=== PATIENT | male | born 1940 | race Caucasian/White ===

== ENCOUNTER 2020-07-29 14:27 | Emergency (ER) | payer MEDICARE, SELFPAY ==
--- NOTE | ~2020-07-29 | CT_ITS ---
EXAMINATION: CT HIP WITHOUT CONTRAST, LEFT CLINICAL INFORMATION: Fall with left hip pain. X-ray negative. COMPARISON: None TECHNIQUE: 2 mm thin axial and reformatted 1 mm thin sagittal and coronal images of left hip were obtained. This CT examination was performed using dose optimization techniques as appropriate, variously including the following: *Automated exposure control *Adjustment of mA and/or kV according to patient size (this includes techniques or standardized protocols for targeted exams where dose is matched to indication/reason for exam; i.e. extremities or head) *Use of iterative reconstruction technique DLP: 947 mGy-cm FINDINGS: There is anterior fusion of the left SI joint. No fracture seen involving the left sacrum or the left iliac bone. Punctate bone island seen in the left anterior iliac bone. The left hip joint space is normal. There is no visible fracture or dislocation involving the left hip joint. There is periarticular posterior spurring no abnormal joint effusion seen. However there is diffuse osteopenia in the left femoral head and proximal femur. The soft tissues are unremarkable. CT/CT hip LT wo con IMPRESSION: No visible acute fracture or dislocation left hip joint or left pelvis. Diffuse osteopenia.
--- NOTE | ~2020-07-29 | XR_ITS ---
EXAMINATION: XR SHOULDER, RIGHT CLINICAL INFORMATION: Fall COMPARISON: None TECHNIQUE: Two views of the right shoulder. FINDINGS: No fracture or dislocation. The glenohumeral joint is well aligned. Mild narrowing of the joint space with osteophyte formation. Mild hypertrophic degenerative change of the acromioclavicular joint. Minimal soft tissue calcification adjacent to the humeral greater tuberosity. The visualized ribs are intact. The right lung is clear. Status post median sternotomy. XR/XR shoulder RT min 2V IMPRESSION: Mild degenerative changes. There is possibly mild calcific tendinosis of the rotator cuff. No acute abnormality.
--- NOTE | ~2020-07-29 | XR_ITS ---
EXAMINATION: XR CHEST CLINICAL INFORMATION: Fall COMPARISON: None TECHNIQUE: Frontal view of the chest was obtained. FINDINGS: Median sternotomy wires appear intact. Lung volumes are low. Surgical clips overlie the mediastinum. Blunting at the left costophrenic angle noted. No edema. No dense consolidation. No pneumothorax. The cardiomediastinal silhouette is prominent. No acute osseous abnormality. XR/XR chest 1V IMPRESSION: Blunting of the left costophrenic angle could be associated with small pleural effusion or pleural thickening. No displaced fractures are seen.
--- NOTE | ~2020-07-29 | CT_ITS ---
EXAMINATION: HEAD AND CERVICAL SPINE CT WITHOUT CONTRAST CLINICAL INFORMATION: Fall COMPARISON: None TECHNIQUE: Axial images through the head and cervical spine without contrast. Sagittal and coronal reconstructions on the technologist workstation were performed. Patient dose 897+4-6 mg/cm. This CT examination was performed using dose optimization techniques as appropriate, variously including the following: *Automated exposure control *Adjustment of mA and/or kV according to patient size (this includes techniques or standardized protocols for targeted exams where dose is matched to indication/reason for exam; i.e. extremities or head) *Use of iterative reconstruction technique FINDINGS: Head CT: There is no evidence of an extra-axial collection. There is no evidence of intra-axial or extra-axial hemorrhage. The ventricles and extra-axial CSF spaces are prominent suggestive of generalized atrophy. There is nonspecific periventricular white matter disease. No mass, mass effect or infarct is seen. Review of bone windows demonstrates no skull fracture. Visualized paranasal sinuses, mastoid air cells and middle ears are clear. Cervical spine CT: There is slight head tilt to the right. Bone alignment is otherwise normal. No fracture or dislocation is seen. There is evidence of severe multilevel degenerative spondylosis and degenerative disc disease greatest at C4-C5 C5-C6 and C6-C7 where there is significant spinal stenosis. There is bilateral multilevel facet arthritis. There is soft tissue calcification or ossification of the posterior nodule ligament. Prevertebral soft tissues are normal. There is bilateral carotid calcification. Visualized lung apices are clear. CT/CT cervical spine wo con IMPRESSION: Head CT: No acute findings. Generalized atrophy and nonspecific periventricular white matter disease. Cervical spine: No fracture or dislocation. Severe degenerative changes.
--- NOTE | ~2020-07-29 | CT_ITS ---
EXAMINATION: CT LUMBAR SPINE WITHOUT CONTRAST CLINICAL INFORMATION: Pain. Fall. COMPARISON: None TECHNIQUE: Helical non-contrast CT images were obtained through the lumbar spine without contrast. Multiplanar reformats were rendered and reviewed. This CT examination was performed using dose optimization techniques as appropriate, variously including the following: *Automated exposure control *Adjustment of mA and/or kV according to patient size (this includes techniques or standardized protocols for targeted exams where dose is matched to indication/reason for exam; i.e. extremities or head) *Use of iterative reconstruction technique DLP: 947 mGy-cm FINDINGS: The lumbar vertebral bodies maintain normal heights. There is mild grade 1 anterolisthesis of L4 on L5. There is multilevel intervertebral disc height loss most advanced at L4-L5 and L5-S1. No acute fracture is seen. Gallbladder calculi are present. Atheromatous changes are seen throughout the abdominal aorta and branch vessels. The urinary bladder is significantly distended. The sacroiliac joints demonstrate degenerative changes with bridging osteophytes. A focus of sclerosis is seen within the right iliac bone. SPINAL LEVELS: L1-L2: No posterior disc abnormality. No spinal canal or neural foraminal stenosis. L2-L3: Disc bulging. No spinal canal or neural foraminal stenosis. L3-L4: Disc bulging with ligamentum flavum infolding. Mild to moderate bilateral neural foraminal stenosis. No spinal canal stenosis. L4-L5: Grade 1 anterolisthesis. Disc bulging with facet arthropathy resulting in severe bilateral neural foraminal stenosis with bilateral L4 nerve root compression and approximately moderate spinal canal stenosis. L5-S1: Posterior decompression changes. Disc bulging with facet arthropathy resulting in severe bilateral neural foraminal stenosis with bilateral L5 nerve root compression. CT/CT lumbar spine wo con IMPRESSION: No fracture or traumatic listhesis. Grade 1 anterolisthesis of L4 on L5. Advanced spondylotic changes seen in the lower lumbar spine with severe bilateral neural foraminal stenosis seen at the L4-L5 and L5-S1 levels. Spinal canal stenosis appears moderate at L4-L5.
--- NOTE | ~2020-07-29 | XR_ITS ---
EXAMINATION: XR HIP, LEFT CLINICAL INFORMATION: Fall COMPARISON: None TECHNIQUE: Two views of the left hip. Frontal view of the pelvis. FINDINGS: There is no fracture or dislocation. The hips are well aligned. Mild degenerative changes of both hips with narrowing and osteophyte formation. Subchondral sclerosis present. The pelvic rim is intact. The sacroiliac joints and pubic symphysis are intact. Degenerative changes of the lower lumbar spine. Vascular calcifications are noted. XR/XR hip LT min 2V IMPRESSION: No acute fracture or malalignment. Mild degenerative change.
[2020-07-29 14:36] VITALS: BP 180/88; PULSE 71; RESP 18; TEMP 37.1; O2SAT 99; BMI 27.2
--- NOTE | 2020-07-29 14:37 | ED_ITS ---
HPI - Extremity Injury (Lower) General Chief Complaint: Fall Stated Complaint: L HIP PAIN S/P EXERCISING Time Seen by Provider: 07/29/20 14:36 Source: patient and EMS Mode of arrival: EMS Limitations: no limitations History of Present Illness HPI Narrative: 80 yo male no AC therapy was doing home PT and due to parkinson's lost his balance and hit the floor no LOC - c/o pain to head/neck, R shoulder, L hip fall was prior to lunch complaint: hip injury Onset (ago): hour(s) Injury: Left: hip Type of Injury: blunt Place: home Severity: moderate Relieving factors: nothing Exacerbating factors: movement Context: fall Other symptoms: none Related Data Allergies Allergy/AdvReac Type Severity Reaction Status Date / Time No Known Allergies Allergy Unverified 01/10/20 19:02 [No Known Allergies*] Review of Systems Review of Systems: Constitutional : No Fever, No Chills ENT/Mouth : No Ear Pain, No Hoarseness, No sore throat Eyes: No Eye Pain, No Swelling, No Redness, No Foreign Body Cardiovascular : No Chest Pain, No SOB Respiratory : No Cough, No Dyspnea Gastrointestinal : No Nausea, No Vomiting, No Diarrhea, No abdominal Pain Genitourinary : No Dysuria, No Hematuria Musculoskeletal : positive joint pain, No Myalgias, No Joint Swelling Skin : No Skin lacerations, No rash Neuro : No Weakness, No Numbness, No Loss of Consciousness, No Dizziness, No Headache Psych : No Anxiety/Panic, No Depression Heme/Lymph: no easy bruising, no Lymphadenopathy Endocrine : No Polyuria, No Polydipsia All other systems reviewed and are negative [facility] Past Medical History Attestation statement: The following information was validated with the patient. Medical History Basal cell carcinoma Celiac disease CHF (congestive heart failure) Diabetic acetonemia Parkinson disease Spinal stenosis Surgical History S/P triple vessel bypass Social History Social History Alcohol intake: current Alcohol intake frequency: holidays/special occasions only Alcohol type: wine Smoking Status: Former smoker Use of substances other than those prescribed or required for medical reasons: No Advance Directives: No Advance Directives Information Provided: No Physical Exam Vital Signs: Vital Signs: Last Vital Signs Temp 98.2 F 07/29/20 16:28 Pulse 86 07/29/20 16:28 Resp 18 07/29/20 16:28 BP 186/85 H 07/29/20 16:28 Pulse Ox 97 07/29/20 16:28 Body Mass Index 27.2 Appearance: Alert. Oriented X3. No acute distress. Eyes: Pupils equal, round and reactive to light. ENT: Pharynx normal. Atraumatic Neck:mild ttp along midline Neck supple. CVS: Normal heart rate and rhythm. Pulses normal. Respiratory: No respiratory distress. Breath sounds normal. Abdomen: Soft and nontender. Skin: Skin warm and dry. Normal skin color. Normal skin turgor. Extremities: No lower extremity edema. No calf ttp full ROM of L LE distal NV intac,t no obvious deformity, c/o pain to R shoulder can range, no deformity NV intact Neuro: Oriented X 3. No motor deficit. No sensory deficit. Course Course Course Narrative: c/o pain with ambulating will need CT scan to r/o occult fracture, L hip and lumbar spine CT scan ordered signed out to Dr. Waters pending imaging MDM - Extremity Injury (Lower) MDM Narrative Medical decision making narrative: 80 yo male with mechanical fall - here with isolated injuries to head/neck R shoulder and L hip - NV intact, no preceding symptoms at this time will obtain CT head/neck given age as well as shoulder and L hip xrays, defers pain medications Discharge Plan Discharge Clinical Impression: Fall, Acute hip pain
--- NOTE | 2020-07-29 14:40 | PC.NURSE ---
pt to radiology
[2020-07-29 16:28] VITALS: BP 186/85; PULSE 86; RESP 18; TEMP 36.8; O2SAT 97
--- NOTE | 2020-07-29 16:38 | PC.NURSE ---
patient a&ox3, [place] and [place], at bedside, pt oob with assist and walker in attempts to ambulate, patient had 0/10 pain until he was standing and had c/o 10/10 pain to left lower back/buttock area, patient stated it was too painful to walk, provider at bedside, pt aware he will be going for more imaging, will continue to monitor.
[2020-07-29 18:18] VITALS: BP 194/86; PULSE 77; RESP 18; TEMP 36.8; O2SAT 97
[2020-07-29] MEDS: oxyCODONE HCl Immed Release 5 MG TABLET PO (18:19)
--- NOTE | 2020-07-29 18:20 | PC.NURSE ---
patient medicated for pain per order, vss, will continue to monitor
== END 2020-07-29 20:12 | disposition home or self-care (01) ==
PROVIDERS: Emergency Provider Emergency Medicine; PCP Family Medicine
DX: G89.11 Acute pain due to trauma (principal); M25.552 Pain in left hip; M54.5 Low back pain; G20 Parkinson's disease; Z91.81 History of falling
CPT/HCPCS: 70450; 71045; 72125; 72131; 73030; 73502; 73700; 99284

== ENCOUNTER 2021-04-30 21:10 | Inpatient (IN) | payer MEDICARE, SELFPAY ==
--- NOTE | 2021-04-30 | ECG_ITS ---
Test Reason : WEAKNESS Blood Pressure : / mmHG Vent. Rate : 043 BPM Atrial Rate : 000 BPM P-R Int : 000 ms QRS Dur : 102 ms QT Int : 464 ms P-R-T Axes : 000 -12 -28 degrees QTc Int : 392 ms Atrial fibrillation with slow ventricular response Incomplete right bundle branch block Septal infarct (cited on or before 30-SEP-2018) Abnormal ECG When compared with ECG of 30-SEP-2018 08:10, Vent. rate has decreased BY 22 BPM Referred By: Karey Schmidt Electronically Signed By:JIGNA DOCKERY MD
--- NOTE | ~2021-04-30 | XR_ITS ---
EXAMINATION: XR CHEST CLINICAL INFORMATION: Cough. COMPARISON: 07/29/2020 portable chest. TECHNIQUE: Frontal view of the chest was obtained. FINDINGS: Mild blunting of the left costophrenic angle again seen. Pleural thickening laterally in the left lung is also unchanged. The right lung is clear. The heart and mediastinal structures are unremarkable. Multilevel sternotomy wires are intact. XR/XR chest 1V IMPRESSION: Mild left pleural thickening is not significantly changed compared to the previous study suggesting chronic changes. No significant new abnormality.
--- NOTE | ~2021-04-30 | XR_ITS ---
EXAMINATION: XR HIP, RIGHT CLINICAL INFORMATION: Fall with pain and weakness COMPARISON: 07/29/2020 TECHNIQUE: Frontal view the pelvis with coned frontal and frog-leg lateral views of the right hip. FINDINGS: Femoral heads are both well-seated within the respected acetabula. I do not appreciate any cortical disruption or trabecular irregularity to suggest underlying acute fracture or dislocation. There are sclerotic bony densities seen throughout the pelvis. Etiology of these are uncertain. These are more diffuse than I would typically expect just from bone islands although some of these may represent chronic bone islands when compared to the prior studies. Clinical correlation would be helpful XR/XR hip RT w PEL1V IMPRESSION: I do not appreciate any acute fracture or dislocation. Degenerative changes in the hips and lower lumbar spine. Scattered sclerotic densities seen within the bony structures. Some of these may represent bone islands of the underlying sclerotic lesions would be difficult to exclude. Clinical correlation would be recommended
--- NOTE | ~2021-04-30 | CT_ITS ---
EXAMINATION: CT HEAD WITHOUT CONTRAST CLINICAL INFORMATION: Fall. COMPARISON: 07.29.2020 TECHNIQUE: Contiguous axial imaging was performed from the skull base to vertex without intravenous administration of contrast. This CT examination was performed using dose optimization techniques as appropriate, variously including the following: *Automated exposure control *Adjustment of mA and/or kV according to patient size (this includes techniques or standardized protocols for targeted exams where dose is matched to indication/reason for exam; i.e. extremities or head) *Use of iterative reconstruction technique DLP: 1579 mGy-cm FINDINGS: There is no evidence of acute intracranial hemorrhage or territorial infarction. No abnormal mass effect or midline shift is seen. Wen to white matter differentiation is well preserved. No extra-axial fluid collections are identified. Generalized brain parenchymal volume loss. No disproportionate ventriculomegaly. Mild patchy subcortical and periventricular white matter low-attenuation changes redemonstrated, statistically related to chronic small vessel ischemic disease. Stable coarse calcification within the right consuelo, nonspecific. Cavernous carotid calcifications. The osseous structures and soft tissues are normal. The mastoid air cells and visualized portions of the paranasal sinuses are well aerated. CT/CT head/brain wo con IMPRESSION: No acute intracranial pathology.
--- NOTE | ~2021-04-30 | CT_ITS ---
EXAMINATION: CT ABDOMEN AND PELVIS WITHOUT CONTRAST CLINICAL INFORMATION: Fall. Right lower extremity weakness. COMPARISON: 09/30/2018 TECHNIQUE: Multidetector volumetric imaging was performed from the superior aspect of the liver through the pubic symphysis. Sagittal and coronal reformatted images were obtained on the technologist's workstation. This CT examination was performed using dose optimization techniques as appropriate, variously including the following: *Automated exposure control *Adjustment of mA and/or kV according to patient size (this includes techniques or standardized protocols for targeted exams where dose is matched to indication/reason for exam; i.e. extremities or head) *Use of iterative reconstruction technique DLP: 1579 mGy-cm FINDINGS: LUNG BASES: Small chronic left pleural effusion and accompanying smooth pleural thickening. There is also now a small right pleural effusion, also with smooth pleural thickening, both suggesting chronicity. Mild bronchiectatic changes within the lower lungs with accompanying bronchial wall thickening. Triple vessel coronary calcifications. LIVER, GALLBLADDER, AND BILIARY TREE: The liver is normal in size, shape, and attenuation. No focal hepatic lesion or biliary ductal dilatation is present. Cholelithiasis. PANCREAS: Unremarkable. SPLEEN: Unremarkable. ADRENAL GLANDS: Unremarkable. KIDNEYS AND URETERS: The kidneys are normal in size, shape, and attenuation. No hydronephrosis, hydroureter, or calculi seen. No perinephric stranding. BLADDER: Unremarkable. GASTROINTESTINAL TRACT: No bowel related abnormalities. ABDOMINAL WALL: No hernias. Anasarca. LYMPH NODES: Normal. VASCULAR: Aorta is atherosclerotic but normal caliber. PELVIC VISCERA: Unremarkable. OSSEOUS STRUCTURES: No acute or suspicious osseous abnormalities. Severe degenerative changes present throughout the imaged spine. Posterior laminectomy at L5. Moderate bilateral hip arthrosis. CT/CT abdomen pelvis wo con IMPRESSION: * No acute findings within the abdomen or pelvis. * Cholelithiasis. * Mild anasarca. * Small bilateral pleural effusions, likely chronic Fleischner guidelines were followed.
[2021-04-30 21:19] VITALS: BP 139/80; PULSE 52; O2SAT 96
[2021-04-30 21:30] VITALS: BP 178/86; PULSE 50; RESP 18; TEMP 36.4; O2SAT 98; BMI 27.1
[2021-04-30 21:40] VITALS: BP 175/58; PULSE 55; RESP 20; TEMP 37.1; O2SAT 96
--- NOTE | 2021-04-30 21:51 | ED_ITS ---
HPI - Weakness General Chief complaint: Weakness Stated complaint: weakness Time Seen by Provider: 04/30/21 21:51 Source: patient Mode of arrival: EMS History of Present Illness HPI Narrative: 81-year-old male with multiple medical comorbidities presents via EMS after 2 falls earlier in the day without head strike and patient is not on blood thinners and says that he was fine until later on this evening when his helped him change for bed, he stood to use his walker but then states that he was unable to walk over to his recliner due to decreased ability to move the right lower extremity. Patient otherwise has full range of motion in both lower extremities when lying flat in bed. Patient reports that he is receive the COVID-19 vaccine as well as the booster, Moderna. Related Data Home Medications Medication Instructions Recorded Confirmed aspirin 81 mg tablet 81 mg PO DAILY 05/01/21 05/01/21 carbidopa 100 mg PO BID 05/01/21 05/01/21 carbidopa 25 mg-levodopa 100 mg 2 tab PO 5XD 05/01/21 05/01/21 tablet carvedilol 25 mg tablet 1 tab PO BID 05/01/21 05/01/21 digoxin 125 mcg (0.125 mg) tablet 125 mcg PO DAILY 05/01/21 05/01/21 doxazosin 4 mg tablet 1 tab PO DAILY 05/01/21 05/01/21 dulaglutide 1.5 mg/0.5 mL 1.5 mg SUBCUT QWEEK 05/01/21 05/01/21 subcutaneous pen injector (Trulicity) furosemide 80 mg tablet 1 tab PO DAILY 05/01/21 05/01/21 lisinopril 40 mg tablet 1 tab PO DAILY 05/01/21 05/01/21 metformin 1,000 mg tablet 2 tab PO BID 05/01/21 05/01/21 simvastatin 20 mg tablet 1 tab PO BEDTIME 05/01/21 05/01/21 spironolactone 25 mg tablet 1 tab PO DAILY 05/01/21 05/01/21 Allergies Allergy/AdvReac Type Severity Reaction Status Date / Time No Known Allergies Allergy Verified 05/01/21 01:19 [No Known Allergies*] Review of Systems Review of Systems: Pertinent positives and negatives as stated in HPI 10 point review of systems is otherwise negative. PMFSH Past Medical History Source: nursing notes reviewed Medical History Basal cell carcinoma Celiac disease CHF (congestive heart failure) Diabetic acetonemia Parkinson disease Spinal stenosis Surgical History S/P triple vessel bypass Social History Social History Alcohol intake: current Alcohol intake frequency: holidays/special occasions only Alcohol type: wine Advance Directives: No Advance Directives Information Provided: Yes Physical Exam Vital Signs: Vital Signs: Last Vital Signs Temp 97.5 F 05/01/21 01:50 Pulse 81 05/01/21 01:50 Resp 22 H 05/01/21 01:50 BP 197/81 H 05/01/21 01:50 Pulse Ox 97 05/01/21 01:50 BMI result Body Mass Index 27.1 VITAL SIGNS: Reviewed. GENERAL: Well developed, well nourished, in no acute distress. HEAD: Normocephalic/atraumatic EYES: PERRLA, EOMI intact without pain, no nystagmus EARS: Ext canals without abnormality OROPHARYNX: no oral lesions noted, posterior pharynx clear NECK: Supple, no adenopathy LUNGS: Normal breath sounds. No adventitious sounds or accessory muscle use. SpO2<96> CARDIOVASCULAR: Regular rate and rhythm without noted murmurs, no JVD or lower extremity edema. ABDOMEN: Soft, non-tender, non-distended with bowel sounds. BACK: No midline vertebral tenderness, step-offs, ecchymosis noted. PELVIS: Pelvis is stable and nontender MUSCULOSKELETAL: No tenderness, deformities, or effusions noted on gross inspection. EXTREMITIES: No cyanosis, clubbing or edema, palpable DP/PT and sensation is intact SKIN: Inspection of the skin reveals no rashes NEUROLOGIC: Alert and oriented x 4. Strength and sensation to light touch were grossly intact x 4 Course Course Course Narrative: 81-year-old male with history and clinical presentation likely secondary to progressive deconditioning, will attempt to rule out fractures, low clinical suspicion for cauda equina, and will evaluate for evidence of infection or anemia. Review of all investigations without acute findings other than unexplained significant PTT prolongation of 63.8 and taken together with patient's fall history concerning for increase risk of bleed. Review of imaging is otherwise negative for acute findings that may better explain patient's weakness in the right lower extremity. This case was discussed with the inpatient hospitalist who accepts admission. MDM - Weakness Lab Data Result diagrams: 04/30/21 21:58 04/30/21 21:58 Labs: Lab Results 04/30/21 04/30/21 04/30/21 Range/Units 21:58 21:58 21:58 WBC 13.5 H (4.8-10.8) X10*3/uL RBC 3.66 L (4.60-5.80) X10*6/uL Hgb 12.5 L (14.0-18.0) g/dl Hct 37.7 L (42.0-52.0) % MCV 103.0 H (80.0-98.0) fL MCH 34.2 H (27.0-33.0) pg MCHC 33.2 (31.0-36.0) g/dl RDW 13.8 (11.0-16.0) % Plt Count 135 L (160-400) X10*3/uL MPV 12.1 (9.4-12.4) fL Immature Gran % (Auto) 1.1 H (0.0-0.4) % Neut % (Auto) 78.7 H (45-73) % Lymph % (Auto) 9.6 L (20-40) % Garden % (Auto) 7.3 (2-11) % Eos % (Auto) 3.0 (0-4) % Baso % (Auto) 0.3 (0-2) % Lymph # (Auto) 1.3 (1.2-4.9) X10*3/uL Garden # (Auto) 1.0 (0.1-1.2) X10*3/uL Eos # (Auto) 0.4 (0.0-0.4) X10*3/uL Baso # (Auto) 0.0 (0.0-0.2) X10*3/uL Abs Immat Gran (auto) 0.15 H (0.00-0.03) X10*3/uL Absolute Neuts (auto) 10.6 H (2.0-8.3) x10*3/uL Absolute Nucleated RBC 0.000 (0.0-0.012) X10*3/uL Nucleated RBC % (auto) 0.0 (0.0-0.2) /100WBC PT 13.8 H (9.9-13.0) SEC INR 1.2 H (0.9-1.1) APTT 63.8 H* (24.1-38.0) SEC Sodium 142 (135-145) mmol/L Potassium 5.0 (3.3-5.1) mmol/L Chloride 107 (96-108) mmol/L Carbon Dioxide 27 (22-29) mmol/L Anion Gap 13 (12-20) BUN 26 H (9-16) mg/dL Creatinine 1.38 (0.5-1.4) mg/dL Estim Creat Clear Calc 47.6 Estimated GFR 50 Random Glucose 236 H (60-115) mg/dL Calcium 9.4 (8.4-10.2) mg/dL Magnesium 2.2 (1.6-2.6) mg/dL Total Bilirubin 1.0 (0.0-1.0) mg/dL AST 17 (5-37) U/L ALT 7 (0-40) U/L Alkaline Phosphatase 160 H (39-117) U/L Troponin I High Sens (<3.5-35.0) ng/L B-Natriuretic Peptide (<100) pg/mL Total Protein 6.6 (6.5-8.0) g/dL Albumin 3.8 (3.5-5.0) g/dL Urine Color Urine Appearance Urine pH (5.0-8.0) Ur Specific [place] (1.005-1.025) Urine Protein (NEG-TRACE) MG/DL Urine Glucose (UA) (NEG) MG/DL Urine Ketones (NEG) MG/DL Urine Blood (NEG) Urine Nitrite (NEG) Ur Leukocyte Esterase (NEG) Urine RBC (0) /HPF Urine WBC (0-4) /HPF Ur Squamous Epith Cells /LPF Urine Bacteria /LPF Granular Casts /LPF Urine Mucus /LPF COVID-19 (CARMELLA) (Negative) COVID-19 Clin Com 04/30/21 04/30/21 04/30/21 Range/Units 21:58 21:58 21:58 WBC (4.8-10.8) X10*3/uL RBC (4.60-5.80) X10*6/uL Hgb (14.0-18.0) g/dl Hct (42.0-52.0) % MCV (80.0-98.0) fL MCH (27.0-33.0) pg MCHC (31.0-36.0) g/dl RDW (11.0-16.0) % Plt Count (160-400) X10*3/uL MPV (9.4-12.4) fL Immature Gran % (Auto) (0.0-0.4) % Neut % (Auto) (45-73) % Lymph % (Auto) (20-40) % Garden % (Auto) (2-11) % Eos % (Auto) (0-4) % Baso % (Auto) (0-2) % Lymph # (Auto) (1.2-4.9) X10*3/uL Garden # (Auto) (0.1-1.2) X10*3/uL Eos # (Auto) (0.0-0.4) X10*3/uL Baso # (Auto) (0.0-0.2) X10*3/uL Abs Immat Gran (auto) (0.00-0.03) X10*3/uL Absolute Neuts (auto) (2.0-8.3) x10*3/uL Absolute Nucleated RBC (0.0-0.012) X10*3/uL Nucleated RBC % (auto) (0.0-0.2) /100WBC PT (9.9-13.0) SEC INR (0.9-1.1) APTT (24.1-38.0) SEC Sodium (135-145) mmol/L Potassium (3.3-5.1) mmol/L Chloride (96-108) mmol/L Carbon Dioxide (22-29) mmol/L Anion Gap (12-20) BUN (9-16) mg/dL Creatinine (0.5-1.4) mg/dL Estim Creat Clear Calc Estimated GFR Random Glucose (60-115) mg/dL Calcium (8.4-10.2) mg/dL Magnesium (1.6-2.6) mg/dL Total Bilirubin (0.0-1.0) mg/dL AST (5-37) U/L ALT (0-40) U/L Alkaline Phosphatase (39-117) U/L Troponin I High Sens < 3.5 (<3.5-35.0) ng/L B-Natriuretic Peptide 331 H (<100) pg/mL Total Protein (6.5-8.0) g/dL Albumin (3.5-5.0) g/dL Urine Color Urine Appearance Urine pH (5.0-8.0) Ur Specific [place] (1.005-1.025) Urine Protein (NEG-TRACE) MG/DL Urine Glucose (UA) (NEG) MG/DL Urine Ketones (NEG) MG/DL Urine Blood (NEG) Urine Nitrite (NEG) Ur Leukocyte Esterase (NEG) Urine RBC (0) /HPF Urine WBC (0-4) /HPF Ur Squamous Epith Cells /LPF Urine Bacteria /LPF Granular Casts /LPF Urine Mucus /LPF COVID-19 (CARMELLA) Negative (Negative) COVID-19 Clin Com See Note 04/30/21 Range/Units 22:22 WBC (4.8-10.8) X10*3/uL RBC (4.60-5.80) X10*6/uL Hgb (14.0-18.0) g/dl Hct (42.0-52.0) % MCV (80.0-98.0) fL MCH (27.0-33.0) pg MCHC (31.0-36.0) g/dl RDW (11.0-16.0) % Plt Count (160-400) X10*3/uL MPV (9.4-12.4) fL Immature Gran % (Auto) (0.0-0.4) % Neut % (Auto) (45-73) % Lymph % (Auto) (20-40) % Garden % (Auto) (2-11) % Eos % (Auto) (0-4) % Baso % (Auto) (0-2) % Lymph # (Auto) (1.2-4.9) X10*3/uL Garden # (Auto) (0.1-1.2) X10*3/uL Eos # (Auto) (0.0-0.4) X10*3/uL Baso # (Auto) (0.0-0.2) X10*3/uL Abs Immat Gran (auto) (0.00-0.03) X10*3/uL Absolute Neuts (auto) (2.0-8.3) x10*3/uL Absolute Nucleated RBC (0.0-0.012) X10*3/uL Nucleated RBC % (auto) (0.0-0.2) /100WBC PT (9.9-13.0) SEC INR (0.9-1.1) APTT (24.1-38.0) SEC Sodium (135-145) mmol/L Potassium (3.3-5.1) mmol/L Chloride (96-108) mmol/L Carbon Dioxide (22-29) mmol/L Anion Gap (12-20) BUN (9-16) mg/dL Creatinine (0.5-1.4) mg/dL Estim Creat Clear Calc Estimated GFR Random Glucose (60-115) mg/dL Calcium (8.4-10.2) mg/dL Magnesium (1.6-2.6) mg/dL Total Bilirubin (0.0-1.0) mg/dL AST (5-37) U/L ALT (0-40) U/L Alkaline Phosphatase (39-117) U/L Troponin I High Sens (<3.5-35.0) ng/L B-Natriuretic Peptide (<100) pg/mL Total Protein (6.5-8.0) g/dL Albumin (3.5-5.0) g/dL Urine Color YELLOW Urine Appearance CLEAR Urine pH 6.0 (5.0-8.0) Ur Specific [place] 1.025 (1.005-1.025) Urine Protein 2+ H (NEG-TRACE) MG/DL Urine Glucose (UA) NEG (NEG) MG/DL Urine Ketones 5 (NEG) MG/DL Urine Blood NEG (NEG) Urine Nitrite NEG (NEG) Ur Leukocyte Esterase NEG (NEG) Urine RBC 1-4 (0) /HPF Urine WBC 1-4 (0-4) /HPF Ur Squamous Epith Cells 1+ /LPF Urine Bacteria 1+ /LPF Granular Casts 1-4 /LPF Urine Mucus 1+ /LPF COVID-19 (CARMELLA) (Negative) COVID-19 Clin Com ECG Data Attestation: I personally reviewed and interpreted this ECG as follows: Prior ECG tracings: available for review (09/30/2018) Interpretation: Atrial fibrillation, HR -43, no STEMI, QRS/QTC are within normal limits. Critical Care Time Critical Care Time Critical Care Time: Yes Total Critical Care Time: 30 Attestation: I personally attest to this time spent taking care of the patient. Discharge Plan Discharge Clinical Impression: Prolonged PTT, Physical deconditioning, Fall, Elevated brain natriuretic peptide (BNP) level, Chronic bilateral pleural effusions Patient Disposition: Admitted As Inpatient
[2021-04-30 22:05] LABS: MANUAL DIFF FLAG NO
[2021-04-30 22:12] LABS: Basophils Percent Auto 0.3 % (0-2); Eosinophils Absolute Auto 0.4 X10*3/uL (0.0-0.4); Hematocrit 37.7 % (42.0-52.0); Hemoglobin 12.5 g/dl (14.0-18.0); Imm Gran Abs Auto 0.15 X10*3/uL (0.00-0.03); Imm Gran Pct Auto 1.1 % (0.0-0.4); Lymphocytes Absolute Auto 1.3 X10*3/uL (1.2-4.9); Lymphocytes Percent Auto 9.6 % (20-40); Mean Corpuscular HGB Conc 33.2 g/dl (31.0-36.0); Mean Corpuscular Hemoglobin 34.2 pg (27.0-33.0); Mean Platelet Volume 12.1 fL (9.4-12.4); Monocytes Percent Auto 7.3 % (2-11); Neutrophils Absolute Auto 10.6 x10*3/uL (2.0-8.3); Neutrophils Percent Auto 78.7 % (45-73); Platelet Count 135 X10*3/uL (160-400); Red Blood Count 3.66 X10*6/uL (4.60-5.80); Red Cell Distribution Width 13.8 % (11.0-16.0); White Blood Count 13.5 X10*3/uL (4.8-10.8)
[2021-04-30 22:27] LABS: COVID-19 Test Negative (Negative)
[2021-04-30 22:28] LABS: Alanine Aminotransferase 7 U/L (0-40); Albumin Level 3.8 g/dL (3.5-5.0); Alkaline Phosphatase 160 U/L (39-117); Anion Gap 13 (12-20); Aspartate Amino Transferase 17 U/L (5-37); Blood Urea Nitrogen 26 mg/dL (9-16); Calcium 9.4 mg/dL (8.4-10.2); Carbon Dioxide 27 mmol/L (22-29); Chloride 107 mmol/L (96-108); Creatinine Clr Calc Pharmacy 47.6; Estimated Glomerular Filt Rate 50; Glucose Random 236 mg/dL (60-115); Sodium 142 mmol/L (135-145); Total Protein 6.6 g/dL (6.5-8.0)
[2021-04-30 22:29] LABS: Appearance Urine CLEAR; Color Urine YELLOW; Glucose Urine UA NEG (NEG); Leukocyte Esterase Urine NEG (NEG); Nitrite Urine NEG (NEG); Specific Gravity - Urine 1.025 (1.005-1.025); UACC Culture Trigger NO; Urine Blood NEG (NEG); Urine Ketones 5 MG/DL (NEG); Urine Protein 2+ MG/DL (NEG-TRACE)
[2021-04-30 22:35] LABS: B Type Natriuretic Peptide 331 pg/mL (<100)
[2021-04-30 22:40] LABS: INTERNATIONAL NORM RATIO 1.2 (0.9-1.1); Prothrombin Time 13.8 SEC (9.9-13.0)
[2021-04-30 22:48] LABS: Partial Thromboplastin Time 63.8 SEC (24.1-38.0)
[2021-04-30 23:06] LABS: Bacteria Urine 1+ /LPF; Squamous Epithelial Cell Urine 1+ /LPF
[2021-04-30 23:07] LABS: Mucus Urine 1+ /LPF
[2021-05-01] VITALS (9 sets, daily range): BP systolic 137–200; BP diastolic 72–92; PULSE 67–83; RESP 12–24; TEMP 36.3–36.9; O2SAT 94–97
[2021-05-01 00:05] LABS: Troponin-I High Sensitivity < 3.5 ng/L (<3.5-35.0)
[2021-05-01 00:08] LABS: Magnesium 2.2 mg/dL (1.6-2.6)
[2021-05-01] MEDS: carvediloL 25 MG TABLET PO (04:56)
--- NOTE | 2021-05-01 04:56 | PC.NURSE ---
per nino, give coreg early for bp
[2021-05-01] MEDS: oxyCODONE HCl Immed Release 5 MG TABLET PO (05:14)
[2021-05-01] MEDS: Carbidopa/Levodopa 25/100 TABLET 2 TAB PO ×3 (06:11→13:28)
--- NOTE | 2021-05-01 06:34 | PC.NURSE ---
This RN spoke with pt's , provided update. Pt was medicated, as reflected in MAR, for c/o bilateral shoulder pain. Pt BP is trending down s/p coreg, pt still to receive AM doses of other anti-HTN meds as ordered. Pt resting with eyes closed in between care, RR even and unlabored, VSS. Pt's stretcher in lowest locked position, rails raised, call gutierrez within reach. Pt urinal at bedside.
[2021-05-01] MEDS: Doxazosin Mesylate 2 MG TABLET 4 MG PO (09:57)
[2021-05-01] MEDS: lisinopriL 40 MG TABLET PO (09:58)
[2021-05-01] MEDS: Spironolactone 25 MG TABLET PO (09:58)
[2021-05-01] MEDS: metFORMIN HCl 1,000 MG TABLET 1000 MG PO (09:58)
[2021-05-01] MEDS: Furosemide 40 MG TABLET 80 MG PO (09:58)
[2021-05-01] MEDS: Digoxin 0.125 MG TABLET PO (09:59)
[2021-05-01] MEDS: Aspirin 81 MG TAB.CHEW PO (09:59)
--- NOTE | 2021-05-01 11:04 | P.HPHOSP_ITS ---
History of Present Illness Date of Service: 05/01/21 Attending physician on admission: Ryan Miller Chief Complaint: fall This is a 81-year-old male who presents to the emergency department after fall. He was in his usual state of health when he was getting food out of the refrigerator yesterday. He turned to put the food on the counter and lost his balance falling to the floor. He denies any dizziness, chest pain, palpitations prior to his fall. He was able to roll over and crawl on his knees but was unable to stand up. His called 911 and the fire department was able to lif t him up. He did not come to the hospital at that time. Later in the day he was sitting down but was unable to stand up out of his chair. Again he denied any dizziness, chest pain, palpitations. He did not notice any weakness in 1 leg or the other but just overall felt that his legs were not strong enough to push in up. This time he was brought to the hospital for evaluation. Lab work was significant for leukocytosis of 13.5. INR was 1.2, PTT 63.8. Brain CT showed no acute intracranial pathology. CT scan of the abdomen and pelvis showed no acute findings. Hip and pelvis x-ray showed no evidence of fracture. EKG showed slow atrial fibrillation with a heart rate in the 40s. There was some concern that the patient exhibited right lower extremity weakness therefore the decision was made to keep him overnight for observation. COVID vaccination status-patient reports Moderna vaccination x2 +Booster Review of Systems Review of Systems: Yes all other systems are reviewed and are negative Constitutional: Constitutional: Denies chills and Denies fever(s) Cardiovascular: Cardiovascular: Denies chest pain Respiratory: Respiratory: Denies cough Gastrointestinal: Gastrointestinal: Denies abdominal pain [facility] Medical History (Updated 05/01/21 @ 11:19 by OKSANA Palma) Atrial fibrillation Basal cell carcinoma Celiac disease CHF (congestive heart failure) Diabetes Parkinson disease Spinal stenosis Functional capacity: uses cane/walker Family History (Updated 05/01/21 @ 11:20 by OKSANA Palma) Mother Valvular heart disease Surgical History S/P triple vessel bypass Social History (Updated 05/01/21 @ 11:21 by OKSANA Palma) Household Members: Spouse Alcohol intake: never Patient Tobacco Use Status: Never used Tobacco Use of substances other than those prescribed or required for medical reasons: No Advance Directives: No Advance Directives Information Provided: Yes Meds Allergies Allergy/AdvReac Type Severity Reaction Status Date / Time No Known Allergies Allergy Verified 05/01/21 01:19 [No Known Allergies*] Active Medications: Current Medications Acetaminophen (Acetaminophen 325 Mg Tablet) 650 mg PO Q6H PRN PRN Reason: Pain, Mild (Pain Scale 1-3) Aspirin (Aspirin 81 Mg Tab.Chew) 81 mg PO DAILY [facility] Last Admin: 05/01/21 09:59 Dose: 81 mg Documented by: Atorvastatin Calcium (Atorvastatin Calcium 10 Mg Tablet) 10 mg PO BEDTIME [facility] Carbidopa/Levodopa (Carbidopa/Levodopa 25/100 Tablet) 2 tab PO 5XD [facility] Last Admin: 05/01/21 06:11 Dose: 2 tab Documented by: Carvedilol (Carvedilol 25 Mg Tablet) 25 mg PO BID [facility]; Protocol Last Admin: 05/01/21 04:56 Dose: 25 mg Documented by: Digoxin (Digoxin 0.125 Mg Tablet) 0.125 mg PO DAILY [facility] Last Admin: 05/01/21 09:59 Dose: 0.125 mg Documented by: Docusate Sodium (Docusate Sodium 100 Mg Capsule) 100 mg PO DAILY PRN PRN Reason: Constipation Doxazosin Mesylate (Doxazosin Mesylate 2 Mg Tablet) 4 mg PO DAILY [facility]; Protocol Last Admin: 05/01/21 09:57 Dose: 4 mg Documented by: Furosemide (Furosemide 40 Mg Tablet) 80 mg PO DAILY [facility]; Protocol Last Admin: 05/01/21 09:58 Dose: 80 mg Documented by: Lisinopril (Lisinopril 40 Mg Tablet) 40 mg PO DAILY [facility]; Protocol Last Admin: 05/01/21 09:58 Dose: 40 mg Documented by: Metformin HCl (Metformin Hcl 1,000 Mg Tablet) 1,000 mg PO BID [facility] Last Admin: 05/01/21 09:58 Dose: 1,000 mg Documented by: Non-Formulary Medication (Carbidopa) 100 mg PO BID [facility] Ondansetron HCl (Ondansetron Hcl 4 Mg/2 Ml Vial) 4 mg IVPUSH Q8H PRN PRN Reason: Nausea and Vomiting Sodium Chloride (0.9 % Sodium Chloride Flush 3 Ml Syringe) [facility] Spironolactone (Spironolactone 25 Mg Tablet) 25 mg PO DAILY [facility]; Protocol Last Admin: 05/01/21 09:58 Dose: 25 mg Documented by: Home Medications Medication Instructions Recorded Confirmed Last Taken Type aspirin 81 mg tablet 81 mg PO DAILY 05/01/21 05/01/21 Unknown History carbidopa 100 mg PO BID 05/01/21 05/01/21 Unknown History carbidopa 25 mg-levodopa 100 mg 2 tab PO 5XD 05/01/21 05/01/21 Unknown History tablet carvedilol 25 mg tablet 1 tab PO BID 05/01/21 05/01/21 Unknown History digoxin 125 mcg (0.125 mg) tablet 125 mcg PO DAILY 05/01/21 05/01/21 Unknown History doxazosin 4 mg tablet 1 tab PO DAILY 05/01/21 05/01/21 Unknown History dulaglutide 1.5 mg/0.5 mL 1.5 mg SUBCUT QWEEK 05/01/21 05/01/21 Unknown History subcutaneous pen injector (Trulicity) furosemide 80 mg tablet 1 tab PO DAILY 05/01/21 05/01/21 Unknown History lisinopril 40 mg tablet 1 tab PO DAILY 05/01/21 05/01/21 Unknown History metformin 1,000 mg tablet 1 tab PO BID 05/01/21 05/01/21 Unknown History simvastatin 20 mg tablet 1 tab PO BEDTIME 05/01/21 05/01/21 Unknown History spironolactone 25 mg tablet 1 tab PO DAILY 05/01/21 05/01/21 Unknown History Physical Exam Vital Signs and Narrative: Vital Signs: Last Vital Signs Temp 97.3 F 05/01/21 08:53 Pulse 70 05/01/21 08:53 Resp 12 05/01/21 08:53 BP 179/82 H 05/01/21 08:53 Pulse Ox 95 05/01/21 08:53 BMI result Body Mass Index 27.1 Const: General: cooperative, comfortable, no acute distress, alert and awake Nutritional Appearance: well nourished Orientation/consciousness: patient oriented x3 HENMT: Head: Yes normocephalic and Yes atraumatic Eyes: Sclerae: sclerae normal Pupils: Equal, round and reactive pupils present Resp: Effort & Inspection: normal respiratory effort, able to speak in complete sentences and no respiratory distress Cardio: Rate: regular rate Rhythm: abnormal rhythm irregularly irregular GI: Inspection: No distended Palpation (GI): Soft to palpation and nontender Neuro: General: patient oriented x3 Cranial nerves: Yes CN's II-XII intact bilaterally, Yes Equal, round and reactive pupils present and Yes Bilaterally intact EOM present Extrem: Other: trace edema Results Labs CBC and Chem 7: 04/30/21 21:58 04/30/21 21:58 Labs: Laboratory Results - last 24 hr 04/30/21 04/30/21 04/30/21 21:58 21:58 21:58 MCV 103.0 H MCH 34.2 H MCHC 33.2 RDW 13.8 Plt Count 135 L MPV 12.1 Immature Gran % (Auto) 1.1 H Neut % (Auto) 78.7 H Lymph % (Auto) 9.6 L [place] % (Auto) 7.3 Eos % (Auto) 3.0 Baso % (Auto) 0.3 Lymph # (Auto) 1.3 [place] # (Auto) 1.0 Eos # (Auto) 0.4 Baso # (Auto) 0.0 Abs Immat Gran (auto) 0.15 H Absolute Neuts (auto) 10.6 H Absolute Nucleated RBC 0.000 Nucleated RBC % (auto) 0.0 PT 13.8 H INR 1.2 H APTT 63.8 H* Anion Gap 13 Estim Creat Clear Calc 47.6 Estimated GFR 50 Random Glucose 236 H Calcium 9.4 Magnesium 2.2 Total Bilirubin 1.0 AST 17 ALT 7 Alkaline Phosphatase 160 H Troponin I High Sens B-Natriuretic Peptide Total Protein 6.6 Albumin 3.8 Urine Color Urine Appearance Urine pH Ur Specific [place] Urine Protein Urine Glucose (UA) Urine Ketones Urine Blood Urine Nitrite Ur Leukocyte Esterase Urine RBC Urine WBC Ur Squamous Epith Cells Urine Bacteria Granular Casts Urine Mucus COVID-19 (CARMELLA) COVID-19 Clin Com 04/30/21 04/30/21 04/30/21 21:58 21:58 21:58 MCV MCH MCHC RDW Plt Count MPV Immature Gran % (Auto) Neut % (Auto) Lymph % (Auto) [place] % (Auto) Eos % (Auto) Baso % (Auto) Lymph # (Auto) [place] # (Auto) Eos # (Auto) Baso # (Auto) Abs Immat Gran (auto) Absolute Neuts (auto) Absolute Nucleated RBC Nucleated RBC % (auto) PT INR APTT Anion Gap Estim Creat Clear Calc Estimated GFR Random Glucose Calcium Magnesium Total Bilirubin AST ALT Alkaline Phosphatase Troponin I High Sens < 3.5 B-Natriuretic Peptide 331 H Total Protein Albumin Urine Color Urine Appearance Urine pH Ur Specific [place] Urine Protein Urine Glucose (UA) Urine Ketones Urine Blood Urine Nitrite Ur Leukocyte Esterase Urine RBC Urine WBC Ur Squamous Epith Cells Urine Bacteria Granular Casts Urine Mucus COVID-19 (CARMELLA) Negative COVID-19 Clin Com See Note 04/30/21 22:22 MCV MCH MCHC RDW Plt Count MPV Immature Gran % (Auto) Neut % (Auto) Lymph % (Auto) [place] % (Auto) Eos % (Auto) Baso % (Auto) Lymph # (Auto) [place] # (Auto) Eos # (Auto) Baso # (Auto) Abs Immat Gran (auto) Absolute Neuts (auto) Absolute Nucleated RBC Nucleated RBC % (auto) PT INR APTT Anion Gap Estim Creat Clear Calc Estimated GFR Random Glucose Calcium Magnesium Total Bilirubin AST ALT Alkaline Phosphatase Troponin I High Sens B-Natriuretic Peptide Total Protein Albumin Urine Color YELLOW Urine Appearance CLEAR Urine pH 6.0 Ur Specific [place] 1.025 Urine Protein 2+ H Urine Glucose (UA) NEG Urine Ketones 5 Urine Blood NEG Urine Nitrite NEG Ur Leukocyte Esterase NEG Urine RBC 1-4 Urine WBC 1-4 Ur Squamous Epith Cells 1+ Urine Bacteria 1+ Granular Casts 1-4 Urine Mucus 1+ COVID-19 (CARMELLA) COVID-19 Clin Com Imaging Radiologist's Impressions: Impressions Chest X-Ray 04/30/21 22:35 IMPRESSION: Mild left pleural thickening is not significantly changed compared to the previous study suggesting chronic changes. No significant new abnormality. Hip/Pelvis X-Ray 04/30/21 22:35 IMPRESSION: I do not appreciate any acute fracture or dislocation. Degenerative changes in the hips and lower lumbar spine. Scattered sclerotic densities seen within the bony structures. Some of these may represent bone islands of the underlying sclerotic lesions would be difficult to exclude. Clinical correlation would be recommended Abdomen/Pelvis CT 05/01/21 00:45 IMPRESSION: * No acute findings within the abdomen or pelvis. * Cholelithiasis. * Mild anasarca. * Small bilateral pleural effusions, likely chronic Fleischner guidelines were followed. Head CT 05/01/21 00:45 IMPRESSION: No acute intracranial pathology. Assessment and Plan (1) Bradycardia: Status: Acute (2) Fall: Status: Acute this is a 81-year-old male with history of atrial fibrillation on anticoagulation, Parkinson's disease, diabetes, CAD status post CABG who presents to the emergency department after mechanical fall generalized weakness unable to stand after fall, no syncope or near syncope no focal neuro deficits, brain CT negative possible related to bradycardia. HR has since improved will observe overnight on tele. hold coreg for now PT eval for safe dispo leukocytosis no obvious source of infection at this time probably reactive cxr, ua negative chronic atrial fibrillation HR in 40s on initial EKG, HR now improved will hold coreg evening dose, monitor HR continue digoxin not on AC due to h/o GI bleeding thrombocytopenia appears chronic follow CBC CKD3 renal function at baseline HLD continue statin parkinsons disease continue sinemet DM hold metformin SSI, pocs CAD continue asa, statin bb on hold for bradycardia Chronic heart failure no echo in system to determine EF no acute exacerbation continue lasix and aldactone HTN continue lisinopril dvt ppx - mechanical devices code - DNR endorses as HCP attending - Dr. Miller Quality Stroke Does the patient have a stroke diagnosis?: No VTE Prior VTE?: No VTE Risk Level:: Medical - moderate - high VTE Device Contraindication: N/A - Device Ordered VTE Drug Contraindication: Treatment Not Indicated
--- NOTE | 2021-05-01 11:27 | PC.NURSE ---
patient a&ox3, c/o bottocks pain from positioning on bed, pt turn/position to comfort, monitoring tech intact, vitals stable-pt hypertensive, call gutierrez within reach, will continue to monitor.
[2021-05-01 12:31] LABS: Glucose, Whole Blood 158 mg/dL (60-115)
[2021-05-01] MEDS: Insulin Lispro 100 UNIT/ML 3 ML VIAL SUBCUT ×3 (13:21→21:50)
--- NOTE | 2021-05-01 13:29 | PC.NURSE ---
patient a&o, conveyor monitor intact, pt sitting up eating lunch, no c/o pain or discomfort at this time, pt medicated per order, will continue to monitor.
--- NOTE | 2021-05-01 15:57 | PHA.MEDREC ---
Pharmacy Consult ? Medication Reconciliation Pharmacy has completed the medication reconciliation. List in patients chart which matched claim history. RN completed med rec and pharmacy reviewed. Multiple home meds changed and contacted.
--- NOTE | 2021-05-01 16:00 | PC.NURSE ---
patient awake/alert, store stock help intact 60-70, pt [place], no c/o pain or discomfort, call gutierrez within reach, will continue to monitor.
--- NOTE | 2021-05-01 16:10 | PC.NURSE ---
PATIENT WAS INCONTINENT OF URINE ,PATIENT RECEIVED YASSINE . CARE ,BEDDING WAS CHANGE ,RN MARCO A IS AWARE OF OPEN ARE ON PATIENT COCCYX
[2021-05-01 16:19] LABS: Glucose, Whole Blood 192 mg/dL (60-115)
--- NOTE | 2021-05-01 17:48 | PC.NURSE ---
patient awake/alert, traffic monitor specialist intact, no c/o pain or discomfort call gutierrez within reach, will continue to monitor.
[2021-05-01] MEDS: 0.9 % Sodium Chloride Flush 3 ML SYRINGE IVFLUSH (18:36)
--- NOTE | 2021-05-01 20:21 | PC.NURSE ---
patient was noted to ladarius down to the 30s while sleeping, Dr. Whitehead was notified via tiger text. Patient has been maintaining a pulse 60s-70s while awake. will continue to monitor.
--- NOTE | 2021-05-01 20:56 | PC.NURSE ---
PATIENT WAS REPOSITION ON HIS LEFT SIDE .
[2021-05-01 21:10] LABS: Glucose, Whole Blood 212 mg/dL (60-115)
[2021-05-01] MEDS: Carbidopa/Levodopa CR 50/200 TABLET.ER 1 TAB PO (21:50)
[2021-05-01] MEDS: Atorvastatin Calcium 10 MG TABLET PO (21:50)
[2021-05-02] VITALS (14 sets, daily range): BP systolic 114–202; BP diastolic 60–96; PULSE 59–110; RESP 14–24; TEMP 36.2–37.2; O2SAT 95–99
--- NOTE | 2021-05-02 00:21 | PC.NURSE ---
Addendum entered by Orlin Medel 05/02/21 01:07: Hospitalist informed that PT has become hypertensive. Coreg was on hold due to bradycardia earlier in the day and PT did not receive his second dose. Provider to order hydralazine to treat hypertension. Original Note: Hospitalist informed that PT has become hypertensive. Coreg was on hold due to bradycardia earlier in the day and PT did not receive his second dose. Provider to reorder a dose of Coreg.
[2021-05-02] MEDS: 0.9 % Sodium Chloride Flush 3 ML SYRINGE IVFLUSH ×3 (01:11→21:29)
[2021-05-02] MEDS: hydrALAZINE HCl 20 MG/ML VIAL 5 MG IVPUSH (01:11)
[2021-05-02] MEDS: carvediloL 12.5 MG TABLET PO (03:54)
[2021-05-02 07:26] LABS: Glucose, Whole Blood 177 mg/dL (60-115)
[2021-05-02] MEDS: lisinopriL 40 MG TABLET PO (08:08)
[2021-05-02] MEDS: Insulin Lispro 100 UNIT/ML 3 ML VIAL SUBCUT ×3 (08:08→21:29)
[2021-05-02] MEDS: Furosemide 20 MG TABLET PO (08:08)
[2021-05-02] MEDS: Aspirin Enteric Coated 81 MG TABLET.DR PO (08:08)
[2021-05-02] MEDS: Doxazosin Mesylate 2 MG TABLET 4 MG PO (08:08)
[2021-05-02] MEDS: Spironolactone 25 MG TABLET PO (08:08)
[2021-05-02] MEDS: Mirabegron 25 MG TAB.ER.24H PO (08:22)
[2021-05-02 08:33] LABS: Hematocrit 37.8 % (42.0-52.0); Hemoglobin 12.9 g/dl (14.0-18.0); Mean Corpuscular HGB Conc 34.1 g/dl (31.0-36.0); Mean Corpuscular Hemoglobin 34.2 pg (27.0-33.0); Mean Corpuscular Volume 100.3 fL (80.0-98.0); Mean Platelet Volume 11.9 fL (9.4-12.4); Platelet Count 150 X10*3/uL (160-400); Red Blood Count 3.77 X10*6/uL (4.60-5.80); Red Cell Distribution Width 13.6 % (11.0-16.0)
[2021-05-02 08:41] LABS: Anion Gap 11 (12-20); Blood Urea Nitrogen 19 mg/dL (9-16); Calcium 9.3 mg/dL (8.4-10.2); Carbon Dioxide 30 mmol/L (22-29); Chloride 103 mmol/L (96-108); Creatinine Clr Calc Pharmacy 57.6; Estimated Glomerular Filt Rate > 60; Glucose Random 232 mg/dL (60-115); Potassium 4.3 mmol/L (3.3-5.1); Sodium 140 mmol/L (135-145)
[2021-05-02] MEDS: Carbidopa/Levodopa CR 50/200 TABLET.ER 1 TAB PO ×2 (08:55→21:27)
--- NOTE | 2021-05-02 12:19 | P.PNIM_ITS ---
Subjective Subjective Date of Service: 05/02/21 Review of Systems Follow up weakness, bradycardia feeling better but still weak Physical Exam Verdana 4l Vital Signs: Verdana 4d Verdana 4d Vital Signs: Verdana 4d Verdana 4Bd Last Vital Signs Verdana 4d Tom Martinez 4d Tom Martinez 4d Temp 98.9 F 05/02/21 00:32 oTm Martinez 4d Pulse 81 05/02/21 11:28 Tom Thurston 4d Resp 23 H 05/02/21 11:28 BP 114/82 05/02/21 11:28 Pulse Ox 95 05/02/21 11:28 BMI result Body Mass Index 27.1 Appearing in no acute distress lung sounds are clear to auscultation heart regular rate rhythm, clear S1, S2 positive bowel sounds, abdomen is soft, nontender neuro patient is alert x3, no focal deficits Objective Data Active Medications Acetaminophen (Acetaminophen 325 Mg Tablet) 650 mg PO Q6H PRN PRN Reason: Pain, Mild (Pain Scale 1-3) Aspirin (Aspirin Enteric Coated 81 Mg Tablet.) 81 mg PO DAILY [facility] Last Admin: 05/02/21 08:08 Dose: 81 mg Documented by: TAWNY Atorvastatin Calcium (Atorvastatin Calcium 10 Mg Tablet) 10 mg PO BEDTIME [facility] Last Admin: 05/01/21 21:50 Dose: 10 mg Documented by: MIRTA Carbidopa/Levodopa (Carbidopa/Levodopa Cr 50/200 Tablet.Er) 1 tab PO BID [facility] Last Admin: 05/02/21 08:55 Dose: 1 tab Documented by: TAWNY Carvedilol (Carvedilol 25 Mg Tablet) 25 mg PO BID [facility]; Protocol Last Admin: 05/01/21 04:56 Dose: 25 mg Documented by: MIN Dextrose (Dextrose 50 % 25 Gm/50 Ml Vial) 25 gm IVPUSH Q15M PRN; Protocol PRN Reason: per Hypoglycemia Standing Ord. Digoxin (Digoxin 0.125 Mg Tablet) 0.125 mg PO Q2D@0900 [facility] Docusate Sodium (Docusate Sodium 100 Mg Capsule) 100 mg PO DAILY PRN PRN Reason: Constipation Doxazosin Mesylate (Doxazosin Mesylate 2 Mg Tablet) 4 mg PO DAILY [facility]; Protocol Last Admin: 05/02/21 08:08 Dose: 4 mg Documented by: TAWNY Furosemide (Furosemide 20 Mg Tablet) 20 mg PO DAILY [facility]; Protocol Last Admin: 05/02/21 08:08 Dose: 20 mg Documented by: TAWNY Glucose (Glucose Gel 15 Gm Gel..Gram.) 15 gm PO Q15M PRN; Protocol PRN Reason: per Hypoglycemia Standing Ord. Insulin Human Lispro (Insulin Lispro 100 Unit/Ml 3 Ml Vial) 0 unit SUBCUT QIDACHS [facility]; Protocol Last Admin: 05/02/21 08:08 Dose: 2 unit Documented by: TAWNY Lisinopril (Lisinopril 40 Mg Tablet) 40 mg PO DAILY [facility]; Protocol Last Admin: 05/02/21 08:08 Dose: 40 mg Documented by: TAWNY Mirabegron (Mirabegron 25 Mg Tab.Er.24h) 25 mg PO DAILY [facility] Last Admin: 05/02/21 08:22 Dose: 25 mg Documented by: TAWNY Ondansetron HCl (Ondansetron Hcl 4 Mg/2 Ml Vial) 4 mg IVPUSH Q8H PRN PRN Reason: Nausea and Vomiting Sodium Chloride (0.9 % Sodium Chloride Flush 3 Ml Syringe) 3 ml IVFLUSH QSHIFT [facility] Last Admin: 05/02/21 07:04 Dose: Not Given Documented by: TAWNY Non-Admin Reason: Med Not Available Spironolactone (Spironolactone 25 Mg Tablet) 25 mg PO DAILY [facility]; Protocol Last Admin: 05/02/21 08:08 Dose: 25 mg Documented by: TAWNY Labs CBC & Chem 7: 05/02/21 08:12 05/02/21 08:12 Labs: Laboratory Results - last 24 hr 05/01/21 05/01/21 05/01/21 12:08 16:15 20:54 MCV MCH MCHC RDW Plt Count MPV Absolute Nucleated RBC Nucleated RBC % (auto) Anion Gap Estim Creat Clear Calc Estimated GFR POC Glucose 158 H 192 H 212 H Random Glucose Calcium 05/02/21 05/02/21 05/02/21 07:16 08:12 08:12 MCV 100.3 H MCH 34.2 H MCHC 34.1 RDW 13.6 Plt Count 150 L MPV 11.9 Absolute Nucleated RBC 0.000 Nucleated RBC % (auto) 0.0 Anion Gap 11 L Estim Creat Clear Calc 57.6 Estimated GFR > 60 POC Glucose 177 H Random Glucose 232 H Calcium 9.3 Assessment and Plan (1) Physical deconditioning: Status: Acute (2) Bradycardia: Status: Acute Assessment and Plan: this is a 81-year-old male with history of atrial fibrillation on anticoagulation, Parkinson's disease, diabetes, CAD status post CABG who presents to the emergency department after mechanical fall ?Generalized weakness ?unable to stand after fall, no syncope or near syncope ?no focal neuro deficits, brain CT negative ?possible related to bradycardia. HR has since improved ?will observe overnight on tele. hold coreg for now ?PT eval rec STR Leukocytosis no obvious source of infection at this time probably reactive cxr, ua negative chronic atrial fibrillation HR in 40s on initial EKG, HR now improved will hold coreg evening dose, monitor HR continue digoxin not on AC due to h/o GI bleeding thrombocytopenia appears chronic follow CBC CKD3 renal function at baseline HLD continue statin parkinsons disease continue sinemet DM hold metformin SSI, pocs CAD continue asa, statin bb on hold for bradycardia Chronic heart failure no echo in system to determine EF no acute exacerbation continue lasix and aldactone HTN continue lisinopril dvt ppx - mechanical devices code - DNR endorses as HCP attending - Dr. Salcedo Quality Stroke Does the patient have a stroke diagnosis?: No VTE Prior VTE?: No VTE Risk Level:: Medical - moderate - high VTE Device Contraindication: N/A - Device Ordered VTE Drug Contraindication: Treatment Not Indicated
[2021-05-02 13:31] LABS: Glucose, Whole Blood 167 mg/dL (60-115)
--- NOTE | 2021-05-02 14:19 | PC.NURSE ---
report given to [facility] kaylene morrissey
--- NOTE | 2021-05-02 14:54 | MHC.CM.ED ---
Addendum entered by Deedee Benitez RN 05/02/21 14:59: Discussed HCP, Gisele reports patient does has HCP and Advance Directive. She will email both to me to add to his record. Original Note: Plan for admission to [facility]. PT recommending rehab. Call to , Gisele. She reports patient had 2 falls at home, usually able to walk around home independent. She does assist with bathing. Informed her of PT juan miguel, she states she would not be able to assist lifting him and he would need to be able to walk to bathroom in order to safely return home. Patient has been to rehab in the distant past at [facility] in [place]. She prefers a facility close to their home with [facility] choice. Referrals sent. DC plan pending.
--- NOTE | 2021-05-02 15:51 | MHC.CM.PN ---
CM SPOKE WITH PT WHO REPORTS HE LIVES AT HOME WITH HIS AND IS INDEPENDENT WITH CARE PT REPORTS HE USES A WALKER AT [facility] AND HAS A VNA BUT DOES NOT KNOW THE AGENCY PT REPORTS HE HAS A HCP NAMING HIS THE AGENT PT REPORTS PUMA CHAVEZ IS HIS PCP IMM DELIVERED CURRENT DC PLAN IS HOME VS STR TRANSPORT TBD BY DISPO
[2021-05-02 17:06] LABS: Glucose, Whole Blood 216 mg/dL (60-115)
[2021-05-02 21:06] LABS: Glucose, Whole Blood 183 mg/dL (60-115)
[2021-05-02] MEDS: Atorvastatin Calcium 10 MG TABLET PO (21:27)
[2021-05-03 03:24] VITALS: BP 147/74; PULSE 93; RESP 18; TEMP 36.4; O2SAT 96
[2021-05-03 07:42] LABS: Glucose, Whole Blood 165 mg/dL (60-115)
[2021-05-03 07:55] VITALS: BP 158/76; PULSE 64; RESP 20; TEMP 36.6; O2SAT 97
[2021-05-03] MEDS: Insulin Lispro 100 UNIT/ML 3 ML VIAL SUBCUT ×3 (09:07→17:11)
[2021-05-03] MEDS: Mirabegron 25 MG TAB.ER.24H PO (09:08)
[2021-05-03] MEDS: Carbidopa/Levodopa CR 50/200 TABLET.ER 1 TAB PO ×2 (09:08→23:11)
[2021-05-03] MEDS: lisinopriL 40 MG TABLET PO (09:09)
[2021-05-03] MEDS: Aspirin Enteric Coated 81 MG TABLET.DR PO (09:09)
[2021-05-03] MEDS: Doxazosin Mesylate 2 MG TABLET 4 MG PO (09:09)
[2021-05-03] MEDS: Digoxin 0.125 MG TABLET PO (09:09)
[2021-05-03] MEDS: Spironolactone 25 MG TABLET PO (09:11)
[2021-05-03] MEDS: Furosemide 20 MG TABLET PO (09:11)
[2021-05-03] MEDS: 0.9 % Sodium Chloride Flush 3 ML SYRINGE IVFLUSH ×3 (09:16→23:11)
--- NOTE | 2021-05-03 10:20 | P.PNIM_ITS ---
Subjective Subjective Date of Service: 05/03/21 Review of Systems Follow up weakness, bradycardia feeling better but still weak Good appetite OOB to chair All other systems are reviewed and are negative Physical Exam Verdana 4l Vital Signs: Verdana 4d Verdana 4d Vital Signs: Verdana 4d Verdana 4Bd Last Vital Signs Verdana 4d Service Center Supervisor New 4d Service Center Supervisor New 4d Temp 97.9 F 05/03/21 07:55 Service Center Supervisor New 4d Pulse 64 05/03/21 07:55 Service Center Supervisor NewNew 4d Resp 20 05/03/21 07:55 BP 158/76 H 05/03/21 07:55 Pulse Ox 97 05/03/21 07:55 BMI result Body Mass Index 27.1 Appearing in no acute distress lung sounds are clear to auscultation heart regular rate rhythm, clear S1, S2 positive bowel sounds, abdomen is soft, nontender neuro patient is alert x3, no focal deficits Objective Data Active Medications Acetaminophen (Acetaminophen 325 Mg Tablet) 650 mg PO Q6H PRN PRN Reason: Pain, Mild (Pain Scale 1-3) Aspirin (Aspirin Enteric Coated 81 Mg Tablet.Dr) 81 mg PO DAILY [facility] Last Admin: 05/03/21 09:09 Dose: 81 mg Documented by: UGO Atorvastatin Calcium (Atorvastatin Calcium 10 Mg Tablet) 10 mg PO BEDTIME [facility] Last Admin: 05/02/21 21:27 Dose: 10 mg Documented by: UGO Carbidopa/Levodopa (Carbidopa/Levodopa Cr 50/200 Tablet.Er) 1 tab PO BID [facility] Last Admin: 05/03/21 09:08 Dose: 1 tab Documented by: UGO Carvedilol (Carvedilol 25 Mg Tablet) 25 mg PO BID [facility]; Protocol Last Admin: 05/01/21 04:56 Dose: 25 mg Documented by: MIN Dextrose (Dextrose 50 % 25 Gm/50 Ml Vial) 25 gm IVPUSH Q15M PRN; Protocol PRN Reason: per Hypoglycemia Standing Ord. Digoxin (Digoxin 0.125 Mg Tablet) 0.125 mg PO Q2D@0900 [facility] Last Admin: 05/03/21 09:09 Dose: 0.125 mg Documented by: UGO Docusate Sodium (Docusate Sodium 100 Mg Capsule) 100 mg PO DAILY PRN PRN Reason: Constipation Doxazosin Mesylate (Doxazosin Mesylate 2 Mg Tablet) 4 mg PO DAILY [facility]; Protocol Last Admin: 05/03/21 09:09 Dose: 4 mg Documented by: UGO Furosemide (Furosemide 20 Mg Tablet) 20 mg PO DAILY [facility]; Protocol Last Admin: 05/03/21 09:11 Dose: 20 mg Documented by: UGO Glucose (Glucose Gel 15 Gm Gel..Gram.) 15 gm PO Q15M PRN; Protocol PRN Reason: per Hypoglycemia Standing Ord. Insulin Human Lispro (Insulin Lispro 100 Unit/Ml 3 Ml Vial) 0 unit SUBCUT QIDACHS [facility]; Protocol Last Admin: 05/03/21 09:07 Dose: 2 unit Documented by: UGO Lisinopril (Lisinopril 40 Mg Tablet) 40 mg PO DAILY [facility]; Protocol Last Admin: 05/03/21 09:09 Dose: 40 mg Documented by: UGO Mirabegron (Mirabegron 25 Mg Tab.Er.24h) 25 mg PO DAILY [facility] Last Admin: 05/03/21 09:08 Dose: 25 mg Documented by: UGO Ondansetron HCl (Ondansetron Hcl 4 Mg/2 Ml Vial) 4 mg IVPUSH Q8H PRN PRN Reason: Nausea and Vomiting Sodium Chloride (0.9 % Sodium Chloride Flush 3 Ml Syringe) 3 ml IVFLUSH QSHIFT [facility] Last Admin: 05/03/21 09:16 Dose: 3 ml Documented by: UGO Spironolactone (Spironolactone 25 Mg Tablet) 25 mg PO DAILY [facility]; Protocol Last Admin: 05/03/21 09:11 Dose: 25 mg Documented by: UGO Labs CBC & Chem 7: 05/02/21 08:12 05/02/21 08:12 Labs: Laboratory Results - last 24 hr 05/02/21 05/02/21 05/02/21 13:25 16:44 20:56 POC Glucose 167 H 216 H 183 H 05/03/21 07:10 POC Glucose 165 H Assessment and Plan (1) Bradycardia: Status: Acute Assessment and Plan: 81-year-old male with history of atrial fibrillation on anticoagulation, Parkinson's disease, diabetes, CAD status post CABG who presents to the emergency department after mechanical fall ?Generalized weakness. Now OOB to chair ?unable to stand after fall, no syncope or near syncope ?no focal neuro deficits, brain CT negative ?possible related to bradycardia. HR has since improved ?will observe overnight on tele. hold coreg for now ?PT eval rec STR Leukocytosis no obvious source of infection at this time probably reactive cxr, ua negative chronic atrial fibrillation HR in 40s on initial EKG, HR now improved will hold coreg for now continue digoxin not on AC due to h/o GI bleeding thrombocytopenia appears chronic follow CBC CKD3 renal function at baseline HLD continue statin parkinsons disease continue sinemet DM hold metformin SSI, pocs CAD continue asa, statin bb on hold for bradycardia Chronic heart failure no echo in system to determine EF no acute exacerbation continue lasix and aldactone HTN continue lisinopril DIPSO Plan is for STR dvt ppx - mechanical devices code - DNR endorses as HCP attending - Dr. Salcedo Quality Stroke Does the patient have a stroke diagnosis?: No VTE Prior VTE?: No VTE Risk Level:: Medical - moderate - high VTE Device Contraindication: N/A - Device Ordered VTE Drug Contraindication: Treatment Not Indicated
[2021-05-03 11:12] LABS: Glucose, Whole Blood 291 mg/dL (60-115)
[2021-05-03 11:53] VITALS: BP 142/68; PULSE 76; RESP 20; TEMP 36.7; O2SAT 97
[2021-05-03 15:09] VITALS: BP 152/66; PULSE 58; RESP 18; TEMP 36.5; O2SAT 98
[2021-05-03 16:42] LABS: Glucose, Whole Blood 225 mg/dL (60-115)
[2021-05-03 19:37] VITALS: BP 160/54; PULSE 52; RESP 20; TEMP 36.6; O2SAT 94
[2021-05-03 21:14] LABS: Glucose, Whole Blood 203 mg/dL (60-115)
[2021-05-03] MEDS: Atorvastatin Calcium 10 MG TABLET PO (23:11)
[2021-05-04] VITALS: BP 200/90; PULSE 64; RESP 18; TEMP 36.8; O2SAT 92
[2021-05-04] MEDS: amLODIPine Besylate 5 MG TABLET PO (01:09)
[2021-05-04 01:12] VITALS: BP 188/85; PULSE 92
[2021-05-04 03:33] VITALS: BP 164/82; PULSE 75; RESP 20; TEMP 36.4; O2SAT 95
[2021-05-04 07:38] VITALS: BP 184/78; PULSE 84; RESP 18; TEMP 36.6; O2SAT 95
[2021-05-04 07:51] LABS: Glucose, Whole Blood 204 mg/dL (60-115)
[2021-05-04] MEDS: Insulin Lispro 100 UNIT/ML 3 ML VIAL SUBCUT ×2 (08:51→12:26)
[2021-05-04] MEDS: Spironolactone 25 MG TABLET PO (08:52)
[2021-05-04] MEDS: 0.9 % Sodium Chloride Flush 3 ML SYRINGE IVFLUSH (08:52)
[2021-05-04] MEDS: Doxazosin Mesylate 2 MG TABLET 4 MG PO (08:52)
[2021-05-04] MEDS: Furosemide 20 MG TABLET PO (08:53)
[2021-05-04] MEDS: Aspirin Enteric Coated 81 MG TABLET.DR PO (08:53)
[2021-05-04] MEDS: Carbidopa/Levodopa CR 50/200 TABLET.ER 1 TAB PO (08:53)
[2021-05-04] MEDS: lisinopriL 40 MG TABLET PO (08:54)
[2021-05-04] MEDS: Mirabegron 25 MG TAB.ER.24H PO (08:54)
[2021-05-04 09:18] VITALS: BP 184/78; PULSE 84; O2SAT 95
[2021-05-04 11:01] VITALS: BP 170/77; PULSE 63; RESP 18; TEMP 36.4; O2SAT 97
[2021-05-04 11:11] LABS: Glucose, Whole Blood 246 mg/dL (60-115)
--- NOTE | 2021-05-04 11:49 | PM.DS ---
DS: Providers Provider Date of Service: 05/04/21 Date of admission: 05/03/21 16:30 Primary care physician: Unknown Physician Attending physician on discharge: Ryan Mliler Discharging clinician: Kimber Mehta DS: Diagnosis Discharge Diagnosis (1) Bradycardia: Status: Acute (2) Fall: Status: Acute DS: Summary Hospital Course Hospital Course: HP as per admitting provider This is a 81-year-old male who presents to the emergency department after fall.? He was in his usual state of health when he was getting food out of the refrigerator yesterday.? He turned to put the food on the counter and lost his balance falling to the floor.? He denies any dizziness, chest pain, palpitations prior to his fall.? He was able to roll over and crawl on his knees but was unable to stand up.? His called 911 and the fire department was able to lift him up.? He did not come to the hospital at that time.? Later in the day he was sitting down but was unable to stand up out of his chair.? Again he denied any dizziness, chest pain, palpitations.? He did not notice any weakness in 1 leg or the other but just overall felt that his legs were not strong enough to push in up.? This time he was brought to the hospital for evaluation.? Lab work was significant for leukocytosis of 13.5.? INR was 1.2, PTT 63.8.? Brain CT showed no acute intracranial pathology.? CT scan of the abdomen and pelvis showed no acute findings.? Hip and pelvis x-ray showed no evidence of fracture. ? EKG showed slow atrial fibrillation with a heart rate in the 40s.? There was some concern that the patient exhibited right lower extremity weakness therefore the decision was made to keep him overnight for observation. COVID vaccination status-patient reports Moderna vaccination x2 +Booster . Generalized weakness. Now OOB to chair unable to stand after fall, no syncope or near syncope no focal neuro deficits, brain CT negative possible related to bradycardia. HR has since improved Leukocytosis no obvious source of infection at this time probably reactive cxr, ua negative chronic atrial fibrillation HR in 40s on initial EKG, HR now improved will continue to hold coreg for now continue digoxin not on AC due to h/o GI bleeding Time Spent with Patient Time attestation: Total time spent providing and/or coordinating discharge services: Discharge coordination time: Greater than 30 minutes Quality: Stroke Does the patient have a stroke diagnosis?: No Physical Exam Vital Signs: Vital Signs: Last Vital Signs Temp 97.6 F 05/04/21 11:01 Pulse 63 05/04/21 11:01 Resp 18 05/04/21 11:01 BP 170/77 H 05/04/21 11:01 Pulse Ox 97 05/04/21 11:01 BMI result Body Mass Index 27.1 Appearing in no acute distress head is normocephalic atraumatic eyes pupils are PERRLA sclera is anicteric mouth throat mucous membranes are intact and moist neck is supple no lymphadenopathy, no JVD noted lung sounds are clear to auscultation heart regular rate rhythm, clear S1, S2 positive bowel sounds, abdomen is soft, nontender neuro patient is alert x3, no focal deficits DS: Data Data Completed and Pending Labs on day of discharge: Laboratory Results - last 24 hr 05/03/21 05/03/21 05/04/21 16:31 21:08 07:40 POC Glucose 225 H 203 H 204 H 05/04/21 11:02 POC Glucose 246 H Discharge Plan Discharge Anticipated Discharge Date/Time: 05/04/21 11:44 Patient Disposition: Xfer Inpatient Rehab Fac Discharge Diagnosis: Fall Bradycardia Discharge Medications: Continued spironolactone 25 mg tablet 1 tab PO DAILY@1700 RF: 0 simvastatin 20 mg tablet 1 tab PO BEDTIME RF: 0 metformin 1,000 mg tablet 1 tab PO BID RF: 0 doxazosin 4 mg tablet 1 tab PO BEDTIME RF: 0 digoxin 125 mcg (0.125 mg) tablet 125 mcg PO Q2D RF: 0 carbidopa-levodopa 25-100 mg tablet 2 tab PO 5XD RF: 0 lisinopril 40 mg tablet 1 tab PO DAILY RF: 0 Trulicity 1.5 mg/0.5 mL pen injector 1.5 mg subcut YEUNG@0900 RF: 0 aspirin [Aspirin Low Dose] 81 mg Tablet,Delayed Release (Dr/Ec) 81 mg PO DAILY RF: 0 carbidopa-levodopa 50-200 mg tablet extended release 1 tab PO BID RF: 0 furosemide 20 mg tablet 1 tab PO DAILY RF: 0 multivitamin Tablet 1 tab PO DAILY RF: 0 Myrbetriq 25 mg tablet extended release 24 hr 1 tab PO DAILY RF: 0 Discontinued carvedilol 25 mg tablet 1 tab PO BID RF: 0 Discharge Orders: Discharge Order (Routine); Ordered 05/04/21 Ordered By: Kimber Mehta Diet: advance to usual diet Activity on Discharge: As tolerated Stand Alone Forms: Patient Portal Discharge page Care Plan Goals: no further falls or episodes of bradycardia Health Concerns: Fall Bradycardia Plan of Treatment: Follow-up with your primary care provider zigzag machine operator regarding your Coreg which has been stopped due to bradycardia/low heart rate. He will be going to short-term rehab for physical therapy Assessment: See discharge summary
--- NOTE | 2021-05-04 12:20 | MHC.CM.PN ---
pt accepted at [facility] set up for 2
[2021-05-04 12:40] LABS: COVID-19 Test Negative (Negative)
== END 2021-05-04 15:44 | DRG 309 ==
LOC: HO.ED 05-01 00:46 → HO.EDOVER 05-01 11:12 → HO.IMC 05-02 12:17
PROVIDERS: Admitting Provider Physician Assistant Medical; Emergency Provider Student in an Organized Health Care Education/Training Program; Visit Provider Nurse Practitioner Acute Care
DX: R00.1 Bradycardia, unspecified (principal); I13.0 Hypertensive heart and chronic kidney disease with heart failure and stage 1 through stage 4 chronic kidney disease, or unspecified chronic kidney disease; K90.0 Celiac disease; E11.22 Type 2 diabetes mellitus with diabetic chronic kidney disease; R29.6 Repeated falls; Z91.81 History of falling; N18.30 Chronic kidney disease, stage 3 unspecified; I50.9 Heart failure, unspecified; E78.5 Hyperlipidemia, unspecified; I25.10 Atherosclerotic heart disease of native coronary artery without angina pectoris; G20 Parkinson's disease; D72.829 Elevated white blood cell count, unspecified; D69.6 Thrombocytopenia, unspecified; I48.20 Chronic atrial fibrillation, unspecified; Z20.822 Contact with and (suspected) exposure to COVID-19; Z79.82 Long term (current) use of aspirin; Z79.84 Long term (current) use of oral hypoglycemic drugs; Z79.899 Other long term (current) drug therapy; Z66 Do not resuscitate
CPT/HCPCS: 36415; 70450; 71045; 73502; 74176; 80048; 80053; 81001; 82947; 83735; 83880; 84484; 85025; 85027; 85610; 85730; 87635; 93005; 97162; 97530; 99285

== ENCOUNTER 2022-02-14 19:01 | Emergency (ER) | payer MEDICARE, SELFPAY ==
--- NOTE | ~2022-02-14 | XR_ITS ---
EXAMINATION: XR CHEST CLINICAL INFORMATION: Cough. Covid COMPARISON: Prior chest radiographs most recent April 2021 TECHNIQUE: Frontal view of the chest was obtained. FINDINGS: There is persistent blunting of the left costophrenic angle compatible pleural thickening or pleural effusion similar to prior. There is patchy opacity in the left lower lobe similar to prior. Right lung clear. Sternotomy wires present. Cardiac mediastinal silhouette normal. Bone and soft tissues unremarkable XR/XR chest 1V IMPRESSION: 1. Persistent blunting of the left costophrenic angle compatible pleural thickening or pleural effusion unchanged. 2. Patchy opacity in the left lower lobe similar to prior. Question pneumonia versus atelectasis. Question chronic versus recurrent acute
--- NOTE | 2022-02-14 19:10 | ED_ITS ---
HPI - Weakness General Chief complaint: General Medical Stated complaint: DIFFICULTY AMBULATING Time Seen by Provider: 02/14/22 19:06 Source: patient Mode of arrival: EMS Limitations: no limitations History of Present Illness HPI Narrative: - Patient history of Parkinson disease been feeling weak has difficulty in walking for last few days also patient with coughing did home test for COVID which was positive patient feels need some help in getting out of the chair patient usually ambulate with walker at baseline no vomiting no diarrhea no abdominal Related Data Home Medications Medication Instructions Recorded Confirmed carbidopa 25 mg-levodopa 100 mg 2 tab PO 5XD 05/01/21 02/14/22 tablet carbidopa ER 50 mg-levodopa 200 mg 1 tab PO BID 05/01/21 02/14/22 tablet,extended release doxazosin 4 mg tablet 1 tab PO BEDTIME 05/01/21 02/14/22 furosemide 20 mg tablet 1 tab PO DAILY 05/01/21 02/14/22 lisinopril 40 mg tablet 1 tab PO DAILY 05/01/21 02/14/22 metformin 1,000 mg tablet 2 tab PO BID 05/01/21 02/14/22 simvastatin 20 mg tablet 1 tab PO BEDTIME 05/01/21 02/14/22 spironolactone 25 mg tablet 1 tab PO BID 05/01/21 02/14/22 aspirin 81 mg tablet 81 mg PO DAILY 02/14/22 02/14/22 dulaglutide 0.75 mg/0.5 mL See Rx Instructions .Route .COMPLEX 02/14/22 02/14/22 subcutaneous pen injector (Trulicity) multivitamin 1 tab PO DAILY 02/14/22 02/14/22 Allergies Allergy/AdvReac Type Severity Reaction Status Date / Time No Known Allergies Allergy Verified 02/14/22 19:32 [No Known Allergies*] Review of Systems Review of Systems: Yes all other systems are reviewed and are negative [facility] Past Medical History Medical History Atrial fibrillation Basal cell carcinoma Celiac disease CHF (congestive heart failure) Diabetes Parkinson disease Spinal stenosis Surgical History S/P triple vessel bypass Family History Family History Mother Valvular heart disease Social History Social History Household Members: Spouse Housing: Condominium Do you presently have visiting nurse or other home services: No Alcohol intake: current Alcohol intake frequency: holidays/special occasions only Alcohol type: wine Patient Tobacco Use Status: Former Tobacco user Use of substances other than those prescribed or required for medical reasons: No Advance Directives: No Advance Directives Information Provided: No Current occupational status: retired Physical Exam Vital Signs: Vital Signs: Last Vital Signs Temp 98.1 F 02/15/22 00:23 Pulse 67 02/15/22 00:23 Resp 17 02/15/22 00:23 BP 140/62 H 02/15/22 00:23 Pulse Ox 94 02/15/22 00:23 O2 Del Method 02/15/22 00:23 BMI result Body Mass Index 28.5 Appearance: Alert. Oriented X3. No acute distress. Eyes: PERRLA, No Nystagmus ENT: Pharynx normal. Oral Mucosa moist Neck: Normal inspection. Neck supple. CVS: Normal heart rate and rhythm. Pulses normal. Respiratory: No respiratory distress. Equal air entry bilateral, no wheezing/rales/rhonchi Abdomen: Soft and nontender. Bowel sounds are present, no mass palpable, no CVA tenderness Skin: Skin warm and dry. Normal skin color. Normal skin turgor. Extremities: No lower extremity edema. No calf tenderness Neuro: Oriented X 3. No motor deficit. No sensory deficit.No cerebellar signs , cranial nerves II-XII intact increased tone in lower extremities MDM - Weakness MDM Narrative Medical decision making narrative: 10 PM Per patient was doing pretty good walks with walker lives with his per patient has been coughing for last 2 days and feeling very weak unable to get up from the chair patient does not want to go to [place] [facility] does feel weak with decreased appetite no shortness of breath saturating 97% on room air chest x-ray negative Will consult case management for rehab placement Lab Data Result diagrams: 02/14/22 19:46 02/14/22 19:46 Labs: Lab Results 02/14/22 02/14/22 02/14/22 Range/Units 19:46 19:46 19:46 WBC 10.3 (4.8-10.8) X10*3/uL RBC 3.34 L (4.60-5.80) X10*6/uL Hgb 11.5 L (14.0-18.0) g/dl Hct 34.5 L (42.0-52.0) % MCV 103.3 H (80.0-98.0) fL MCH 34.4 H (27.0-33.0) pg MCHC 33.3 (31.0-36.0) g/dl RDW 13.4 (11.0-16.0) % Plt Count 155 L (160-400) X10*3/uL MPV 11.5 (9.4-12.4) fL Immature Gran % (Auto) 0.8 H (0.0-0.4) % Neut % (Auto) 81.6 H (45-73) % Lymph % (Auto) 6.1 L (20-40) % [place] % (Auto) 9.9 (2-11) % Eos % (Auto) 1.3 (0-4) % Baso % (Auto) 0.3 (0-2) % Lymph # (Auto) 0.6 L (1.2-4.9) X10*3/uL [place] # (Auto) 1.0 (0.1-1.2) X10*3/uL Eos # (Auto) 0.1 (0.0-0.4) X10*3/uL Baso # (Auto) 0.0 (0.0-0.2) X10*3/uL Abs Immat Gran (auto) 0.08 H (0.00-0.03) X10*3/uL Absolute Neuts (auto) 8.4 H (2.0-8.3) x10*3/uL Absolute Nucleated RBC 0.000 (0.0-0.012) X10*3/uL Nucleated RBC % (auto) 0.0 (0.0-0.2) /100WBC Sodium 139 (135-145) mmol/L Potassium 5.1 (3.3-5.1) mmol/L Chloride 104 (96-108) mmol/L Carbon Dioxide 21 L (22-29) mmol/L Anion Gap 19 (12-20) BUN 25 H (9-16) mg/dL Creatinine 1.06 (0.5-1.4) mg/dL Estim Creat Clear Calc 61.9 Estimated GFR > 60 Random Glucose 118 H D (60-115) mg/dL Calcium 8.8 (8.4-10.2) mg/dL Magnesium 1.9 (1.6-2.6) mg/dL Total Bilirubin 1.7 H (0.0-1.0) mg/dL AST 24 D (5-37) U/L ALT 6 (0-40) U/L Alkaline Phosphatase 203 H D (39-117) U/L Troponin I High Sens (<3.5-35.0) ng/L B-Natriuretic Peptide (<100) pg/mL Total Protein 6.5 (6.5-8.0) g/dL Albumin 3.8 (3.5-5.0) g/dL Urine Color Urine Appearance Urine pH (5.0-9.0) Ur Specific [place] (1.005-1.025) Urine Protein (Neg-Trace) mg/dL Urine Glucose (UA) (Negative) mg/dL Urine Ketones (Negative) mg/dL Urine Blood (Negative) Urine Nitrite (Negative) Ur Leukocyte Esterase (Negative) Urine RBC (0-2) /HPF Urine WBC (0-5) /HPF Ur Squamous Epith Cells (0-2) /HPF Urine Bacteria (None Seen) Hyaline Casts (0-2) /LPF COVID-19 (CARMELLA) Positive A (Negative) COVID-19 Clin Com See Note 02/14/22 02/14/22 Range/Units 19:46 22:00 WBC (4.8-10.8) X10*3/uL RBC (4.60-5.80) X10*6/uL Hgb (14.0-18.0) g/dl Hct (42.0-52.0) % MCV (80.0-98.0) fL MCH (27.0-33.0) pg MCHC (31.0-36.0) g/dl RDW (11.0-16.0) % Plt Count (160-400) X10*3/uL MPV (9.4-12.4) fL Immature Gran % (Auto) (0.0-0.4) % Neut % (Auto) (45-73) % Lymph % (Auto) (20-40) % [place] % (Auto) (2-11) % Eos % (Auto) (0-4) % Baso % (Auto) (0-2) % Lymph # (Auto) (1.2-4.9) X10*3/uL [place] # (Auto) (0.1-1.2) X10*3/uL Eos # (Auto) (0.0-0.4) X10*3/uL Baso # (Auto) (0.0-0.2) X10*3/uL Abs Immat Gran (auto) (0.00-0.03) X10*3/uL Absolute Neuts (auto) (2.0-8.3) x10*3/uL Absolute Nucleated RBC (0.0-0.012) X10*3/uL Nucleated RBC % (auto) (0.0-0.2) /100WBC Sodium (135-145) mmol/L Potassium (3.3-5.1) mmol/L Chloride (96-108) mmol/L Carbon Dioxide (22-29) mmol/L Anion Gap (12-20) BUN (9-16) mg/dL Creatinine (0.5-1.4) mg/dL Estim Creat Clear Calc Estimated GFR Random Glucose (60-115) mg/dL Calcium (8.4-10.2) mg/dL Magnesium (1.6-2.6) mg/dL Total Bilirubin (0.0-1.0) mg/dL AST (5-37) U/L ALT (0-40) U/L Alkaline Phosphatase (39-117) U/L Troponin I High Sens < 3.5 (<3.5-35.0) ng/L B-Natriuretic Peptide 179 H (<100) pg/mL Total Protein (6.5-8.0) g/dL Albumin (3.5-5.0) g/dL Urine Color Yellow Urine Appearance Cloudy Urine pH 6.0 (5.0-9.0) Ur Specific [place] 1.020 (1.005-1.025) Urine Protein 100 (2+) H (Neg-Trace) mg/dL Urine Glucose (UA) Negative (Negative) mg/dL Urine Ketones Trace (Negative) mg/dL Urine Blood Negative (Negative) Urine Nitrite Negative (Negative) Ur Leukocyte Esterase Negative (Negative) Urine RBC 6-10 H (0-2) /HPF Urine WBC 0-5 (0-5) /HPF Ur Squamous Epith Cells 0-2 (0-2) /HPF Urine Bacteria None Seen (None Seen) Hyaline Casts 0-2 (0-2) /LPF COVID-19 (CARMELLA) (Negative) COVID-19 Clin Com Discharge Plan Discharge Clinical Impression: Physical deconditioning, COVID-19, Parkinson disease Patient Disposition: Still a Patient Prescriptions: No Action spironolactone 25 mg tablet 1 tab PO BID simvastatin 20 mg tablet 1 tab PO BEDTIME metformin 1,000 mg tablet 2 tab PO BID doxazosin 4 mg tablet 1 tab PO BEDTIME carbidopa-levodopa 25-100 mg tablet 2 tab PO 5XD lisinopril 40 mg tablet 1 tab PO DAILY carbidopa-levodopa 50-200 mg tablet extended release 1 tab PO BID furosemide 20 mg tablet 1 tab PO DAILY Rx Instructions: home list has MF under AM dose, unsure what stands for. Trulicity 0.75 mg/0.5 mL pen injector See Rx Instructions .ROUTE .COMPLEX Rx Instructions: weekly on tuesday multivitamin Tablet 1 tab PO DAILY aspirin 81 mg Tablet 81 mg PO DAILY
--- NOTE | 2022-02-14 19:15 | ECG_ITS ---
Test Reason : WEAKNESS Blood Pressure : / mmHG Vent. Rate : 071 BPM Atrial Rate : 000 BPM P-R Int : 000 ms QRS Dur : 094 ms QT Int : 406 ms P-R-T Axes : 000 -05 152 degrees QTc Int : 441 ms Atrial fibrillation Nonspecific T wave abnormality Abnormal ECG When compared with ECG of 30-APR-2021 21:44, Vent. rate has increased BY 28 BPM Referred By: Justice Fink Electronically Signed By:WU ZARAGOZA MD
[2022-02-14 19:32] VITALS: BP 158/61; BP 162/79; PULSE 70; PULSE 76; RESP 18; TEMP 36.6; O2SAT 97; BMI 28.5
[2022-02-14] MEDS: 0.9 % Sodium Chloride 1,000 ML 999 ML IV (19:49)
--- NOTE | 2022-02-14 19:49 | PC.NURSE ---
patient a&o, md physician dermatologist applied-afib on monitor, vss, iv inserted, labs drawn, ivf hung per order, at bedside, call gutierrez within reach, will continue to monitor
[2022-02-14 19:55] LABS: MANUAL DIFF FLAG NO
[2022-02-14 20:00] LABS: Basophils Percent Auto 0.3 % (0-2); Eosinophils Absolute Auto 0.1 X10*3/uL (0.0-0.4); Eosinophils Percent Auto 1.3 % (0-4); Hematocrit 34.5 % (42.0-52.0); Hemoglobin 11.5 g/dl (14.0-18.0); Imm Gran Abs Auto 0.08 X10*3/uL (0.00-0.03); Imm Gran Pct Auto 0.8 % (0.0-0.4); Lymphocytes Absolute Auto 0.6 X10*3/uL (1.2-4.9); Lymphocytes Percent Auto 6.1 % (20-40); Mean Corpuscular HGB Conc 33.3 g/dl (31.0-36.0); Mean Corpuscular Hemoglobin 34.4 pg (27.0-33.0); Mean Corpuscular Volume 103.3 fL (80.0-98.0); Mean Platelet Volume 11.5 fL (9.4-12.4); Monocytes Percent Auto 9.9 % (2-11); Neutrophils Absolute Auto 8.4 x10*3/uL (2.0-8.3); Neutrophils Percent Auto 81.6 % (45-73); Platelet Count 155 X10*3/uL (160-400); Red Blood Count 3.34 X10*6/uL (4.60-5.80); Red Cell Distribution Width 13.4 % (11.0-16.0); White Blood Count 10.3 X10*3/uL (4.8-10.8)
[2022-02-14 20:08] LABS: COVID-19 Test Positive (Negative)
[2022-02-14 20:23] LABS: B Type Natriuretic Peptide 179 pg/mL (<100); Troponin-I High Sensitivity < 3.5 ng/L (<3.5-35.0)
[2022-02-14 20:26] LABS: Alanine Aminotransferase 6 U/L (0-40); Albumin Level 3.8 g/dL (3.5-5.0); Alkaline Phosphatase 203 U/L (39-117); Anion Gap 19 (12-20); Aspartate Amino Transferase 24 U/L (5-37); Bilirubin Total 1.7 mg/dL (0.0-1.0); Blood Urea Nitrogen 25 mg/dL (9-16); Calcium 8.8 mg/dL (8.4-10.2); Carbon Dioxide 21 mmol/L (22-29); Chloride 104 mmol/L (96-108); Creatinine Clr Calc Pharmacy 61.9; Estimated Glomerular Filt Rate > 60; Glucose Random 118 mg/dL (60-115); Magnesium 1.9 mg/dL (1.6-2.6); Potassium 5.1 mmol/L (3.3-5.1); Sodium 139 mmol/L (135-145); Total Protein 6.5 g/dL (6.5-8.0)
[2022-02-14 22:07] LABS: Appearance Urine Cloudy; Color Urine Yellow; Glucose Urine UA Negative (Negative); Leukocyte Esterase Urine Negative (Negative); Nitrite Urine Negative (Negative); UMIC TRIGGER UACC YES; Urine Blood Negative (Negative); Urine Ketones Trace mg/dL (Negative); Urine Protein 100 (2+) mg/dL (Neg-Trace)
[2022-02-14 22:21] LABS: Bacteria Urine None Seen (None Seen); Hyaline Casts Urine 0-2 /LPF (0-2); Squamous Epithelial Cell Urine 0-2 /HPF (0-2); WBC Urine 0-5 /HPF (0-5)
[2022-02-14 22:52] VITALS: BP 180/69; PULSE 69; RESP 22; TEMP 36.4; O2SAT 98
[2022-02-14] MEDS: Carbidopa/Levodopa 25/100 TABLET 2 TAB PO (23:26)
--- NOTE | 2022-02-14 23:27 | PC.NURSE ---
pt medicated per order
--- NOTE | 2022-02-14 23:28 | PC.NURSE ---
pt a&o, personnel monitor nsr, vss, pt medicated per order, call gutierrez within reach, will continue to monitor.
[2022-02-15 00:23] VITALS: BP 140/62; PULSE 67; RESP 17; TEMP 36.7; O2SAT 94
--- NOTE | 2022-02-15 01:12 | PC.NURSE ---
attempted to medicated pt, medications unverified by pharmacy.
--- NOTE | 2022-02-15 01:55 | PC.NURSE ---
nursing warehouse and receiving supervisor contacted for medication not available in pyxis.
[2022-02-15] MEDS: Doxazosin Mesylate 2 MG TABLET 4 MG PO ×2 (03:20→22:36)
[2022-02-15] MEDS: Carbidopa/Levodopa CR 50/200 TABLET.ER 1 TAB PO ×2 (03:20→09:32)
--- NOTE | 2022-02-15 03:38 | PC.NURSE ---
Took over care at 3:30am. pt incontinent of urine.Complete bed change and elizabeth care. No sign of respiratory distress or retractions. Will continue to monitor.
--- NOTE | 2022-02-15 03:38 | PC.NURSE ---
medicated w remainder of PM meds, pt repositioned in bed.
[2022-02-15 06:00] VITALS: BP 150/63; PULSE 64; RESP 18; TEMP 37.2; O2SAT 96
[2022-02-15 07:35] VITALS: BP 152/66; PULSE 57; RESP 22; TEMP 36.8; O2SAT 97
--- NOTE | 2022-02-15 08:41 | PC.NURSE ---
patient wash and linen change
[2022-02-15] MEDS: metFORMIN HCl 1,000 MG TABLET 1000 MG PO ×4 (09:31→22:39)
[2022-02-15] MEDS: Aspirin Enteric Coated 81 MG TABLET.DR PO (09:31)
[2022-02-15] MEDS: Spironolactone 25 MG TABLET PO ×2 (09:31→22:37)
[2022-02-15] MEDS: Multivitamin TABLET 1 TAB PO (09:31)
[2022-02-15] MEDS: lisinopriL 40 MG TABLET PO (09:31)
[2022-02-15] MEDS: Carbidopa/Levodopa 25/100 TABLET 2 TAB PO ×5 (09:32→22:37)
[2022-02-15 13:26] VITALS: BP 152/66; PULSE 57; O2SAT 97
--- NOTE | 2022-02-15 14:26 | MHC.CM.ED ---
Received case management consult overnight. Patient came to the ER due to weakness. Patient is positive for Covid. Physical therapy eval completed. Short term rehab is being recommended. Patient feels he can safely return home. Attempted to meet with patient in regards to discharge planning. Nursing care currently being provided. Attempted to reach patient's , Gisele, via telephone at [phone]. Left message requesting return telephone call. If short term rehab is needed, may be difficult to place due to being positive for Covid. Continue to monitor for d/c needs.
[2022-02-15 15:02] VITALS: BP 133/52; PULSE 66; RESP 20; TEMP 36.8; O2SAT 97
--- NOTE | 2022-02-15 16:19 | ECG_ITS ---
Test Reason : cp Blood Pressure : / mmHG Vent. Rate : 043 BPM Atrial Rate : 000 BPM P-R Int : 000 ms QRS Dur : 094 ms QT Int : 454 ms P-R-T Axes : 000 -09 -34 degrees QTc Int : 383 ms Atrial fibrillation with slow ventricular response Left axis deviation Nonspecific T wave abnormality Abnormal ECG When compared with ECG of 14-FEB-2022 20:13, Vent. rate has decreased BY 28 BPM QT has shortened Referred By: Joanne Diaz Electronically Signed By:WU ZARAGOZA MD
[2022-02-15 18:51] LABS: Anion Gap 16 (12-20); Blood Urea Nitrogen 24 mg/dL (9-16); Calcium 8.6 mg/dL (8.4-10.2); Carbon Dioxide 23 mmol/L (22-29); Chloride 105 mmol/L (96-108); Creatinine Clr Calc Pharmacy 59.6; Estimated Glomerular Filt Rate > 60; Glucose Random 93 mg/dL (60-115); Potassium 4.9 mmol/L (3.3-5.1); Sodium 139 mmol/L (135-145)
[2022-02-15 18:52] LABS: Troponin-I High Sensitivity < 3.5 ng/L (<3.5-35.0)
[2022-02-15 18:53] LABS: Digoxin < 0.3 ng/mL (0.8-2.0)
[2022-02-15 21:51] VITALS: BP 131/46; PULSE 59; TEMP 36.4; O2SAT 95
[2022-02-15] MEDS: Atorvastatin Calcium 10 MG TABLET PO (22:36)
[2022-02-16 05:41] VITALS: BP 177/72; PULSE 63; TEMP 36.9; O2SAT 96
[2022-02-16 07:10] VITALS: BP 172/68; PULSE 62; RESP 14; TEMP 36.8; O2SAT 96
[2022-02-16] MEDS: Carbidopa/Levodopa 25/100 TABLET 2 TAB PO ×3 (08:45→14:32)
[2022-02-16] MEDS: Multivitamin TABLET 1 TAB PO (08:45)
[2022-02-16] MEDS: Spironolactone 25 MG TABLET PO (08:46)
[2022-02-16] MEDS: lisinopriL 40 MG TABLET PO (08:46)
[2022-02-16] MEDS: metFORMIN HCl 1,000 MG TABLET 1000 MG PO (08:46)
[2022-02-16] MEDS: Aspirin Enteric Coated 81 MG TABLET.DR PO (08:46)
--- NOTE | 2022-02-16 10:25 | MHC.CM.ED ---
Patient remains in ER. [facility] able to offer a bed during patient's Covid quarantine. They will then transfer to [facility] or [place]. Patient, Gisele, Kenya SANTORO and Tamela GANDHI aware. Zeanida DAS booked for 1pm. Med nec with chart. Continue to monitor for d/c needs.
[2022-02-16] MEDS: Carbidopa/Levodopa CR 50/200 TABLET.ER 1 TAB PO (10:56)
== END 2022-02-16 16:55 | disposition home or self-care (01) ==
PROVIDERS: Physician Assistant; Physician Assistant Medical; Emergency Provider Internal Medicine; PCP Internal Medicine
DX: U07.1 COVID-19 (principal); R05.9 Cough, unspecified; R07.89 Other chest pain; G20 Parkinson's disease; R06.02 Shortness of breath; R26.81 Unsteadiness on feet; Z87.891 Personal history of nicotine dependence; Z79.899 Other long term (current) drug therapy
CPT/HCPCS: 36415; 71045; 80048; 80053; 80162; 81001; 83735; 83880; 84484; 85025; 87635; 93005; 97162; 99285

== ENCOUNTER 2023-09-15 05:24 | Outpatient (REF) | payer MEDICARE, SELFPAY ==
[2023-09-15 06:07] LABS: MANUAL DIFF FLAG NO
[2023-09-15 06:33] LABS: Basophils Percent Auto 0.5 % (0-2); Eosinophils Absolute Auto 0.2 X10*3/uL (0.0-0.4); Eosinophils Percent Auto 2.5 % (0-4); Hematocrit 33.9 % (42.0-52.0); Hemoglobin 11.5 g/dl (14.0-18.0); Imm Gran Abs Auto 0.03 X10*3/uL (0.00-0.03); Imm Gran Pct Auto 0.5 % (0.0-0.4); Lymphocytes Absolute Auto 0.7 X10*3/uL (1.2-4.9); Lymphocytes Percent Auto 11.8 % (20-40); Mean Corpuscular HGB Conc 33.9 g/dl (31.0-36.0); Mean Corpuscular Hemoglobin 35.2 pg (27.0-33.0); Mean Corpuscular Volume 103.7 fL (80.0-98.0); Mean Platelet Volume 12.1 fL (9.4-12.4); Monocytes Absolute Auto 0.6 X10*3/uL (0.1-1.2); Monocytes Percent Auto 9.9 % (2-11); Neutrophils Absolute Auto 4.7 x10*3/uL (2.0-8.3); Neutrophils Percent Auto 74.8 % (45-73); Platelet Count 138 X10*3/uL (160-400); Red Blood Count 3.27 X10*6/uL (4.60-5.80); Red Cell Distribution Width 13.9 % (11.0-16.0); White Blood Count 6.3 X10*3/uL (4.8-10.8)
[2023-09-15 06:37] LABS: Estimated Average Glucose 126 mg/dL
[2023-09-15 06:42] LABS: Alanine Aminotransferase < 5 U/L (0-40); Albumin Level 3.1 g/dL (3.5-5.0); Alkaline Phosphatase 119 U/L (39-117); Anion Gap 13 (12-20); Aspartate Amino Transferase 12 U/L (5-37); Blood Urea Nitrogen 23 mg/dL (9-16); Calcium 8.9 mg/dL (8.4-10.2); Carbon Dioxide 27 mmol/L (22-29); Chloride 108 mmol/L (96-108); Cholesterol 97 mg/dL (<200); Estimated Glomerular Filt Rate > 60; Glucose Fasting 107 mg/dL (60-99); HDL Cholesterol 33 mg/dL (>40); LDL Cholesterol Calculated 54 mg/dL (<100); Potassium 3.9 mmol/L (3.3-5.1); Sodium 144 mmol/L (135-145); Total Protein 5.7 g/dL (6.5-8.0); Triglycerides 54 mg/dL (<150)
[2023-09-15 06:43] LABS: B Type Natriuretic Peptide 219 pg/mL (<100)
[2023-09-15 07:00] LABS: Creatinine Urine 64.24 mg/dL; Microalbum/Creatinine Ratio Ur 322.2 ug/mg cr (<30)
== END 2023-09-15 05:25 | disposition home or self-care (01) ==
LOC: HO.HSH3W 05:24
PROVIDERS: Visit Provider Internal Medicine Medical Oncology
DX: I10 Essential (primary) hypertension (principal); I25.10 Atherosclerotic heart disease of native coronary artery without angina pectoris; Z12.5 Encounter for screening for malignant neoplasm of prostate
CPT/HCPCS: 36415; 80053; 80061; 82043; 82570; 83036; 83880; 84153; 85025

== ENCOUNTER 2023-10-01 20:02 | Inpatient (IN) | payer MEDICARE, SELFPAY ==
--- NOTE | 2023-10-01 | ECG_ITS ---
Test Reason : SOB Blood Pressure : / mmHG Vent. Rate : 070 BPM Atrial Rate : 000 BPM P-R Int : 000 ms QRS Dur : 098 ms QT Int : 416 ms P-R-T Axes : 000 006 226 degrees QTc Int : 449 ms Atrial fibrillation with a competing junctional pacemaker Low voltage QRS Cannot rule out Anteroseptal infarct (cited on or before 01-OCT-2023) Abnormal ECG When compared with ECG of 15-FEB-2022 16:28, Vent. rate has increased BY 27 BPM QT has lengthened Referred By: Generic ED Physician Electronically Signed By:JIGNA DOCKERY MD
--- NOTE | ~2023-10-01 | XR_ITS ---
EXAMINATION: XR CHEST CLINICAL INFORMATION: Congestive heart failure COMPARISON: 10/06/2023 TECHNIQUE: Frontal view of the chest was obtained. FINDINGS: Current radiographic abnormalities are similar to those seen on 10/06/2023. Cardiac silhouette is in the normal right size range, status post coronary artery bypass graft surgery with intact sternotomy wires in place. Pulmonary vessels have a slightly prominent ,congested appearance. Again noted are bilateral pleural effusions, left slightly larger than right, and some of the haziness of each hemithorax appears to be due to layering of the effusions. There are opacities at the bases from the pleural effusions and suspected atelectatic changes. No pneumothorax or other significant change. XR/XR chest 1V IMPRESSION: Pulmonary vascular congestion and grossly unchanged bilateral pleural effusions compared to 10/06/2023.
--- NOTE | ~2023-10-01 | XR_ITS ---
EXAMINATION: XR CHEST CLINICAL INFORMATION: Continued shortness of breath despite treatment for COPD with steroids, possible pneumonia with antibiotics and 3 days of diuresis with Lasix for possible CHF. COMPARISON: Chest radiograph 10/05/2023, CT chest 10/04/2023 chest radiograph 10/01/2023 and chest radiograph dated 07/29/2020 TECHNIQUE: Frontal view of the chest was obtained. FINDINGS: The heart is enlarged. Patient is status post median sternotomy. Bilateral pleural effusions are present. The effusions appear slightly decreased when compared to the chest radiograph from yesterday. Should be noted that on the 10/01/2023 study a left effusion was present but a significant right effusion was not seen, which subsequently developed on the 10/04/2023 CT scan. The pulmonary arteries are prominent. There is mild upper zone redistribution and increased interstitial prominence, right greater than left. Right basilar atelectasis is seen. A 2 cm left upper lobe lung mass seen on the CT scan is not visualized on the chest radiograph. XR/XR chest 1V IMPRESSION: Cardiomegaly with bilateral pleural effusions and mild interstitial edema. Findings are consistent with CHF. Prominent pulmonary arteries are suggestive of pulmonary hypertension. This result was discussed with Dr. Wheatley at 2:20 PM on the day of the exam and it was ascertained that the content of the report was understood at the time of direct communication.
--- NOTE | ~2023-10-01 | US_ITS ---
PROCEDURE: Ultrasound-guided left thoracentesis History: Left pleural effusion Specimen: A sample of pleural fluid was sent for analysis Access: 5 [place] Yueh catheter Medications: 10 mL 1% lidocaine TECHNIQUE/FINDINGS Appropriate preprocedural clinical history and imaging studies were reviewed. The patient was brought to the department and placed in the seated position. Ultrasound images of the left thorax were obtained to localize a large pleural effusion. Permanent ultrasound images were saved. Risks and benefits and possible complications were discussed with the patient and consent form was signed. An area of the patient's left back was prepped and draped in usual sterile fashion. 10 mL of 1% lidocaine was used to obtain local anesthesia of the skin and deeper tissues. A standard small bore needle was introduced to sample pleural fluid and demonstrate a safe access route. A 5 [place] Yueh catheter was then used to access the pleural cavity. 1400 ml of yellow fluid was removed passively. The catheter was then removed. A dressing was applied. A postprocedure chest x-ray will be performed and will be dictated separately. There were no immediate complications. The procedure was performed by Surinder Haro PA-C and supervised by Dr. Bravo US/US thoracentesis Impression: Ultrasound-guided left thoracentesis
--- NOTE | ~2023-10-01 | XR_ITS ---
EXAMINATION: XR CHEST CLINICAL INFORMATION: Shortness of breath. COMPARISON: Chest radiograph dated 02/14/2022. TECHNIQUE: Frontal view of the chest was obtained. FINDINGS: There are sternotomy sutures. Cardiac size appears mildly enlarged. There is blunting of the left costophrenic angle consistent with a small left pleural effusion. There is a patchy opacity at the left lung base for which infection is not excluded. The right lung remains clear. There is no pneumothorax. No acute osseous abnormality. XR/XR chest 1V IMPRESSION: There is a patchy left lower lobe opacity for which pneumonia is suspected. This should be followed to resolution radiographically after appropriate treatment. There is a small left pleural effusion. Mild cardiomegaly persists.
--- NOTE | ~2023-10-01 | XR_ITS ---
EXAMINATION: XR CHEST CLINICAL INFORMATION: Status post left thoracentesis COMPARISON: Chest CT on 10/04/2023 TECHNIQUE: Frontal view of the chest was obtained. FINDINGS: Extremely diminished lung volumes. The cardiac mediastinal silhouette is enlarged but stable. There are small bilateral pleural effusions with adjacent atelectasis. Mild pulmonary edema. No large pneumothorax. XR/XR chest 1V IMPRESSION: 1. Small bilateral pleural effusions with adjacent atelectasis. 2. Mild pulmonary edema.
--- NOTE | ~2023-10-01 | CT_ITS ---
EXAMINATION: CT CHEST WITHOUT CONTRAST CLINICAL INFORMATION: Hypoxia. COMPARISON: Chest x-ray 10/01/2023. TECHNIQUE: Axial images through the chest without IV contrast. Sagittal and coronal reconstructions on the technologist's workstation. This CT examination was performed using dose optimization techniques as appropriate, variously including the following: *Automated exposure control *Adjustment of mA and/or kV according to patient size (this includes techniques or standardized protocols for targeted exams where dose is matched to indication/reason for exam; i.e. extremities or head) *Use of iterative reconstruction technique DLP: 322 mGy-cm FINDINGS: Enlarged heart. Severe coronary artery calcification and post CABG changes. No pericardial effusion. Shotty mediastinal lymphadenopathy. Large bilateral pleural effusions. There is compressive atelectasis of the bilateral lower lobes. There is subsegmental atelectasis in the lingula and right middle lobe. There is a 1.3 x 2 cm left upper lobe nodule (axial image 130, series 5). There is a small amount of ascites in the upper abdomen. Bilateral gynecomastia. No chest wall mass or enlarged axillary lymph nodes. Degenerative changes of the spine. CT/CT chest wo IV con IMPRESSION: Enlarged heart. Large bilateral pleural effusions and compressive atelectasis of the adjacent bilateral lower lobes. 1.3 x 2 cm left upper lobe nodule. Infectious, inflammatory and neoplastic processes should be considered. Short-term follow up CT, PET/CT or tissue sampling should be considered.
[2023-10-01 20:05] VITALS: BP 145/96; BP 157/66; PULSE 72; PULSE 74; RESP 30; O2SAT 94; O2SAT 96; BMI 30.5
[2023-10-01 21:24] LABS: MANUAL DIFF FLAG NO
[2023-10-01 21:33] LABS: Basophils Percent Auto 0.2 % (0-2); Eosinophils Absolute Auto 0.2 X10*3/uL (0.0-0.4); Eosinophils Percent Auto 1.3 % (0-4); Hematocrit 36.1 % (42.0-52.0); Hemoglobin 11.7 g/dl (14.0-18.0); Imm Gran Abs Auto 0.08 X10*3/uL (0.00-0.03); Imm Gran Pct Auto 0.7 % (0.0-0.4); Lymphocytes Absolute Auto 0.5 X10*3/uL (1.2-4.9); Lymphocytes Percent Auto 4.7 % (20-40); Mean Corpuscular HGB Conc 32.4 g/dl (31.0-36.0); Mean Corpuscular Hemoglobin 34.5 pg (27.0-33.0); Mean Corpuscular Volume 106.5 fL (80.0-98.0); Monocytes Absolute Auto 0.8 X10*3/uL (0.1-1.2); Monocytes Percent Auto 7.4 % (2-11); Neutrophils Absolute Auto 9.8 x10*3/uL (2.0-8.3); Neutrophils Percent Auto 85.7 % (45-73); Platelet Count 141 X10*3/uL (160-400); Red Blood Count 3.39 X10*6/uL (4.60-5.80); Red Cell Distribution Width 14.1 % (11.0-16.0); White Blood Count 11.4 X10*3/uL (4.8-10.8)
[2023-10-01 21:34] LABS: VBG Base Excess 0.6 mmol/L; VBG HCO3 26 mmol/L (22-26); VBG pCO2 47 mmHg; VBG pH 7.35 (7.32-7.43); VBG pO2 55 mmHg
[2023-10-01 21:34] LABS: Venous Blood Gas Refer to POC result
[2023-10-01 21:45] LABS: B Type Natriuretic Peptide 596 pg/mL (<100)
[2023-10-01 21:48] LABS: Alanine Aminotransferase < 5 U/L (0-40); Albumin Level 3.6 g/dL (3.5-5.0); Alkaline Phosphatase 160 U/L (39-117); Anion Gap 16 (12-20); Aspartate Amino Transferase 14 U/L (5-37); Bilirubin Total 0.6 mg/dL (0.0-1.0); Blood Urea Nitrogen 43 mg/dL (9-16); Calcium 8.9 mg/dL (8.4-10.2); Carbon Dioxide 23 mmol/L (22-29); Chloride 109 mmol/L (96-108); Creatinine Clr Calc Pharmacy 45.9; Estimated Glomerular Filt Rate 46; Glucose Random 192 mg/dL (60-115); Potassium 5.1 mmol/L (3.3-5.1); Sodium 143 mmol/L (135-145); Total Protein 6.6 g/dL (6.5-8.0)
--- NOTE | 2023-10-01 21:57 | ED_ITS ---
HPI - SOB/Dyspnea General Chief Complaint: Dyspnea Stated Complaint: sob Time Seen by Provider: 10/01/23 20:32 Source: patient, family and EMS Mode of arrival: EMS History of Present Illness ED Provider: Dr Schmidt HPI Narrative: 83-year-old male who [facility] sudden onset of shortness of breath, noted to be 83% on room air, EMS provided a DuoNeb and albuterol with some improvement, patient is currently on 4 L nasal cannula and he denies any difficulty with chest pain or shortness of breath at this time. The daughter at bedside states that patient was recently treated at [facility] for similar issue. Related Data Home Medications ?Medication ?Instructions ?Recorded ?Confirmed carbidopa 25 mg-levodopa 100 mg 2 tab PO 5XD 05/01/21 02/14/22 tablet carbidopa ER 50 mg-levodopa 200 mg 1 tab PO BID 05/01/21 02/14/22 tablet,extended release doxazosin 4 mg tablet 1 tab PO BEDTIME 05/01/21 02/14/22 lisinopril 40 mg tablet 1 tab PO DAILY 05/01/21 02/14/22 simvastatin 20 mg tablet 1 tab PO BEDTIME 05/01/21 02/14/22 spironolactone 25 mg tablet 1 tab PO BID 05/01/21 02/14/22 aspirin 81 mg tablet 81 mg PO DAILY 02/14/22 02/14/22 dulaglutide 0.75 mg/0.5 mL See Rx Instructions .Route .COMPLEX 02/14/22 02/14/22 subcutaneous pen injector (Trulicity) multivitamin 1 tab PO DAILY 02/14/22 02/14/22 metformin 1,000 mg tablet 1 tab PO BID 02/15/22 02/15/22 Allergies Allergy/AdvReac Type Severity Reaction Status Date / Time No Known Allergies Allergy Verified 10/01/23 20:17 [No Known Allergies*] Review of Systems 2 Review of Systems: Pertinent positives and negatives as stated in HPI PMF Past Medical History Source: nursing notes reviewed Medical History Atrial fibrillation Diabetes CHF (congestive heart failure) Celiac disease Basal cell carcinoma Spinal stenosis Parkinson disease Surgical History S/P triple vessel bypass Family History Family History Mother Valvular heart disease Social History Social History Household Members: Spouse Housing: Condominium Do you presently have visiting nurse or other home services: No Alcohol intake: current Alcohol intake frequency: holidays/special occasions only Alcohol type: wine Patient Tobacco Use Status: Former Tobacco user Advance Directives: Yes Advance Directives on File: Yes Advance Directives Date on File: 05/05/21 Current occupational status: retired Physical Exam 2 Vital Signs: Vital Signs: Last Vital Signs Temp 97.7 F 10/01/23 22:15 Pulse 74 10/01/23 22:15 Resp 24 H 10/01/23 22:15 BP 140/69 H 10/01/23 22:15 Pulse Ox 93 10/01/23 22:15 O2 Del Method Nasal Cannula 10/01/23 22:15 O2 Flow Rate 4 10/01/23 22:15 Oxygen Flow Rate 4 10/01/23 20:05 BMI result Body Mass Index 30.5 VITAL SIGNS: Reviewed. GENERAL: Well developed, well nourished, in no acute distress. HEAD: Normocephalic/atraumatic EYES: PERRLA, EOMI EARS: Ext canals without abnormality NOSE: Nares patent bilateral OROPHARYNX: no oral lesions noted, posterior pharynx clear NECK: Supple, no adenopathy LUNGS: Bibasilar her rales with decreased breath sounds. SpO2<94> on 4 L nasal cannula CARDIOVASCULAR: Regular rate and rhythm without noted murmurs, no JVD significant 3+ lower pitting edema ABDOMEN: Soft, non-tender, non-distended with bowel sounds. MUSCULOSKELETAL: No tenderness, deformities, or effusions noted on gross inspection. EXTREMITIES: No cyanosis, clubbing or edema. SKIN: Inspection of the skin reveals no rashes NEUROLOGIC: Alert and oriented x 4. Strength and sensation to light touch were grossly intact x 4. Medications Administered Discontinued Medications Generic Name Dose Route Start Last Admin Trade Name Freq PRN Reason Stop Dose Admin Furosemide 60 mg 10/01/23 21:57 10/01/23 22:29 Furosemide 100 Mg/10 Ml Vial IVPUSH 10/01/23 21:58 60 mg ONCE ONE Administration Protocol Piperacillin Sod/Tazobactam 50 mls @ 100 mls/hr 10/01/23 22:06 10/01/23 22:29 Sod 3.375 gm/ Sodium Chloride IV 10/01/23 22:35 100 mls/hr ONCE ONE Administration Medical Decision Making Medical Decision Making [facility] Narrative: 83-year-old male with history and clinical presentation, DDX: CHF exacerbation, pneumonia, viral illness I reviewed all investigations and hematologic indices demonstrate a mild leukocytosis with a stable macrocytic anemia and chronically stable thrombocytopenia. VBG negative for respiratory acidosis there is a subtle hypercapnia-47. Chemistry indices significant for KEE/elevated BNP that corresponds with clinical findings bibasilar rales and significant bilateral lower extremity pitting edema, otherwise there are no electrolyte or significant liver enzyme derangements. Viral testing negative for influenza/RSV/COVID-19. Chest x-ray demonstrates patchy left lower lobe opacity with a small pleural effusion. INTERVENTION: LASIX, LACTIC ACID/BLOOD CULTURES/ANTIBIOTICS, supplemental oxygen 2240: I discussed this case with inpatient hospitalist who accepts admission. Differential Diagnosis Differential Diagnoses: The differential diagnosis associated with the presentation includes Please see the discussion above Admission/Observation Consideration of admission/observation: Escalation of care including admission/observation considered Please see the discussion Consult Healthcare Provider Management of the patient was discussed with: Hospitalist Please see the discussion above Lab Data [facility] Lab Attestation statement: I reviewed the patient's lab results. Please see the discussion above 10/01/23 21:19 10/01/23 21:19 Labs: Lab Results 10/01/23 10/01/23 Range/Units 21:19 21:21 WBC 11.4 H (4.8-10.8) X10*3/uL RBC 3.39 L (4.60-5.80) X10*6/uL Hgb 11.7 L (14.0-18.0) g/dl Hct 36.1 L (42.0-52.0) % MCV 106.5 H (80.0-98.0) fL MCH 34.5 H (27.0-33.0) pg MCHC 32.4 (31.0-36.0) g/dl RDW 14.1 (11.0-16.0) % Plt Count 141 L (160-400) X10*3/uL MPV 12.0 (9.4-12.4) fL Immature Gran % (Auto) 0.7 H (0.0-0.4) % Neut % (Auto) 85.7 H (45-73) % Lymph % (Auto) 4.7 L (20-40) % [place] % (Auto) 7.4 (2-11) % Eos % (Auto) 1.3 (0-4) % Baso % (Auto) 0.2 (0-2) % Lymph # (Auto) 0.5 L (1.2-4.9) X10*3/uL [place] # (Auto) 0.8 (0.1-1.2) X10*3/uL Eos # (Auto) 0.2 (0.0-0.4) X10*3/uL Baso # (Auto) 0.0 (0.0-0.2) X10*3/uL Abs Immat Gran (auto) 0.08 H (0.00-0.03) X10*3/uL Absolute Neuts (auto) 9.8 H (2.0-8.3) x10*3/uL Absolute Nucleated RBC 0.000 (0.0-0.012) X10*3/uL Nucleated RBC % (auto) 0.0 (0.0-0.2) /100WBC VBG pH 7.35 (7.32-7.43) VBG pCO2 47 mmHg VBG pO2 55 mmHg VBG HCO3 26 (22-26) mmol/L VBG O2 Saturation 87.0 % VBG Base Excess 0.6 mmol/L Sodium 143 (135-145) mmol/L Potassium 5.1 D (3.3-5.1) mmol/L Chloride 109 H (96-108) mmol/L Carbon Dioxide 23 (22-29) mmol/L Anion Gap 16 (12-20) BUN 43 H (9-16) mg/dL Creatinine 1.47 H (0.5-1.4) mg/dL Estim Creat Clear Calc 45.9 Estimated GFR 46 Random Glucose 192 H (60-115) mg/dL Calcium 8.9 (8.4-10.2) mg/dL Total Bilirubin 0.6 (0.0-1.0) mg/dL AST 14 (5-37) U/L ALT < 5 (0-40) U/L Alkaline Phosphatase 160 H (39-117) U/L B-Natriuretic Peptide 596 H (<100) pg/mL Total Protein 6.6 (6.5-8.0) g/dL Albumin 3.6 (3.5-5.0) g/dL Influenza Type A (PCR) NEGATIVE (Negative) Influenza Type B (PCR) NEGATIVE (Negative) RSV RNA Qual (PCR) NEGATIVE (Negative) SARS-CoV-2 RNA (RT-PCR) NEGATIVE (Negative) Independent Interpretation I performed an independent interpretation of an: EKG Interpretation: Atrial fibrillation without RVR, HR-70, no STEMI, QRS/QTC is within normal limits. Radiology Impression Discussion of test interpretation with radiology: I have reviewed the radiologist's reading. Radiologist Impression: Please see the discussion above External Record Review External record reviewed: Outpatient record, Prior outpatient labs and Prior outpatient radiology Chronic Conditions Parkinson's Critical Care Time Critical Care Time Critical Care Time: Yes Total Critical Care Time: 60 Attestation: I personally attest to this time spent taking care of the patient. Discharge Plan Discharge Clinical Impression: Acute hypoxic respiratory failure, CHF exacerbation, Pneumonia, KEE (acute kidney injury) Patient Disposition: Admitted As Inpatient Print Language: Slovak
[2023-10-01 22:04] LABS: Influenza A PCR NEGATIVE (Negative); Influenza B PCR NEGATIVE (Negative); Resp Syncy Virus RNA Qual PCR NEGATIVE (Negative); SARS COV2 PCR INHOUSE NEGATIVE (Negative)
[2023-10-01 22:15] VITALS: BP 140/69; PULSE 74; RESP 24; TEMP 36.5; O2SAT 93
[2023-10-01] MEDS: Furosemide 100 MG/10 ML VIAL 60 MG IVPUSH (22:29)
[2023-10-01] MEDS: Piperacillin Sodium/Tazobactam 3.375 GM in 0.9 % Sodium Chloride 50 ML IV (22:29)
[2023-10-01 22:42] LABS: Lactic Acid 1.1 mmol/L (0.5-2.0)
--- NOTE | 2023-10-01 23:07 | P.HPHOSP_ITS ---
History of Present Illness Date of Service: 10/02/23 Chief Complaint: Dyspnea This is a 83-year-old male with pertinent history of congestive heart failure, unspecified EF, paroxysmal atrial fibrillation not on anticoagulation, lkx-yqvzcan-djffmviws diabetes mellitus, Parkinson's disease, hypertension who presents to the emergency department for evaluation of dyspnea. Patient states he had sudden onset of dyspnea while he was transferring from wheelchair to recliner. Admits orthopnea. Also has bilateral lower extremity swelling. Also has been having cough. No chest pain. No wheezing. No fever, chills, nausea, vomiting, chest discomfort, palpitations, abdominal pain, changes in urinary or bowel habits. In the emergency department, BNP found to be elevated and patient was initiated on IV diuresis. Patient requiring 4 L supplemental oxygen in the ER. Review of Systems 2 Constitutional: Constitutional: Reports no additional constitutional complaints Cardiovascular: Cardiovascular: Reports dyspnea on exertion and Reports orthopnea Respiratory: Respiratory: Reports cough and Reports dyspnea on exertion Gastrointestinal: Gastrointestinal: Reports no additional gastrointestinal complaints Genitourinary: Genitourinary: Reports no additional male genitourinary complaints [facility] Medical History Atrial fibrillation Diabetes CHF (congestive heart failure) Celiac disease Basal cell carcinoma Spinal stenosis Parkinson disease Family History Mother Valvular heart disease Surgical History S/P triple vessel bypass Social History Household Members: Spouse [facility] Do you presently have visiting nurse or other home services: No Alcohol intake: current Alcohol intake frequency: holidays/special occasions only Alcohol type: wine Patient Tobacco Use Status: Former Tobacco user Advance Directives: Yes Advance Directives on File: Yes Advance Directives Date on File: 05/05/21 Current occupational status: retired Meds Allergies Allergy/AdvReac Type Severity Reaction Status Date / Time No Known Allergies Allergy Verified 10/01/23 20:17 [No Known Allergies*] Home Medications ?Medication ?Instructions ?Recorded ?Confirmed ?Last Taken ?Type carbidopa 25 mg-levodopa 100 mg 2 tab PO 5XD 05/01/21 02/14/22 Unknown History tablet carbidopa ER 50 mg-levodopa 200 mg 1 tab PO BID 05/01/21 02/14/22 Unknown History tablet,extended release doxazosin 4 mg tablet 1 tab PO BEDTIME 05/01/21 02/14/22 Unknown History lisinopril 40 mg tablet 1 tab PO DAILY 05/01/21 02/14/22 Unknown History simvastatin 20 mg tablet 1 tab PO BEDTIME 05/01/21 02/14/22 Unknown History spironolactone 25 mg tablet 1 tab PO BID 05/01/21 02/14/22 Unknown History aspirin 81 mg tablet 81 mg PO DAILY 02/14/22 02/14/22 Unknown History dulaglutide 0.75 mg/0.5 mL See Rx Instructions .Route .COMPLEX 02/14/22 02/14/22 Unknown History subcutaneous pen injector (Trulicity) multivitamin 1 tab PO DAILY 02/14/22 02/14/22 Unknown History metformin 1,000 mg tablet 1 tab PO BID 02/15/22 02/15/22 Unknown History Physical Exam 2 Vital Signs and Narrative: Vital Signs: Last Vital Signs Temp 97.7 F 10/01/23 22:15 Pulse 74 10/01/23 22:15 Resp 24 H 10/01/23 22:15 BP 140/69 H 10/01/23 22:15 Pulse Ox 93 10/01/23 22:15 O2 Del Method Nasal Cannula 10/01/23 22:15 O2 Flow Rate 4 10/01/23 22:15 Oxygen Flow Rate 4 10/01/23 20:05 BMI result Body Mass Index 30.5 Elderly male lying in bed in mild distress on supplemental oxygen Neck supple, no JVD Irregularly irregular, S1-S2 heard Bilateral crackles present Abdomen soft nontender, no guarding, no rigidity Patient is awake, alert and oriented to self, place, time and person ; no focal motor deficit Psych: Normal mood Bilateral pedal edema Results Labs 10/01/23 21:19 10/01/23 21:19 Labs: Laboratory Results - last 24 hr 10/01/23 10/01/23 10/01/23 21:19 21:21 22:26 MCV 106.5 H MCH 34.5 H MCHC 32.4 RDW 14.1 Plt Count 141 L MPV 12.0 Immature Gran % (Auto) 0.7 H Neut % (Auto) 85.7 H Lymph % (Auto) 4.7 L [place] % (Auto) 7.4 Eos % (Auto) 1.3 Baso % (Auto) 0.2 Lymph # (Auto) 0.5 L [place] # (Auto) 0.8 Eos # (Auto) 0.2 Baso # (Auto) 0.0 Abs Immat Gran (auto) 0.08 H Absolute Neuts (auto) 9.8 H Absolute Nucleated RBC 0.000 Nucleated RBC % (auto) 0.0 VBG pH 7.35 VBG pCO2 47 VBG pO2 55 VBG HCO3 26 VBG O2 Saturation 87.0 VBG Base Excess 0.6 Anion Gap 16 Estim Creat Clear Calc 45.9 Estimated GFR 46 Random Glucose 192 H Lactic Acid 1.1 Calcium 8.9 Total Bilirubin 0.6 AST 14 ALT < 5 Alkaline Phosphatase 160 H B-Natriuretic Peptide 596 H Total Protein 6.6 Albumin 3.6 Influenza Type A (PCR) NEGATIVE Influenza Type B (PCR) NEGATIVE RSV RNA Qual (PCR) NEGATIVE SARS-CoV-2 RNA (RT-PCR) NEGATIVE Imaging Radiologist's Impressions: Impressions Chest X-Ray 10/01/23 21:03 IMPRESSION: There is a patchy left lower lobe opacity for which pneumonia is suspected. This should be followed to resolution radiographically after appropriate treatment. There is a small left pleural effusion. Mild cardiomegaly persists. Assessment and Plan (1) Acute hypoxic respiratory failure: Status: Acute (2) CHF exacerbation: Status: Acute Plan This is a 83-year-old male with pertinent history of congestive heart failure, unspecified EF, paroxysmal atrial fibrillation not on anticoagulation, idd-enwfkcf-ebcdvcupy diabetes mellitus, Parkinson's disease, hypertension who presents to the emergency department for evaluation of dyspnea. #. Acute hypoxemic respiratory failure due to acute exacerbation of CHF, unspecified EF: Will admit patient with supplemental oxygen. Initiating IV diuresis. Strict I's and O's. Low-salt diet #. Left lower lobe opacity on imaging: Initiating empiric IV antibiotics. No sepsis #. Acute kidney injury stage I: Likely cardiorenal type 1. Monitor with IV diuresis. Avoid nephrotoxins #. Hypertension: Hold lisinopril in the setting of hypertension #. Parkinson's disease: On Sinemet #. Vhz-pvjgtsn-moozjxqlk diabetes mellitus with hyperglycemia: Initiating Accu-Cheks with sliding scale insulin #. Paroxysmal atrial fibrillation: Rate controlled in the ER. Not on anticoagulation Med rec pending DVT prophylaxis: Lovenox DNR/DNI. Discussed with patient at bedside Admit as inpatient and will require two night minimum hospital stay for supplemental oxygen, IV antibiotics, IV diuresis (as above), which is not possible in a lesser acute setting. Quality Stroke Does the patient have a stroke diagnosis?: No VTE Prior VTE?: No VTE Risk Level:: Medical - moderate - high VTE Device Contraindication: Treatment Not Indicated VTE Drug Contraindication: N/A - Med Ordered
[2023-10-02] VITALS (14 sets, daily range): BP systolic 134–168; BP diastolic 66–116; PULSE 65–89; RESP 16–27; TEMP 36.6; O2SAT 87–99
[2023-10-02] MEDS: 0.9 % Sodium Chloride Flush 3 ML SYRINGE IVFLUSH ×3 (00:24→17:12)
[2023-10-02] MEDS: Enoxaparin Sodium 40 MG/0.4 ML SYRINGE SUBCUT ×2 (00:24→22:15)
[2023-10-02] MEDS: cefTRIAXone sodium 1 GM in 0.9 % Sodium Chloride 50 ML IV (00:45)
[2023-10-02] MEDS: Azithromycin 500 MG in 0.9 % Sodium Chloride 250 ML 125 MG IV (01:15)
--- NOTE | 2023-10-02 04:40 | PC.NURSE ---
pt repositioned onto L side per request
[2023-10-02 05:44] LABS: MANUAL DIFF FLAG NO
[2023-10-02 05:47] LABS: Basophils Percent Auto 0.2 % (0-2); Eosinophils Absolute Auto 0.1 X10*3/uL (0.0-0.4); Eosinophils Percent Auto 1.4 % (0-4); Hemoglobin 11.1 g/dl (14.0-18.0); Imm Gran Abs Auto 0.08 X10*3/uL (0.00-0.03); Imm Gran Pct Auto 0.9 % (0.0-0.4); Lymphocytes Absolute Auto 0.7 X10*3/uL (1.2-4.9); Lymphocytes Percent Auto 8.1 % (20-40); Mean Corpuscular HGB Conc 32.6 g/dl (31.0-36.0); Mean Corpuscular Hemoglobin 34.7 pg (27.0-33.0); Mean Corpuscular Volume 106.3 fL (80.0-98.0); Mean Platelet Volume 11.9 fL (9.4-12.4); Monocytes Absolute Auto 0.7 X10*3/uL (0.1-1.2); Monocytes Percent Auto 7.8 % (2-11); Neutrophils Absolute Auto 7.4 x10*3/uL (2.0-8.3); Neutrophils Percent Auto 81.6 % (45-73); Platelet Count 126 X10*3/uL (160-400); White Blood Count 9.1 X10*3/uL (4.8-10.8)
[2023-10-02 06:03] LABS: Anion Gap 11 (12-20); Blood Urea Nitrogen 42 mg/dL (9-16); Calcium 8.9 mg/dL (8.4-10.2); Carbon Dioxide 28 mmol/L (22-29); Chloride 109 mmol/L (96-108); Creatinine Clr Calc Pharmacy 47.8; Estimated Glomerular Filt Rate 48; Glucose Random 166 mg/dL (60-115); Potassium 4.6 mmol/L (3.3-5.1); Sodium 143 mmol/L (135-145)
--- NOTE | 2023-10-02 07:16 | P.PNIM_ITS ---
Subjective Subjective Date of Service: 10/02/23 Interval History: f/u on heart failure and PNA interval history; presently not sob, has persistent leg edema, fatigue Physical Exam 2 Vital Signs: Vital Signs: Last Vital Signs Temp 97.9 F 10/02/23 06:36 Pulse 71 10/02/23 06:36 Resp 20 10/02/23 06:36 BP 134/77 10/02/23 06:36 Pulse Ox 96 10/02/23 06:36 O2 Del Method Nasal Cannula 10/02/23 06:36 O2 Flow Rate 3 10/02/23 06:36 Oxygen Flow Rate 4 10/01/23 20:05 BMI result Body Mass Index 30.5 General: AO X 3, no acute distress Resp: CTA bilateral CVS: S1,S2,RRR, 2+ bipedal edema GI: +BS, NT, no distention Skin: No rash Neuro: motor grossly intact Psych: appropriate affect Objective Data Active Medications Acetaminophen (Acetaminophen 325 Mg Tablet) 650 mg PO Q6H PRN PRN Reason: Pain, Mild (Pain Scale 1-3) Enoxaparin Sodium (Enoxaparin Sodium 40 Mg/0.4 Ml Syringe) 40 mg SUBCUT Q24H [facility] Last Admin: 10/02/23 00:24 Dose: 40 mg Documented By: CHANDRIKA Furosemide (Furosemide 100 Mg/10 Ml Vial) 60 mg IVPUSH DAILY [facility]; Protocol Glucose (Glucose Gel 15 Gm Gel..Gram.) 15 gm PO Q15M PRN; Protocol PRN Reason: per Hypoglycemia Standing Ord. Ceftriaxone Sodium 1 gm/ (Sodium Chloride) 50 mls @ 100 mls/hr IV Q24H [facility] Last Infusion: 10/02/23 01:15 Dose: Infused Documented By: CHANDRIKA Azithromycin 500 mg/ Sodium (Chloride) 250 mls @ 125 mls/hr IV Q24H [facility] Last Infusion: 10/02/23 03:27 Dose: Infused Documented By: CHANDRIKA Dextrose (D10) 250 mls @ 750 mls/hr IV Q15M PRN; Protocol PRN Reason: per Hypoglycemia Standing Ord. Insulin Human Lispro (Insulin Lispro 100 Unit/Ml 3 Ml Vial) 0 unit SUBCUT QIDACHS [facility]; Protocol Melatonin (Melatonin 3 Mg Tablet) 6 mg PO BEDTIME PRN PRN Reason: Insomnia Ondansetron HCl (Ondansetron Hcl 4 Mg/2 Ml Vial) 4 mg IVPUSH Q8H PRN PRN Reason: Nausea and Vomiting Sodium Chloride (0.9 % Sodium Chloride Flush 3 Ml Syringe) 3 ml IVFLUSH QSHIFT [facility] Last Admin: 10/02/23 00:24 Dose: 3 ml Documented By: CHANDRIKA Labs 10/02/23 05:33 10/02/23 05:33 Labs: Laboratory Results - last 24 hr 10/01/23 10/01/23 10/01/23 21:19 21:21 22:26 MCV 106.5 H MCH 34.5 H MCHC 32.4 RDW 14.1 Plt Count 141 L MPV 12.0 Immature Gran % (Auto) 0.7 H Neut % (Auto) 85.7 H Lymph % (Auto) 4.7 L [place] % (Auto) 7.4 Eos % (Auto) 1.3 Baso % (Auto) 0.2 Lymph # (Auto) 0.5 L [place] # (Auto) 0.8 Eos # (Auto) 0.2 Baso # (Auto) 0.0 Abs Immat Gran (auto) 0.08 H Absolute Neuts (auto) 9.8 H Absolute Nucleated RBC 0.000 Nucleated RBC % (auto) 0.0 VBG pH 7.35 VBG pCO2 47 VBG pO2 55 VBG HCO3 26 VBG O2 Saturation 87.0 VBG Base Excess 0.6 Anion Gap 16 Estim Creat Clear Calc 45.9 Estimated GFR 46 Random Glucose 192 H Lactic Acid 1.1 Calcium 8.9 Total Bilirubin 0.6 AST 14 ALT < 5 Alkaline Phosphatase 160 H B-Natriuretic Peptide 596 H Total Protein 6.6 Albumin 3.6 Influenza Type A (PCR) NEGATIVE Influenza Type B (PCR) NEGATIVE RSV RNA Qual (PCR) NEGATIVE SARS-CoV-2 RNA (RT-PCR) NEGATIVE 10/02/23 05:33 MCV 106.3 H MCH 34.7 H MCHC 32.6 RDW 14.0 Plt Count 126 L MPV 11.9 Immature Gran % (Auto) 0.9 H Neut % (Auto) 81.6 H Lymph % (Auto) 8.1 L [place] % (Auto) 7.8 Eos % (Auto) 1.4 Baso % (Auto) 0.2 Lymph # (Auto) 0.7 L [place] # (Auto) 0.7 Eos # (Auto) 0.1 Baso # (Auto) 0.0 Abs Immat Gran (auto) 0.08 H Absolute Neuts (auto) 7.4 Absolute Nucleated RBC 0.000 Nucleated RBC % (auto) 0.0 VBG pH VBG pCO2 VBG pO2 VBG HCO3 VBG O2 Saturation VBG Base Excess Anion Gap 11 L Estim Creat Clear Calc 47.8 Estimated GFR 48 Random Glucose 166 H Lactic Acid Calcium 8.9 Total Bilirubin AST ALT Alkaline Phosphatase B-Natriuretic Peptide Total Protein Albumin Influenza Type A (PCR) Influenza Type B (PCR) RSV RNA Qual (PCR) SARS-CoV-2 RNA (RT-PCR) Assessment and Plan (1) KEE (acute kidney injury): Status: Acute (2) CHF exacerbation: Status: Acute (3) Pneumonia: Status: Acute Plan 83-year-old male with pertinent history of congestive heart failure, unspecified EF, paroxysmal atrial fibrillation not on anticoagulation, [id number]-jkpcosbhr diabetes mellitus, Parkinson's disease, hypertension who presents to the emergency department for evaluation of dyspnea. Acute hypoxemic respiratory failure due to acute exacerbation of CHF, unspecified EF and PNA, treating as below acute on chronic CHF unspecified.. -continue IV Lasix 60 mg daily, PO 60 at home -get echo tomorrow -monitor i/o, daily weight, low salt diet -cardiology eval tomorrow Left lower lobe PNA, continue Ceftriaxone and Azitho 09/30 Acute kidney injury stage I: likely d/t cardiorenal phenomenon, hold lisinopril, avoid nephrotoxin Hypertension: Hold lisinopril in the setting of hypertension, restart imdur tomorrow Parkinson's disease: On Sinemet Kqe-yrlaovs-uqbcshxbj diabetes mellitus with hyperglycemia: Initiating Accu- Cheks with sliding scale insulin, hold metformin, trulicity not on forumulary Paroxysmal atrial fibrillation: Rate controlled in the ER. Not on anticoagulation DVT prophylaxis: Lovenox DNR/DNI. Discussed with patient at bedside need for inpt: management of chf with iv diuretics, frequent lab check Quality Stroke Does the patient have a stroke diagnosis?: No VTE Prior VTE?: No VTE Risk Level:: Medical - moderate - high VTE Device Contraindication: Treatment Not Indicated VTE Drug Contraindication: N/A - Med Ordered
[2023-10-02 07:24] LABS: Glucose, Whole Blood 131 mg/dL (60-115)
--- NOTE | 2023-10-02 09:38 | PHA.MEDREC ---
Pharmacy Consult ? Medication Reconciliation Pharmacy has completed the medication reconciliation. used list from [facility].
[2023-10-02] MEDS: Furosemide 100 MG/10 ML VIAL 60 MG IVPUSH (10:16)
[2023-10-02] MEDS: Acetaminophen 325 MG TABLET 650 MG PO (11:20)
[2023-10-02] MEDS: Carbidopa/Levodopa 25/100 TABLET 2 TAB PO ×4 (11:20→22:27)
[2023-10-02] MEDS: Docusate Sodium 100 MG CAPSULE PO ×2 (11:21→22:15)
[2023-10-02] MEDS: Aspirin 81 MG TAB.CHEW PO (11:21)
[2023-10-02 13:51] LABS: Glucose, Whole Blood 122 mg/dL (60-115)
[2023-10-02 17:32] LABS: Glucose, Whole Blood 157 mg/dL (60-115)
--- NOTE | 2023-10-02 18:22 | PC.NURSE ---
pt desat to 78%, c/o not being able to breath. changed to an oxymask on 7L at 94%, RR 26 HR 81 MD Salcedo made aware. respiratory at bedside to place pt on CPAP pt c/o not being able to breathe
[2023-10-02 18:44] LABS: ABG Base Excess 4.1 mmol/L; ABG HCO3 29 mmol/L (22-26); ABG pCO2 49 mmHg (32-45); ABG pH 7.38 (7.35-7.45); ABG pO2 94 mmHg (83-108)
--- NOTE | 2023-10-02 18:58 | PC.NURSE ---
during repositioning condom cath came off, d/t respiratory distress at this time will clean and change pt when his respiratory status is more stable.
--- NOTE | 2023-10-02 19:48 | PC.NURSE ---
pt tolerating cpap well, sats 99%, axox3 following commands appropriately. pt speaks clear sentences with mask on. vss. resting comfortably. call gutierrez within reach.
[2023-10-02 20:06] LABS: Glucose, Whole Blood 151 mg/dL (60-115)
--- NOTE | 2023-10-02 20:12 | PM.EVENT ---
Event Note Date of Service: 10/02/23 Event Note: Patient resting comfortably in bed breathing 15 times a minute. No dyspnea tachypnea noted. Currently on CPAP. Denies any new symptoms. No chest pain. Vital signs within normal limits. Time Spent With Patient Time: Total time managing care of this patient today ____ minutes.
--- NOTE | 2023-10-02 22:05 | PC.NURSE ---
pt wanted to remove cpap, okay with this. RT called at bedside now. pt placed on 4L via oxymask. resp even and unlabored. speaking full clear sentences.
[2023-10-02] MEDS: Doxazosin Mesylate 2 MG TABLET 4 MG PO (22:15)
[2023-10-02] MEDS: amLODIPine Besylate 10 MG TABLET PO (22:15)
[2023-10-02] MEDS: Atorvastatin Calcium 10 MG TABLET PO (22:15)
--- NOTE | 2023-10-02 22:22 | PC.NURSE ---
rales bilat lower lobes. sats 97% on 4L NC, switched to NC so pt can eat. pt medicated per mar tolerated meds po. pt tolerated po foods, resp even and unlabored. pt denies feeling sob. call gutierrez within reach.
[2023-10-02 22:57] LABS: ABG Refer to POC result
[2023-10-03] VITALS (19 sets, daily range): BP systolic 138–161; BP diastolic 63–92; PULSE 64–90; RESP 17–95; TEMP 36.2–37.1; O2SAT 40–97; BMI 30.5
[2023-10-03] MEDS: cefTRIAXone sodium 1 GM in 0.9 % Sodium Chloride 50 ML IV (01:21)
[2023-10-03] MEDS: 0.9 % Sodium Chloride Flush 3 ML SYRINGE IVFLUSH ×4 (01:21→22:19)
[2023-10-03] MEDS: Azithromycin 500 MG in 0.9 % Sodium Chloride 250 ML 125 MG IV (02:15)
[2023-10-03] MEDS: Carbidopa/Levodopa 25/100 TABLET 2 TAB PO ×5 (05:48→17:37)
--- NOTE | 2023-10-03 07:00 | CA_ITS ---
Transthoracic Echocardiogram Patient (Last, First, Middle): Mina Huang, Gender: Male Date of : 1940 Age: 83 Procedure Date: 10/03/2023 Procedure Type: Transthoracic Echocardiogram Location: [facility] Height: 203.2 cm Weight: 96.16 kg BSA: 2.36 m2 Heart Rate: 75 bpm BP: 144 / 63 mmHg [employer] Machine: SB Referring MD: Mariela Williamson MD Symptoms: CHF Study Quality: Adequate w Contrast ECG Rhythm: Atrial Fibrillation Conclusions: - The left ventricular systolic function is low normal. The visually estimated ejection fraction is between 50-55%. - No obvious valvular pathology seen on this study. - The right ventricular systolic pressure is 63 mmHg. Moderate to severe pulmonary hypertension is present. - There is mild dilatation of the ascending aorta measuring 4.00 cm. Findings Procedure Information Contrast agent, definity, is being given per protocol without apparent complications. Left Ventricle Normal left ventricular cavity size. The left ventricular systolic function is low normal. The visually estimated ejection fraction is between 50-55%. There is borderline global hypokinesis. Diastolic function is indeterminate on the basis of available data. Right Ventricle The right ventricle was not well visualized. There is normal right ventricular systolic function. Atria Both atria are likely dilated. Aortic Valve There is a normal trileaflet aortic valve. There is mild calcification of the aortic valve. There is no aortic valve stenosis. There is no aortic valve regurgitation. Mitral Valve There is mild mitral annular calcification. There is trace mitral valve regurgitation. There is no mitral valve stenosis. Pulmonic Valve The pulmonic valve is likely normal. Tricuspid Valve There is mild tricuspid valve regurgitation. The right ventricular systolic pressure is 63 mmHg. Moderate to severe pulmonary hypertension is present. Great Vessels There is mild dilatation of the ascending aorta measuring 4.00 cm. Venous The inferior vena cava is dilated and collapses less than 50% with inspiration. (On CPAP). Pericardium/Pleural There is no evidence of pericardial effusion. Prior Study Comparison No prior study available for comparison. Recommendations, Care & Conclusions No obvious valvular pathology seen on this study. Measurements 2D Linear Measurements IVSd: 0.79 0.6-0.9/0.6-1.0 cm LVIDd: 5.33 3.9-5.3/4.2-5.9 cm LVIDd Index: 2.26 2.4-3.2/2.2-3.1 cm/m2 LVIDs: 3.37 2.0-3.6 cm LVPWd: 0.91 0.7-1.1 cm LA Diam: 4.50 2.7-3.8/3.0-4.0 cm LAIDs Index: 1.91 1.5-2.3 cm/m2 LV Mass: 203.39 67-162/88-224 g LV Mass Index: 86.18 43-95/49-115 g/m2 LVOT Diam: 2.40 3.0+(-)1.3 cm 2D Systolic Function EF 4C: 54.20 >55% Mitral Valve MV Pk E: 1.39 E'Lateral: 5.06 E/E' Lat: 27.50 Aortic Valve AoV Pk Jonnathan: 1.16 AoV Pk Grad: 5.00 [place]: 3.62 LVOT LVOT Pk Jonnathan: 0.93 LVOT Mn Jonnathan: 0.62 LVOT VTI: 0.20 LVOT Pk Grad: 3.00 LVOT Mn Grad: 2.00 LVOT Diam: 2.40 LVOT Area: 4.52 Diastolic Function MV Pk E: 1.39 E' Laterial: 5.06 E/E' Lat: 27.50 Right Ventricle TAPSE (mm): 17.00 TVS' Jonnathan: 11.00 Tricuspid Valve TR Pk Jonnathan: 3.46 TR Pk Grad: 48.00 RA Press: 15.00 RVSP: 63.00 Great Vessels Aorta Sinus of Valsalva: 3.50 2.0-3.5 cm Ao Asc: 4.00 2.1-3.4 cm Pulmonary Valve PV Pk Jonnathan: 1.07 Peak PV Grad: 5.00 Updated in Other Vendor System with Status of Final Prasanna Almanzar MD electronically signed on 10/03/2023 11:30:47 AM with status of Final
[2023-10-03 07:34] LABS: Anion Gap 14 (12-20); Blood Urea Nitrogen 38 mg/dL (9-16); Calcium 9.6 mg/dL (8.4-10.2); Carbon Dioxide 31 mmol/L (22-29); Chloride 107 mmol/L (96-108); Creatinine Clr Calc Pharmacy 53.9; Estimated Glomerular Filt Rate 55; Glucose Random 112 mg/dL (60-115); Potassium 4.5 mmol/L (3.3-5.1); Sodium 147 mmol/L (135-145)
[2023-10-03 07:35] LABS: B Type Natriuretic Peptide 710 pg/mL (<100)
[2023-10-03 07:42] LABS: Glucose, Whole Blood 105 mg/dL (60-115)
[2023-10-03] MEDS: Docusate Sodium 100 MG CAPSULE PO ×2 (08:21→22:13)
[2023-10-03] MEDS: Multivitamin TABLET 1 TAB PO (08:21)
[2023-10-03] MEDS: Isosorbide Mononitrate 30 MG TAB.ER.24H PO (08:21)
[2023-10-03] MEDS: Aspirin 81 MG TAB.CHEW PO (08:21)
[2023-10-03] MEDS: Furosemide 100 MG/10 ML VIAL 60 MG IVPUSH (08:22)
--- NOTE | 2023-10-03 08:45 | MHC.CM.PN ---
CM MET WITH PT WHO REPORTS HE WAS LIVING WITH HIS UNTIL A COUPLE WEEKS AGO WHEN HE MOVED [facility] HE REPORTS HE USES A WHEEL CHAIR AND WALKER DUE TO PARKINSONS PT HAS A HCP AND ADVANCED CARE PLAN DOCUMENT ON FILE HE IS UNSURE WHO IS PCP IS NOW THAT HE HAS MOVED CM WILL OBTAIN PCP INFO TODAY IMM DELIVERED DCP: RETURN TO [facility] VIA BLS
--- NOTE | 2023-10-03 08:48 | HO.SKINPHOTO ---
Location: Category: Stage: Length: Width: Depth: cm Admission skin photo. Room 460. Buttocks.
[2023-10-03] MEDS: Morphine Sulfate 2 MG/ML CARTRIDGE 1 MG IVPUSH (09:30)
[2023-10-03] MEDS: methylPREDNISolone Sod Succ 125 MG/2 ML VIAL 60 MG IVPUSH (09:30)
[2023-10-03] MEDS: Albuterol Sulfate 2.5 MG, Albuterol/Iprat 2.5/0.5MG 3 ML 3 ML INHALE (10:14)
--- NOTE | 2023-10-03 11:14 | HO.WOUND ---
Wound Consult: Initial 83yr old?Male admitted to [facility] on 10/01/23- See progress notes and H&P for detailed history.? Wound consult placed for Bilateral Heels, Sacrum and Bridge of nose.? Patient agreeable to assessment and photo documentation.? Patient reports he has had a wound to the sacrum on and off for over a year now he reports his takes care of it at home with creams and the occasional assessment from [facility]. Sacrum - improved erythema Sacrum initial arrival to unit Etiology: Deep Tissue Injury ??Present on Admission Measurements: 1.4cm x 1.4cm x 0.1cm Wound Bed: pink moist tissue with nonblanchable maroon purple pigmentation Drainage / Odor: Small amount of serosang noted on bed linen when assessed Edges: ? irregular [place] wound: scar tissue noted for previous pressure injury, red pink tissue - No Induration, Fluctuance or Warmth noted Pain: tenderness reported Goals of Treatment: ?Off Load Pressure and foam dressing to aid in pressure redistribution and moist wound healing. Bilateral Heels Etiology: stage 1 Pressure Injury Present on Admission Wound Bed: Intact pink tissue slow to jovanni - heel protector boots in place Drainage / Odor: None [place] wound: Intact - No Induration, Fluctuance or Warmth noted Pain: denies Goals of Treatment: Heel Protector boots applied Bridge of Nose Etiology: Redness noted Wound Bed: Intact pink tissue remains blanchable Drainage / Odor: None [place] wound: Intact Pain: tenderness reported Goals of Treatment: Mepilex Lite foam dressing applied under mask to aid in pressure redistribution and protect from friction Low Air Loss Mattress in place, Heel Protector Boots in place, Staff to bring extra pillows for Repositioning, (Patient has baseline Parkinsons and has a significant tremor appears to be frequent position changing on own but given sacral wound will benefit from supported off loading to sacrum wedges will likely not benefit patient given movement). Nutrition following. Recommendations: 1. Turn and Reposition every 2 hours and as needed for patient comfort.? Use pillows or wedges to support off loading positions. 2. Off Load all bony prominences with use of pillows and heel boots if needed.? Apply Preventative foams where needed. ? 3. Monitor for incontinence and moisture control, use barrier creams when needed for prevention and treatment. 4. Provide adequate and supplemental nutrition.? 5. Continue low air loss mattress. 6. When applicable maintain blood glucose levels per Providers order. 7. Sacrum - Cleanse with PH balanced wipes, pat dry. Apply sacral foam dressing, peel back and assess Q shift and change every 3 days and PRN. 8. Bilateral Heels - Heel Protector to be used when in bed. 9. Bridge of nose - Apply Mepilex Lite foam dressing to bridge of nose. Peel back and assess Q shift and Change Q 3 days and PRN. Re-consult wound care Nurse for wound deterioration or wound changes.
[2023-10-03 11:20] LABS: Glucose, Whole Blood 184 mg/dL (60-115)
--- NOTE | 2023-10-03 11:22 | P.CONCA_ITS ---
History of Present Illness History of Present Illness Date of Service: 10/03/23 Chief complaint: Dyspnea Narrative: This is a cardiology consultation regarding shortness of breath. Per H and P, there is mention of congestive heart failure, paroxysmal atrial fibrillation and many comorbidities. He also has Parkinson's disease. Presenting for shortness of breath. Apparently sudden onset of shortness of breath when he was transferring from wheelchair to recliner. Patient himself however, denies that he has got any cardiac issues at all. He also denies any history of COPD or any lung issues. Remote history of smoking many decades ago. He is on CPAP at the time of encounter. Review of Systems 2 Review of Systems: Yes all other systems are reviewed and are negative Constitutional: Constitutional: Reports as per HPI and Reports no additional constitutional complaints Eyes: Eyes: Reports as per HPI and Denies no additional eye complaints ENT: Denies system reviewed and no additional complaints, except as documented and Reports as per HPI Cardiovascular: Cardiovascular: Reports as per HPI, Reports no additional cardiovascular complaints, Denies acrocyanosis, Denies cool extremities, Denies chest pain, Denies leg edema, Denies lightheadedness, Denies palpitations and Reports dyspnea Respiratory: Respiratory: Reports as per HPI, Denies no additional respiratory complaints and Reports dyspnea Gastrointestinal: Gastrointestinal: Reports as per HPI and Denies no additional gastrointestinal complaints Genitourinary: Genitourinary: Reports no additional male genitourinary complaints and Reports as per HPI Musculoskeletal: Musculoskeletal: Reports no additional musculoskeletal complaints and Reports as per HPI Integumentary/Breasts: Skin/Breast: Reports system reviewed and no additional complaints, except as docu Neurologic: Reports system reviewed and no additional complaints, except as documented and Reports as per HPI Psychiatric: Psychiatric: Reports no additional psychiatric complaints and Reports as per HPI Endocrine: Endocrine: Reports no additional endocrine complaints, Reports as per HPI and Denies palpitations Hematologic/Lymphatic: Hematologic/Lymphatic: Reports no additional hematologic/lymphatic complaints and Reports as per HPI Allergic/Immunologic: Allergic/Immunologic: Reports no additional allergic/immunologic complaints and Reports as per HPI [facility] Past Medical History Medical History Atrial fibrillation Diabetes CHF (congestive heart failure) Celiac disease Basal cell carcinoma Spinal stenosis Parkinson disease Family History Family History Mother Valvular heart disease Surgical History Surgical History S/P triple vessel bypass Social History Social History Household Members: Other Housing: Care Home Do you presently have visiting nurse or other home services: No (Resides at [facility]) Alcohol intake: current Alcohol intake frequency: holidays/special occasions only Alcohol type: wine Patient Tobacco Use Status: Former Tobacco user Second Hand Smoke Exposure: No Advance Directives Date on File: 05/05/21 service: Yes Current occupational status: retired Meds Allergies Allergy/AdvReac Type Severity Reaction Status Date / Time No Known Allergies Allergy Verified 10/01/23 20:17 [No Known Allergies*] Active Medications: Current Medications Acetaminophen (Acetaminophen 325 Mg Tablet) 650 mg PO Q6H PRN PRN Reason: Pain, Mild (Pain Scale 1-3) Last Admin: 10/02/23 11:20 Dose: 650 mg Amlodipine Besylate (Amlodipine Besylate 10 Mg Tablet) 10 mg PO BEDTIME MADALYN; Protocol Last Admin: 10/02/23 22:15 Dose: 10 mg Aspirin (Aspirin 81 Mg Tab.Chew) 81 mg PO DAILY MADALYN Last Admin: 10/03/23 08:21 Dose: 81 mg Atorvastatin Calcium (Atorvastatin Calcium 10 Mg Tablet) 10 mg PO BEDTIME MADALYN Last Admin: 10/02/23 22:15 Dose: 10 mg Bisacodyl (Bisacodyl 10 Mg Supp.Rect) 10 mg UT DAILY PRN PRN Reason: Constipation Carbidopa/Levodopa (Carbidopa/Levodopa 25/100 Tablet) 2 tab PO DAILY@0600,0900,1200,1500,1800 MADALYN Last Admin: 10/03/23 08:27 Dose: 2 tab Docusate Sodium (Docusate Sodium 100 Mg Capsule) 100 mg PO BID MADALYN Last Admin: 10/03/23 08:21 Dose: 100 mg Doxazosin Mesylate (Doxazosin Mesylate 2 Mg Tablet) 4 mg PO BEDTIME MADALYN; Protocol Last Admin: 10/02/23 22:15 Dose: 4 mg Enoxaparin Sodium (Enoxaparin Sodium 40 Mg/0.4 Ml Syringe) 40 mg SUBCUT Q24H [facility] Last Admin: 10/02/23 22:15 Dose: 40 mg Famotidine (Famotidine 20 Mg Tablet) 20 mg PO BID PRN PRN Reason: Heartburn Furosemide (Furosemide 100 Mg/10 Ml Vial) 60 mg IVPUSH DAILY [facility]; Protocol Last Admin: 10/03/23 08:22 Dose: 60 mg Glucose (Glucose Gel 15 Gm Gel..Gram.) 15 gm PO Q15M PRN; Protocol PRN Reason: per Hypoglycemia Standing Ord. Ceftriaxone Sodium 1 gm/ (Sodium Chloride) 50 mls @ 100 mls/hr IV Q24H [facility] Last Infusion: 10/03/23 01:45 Dose: Infused Azithromycin 500 mg/ Sodium (Chloride) 250 mls @ 125 mls/hr IV Q24H [facility] Last Infusion: 10/03/23 04:21 Dose: Infused Dextrose (D10) 250 mls @ 750 mls/hr IV Q15M PRN; Protocol PRN Reason: per Hypoglycemia Standing Ord. Insulin Human Lispro (Insulin Lispro 100 Unit/Ml 3 Ml Vial) 0 unit SUBCUT QIDACHS [facility]; Protocol Last Admin: 10/03/23 08:10 Dose: Not Given Isosorbide Mononitrate (Isosorbide Mononitrate 30 Mg Tab.Er.24h) 30 mg PO DAILY [facility]; Protocol Last Admin: 10/03/23 08:21 Dose: 30 mg Magnesium Hydroxide (Milk Of Magnesia 30 Ml Oral.Susp) 30 ml PO DAILY PRN PRN Reason: Constipation Melatonin (Melatonin 3 Mg Tablet) 6 mg PO BEDTIME PRN PRN Reason: Insomnia Multivitamins/Vitamin C (Multivitamin Tablet) 1 tab PO DAILY [facility] Last Admin: 10/03/23 08:21 Dose: 1 tab Ondansetron HCl (Ondansetron Hcl 4 Mg/2 Ml Vial) 4 mg IVPUSH Q8H PRN PRN Reason: Nausea and Vomiting Sodium Biphosphate/Sodium Phosphate (Sodium Phosphate,Lea-Dibasic 133 Ml Enema) 118 ml UT DAILY PRN PRN Reason: Constipation Sodium Chloride (0.9 % Sodium Chloride Flush 3 Ml Syringe) 3 ml IVFLUSH QSHIFT [facility] Last Admin: 10/03/23 08:22 Dose: 3 ml Home Medications ?Medication ?Instructions ?Recorded ?Confirmed ?Last Taken ?Type carbidopa 25 mg-levodopa 100 mg 2 tab PO 5XD 05/01/21 10/02/23 10/01/23 18:00 History tablet doxazosin 4 mg tablet 1 tab PO BEDTIME 05/01/21 10/02/23 10/01/23 17:00 History simvastatin 20 mg tablet 1 tab PO BEDTIME 05/01/21 10/02/23 10/01/23 17:00 History multivitamin 1 tab PO DAILY 02/14/22 10/02/23 10/01/23 09:00 History Prostat 30 ml PO DAILY 10/02/23 10/02/23 10/01/23 09:00 History acetaminophen 325 mg tablet 650 mg PO Q4H PRN pain or fever 10/02/23 10/02/23 10/01/23 History amlodipine 10 mg tablet 10 mg PO DAILY 10/02/23 10/02/23 09/30/23 21:00 History aspirin 81 mg chewable tablet 81 mg PO DAILY 10/02/23 10/02/23 10/01/23 09:00 History bisacodyl 10 mg rectal suppository 10 mg UT DAILY PRN Constipation 10/02/23 10/02/23 Unknown History docusate sodium 100 mg capsule 100 mg PO BID 10/02/23 10/02/23 10/01/23 09:00 History famotidine 20 mg tablet 20 mg PO BID PRN Heartburn 10/02/23 10/02/23 Unknown History furosemide 20 mg tablet 20 mg PO DAILY 10/02/23 10/02/23 10/01/23 09:00 History furosemide 40 mg tablet 40 mg PO DAILY 10/02/23 10/02/23 10/01/23 09:00 History isosorbide mononitrate 30 mg 30 mg PO DAILY 10/02/23 10/02/23 10/01/23 09:00 History tablet,extended release 24 hr magnesium hydroxide 400 mg/5 mL 30 ml PO DAILY PRN Constipation 10/02/23 10/02/23 Unknown History oral suspension (Milk of Magnesia) metformin 500 mg tablet 500 mg PO BID 10/02/23 10/02/23 10/01/23 17:00 History sodium phosphates 19 gram-7 118 ml UT DAILY PRN Constipation 10/02/23 10/02/23 Unknown History gram/118 mL enema (Fleet Enema) Physical Exam 2 Vital Signs: Vital Signs: Last Vital Signs Temp 97.5 F 10/03/23 08:00 Pulse 64 10/03/23 08:00 Resp 28 H 10/03/23 10:29 BP 145/92 H 10/03/23 08:22 Pulse Ox 92 10/03/23 08:00 O2 Del Method Nasal Cannula 10/03/23 08:00 O2 Flow Rate 2 10/03/23 08:00 Oxygen Flow Rate 4 10/01/23 20:05 BMI result Body Mass Index 30.5 Const: General: comfortable and no acute distress O rientation/consciousness: patient oriented x3 HEENT: Other: Unremarkable Head: Yes normal to inspection Neck: Neck: Yes normal visual inspection Chest: Chest palpation & inspection: normal inspection of the chest Resp: Auscultation: wheezes and diminished lung sounds Cardio: Palpation: normal PMI Heart sounds: S1 normal heart sound present, S2 normal heart sound present, no gallops, no murmurs and no rubs GI: Palpation (GI): Soft to palpation Back/Spine/Pelvis: Other: unremarkable Skin: General skin exam: no rashes or lesions noted Neuro: General: patient oriented x3 Extrem: General: Yes normal to inspection Psych: Mental Status: mental status grossly normal Objective Labs and Meds 10/02/23 05:33 10/03/23 06:40 Lab results: Laboratory Results - last 24 hr 10/02/23 10/02/23 10/02/23 13:41 17:06 18:35 O2 Saturation 98.0 ABG pH at Pt Temp 7.38 ABG pCO2 at Pt Temp 49 H ABG pO2 at Pt Temp 94 ABG HCO3 29 H ABG Base Excess (Actual) 4.1 Sodium Potassium Chloride Carbon Dioxide Anion Gap BUN Creatinine Estim Creat Clear Calc Estimated GFR POC Glucose 122 H 157 H Random Glucose Calcium B-Natriuretic Peptide 10/02/23 10/03/23 10/03/23 19:59 06:40 07:33 O2 Saturation ABG pH at Pt Temp ABG pCO2 at Pt Temp ABG pO2 at Pt Temp ABG HCO3 ABG Base Excess (Actual) Sodium 147 H Potassium 4.5 Chloride 107 Carbon Dioxide 31 H Anion Gap 14 BUN 38 H Creatinine 1.25 Estim Creat Clear Calc 53.9 Estimated GFR 55 POC Glucose 151 H 105 Random Glucose 112 Calcium 9.6 D B-Natriuretic Peptide 710 H 10/03/23 11:16 O2 Saturation ABG pH at Pt Temp ABG pCO2 at Pt Temp ABG pO2 at Pt Temp ABG HCO3 ABG Base Excess (Actual) Sodium Potassium Chloride Carbon Dioxide Anion Gap BUN Creatinine Estim Creat Clear Calc Estimated GFR POC Glucose 184 H Random Glucose Calcium B-Natriuretic Peptide ECG Interpretation: EKG with atrial fibrillation at 70/Min and poor R-wave progression across the anterior leads. Can not exclude old anteroseptal infarct. Similar to prior EKG. Assessment and Plan (1) Acute hypoxic respiratory failure: Status: Acute (2) Persistent atrial fibrillation: Status: Acute Plan EKG shows controlled atrial fibrillation but otherwise chronic findings. Chest x-ray shows patchy left lower lobe opacity, possible pneumonia. Small left pleural effusion. Echocardiogram with LVEF of 50-55%. No significant valvular findings. Moderate to severe pulmonary hypertension. In the labs, sodium levels are high. BUN seems chronically high. Creatinine is 1.25, seems better than the last couple of days. Overall, not entirely clear why he has the symptoms. Possible acute diastolic heart failure. However, peripherally not much volume overload. Agree with BiPAP. Cautious diuretics. Also on empiric antibiotics. Will continue to follow. Procedures Date of Service Date of Service: 10/03/23
--- NOTE | 2023-10-03 12:23 | MHC.CLN ---
RE: CONSULT PT WITH INCREASED NUTRITION RISK R/T PRESSURE INJURY PO INTAKE 100% X 1 MEAL DIET RX: CARDIAC-RECOMMEND 2000DM CARDIAC DIET R/T HX DM IN ADDITION, RECOMMEND ADDING ENSURE MAX BID TO PROMOTE WOUND HEALING SUPPLEMENT TO PROVIDE 300KCALS, 60G PROTEIN WITH 100% ACCEPTANCE MONITOR PO INTAKE AND ENCOURAGE SUPPLEMENTS SEE ALSO FULL CLINICAL NUTRITION ASSESSMENT
[2023-10-03] MEDS: Insulin Lispro 100 UNIT/ML 3 ML VIAL SUBCUT ×3 (12:24→22:09)
--- NOTE | 2023-10-03 12:40 | HO.PM.IMPN ---
Subjective Subjective Date of Service: 10/03/23 Interval History: f/u on heart failure and PNA interval history: The patient experienced difficulty breathing overnight and was put on the CPAP which seemed to help, ABG was reassuring. This morning he had another episode with anxiety difficulty breathing and wheezing and was given IV morphine, IV steroid and bronchodilators and seemed to improve with that, he declined CPAP this time around. Physical Exam Vital Signs: Vital Signs: Last Vital Signs Temp 97.4 F 10/03/23 11:47 Pulse 81 10/03/23 11:47 Resp 20 10/03/23 11:47 BP 142/65 H 10/03/23 11:47 Pulse Ox 97 10/03/23 11:47 O2 Del Method Oxymask 10/03/23 11:47 O2 Flow Rate 7 10/03/23 11:47 Oxygen Flow Rate 4 10/01/23 20:05 BMI result Body Mass Index 30.5 Const: Other: General: AO X 3, no acute distress Resp: increased wob, diffuse wheezing, and tachypnea CVS: S1,S2,RRR GI: +BS, NT, no distention Skin: No rash Neuro: motor grossly intact Psych: appropriate affect Objective Data Active Medications Acetaminophen (Acetaminophen 325 Mg Tablet) 650 mg PO Q6H PRN PRN Reason: Pain, Mild (Pain Scale 1-3) Last Admin: 10/02/23 11:20 Dose: 650 mg Documented By: NAGI Amlodipine Besylate (Amlodipine Besylate 10 Mg Tablet) 10 mg PO BEDTIME [facility]; Protocol Last Admin: 10/02/23 22:15 Dose: 10 mg Documented By: TERESA Aspirin (Aspirin 81 Mg Tab.Chew) 81 mg PO DAILY [facility] Last Admin: 10/03/23 08:21 Dose: 81 mg Documented By: JENNIFER Atorvastatin Calcium (Atorvastatin Calcium 10 Mg Tablet) 10 mg PO BEDTIME [facility] Last Admin: 10/02/23 22:15 Dose: 10 mg Documented By: TERESA Bisacodyl (Bisacodyl 10 Mg Supp.Rect) 10 mg [place] DAILY PRN PRN Reason: Constipation Carbidopa/Levodopa (Carbidopa/Levodopa 25/100 Tablet) 2 tab PO DAILY@0600,0900,1200,1500,1800 [facility] Last Admin: 10/03/23 12:24 Dose: 2 tab Documented By: JENNIFER Docusate Sodium (Docusate Sodium 100 Mg Capsule) 100 mg PO BID [facility] Last Admin: 10/03/23 08:21 Dose: 100 mg Documented By: JENNIFER Doxazosin Mesylate (Doxazosin Mesylate 2 Mg Tablet) 4 mg PO BEDTIME [facility]; Protocol Last Admin: 10/02/23 22:15 Dose: 4 mg Documented By: TERESA Enoxaparin Sodium (Enoxaparin Sodium 40 Mg/0.4 Ml Syringe) 40 mg SUBCUT Q24H [facility] Last Admin: 10/02/23 22:15 Dose: 40 mg Documented By: TERESA Famotidine (Famotidine 20 Mg Tablet) 20 mg PO BID PRN PRN Reason: Heartburn Furosemide (Furosemide 100 Mg/10 Ml Vial) 60 mg IVPUSH DAILY [facility]; Protocol Last Admin: 10/03/23 08:22 Dose: 60 mg Documented By: JENNIFER Glucose (Glucose Gel 15 Gm Gel..Gram.) 15 gm PO Q15M PRN; Protocol PRN Reason: per Hypoglycemia Standing Ord. Ceftriaxone Sodium 1 gm/ (Sodium Chloride) 50 mls @ 100 mls/hr IV Q24H [facility] Last Infusion: 10/03/23 01:45 Dose: Infused Documented By: TERESA Azithromycin 500 mg/ Sodium (Chloride) 250 mls @ 125 mls/hr IV Q24H [facility] Last Infusion: 10/03/23 04:21 Dose: Infused Documented By: COLEMAN Dextrose (D10) 250 mls @ 750 mls/hr IV Q15M PRN; Protocol PRN Reason: per Hypoglycemia Standing Ord. Insulin Human Lispro (Insulin Lispro 100 Unit/Ml 3 Ml Vial) 0 unit SUBCUT QIDACHS [facility]; Protocol Last Admin: 10/03/23 12:24 Dose: 2 unit Documented By: JENNIFER Isosorbide Mononitrate (Isosorbide Mononitrate 30 Mg Tab.Er.24h) 30 mg PO DAILY [facility]; Protocol Last Admin: 10/03/23 08:21 Dose: 30 mg Documented By: JENNIFER Magnesium Hydroxide (Milk Of Magnesia 30 Ml Oral.Susp) 30 ml PO DAILY PRN PRN Reason: Constipation Melatonin (Melatonin 3 Mg Tablet) 6 mg PO BEDTIME PRN PRN Reason: Insomnia Multivitamins/Vitamin C (Multivitamin Tablet) 1 tab PO DAILY [facility] Last Admin: 10/03/23 08:21 Dose: 1 tab Documented By: JENNIFER Ondansetron HCl (Ondansetron Hcl 4 Mg/2 Ml Vial) 4 mg IVPUSH Q8H PRN PRN Reason: Nausea and Vomiting Sodium Biphosphate/Sodium Phosphate (Sodium Phosphate,[place]-Dibasic 133 Ml Enema) 118 ml [place] DAILY PRN PRN Reason: Constipation Sodium Chloride (0.9 % Sodium Chloride Flush 3 Ml Syringe) 3 ml IVFLUSH QSHIFT [facility] Last Admin: 10/03/23 08:22 Dose: 3 ml Documented By: JENNIFER Labs 10/02/23 05:33 10/03/23 06:40 Labs: Laboratory Results - last 24 hr 10/02/23 10/02/23 10/02/23 13:41 17:06 18:35 O2 Saturation 98.0 ABG pH at Pt Temp 7.38 ABG pCO2 at Pt Temp 49 H ABG pO2 at Pt Temp 94 ABG HCO3 29 H ABG Base Excess (Actual) 4.1 Anion Gap Estim Creat Clear Calc Estimated GFR POC Glucose 122 H 157 H Random Glucose Calcium B-Natriuretic Peptide 10/02/23 10/03/23 10/03/23 19:59 06:40 07:33 O2 Saturation ABG pH at Pt Temp ABG pCO2 at Pt Temp ABG pO2 at Pt Temp ABG HCO3 ABG Base Excess (Actual) Anion Gap 14 Estim Creat Clear Calc 53.9 Estimated GFR 55 POC Glucose 151 H 105 Random Glucose 112 Calcium 9.6 D B-Natriuretic Peptide 710 H 10/03/23 11:16 O2 Saturation ABG pH at Pt Temp ABG pCO2 at Pt Temp ABG pO2 at Pt Temp ABG HCO3 ABG Base Excess (Actual) Anion Gap Estim Creat Clear Calc Estimated GFR POC Glucose 184 H Random Glucose Calcium B-Natriuretic Peptide Microbiology Microbiology Results: Microbiology 10/01/23 22:26 Blood Culture - Preliminary Blood - Venous No growth after 24 hours. 10/01/23 22:26 Blood Culture - Preliminary Blood - Venous No growth after 24 hours. Assessment and Plan (1) KEE (acute kidney injury): Status: Acute (2) CHF exacerbation: Status: Acute (3) Pneumonia: Status: Acute Plan 83-year-old male with pertinent history of congestive heart failure, unspecified EF, paroxysmal atrial fibrillation not on anticoagulation, [id number] diabetes mellitus, Parkinson's disease, hypertension who presents to the emergency department for evaluation of dyspnea. Acute hypoxemic respiratory failure due to acute exacerbation of CHF, unspecified EF and PNA, and probable copd exacerbation acute on chronic CHF unspecified.. -change IV Lasix to home dose PO lasix 60 daily -get echo today -monitor i/o, daily weight, low salt diet -cardiology input noed Mild Hypernatremia--d/t diuretics, monitor, relax water restriction and recheck tomorrow Left lower lobe PNA, continue Ceftriaxone and Azitho / COPD exacerbation--add bronchodilators, and IV solumedrol. Acute kidney injury stage I: likely d/t cardiorenal phenomenon, creatinine is better, continue hold lisinopril and possibly restart tomorrow Hypertension: Hold lisinopril in the setting of renal failure, restart imdur tomorrow Parkinson's disease: continue On Sinemet [id number] diabetes mellitus with hyperglycemia: -hold metformin d/t heart failure and renal failure -SSI, trulicity not on forumulay -FBS 105 Paroxysmal atrial fibrillation: Rate controlled , Not permanenetly anticoagulated DVT prophylaxis: Lovenox DNR/DNI. need for inpt: management of chf with iv diuretics, frequent lab check Quality Stroke Does the patient have a stroke diagnosis?: No VTE Prior VTE?: No VTE Risk Level:: Medical - moderate - high VTE Device Contraindication: Treatment Not Indicated VTE Drug Contraindication: N/A - Med Ordered
[2023-10-03] MEDS: Albuterol/Iprat 2.5/0.5MG 3 ML AMPUL.NEB INHALE ×2 (15:07→20:06)
[2023-10-03 16:16] LABS: Glucose, Whole Blood 232 mg/dL (60-115)
[2023-10-03 22:09] LABS: Glucose, Whole Blood 234 mg/dL (60-115)
[2023-10-03] MEDS: Doxazosin Mesylate 2 MG TABLET 4 MG PO (22:10)
[2023-10-03] MEDS: Atorvastatin Calcium 10 MG TABLET PO (22:13)
[2023-10-03] MEDS: amLODIPine Besylate 10 MG TABLET PO (22:13)
[2023-10-03] MEDS: methylPREDNISolone Sod Succ 40 MG/ML VIAL IVPUSH (22:14)
[2023-10-03] MEDS: Acetaminophen 325 MG TABLET 650 MG PO (22:16)
[2023-10-04] VITALS (16 sets, daily range): BP systolic 130–143; BP diastolic 61–86; PULSE 70–96; RESP 16–24; TEMP 36.2–36.8; O2SAT 89–96
[2023-10-04] MEDS: Enoxaparin Sodium 40 MG/0.4 ML SYRINGE SUBCUT (01:11)
[2023-10-04] MEDS: cefTRIAXone sodium 1 GM in 0.9 % Sodium Chloride 50 ML IV (01:13)
[2023-10-04] MEDS: Azithromycin 500 MG in 0.9 % Sodium Chloride 250 ML 125 MG IV (02:00)
[2023-10-04] MEDS: Carbidopa/Levodopa 25/100 TABLET 2 TAB PO ×5 (06:06→17:01)
[2023-10-04 06:55] LABS: Anion Gap 13 (12-20); Blood Urea Nitrogen 44 mg/dL (9-16); Calcium 9.1 mg/dL (8.4-10.2); Carbon Dioxide 27 mmol/L (22-29); Chloride 108 mmol/L (96-108); Creatinine Clr Calc Pharmacy 49.9; Estimated Glomerular Filt Rate 51; Glucose Random 183 mg/dL (60-115); Potassium 4.9 mmol/L (3.3-5.1); Sodium 143 mmol/L (135-145)
[2023-10-04 07:23] LABS: Glucose, Whole Blood 169 mg/dL (60-115)
[2023-10-04] MEDS: Albuterol/Iprat 2.5/0.5MG 3 ML AMPUL.NEB INHALE ×4 (08:10→19:39)
[2023-10-04 08:59] LABS: ABG Base Excess 3.3 mmol/L; ABG HCO3 29 mmol/L (22-26); ABG pCO2 49 mmHg (32-45); ABG pH 7.37 (7.35-7.45); ABG pO2 52 mmHg (83-108)
[2023-10-04] MEDS: methylPREDNISolone Sod Succ 40 MG/ML VIAL IVPUSH ×2 (09:22→21:06)
[2023-10-04] MEDS: 0.9 % Sodium Chloride Flush 3 ML SYRINGE IVFLUSH ×3 (09:22→21:06)
[2023-10-04] MEDS: Insulin Lispro 100 UNIT/ML 3 ML VIAL SUBCUT ×3 (09:22→17:01)
[2023-10-04] MEDS: Isosorbide Mononitrate 30 MG TAB.ER.24H PO (09:23)
[2023-10-04] MEDS: Aspirin 81 MG TAB.CHEW PO (09:23)
[2023-10-04] MEDS: Furosemide 100 MG/10 ML VIAL 60 MG IVPUSH (09:23)
[2023-10-04] MEDS: Docusate Sodium 100 MG CAPSULE PO ×2 (09:23→20:58)
[2023-10-04] MEDS: Multivitamin TABLET 1 TAB PO (09:23)
[2023-10-04 09:36] LABS: B Type Natriuretic Peptide 801 pg/mL (<100)
[2023-10-04 11:28] LABS: Glucose, Whole Blood 176 mg/dL (60-115)
[2023-10-04 12:14] LABS: ABG Refer to POC result
--- NOTE | 2023-10-04 13:32 | PM.CNPUL ---
History of Present Illness History of Present Illness Consult date: 10/04/23 Requesting physician: Vivien Wheatley Chief complaint: Dyspnea Narrative: 83-year-old gentleman with underlying cardiomyopathy and known left upper lobe Nodule being worked up by his plastic finisher at [facility] admitted on 10/01/2023 with dyspnea secondary to acute on chronic congestive heart failure and treated with diuresis With significant improvement. His CT chest is pending. Review of Systems Constitutional: Constitutional: Denies daytime sleepiness, Denies excessive sweating, Denies fatigue, Denies fever(s), Denies lethargy, Denies malaise, Denies night sweats, Denies snoring and Denies weight loss Eyes: Eyes: Denies blurry vision and Denies itchy eyes ENT: Denies nasal congestion, Denies post nasal drip, Denies sinus pain, Denies sinus pressure and Denies other ( Thrush) Cardiovascular: Cardiovascular: Denies chest pain, Reports pedal edema, Reports dyspnea, Reports orthopnea and Denies paroxysmal nocturnal dyspnea Respiratory: Respiratory: Denies cough, Denies hemoptysis, Denies excessive phlegm production, Reports dyspnea, Denies snoring and Denies wheezing Gastrointestinal: Gastrointestinal: Denies abdominal pain and Denies heartburn Musculoskeletal: Musculoskeletal: Denies myalgias, Denies arthralgias and Denies joint swelling Integumentary/Breasts: Skin/Breast: Denies rash Neurologic: Denies memory loss and Denies seizure-like activity Psychiatric: Psychiatric: Denies abnormal sleep pattern, Denies anxiety and Denies memory loss Endocrine: Endocrine: Denies excessive sweating, Denies fatigue and Denies heat intolerance Hematologic/Lymphatic: Hematologic/Lymphatic: Denies easy bruising Allergic/Immunologic: Allergic/Immunologic: Denies itchy eyes, Denies seasonal rhinorrhea and Denies wheezing PMFSH Past Medical History Medical History Atrial fibrillation Diabetes CHF (congestive heart failure) Celiac disease Basal cell carcinoma Spinal stenosis Parkinson disease Family History Family History Mother Valvular heart disease Surgical History Surgical History S/P triple vessel bypass Social History Social History Household Members: Other Housing: Long Term Do you presently have visiting nurse or other home services: No (Resides at [facility]) Alcohol intake: current Alcohol intake frequency: holidays/special occasions only Alcohol type: wine Patient Tobacco Use Status: Former Tobacco user Second Hand Smoke Exposure: No Advance Directives Date on File: 05/05/21 service: Yes Current occupational status: retired Meds Allergies Allergy/AdvReac Type Severity Reaction Status Date / Time No Known Allergies Allergy Verified 10/01/23 20:17 [No Known Allergies*] Active Medications: Current Medications Acetaminophen (Acetaminophen 325 Mg Tablet) 650 mg PO Q6H PRN PRN Reason: Pain, Mild (Pain Scale 1-3) Last Admin: 10/03/23 22:16 Dose: 650 mg Albuterol Sulfate (Albuterol Sulfate (0.083%) 2.5 Mg/3 Ml Vial.Neb) 2.5 mg INHALE Q2H PRN PRN Reason: Shortness of Breath/Wheezing Albuterol/Ipratropium (Albuterol/Iprat 2.5/0.5mg 3 Ml Ampul.Neb) 3 ml INHALE RQ4H WHILE AWAKE [facility] Last Admin: 10/04/23 11:42 Dose: 3 ml Amlodipine Besylate (Amlodipine Besylate 10 Mg Tablet) 10 mg PO BEDTIME [facility]; Protocol Last Admin: 10/03/23 22:13 Dose: 10 mg Aspirin (Aspirin 81 Mg Tab.Chew) 81 mg PO DAILY [facility] Last Admin: 10/04/23 09:23 Dose: 81 mg Atorvastatin Calcium (Atorvastatin Calcium 10 Mg Tablet) 10 mg PO BEDTIME [facility] Last Admin: 10/03/23 22:13 Dose: 10 mg Bisacodyl (Bisacodyl 10 Mg Supp.Rect) 10 mg [place] DAILY PRN PRN Reason: Constipation Carbidopa/Levodopa (Carbidopa/Levodopa 25/100 Tablet) 2 tab PO DAILY@0600,0900,1200,1500,1800 [facility] Last Admin: 10/04/23 12:18 Dose: 2 tab Docusate Sodium (Docusate Sodium 100 Mg Capsule) 100 mg PO BID [facility] Last Admin: 10/04/23 09:23 Dose: 100 mg Doxazosin Mesylate (Doxazosin Mesylate 2 Mg Tablet) 4 mg PO BEDTIME [facility]; Protocol Last Admin: 10/03/23 22:10 Dose: 4 mg Enoxaparin Sodium (Enoxaparin Sodium 40 Mg/0.4 Ml Syringe) 40 mg SUBCUT Q24H [facility] Last Admin: 10/04/23 01:11 Dose: 40 mg Famotidine (Famotidine 20 Mg Tablet) 20 mg PO BID PRN PRN Reason: Heartburn Furosemide (Furosemide 100 Mg/10 Ml Vial) 60 mg IVPUSH DAILY [facility]; Protocol Last Admin: 10/04/23 09:23 Dose: 60 mg Glucose (Glucose Gel 15 Gm Gel..Gram.) 15 gm PO Q15M PRN; Protocol PRN Reason: per Hypoglycemia Standing Ord. Ceftriaxone Sodium 1 gm/ (Sodium Chloride) 50 mls @ 100 mls/hr IV Q24H [facility] Last Infusion: 10/04/23 02:12 Dose: Infused Azithromycin 500 mg/ Sodium (Chloride) 250 mls @ 125 mls/hr IV Q24H [facility] Last Infusion: 10/04/23 06:45 Dose: Infused Dextrose (D10) 250 mls @ 750 mls/hr IV Q15M PRN; Protocol PRN Reason: per Hypoglycemia Standing Ord. Insulin Human Lispro (Insulin Lispro 100 Unit/Ml 3 Ml Vial) 0 unit SUBCUT QIDACHS [facility]; Protocol Last Admin: 10/04/23 12:18 Dose: 2 unit Isosorbide Mononitrate (Isosorbide Mononitrate 30 Mg Tab.Er.24h) 30 mg PO DAILY [facility]; Protocol Last Admin: 10/04/23 09:23 Dose: 30 mg Magnesium Hydroxide (Milk Of Magnesia 30 Ml Oral.Susp) 30 ml PO DAILY PRN PRN Reason: Constipation Melatonin (Melatonin 3 Mg Tablet) 6 mg PO BEDTIME PRN PRN Reason: Insomnia Methylprednisolone Sodium Succinate (Methylprednisolone Sod Succ 40 Mg/Ml Vial) 40 mg IVPUSH BID [facility] Last Admin: 10/04/23 09:22 Dose: 40 mg Multivitamins/Vitamin C (Multivitamin Tablet) 1 tab PO DAILY [facility] Last Admin: 10/04/23 09:23 Dose: 1 tab Ondansetron HCl (Ondansetron Hcl 4 Mg/2 Ml Vial) 4 mg IVPUSH Q8H PRN PRN Reason: Nausea and Vomiting Sodium Biphosphate/Sodium Phosphate (Sodium Phosphate,[place]-Dibasic 133 Ml Enema) 118 ml [place] DAILY PRN PRN Reason: Constipation Sodium Chloride (0.9 % Sodium Chloride Flush 3 Ml Syringe) 3 ml IVFLUSH [facility] Last Admin: 10/04/23 09:22 Dose: 3 ml Home Medications ?Medication ?Instructions ?Recorded ?Confirmed ?Last Taken ?Type carbidopa 25 mg-levodopa 100 mg 2 tab PO 5XD 05/01/21 10/02/23 10/01/23 18:00 History tablet doxazosin 4 mg tablet 1 tab PO BEDTIME 05/01/21 10/02/23 10/01/23 17:00 History simvastatin 20 mg tablet 1 tab PO BEDTIME 05/01/21 10/02/23 10/01/23 17:00 History multivitamin 1 tab PO DAILY 02/14/22 10/02/23 10/01/23 09:00 History Prostat 30 ml PO DAILY 10/02/23 10/02/23 10/01/23 09:00 History acetaminophen 325 mg tablet 650 mg PO Q4H PRN pain or fever 10/02/23 10/02/23 10/01/23 History amlodipine 10 mg tablet 10 mg PO DAILY 10/02/23 10/02/23 09/30/23 21:00 History aspirin 81 mg chewable tablet 81 mg PO DAILY 10/02/23 10/02/23 10/01/23 09:00 History bisacodyl 10 mg rectal suppository 10 mg [place] DAILY PRN Constipation 10/02/23 10/02/23 Unknown History docusate sodium 100 mg capsule 100 mg PO BID 10/02/23 10/02/23 10/01/23 09:00 History famotidine 20 mg tablet 20 mg PO BID PRN Heartburn 10/02/23 10/02/23 Unknown History furosemide 20 mg tablet 20 mg PO DAILY 10/02/23 10/02/23 10/01/23 09:00 History furosemide 40 mg tablet 40 mg PO DAILY 10/02/23 10/02/23 10/01/23 09:00 History isosorbide mononitrate 30 mg 30 mg PO DAILY 10/02/23 10/02/23 10/01/23 09:00 History tablet,extended release 24 hr magnesium hydroxide 400 mg/5 mL 30 ml PO DAILY PRN Constipation 10/02/23 10/02/23 Unknown History oral suspension (Milk of Magnesia) metformin 500 mg tablet 500 mg PO BID 10/02/23 10/02/23 10/01/23 17:00 History sodium phosphates 19 gram-7 118 ml [place] DAILY PRN Constipation 10/02/23 10/02/23 Unknown History gram/118 mL enema (Fleet Enema) Physical Exam Vital Signs: Vital Signs: Last Vital Signs Temp 98.2 F 10/04/23 11:23 Pulse 84 10/04/23 11:42 Resp 20 10/04/23 11:42 BP 143/62 H 10/04/23 11:23 Pulse Ox 90 L 10/04/23 11:23 O2 Del Method High Flow Nasal C annula 10/04/23 11:23 O2 Flow Rate 38 10/04/23 11:23 FiO2 38 10/04/23 11:23 Oxygen Flow Rate 4 10/01/23 20:05 BMI result Body Mass Index 30.5 Const: General: no acute distress and alert Nutritional Appearance: not obese Orientation/consciousness: Other orientation findings ( oriented) HEENT: Head: Yes atraumatic Eyes: General: appearance normal, both eyes and all related structures Sclerae: sclerae normal EOM: EOMs intact bilaterally Neck: Neck: Yes supple Lymphatic: no lymphadenopathy noted Resp: Effort & Inspection: normal respiratory effort and no use of accessory muscles Auscultation: clear to auscultation bilaterally Cardio: Rate: regular rate Rhythm: regular rhythm Heart sounds: no gallops, no murmurs and no rubs Skin: General skin exam: other ( warm) Extrem: General: No clubbing, No cyanosis and No edema Results Laboratory Findings 10/02/23 05:33 10/04/23 06:15 Abnormal lab findings: Abnormal Labs 10/01/23 10/02/23 10/02/23 21:19 05:33 07:14 WBC 11.4 H RBC 3.39 L 3.20 L Hgb 11.7 L 11.1 L Hct 36.1 L 34.0 L MCV 106.5 H 106.3 H MCH 34.5 H 34.7 H Plt Count 141 L 126 L Immature Gran % (Auto) 0.7 H 0.9 H Neut % (Auto) 85.7 H 81.6 H Lymph % (Auto) 4.7 L 8.1 L Lymph # (Auto) 0.5 L 0.7 L Abs Immat Gran (auto) 0.08 H 0.08 H Absolute Neuts (auto) 9.8 H ABG pCO2 at Pt Temp ABG pO2 at Pt Temp ABG HCO3 Sodium Chloride 109 H 109 H Carbon Dioxide Anion Gap 11 L BUN 43 H 42 H Creatinine 1.47 H 1.41 H POC Glucose 131 H Random Glucose 192 H 166 H Alkaline Phosphatase 160 H B-Natriuretic Peptide 596 H 10/02/23 10/02/23 10/02/23 13:41 17:06 18:35 WBC RBC Hgb Hct MCV MCH Plt Count Immature Gran % (Auto) Neut % (Auto) Lymph % (Auto) Lymph # (Auto) Abs Immat Gran (auto) Absolute Neuts (auto) ABG pCO2 at Pt Temp 49 H ABG pO2 at Pt Temp ABG HCO3 29 H Sodium Chloride Carbon Dioxide Anion Gap BUN Creatinine POC Glucose 122 H 157 H Random Glucose Alkaline Phosphatase B-Natriuretic Peptide 10/02/23 10/03/23 10/03/23 19:59 06:40 11:16 WBC RBC Hgb Hct MCV MCH Plt Count Immature Gran % (Auto) Neut % (Auto) Lymph % (Auto) Lymph # (Auto) Abs Immat Gran (auto) Absolute Neuts (auto) ABG pCO2 at Pt Temp ABG pO2 at Pt Temp ABG HCO3 Sodium 147 H Chloride Carbon Dioxide 31 H Anion Gap BUN 38 H Creatinine POC Glucose 151 H 184 H Random Glucose Alkaline Phosphatase B-Natriuretic Peptide 710 H 10/03/23 10/03/23 10/04/23 16:13 21:58 06:15 WBC RBC Hgb Hct MCV MCH Plt Count Immature Gran % (Auto) Neut % (Auto) Lymph % (Auto) Lymph # (Auto) Abs Immat Gran (auto) Absolute Neuts (auto) ABG pCO2 at Pt Temp ABG pO2 at Pt Temp ABG HCO3 Sodium Chloride Carbon Dioxide Anion Gap BUN 44 H Creatinine POC Glucose 232 H 234 H Random Glucose 183 H Alkaline Phosphatase B-Natriuretic Peptide 10/04/23 10/04/23 10/04/23 07:20 08:51 08:58 WBC RBC Hgb Hct MCV MCH Plt Count Immature Gran % (Auto) Neut % (Auto) Lymph % (Auto) Lymph # (Auto) Abs Immat Gran (auto) Absolute Neuts (auto) ABG pCO2 at Pt Temp 49 H ABG pO2 at Pt Temp 52 L ABG HCO3 29 H Sodium Chloride Carbon Dioxide Anion Gap BUN Creatinine POC Glucose 169 H Random Glucose Alkaline Phosphatase B-Natriuretic Peptide 801 H 10/04/23 11:17 WBC RBC Hgb Hct MCV MCH Plt Count Immature Gran % (Auto) Neut % (Auto) Lymph % (Auto) Lymph # (Auto) Abs Immat Gran (auto) Absolute Neuts (auto) ABG pCO2 at Pt Temp ABG pO2 at Pt Temp ABG HCO3 Sodium Chloride Carbon Dioxide Anion Gap BUN Creatinine POC Glucose 176 H Random Glucose Alkaline Phosphatase B-Natriuretic Peptide Microbiology: Microbiology 10/01/23 22:26 Blood - Venous Blood Culture - Preliminary No growth after 48 hours. 10/01/23 22:26 Blood - Venous Blood Culture - Preliminary No growth after 48 hours. Assessment and Plan (1) Acute hypoxic respiratory failure: Status: Acute (2) CHF exacerbation: Status: Acute (3) Pulmonary nodule 1 cm or greater in diameter: Status: Acute Plan Impression: 83-year-old gentleman with underlying cardiomyopathy admitted with dyspnea and hypoxia secondary acute on chronic congestive heart failure that is improving with diuresis. Patient also his Anoro pulmonary nodule that is being worked up by his plastic finisher at [facility] with PET scan planned. No evidence of COPD exacerbation or pneumonia. Recommendations: Agree with judicious diuresis. Consider discontinuation of antibiotics and systemic glucocorticoids. Patient does have an outpatient plastic finisher that is working him up for known pulmonary nodule, if patient wants to transfer his care to [facility], then will schedule for an outpatient pulmonary follow-up. Procedures Date of Service Date of Service: 10/04/23
[2023-10-04 16:59] LABS: Glucose, Whole Blood 177 mg/dL (60-115)
--- NOTE | 2023-10-04 18:38 | HO.PM.IMPN ---
Subjective Subjective Date of Service: 10/04/23 Interval History: Multiple issues: COPD, CHF Review of Systems His shortness of breath somewhat improving than yesterday Has cough but could not able to tell what kind of sputum coming out. No fever or chest pain Physical Exam Vital Signs: Vital Signs: Last Vital Signs Temp 97.1 F 10/04/23 15:27 Pulse 93 10/04/23 15:27 Resp 20 10/04/23 15:27 BP 130/86 10/04/23 15:27 Pulse Ox 90 L 10/04/23 15:27 O2 Del Method High Flow Nasal C annula 10/04/23 15:27 O2 Flow Rate 40 10/04/23 15:27 FiO2 30 10/04/23 15:27 Oxygen Flow Rate 4 10/01/23 20:05 BMI result Body Mass Index 30.5 General: AO X 3, no acute distress Resp:air entry improving ,minimal wheezing few scattered rales at bases. CVS: S1,S2,RRR GI: +BS, NT, no distention Skin: No rash Neuro: motor grossly intact Psych: appropriate affect Objective Data Active Medications Acetaminophen (Acetaminophen 325 Mg Tablet) 650 mg PO Q6H PRN PRN Reason: Pain, Mild (Pain Scale 1-3) Last Admin: 10/03/23 22:16 Dose: 650 mg Documented By: KAREN Albuterol Sulfate (Albuterol Sulfate (0.083%) 2.5 Mg/3 Ml Vial.Neb) 2.5 mg INHALE Q2H PRN PRN Reason: Shortness of Breath/Wheezing Albuterol/Ipratropium (Albuterol/Iprat 2.5/0.5mg 3 Ml Ampul.Neb) 3 ml INHALE RQ4H WHILE AWAKE [facility] Last Admin: 10/04/23 15:22 Dose: 3 ml Documented By: MOUNA Amlodipine Besylate (Amlodipine Besylate 10 Mg Tablet) 10 mg PO BEDTIME [facility]; Protocol Last Admin: 10/03/23 22:13 Dose: 10 mg Documented By: KAREN Aspirin (Aspirin 81 Mg Tab.Chew) 81 mg PO DAILY [facility] Last Admin: 10/04/23 09:23 Dose: 81 mg Documented By: DAVONTE Atorvastatin Calcium (Atorvastatin Calcium 10 Mg Tablet) 10 mg PO BEDTIME [facility] Last Admin: 10/03/23 22:13 Dose: 10 mg Documented By: KAREN Bisacodyl (Bisacodyl 10 Mg Supp.Rect) 10 mg OH DAILY PRN PRN Reason: Constipation Carbidopa/Levodopa (Carbidopa/Levodopa 25/100 Tablet) 2 tab PO DAILY@0600,0900,1200,1500,1800 [facility] Last Admin: 10/04/23 17:01 Dose: 2 tab Documented By: DAVONTE Docusate Sodium (Docusate Sodium 100 Mg Capsule) 100 mg PO BID [facility] Last Admin: 10/04/23 09:23 Dose: 100 mg Documented By: DAVONTE Doxazosin Mesylate (Doxazosin Mesylate 2 Mg Tablet) 4 mg PO BEDTIME [facility]; Protocol Last Admin: 10/03/23 22:10 Dose: 4 mg Documented By: KAREN Enoxaparin Sodium (Enoxaparin Sodium 40 Mg/0.4 Ml Syringe) 40 mg SUBCUT Q24H [facility] Last Admin: 10/04/23 01:11 Dose: 40 mg Documented By: KIMBERLYN Famotidine (Famotidine 20 Mg Tablet) 20 mg PO BID PRN PRN Reason: Heartburn Furosemide (Furosemide 100 Mg/10 Ml Vial) 60 mg IVPUSH DAILY [facility]; Protocol Last Admin: 10/04/23 09:23 Dose: 60 mg Documented By: DAVONTE Glucose (Glucose Gel 15 Gm Gel..Gram.) 15 gm PO Q15M PRN; Protocol PRN Reason: per Hypoglycemia Standing Ord. Ceftriaxone Sodium 1 gm/ (Sodium Chloride) 50 mls @ 100 mls/hr IV Q24H [facility] Last Infusion: 10/04/23 02:12 Dose: Infused Documented By: KIMBERLYN Azithromycin 500 mg/ Sodium (Chloride) 250 mls @ 125 mls/hr IV Q24H [facility] Last Infusion: 10/04/23 06:45 Dose: Infused Documented By: DAVONTE Dextrose (D10) 250 mls @ 750 mls/hr IV Q15M PRN; Protocol PRN Reason: per Hypoglycemia Standing Ord. Insulin Human Lispro (Insulin Lispro 100 Unit/Ml 3 Ml Vial) 0 unit SUBCUT QIDACHS [facility]; Protocol Last Admin: 10/04/23 17:01 Dose: 2 unit Documented By: DAVONTE Isosorbide Mononitrate (Isosorbide Mononitrate 30 Mg Tab.Er.24h) 30 mg PO DAILY [facility]; Protocol Last Admin: 10/04/23 09:23 Dose: 30 mg Documented By: DAVONTE Magnesium Hydroxide (Milk Of Magnesia 30 Ml Oral.Susp) 30 ml PO DAILY PRN PRN Reason: Constipation Melatonin (Melatonin 3 Mg Tablet) 6 mg PO BEDTIME PRN PRN Reason: Insomnia Methylprednisolone Sodium Succinate (Methylprednisolone Sod Succ 40 Mg/Ml Vial) 40 mg IVPUSH BID [facility] Last Admin: 10/04/23 09:22 Dose: 40 mg Documented By: DAVONTE Multivitamins/Vitamin C (Multivitamin Tablet) 1 tab PO DAILY [facility] Last Admin: 10/04/23 09:23 Dose: 1 tab Documented By: DAVONTE Ondansetron HCl (Ondansetron Hcl 4 Mg/2 Ml Vial) 4 mg IVPUSH Q8H PRN PRN Reason: Nausea and Vomiting Sodium Biphosphate/Sodium Phosphate (Sodium Phosphate,[place]-Dibasic 133 Ml Enema) 118 ml [place] DAILY PRN PRN Reason: Constipation Sodium Chloride (0.9 % Sodium Chloride Flush 3 Ml Syringe) 3 ml IVFLUSH QSHIFT [facility] Last Admin: 10/04/23 15:17 Dose: 3 ml Documented By: DAVONTE Labs 10/02/23 05:33 10/04/23 06:15 Labs: Laboratory Results - last 24 hr 10/03/23 10/04/23 10/04/23 21:58 06:15 07:20 O2 Saturation ABG pH at Pt Temp ABG pCO2 at Pt Temp ABG pO2 at Pt Temp ABG HCO3 ABG Base Excess (Actual) Anion Gap 13 Estim Creat Clear Calc 49.9 Estimated GFR 51 POC Glucose 234 H 169 H Random Glucose 183 H Calcium 9.1 B-Natriuretic Peptide 10/04/23 10/04/23 10/04/23 08:51 08:58 11:17 O2 Saturation 73.0 ABG pH at Pt Temp 7.37 ABG pCO2 at Pt Temp 49 H ABG pO2 at Pt Temp 52 L ABG HCO3 29 H ABG Base Excess (Actual) 3.3 Anion Gap Estim Creat Clear Calc Estimated GFR POC Glucose 176 H Random Glucose Calcium B-Natriuretic Peptide 801 H 06/11/24 16:56 O2 Saturation ABG pH at Pt Temp ABG pCO2 at Pt Temp ABG pO2 at Pt Temp ABG HCO3 ABG Base Excess (Actual) Anion Gap Estim Creat Clear Calc Estimated GFR POC Glucose 177 H Random Glucose Calcium B-Natriuretic Peptide Microbiology Microbiology Results: Microbiology 10/01/23 22:26 Blood Culture - Preliminary Blood - Venous No growth after 48 hours. 10/01/23 22:26 Blood Culture - Preliminary Blood - Venous No growth after 48 hours. Assessment and Plan (1) CHF exacerbation: Status: Acute (2) Acute hypoxic respiratory failure: Status: Acute Plan 83-year-old male with pertinent history of congestive heart failure, unspecified EF, paroxysmal atrial fibrillation not on anticoagulation, [id number] diabetes mellitus, Parkinson's disease, hypertension who presents to the emergency department for evaluation of dyspnea. Acute hypoxemic respiratory failure due to acute exacerbation of CHF, unspecified EF and PNA, and probable copd exacerbation acute on chronic CHF unspecified.. ct chest shows -cardiomegaly, bilateral pleural effusion. echo : ef 55-60% monitor i/o sofar 3liter neg, daily weight, low salt diet cardiology input noted,-on IV Lasix , taper high-flow Pulmonary evaluation noted-continue nebs, steroids, diuresis, CT chest as above. Mild acute Hypernatremia--d/t diuretics, monitor, relax water restriction , improved. Left lower lobe PNA, continue Ceftriaxone and Azitho / COPD exacerbation--add bronchodilators, and IV solumedrol. Acute kidney injury stage I: likely d/t cardiorenal phenomenon, creatinine is better, continue hold lisinopril and possibly restart tomorrow Hypertension: Hold lisinopril in the setting of renal failure, restart imdur tomorrow Parkinson's disease: continue On Sinemet [id number] diabetes mellitus with hyperglycemia: -hold metformin d/t heart failure and renal failure -SSI, trulicity not on forumulay -FBS 105 Paroxysmal atrial fibrillation: Rate controlled , Not permanenetly anticoagulated DVT prophylaxis: Lovenox DNR/DNI. need for inpt: COPD/CHF exacerbation: Patient is on high-flow oxygen, management of chf with iv diuretics, nebs, steroids frequent lab check Quality Stroke Does the patient have a stroke diagnosis?: No VTE Prior VTE?: No VTE Risk Level:: Medical - moderate - high VTE Device Contraindication: Treatment Not Indicated VTE Drug Contraindication: N/A - Med Ordered
[2023-10-04 19:01] LABS: B Type Natriuretic Peptide 710 pg/mL (<100)
[2023-10-04 20:19] LABS: Glucose, Whole Blood 129 mg/dL (60-115)
[2023-10-04] MEDS: Atorvastatin Calcium 10 MG TABLET PO (20:58)
[2023-10-04] MEDS: Doxazosin Mesylate 2 MG TABLET 4 MG PO (20:59)
[2023-10-04] MEDS: amLODIPine Besylate 10 MG TABLET PO (20:59)
[2023-10-05] VITALS (25 sets, daily range): BP systolic 97–130; BP diastolic 54–76; PULSE 89–136; RESP 16–26; TEMP 36.1–37.1; O2SAT 88–98
[2023-10-05] MEDS: Enoxaparin Sodium 40 MG/0.4 ML SYRINGE SUBCUT (01:26)
[2023-10-05] MEDS: Azithromycin 500 MG in 0.9 % Sodium Chloride 250 ML 125 MG IV (01:31)
[2023-10-05] MEDS: cefTRIAXone sodium 1 GM in 0.9 % Sodium Chloride 50 ML IV (01:31)
[2023-10-05] MEDS: Carbidopa/Levodopa 25/100 TABLET 2 TAB PO ×5 (06:24→17:07)
[2023-10-05] MEDS: Albuterol/Iprat 2.5/0.5MG 3 ML AMPUL.NEB INHALE ×4 (07:39→20:10)
[2023-10-05 07:47] LABS: Glucose, Whole Blood 157 mg/dL (60-115)
[2023-10-05] MEDS: methylPREDNISolone Sod Succ 40 MG/ML VIAL IVPUSH ×2 (08:00→21:30)
[2023-10-05] MEDS: Furosemide 100 MG/10 ML VIAL 60 MG IVPUSH (08:00)
[2023-10-05] MEDS: 0.9 % Sodium Chloride Flush 3 ML SYRINGE IVFLUSH ×3 (08:01→21:39)
[2023-10-05] MEDS: Isosorbide Mononitrate 30 MG TAB.ER.24H PO (08:01)
[2023-10-05] MEDS: Insulin Lispro 100 UNIT/ML 3 ML VIAL SUBCUT ×3 (08:01→17:07)
[2023-10-05] MEDS: Aspirin 81 MG TAB.CHEW PO (08:01)
[2023-10-05] MEDS: Multivitamin TABLET 1 TAB PO (08:02)
[2023-10-05] MEDS: Docusate Sodium 100 MG CAPSULE PO ×2 (08:02→21:30)
[2023-10-05 08:46] LABS: Anion Gap 15 (12-20); Blood Urea Nitrogen 63 mg/dL (9-16); Calcium 9.1 mg/dL (8.4-10.2); Carbon Dioxide 27 mmol/L (22-29); Chloride 105 mmol/L (96-108); Creatinine Clr Calc Pharmacy 34.4; Estimated Glomerular Filt Rate 33; Glucose Random 186 mg/dL (60-115); Potassium 5.2 mmol/L (3.3-5.1); Sodium 142 mmol/L (135-145)
[2023-10-05] MEDS: guaiFENesin 200 MG/10 ML 10 ML LIQUID PO ×2 (10:20→21:44)
[2023-10-05] MEDS: Loratadine 10 MG TABLET PO (10:20)
--- NOTE | 2023-10-05 10:51 | MHC.CM.PN ---
Per ROUNDS discussion, Patient is not yet medically cleared for dc (Paracentesis today); returning to LTC @ [facility] is the goal and CM will continue to follow.
--- NOTE | 2023-10-05 11:15 | P.CDIM_ITS ---
PROVIDER RESPONSE TEXT: To clarify, the appropriate diagnosis supported by the clinical indicators: Pressure (decubitus) ulcer sacrum, deep tissue injury QUERY TEXT: PHYSICIAN'S DOCUMENTATION REQUEST Date of Query: 10/05/2023 09:26 AM EDT Patient Name: Mina Huang Admit Date: 10/02/2023 Dear Vivien Wheatley, A review of the medical record indicates additional documentation may be needed. Please review below and update the documentation accordingly. Clinical Indicators: Per Wound Note 10/03/23: Deep tissue injury sacrum present on admission Off Load Pressure and foam dressing to aid in pressure redistribution and moist wound healing. Based on the above, could you please provide further information regarding the ulcer/wound: Diabetic ulcer Please specify the location and laterality of the ulcer/wound Venous stasis ulcer Please specify the location and laterality of the ulcer/wound Arterial (ischemic) ulcer Please specify the location and laterality of the ulcer/wound Pressure (decubitus) ulcer sacrum, deep tissue injury Traumatic wound Please specify the location and laterality of the ulcer/wound Non-healing surgical wound Please specify the location and laterality of the ulcer/wound Other (explain) Clinically unable to determine (explain) Thank you, Anyi Ferraro RN Use of terms such as suspected, likely, concern for, or probable (associated with a specific diagnosi s that is being evaluated, monitored, or treated as if it exists) are acceptable and can be coded in the inpatient se tting, when documented at the time of discharge. Please use your independent medical judgment in providing your response. THIS QUERY IS PART OF THE PERMANENT MEDICAL RECORD
[2023-10-05 11:18] LABS: ABG Base Excess 0.3 mmol/L; ABG HCO3 25 mmol/L (22-26); ABG pCO2 43 mmHg (32-45); ABG pH 7.37 (7.35-7.45); ABG pO2 77 mmHg (83-108)
[2023-10-05 12:13] LABS: Glucose, Whole Blood 204 mg/dL (60-115)
--- NOTE | 2023-10-05 13:23 | MHC.CLN ---
F/U PT WITH INCREASED NUTRITION RISK R/T PRESSURE INJURY PO INTAKE 100% DIET RX: 2000DM CARDIAC -APPROPRIATE PT RECEIVING ENSURE MAX BID TO PROMOTE WOUND HEALING SUPPLEMENT PROVIDES 300KCALS, 60G PROTEIN WITH 100% ACCEPTANCE MONITOR PO INTAKE AND ENCOURAGE SUPPLEMENTS
--- NOTE | 2023-10-05 14:27 | P.PNPL_ITS ---
Subjective Subjective Date of Service: 10/05/23 Interval history: FiO2 requirements significantly improved. Some over-diuresis. Objective Data Labs 10/02/23 05:33 10/05/23 08:17 Labs: Laboratory Results - last 24 hr 10/04/23 10/04/23 10/04/23 16:56 18:12 20:16 Hold Purple Top O2 Saturation ABG pH at Pt Temp ABG pCO2 at Pt Temp ABG pO2 at Pt Temp ABG HCO3 ABG Base Excess (Actual) Sodium Potassium Chloride Carbon Dioxide Anion Gap BUN Creatinine Estim Creat Clear Calc Estimated GFR POC Glucose 177 H 129 H Random Glucose Calcium B-Natriuretic Peptide 710 H 10/05/23 10/05/23 10/05/23 07:37 08:17 11:10 Hold Purple Top SEE NOTE O2 Saturation 96.0 ABG pH at Pt Temp 7.37 ABG pCO2 at Pt Temp 43 ABG pO2 at Pt Temp 77 L ABG HCO3 25 ABG Base Excess (Actual) 0.3 Sodium 142 Potassium 5.2 H Chloride 105 Carbon Dioxide 27 Anion Gap 15 BUN 63 H Creatinine 1.96 H Estim Creat Clear Calc 34.4 Estimated GFR 33 POC Glucose 157 H Random Glucose 186 H Calcium 9.1 B-Natriuretic Peptide 10/05/23 12:07 Hold Purple Top O2 Saturation ABG pH at Pt Temp ABG pCO2 at Pt Temp ABG pO2 at Pt Temp ABG HCO3 ABG Base Excess (Actual) Sodium Potassium Chloride Carbon Dioxide Anion Gap BUN Creatinine Estim Creat Clear Calc Estimated GFR POC Glucose 204 H Random Glucose Calcium B-Natriuretic Peptide Microbiology Microbiology Results: Microbiology 10/01/23 22:26 Blood - Venous Blood Culture - Preliminary No growth after 48 hours. 10/01/23 22:26 Blood - Venous Blood Culture - Preliminary No growth after 48 hours. Physical Exam 2 Vital Signs: Vital Signs: Last Vital Signs Temp 97.2 F 10/05/23 12:00 Pulse 120 H 10/05/23 12:00 Resp 22 H 10/05/23 12:00 BP 119/69 10/05/23 12:00 Pulse Ox 96 10/05/23 12:00 O2 Del Method High Flow Nasal C annula 10/05/23 12:00 O2 Flow Rate 40 10/05/23 12:00 FiO2 30 10/05/23 12:00 Oxygen Flow Rate 4 10/01/23 20:05 BMI result Body Mass Index 30.5 Const: General: no acute distress, alert and awake Eyes: Sclerae: sclerae normal EOM: EOMs intact bilaterally Neck: Neck: Yes no lymphadenopathy, Yes trachea midline and Yes supple Resp: Effort & Inspection: normal respiratory effort and no respiratory distress Auscultation: clear to auscultation bilaterally Cardio: Rate: regular rate Rhythm: regular rhythm Heart sounds: no gallops, no murmurs and no rubs GI: Palpation (GI): Soft to palpation and Other GI palpation findings present ( Nontender) Auscultation: normal bowel sounds Extrem: General: Yes no pedal edema, No clubbing, No cyanosis and Yes edema ( Trace) Procedures Date of Service Date of Service: 10/05/23 Assessment and Plan Assessment and plan (1) Persistent atrial fibrillation: Status: Acute (2) Pulmonary nodule 1 cm or greater in diameter: Status: Acute (3) CHF exacerbation: Status: Acute (4) Pleural effusion, bilateral: Status: Acute Plan Impression: 83-year-old gentleman with underlying cardiomyopathy admitted with dyspnea and hypoxia secondary acute on chronic congestive heart failure that is improving with diuresis. 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 No evidence of COPD exacerbation or pneumonia. now with significant improvement in his FiO2 requirements. CT chest demonstrated bilateral pleural effusions, likely congestive heart failure related. Also underlying hypoalbuminemia. Recommendations: Consider titrating down from high-flow nasal cannula to regular nasal cannula. Agree with diagnostic/therapeutic thoracentesis of pleural effusion. Would consider albumin supplementation. Time Spent With Patient Time: Total time managing care of this patient today ____ minutes. Progress Note: Quality Stroke Does the patient have a stroke diagnosis?: No
--- NOTE | 2023-10-05 14:58 | PM.PROC ---
Brief Operative Note Date of procedure: 10/05/23 Pre-op diagnosis: Pleural effusions L>R Post-op diagnosis: same Procedure: US left thoracentesis 1.3 L yellow fluid removed. Fluid sent for analysis. Post CXR shows no pneumothorax. Surinder Le Anesthesia: local
[2023-10-05] MEDS: Lidocaine HCl 1 % MPF 5 ML VIAL SUBCUT (15:01)
[2023-10-05] MEDS: Albumin Human 25 % 100 ML IV ×2 (15:29→21:12)
[2023-10-05 15:39] LABS: MN% 93.3 %; PMN% 6.7 %; RBC Pleural Fluid 0.003 X10*6/uL; WBC Pleural Fluid 0.298 X10*3/uL
[2023-10-05 16:14] LABS: BF Shift QC OK YES; Lymphocytes Pleural Fluid 78 %; Man Diluent Bkgrd OK YES; Monocytes Pleural Fluid 18 %; Neutrophils Pleural Fluid 4 %; Other Cells Plerual Fl 15 %
[2023-10-05 16:45] LABS: Glucose, Whole Blood 271 mg/dL (60-115)
--- NOTE | 2023-10-05 16:51 | P.CDIM_ITS ---
PROVIDER RESPONSE TEXT: To clarify, the appropriate diagnosis supported by the clinical indicators: Pressure (decubitus) ulcer, stage 1 bilateral heels: stage ulcer 1 bilateral QUERY TEXT: PHYSICIAN'S DOCUMENTATION REQUEST Date of Query: 10/05/2023 09:29 AM EDT Patient Name: Mina Huang Admit Date: 10/02/2023 Dear Vivien Wheatley, A review of the medical record indicates additional documentation may be needed. Please review below and update the documentation accordingly. Clinical Indicators: Per Wound Note 10/03/23: bilateral heels stage 1 pressure injury, present on admission heel protector boots applied Based on the above, could you please provide further information regarding the ulcer/wound: Diabetic ulcer Please specify the location and laterality of the ulcer/wound Venous stasis ulcer Please specify the location and laterality of the ulcer/wound Arterial (ischemic) ulcer Please specify the location and laterality of the ulcer/wound Pressure (decubitus) ulcer, stage 1 bilateral heels Please include the stage of the ulcer and specify the location and laterality of the ulcer/wound Traumatic wound Please specify the location and laterality of the ulcer/wound Non-healing surgical wound Please specify the location and laterality of the ulcer/wound Other (explain) Clinically unable to determine (explain) Thank you, Anyi Ferraro RN Use of terms such as suspected, likely, concern for, or probable (associated with a specific diagnosi s that is being evaluated, monitored, or treated as if it exists) are acceptable and can be coded in the inpatient se tting, when documented at the time of discharge. Please use your independent medical judgment in providing your response. THIS QUERY IS PART OF THE PERMANENT MEDICAL RECORD
--- NOTE | 2023-10-05 17:59 | PM.EVENT ---
Event Note Date of Service: 10/05/23 Event Note: called by RN to assess pt for AF/RVR pt has been in persistent AF and is not on rate control agents he just had a thoracentesis with removal of 1.4L of fluid. I do not appreciate any PTX on post-thora CXR rate has been climbing all day, now in the 120s-130s. BP 108/60 pt in NAD on HFNC 40Lpm 60%FiO2 with SaO2 94%, lungs diminished on L at base, thora site with dry/clean dressing, heart irreg irreg will hold amlodipine, doxazosin, and Imdur. will give 2.5 mg IV metoprolol and assess response Time Spent With Patient Time: Total time managing care of this patient today ____ minutes.
[2023-10-05] MEDS: LORazepam 0.5 MG TABLET PO (18:14)
[2023-10-05] MEDS: Metoprolol Tartrate 5 MG/5 ML VIAL 2.5 MG IVPUSH ×3 (18:14→21:37)
[2023-10-05 18:37] LABS: ABG Refer to POC result
[2023-10-05 18:55] LABS: Magnesium 2.4 mg/dL (1.6-2.6)
[2023-10-05 20:29] LABS: Glucose, Whole Blood 76 mg/dL (60-115)
[2023-10-05] MEDS: Atorvastatin Calcium 10 MG TABLET PO (21:23)
[2023-10-06] VITALS (17 sets, daily range): BP systolic 112–151; BP diastolic 60–87; PULSE 74–118; RESP 20–22; TEMP 36.3–37.2; O2SAT 89–96
[2023-10-06] MEDS: cefTRIAXone sodium 1 GM in 0.9 % Sodium Chloride 50 ML IV (00:52)
[2023-10-06] MEDS: Azithromycin 500 MG in 0.9 % Sodium Chloride 250 ML 125 MG IV (00:52)
[2023-10-06 01:15] LABS: Glucose, Whole Blood 130 mg/dL (60-115)
[2023-10-06] MEDS: Albumin Human 25 % 100 ML IV ×2 (03:51→09:21)
[2023-10-06] MEDS: Carbidopa/Levodopa 25/100 TABLET 2 TAB PO ×5 (06:00→18:23)
[2023-10-06] MEDS: Acetaminophen 325 MG TABLET 650 MG PO ×2 (06:00→17:18)
[2023-10-06] MEDS: Albuterol/Iprat 2.5/0.5MG 3 ML AMPUL.NEB INHALE ×4 (07:40→18:55)
[2023-10-06 07:55] LABS: Glucose, Whole Blood 174 mg/dL (60-115)
[2023-10-06] MEDS: Aspirin 81 MG TAB.CHEW PO (09:19)
[2023-10-06] MEDS: Multivitamin TABLET 1 TAB PO (09:19)
[2023-10-06] MEDS: Loratadine 10 MG TABLET PO (09:19)
[2023-10-06] MEDS: dilTIAZem HCL 30 MG TABLET 15 MG PO (09:19)
[2023-10-06] MEDS: Insulin Lispro 100 UNIT/ML 3 ML VIAL SUBCUT ×4 (09:20→20:50)
[2023-10-06] MEDS: predniSONE 20 MG TABLET 40 MG PO (09:20)
[2023-10-06] MEDS: 0.9 % Sodium Chloride Flush 3 ML SYRINGE IVFLUSH ×2 (09:21→17:19)
[2023-10-06] MEDS: Docusate Sodium 100 MG CAPSULE PO ×2 (09:30→20:50)
--- NOTE | 2023-10-06 10:16 | P.PNCA_ITS ---
Subjective Subjective Date of Service: 10/06/23 Interval history: Clinically, he denies any symptoms but seems to be on high-flow oxygen. Yesterday, he underwent thoracentesis. Discussed with at the bedside. She states that patient has very limited activity at baseline. He does have hospitalizations at [facility]. Apparently, he did have some thoracentesis done there few months back. Review of Systems Review of Systems Yes all other systems are reviewed and are negative Constitutional: Reports as per HPI and Reports no additional constitutional complaints Eyes: Reports as per HPI and Denies no additional eye complaints Denies system reviewed and no additional complaints, except as documented and Reports as per HPI Cardiovascular: Reports as per HPI, Reports no additional cardiovascular complaints, Denies acrocyanosis, Denies cool extremities, Denies chest pain, Denies leg edema, Denies lightheadedness, Denies palpitations and Reports dyspnea Respiratory: Reports as per HPI, Denies no additional respiratory complaints and Reports dyspnea Gastrointestinal: Reports as per HPI and Denies no additional gastrointestinal complaints Genitourinary: Reports no additional male genitourinary complaints and Reports as per HPI Musculoskeletal: Reports no additional musculoskeletal complaints and Reports as per HPI Skin/Breast: Reports system reviewed and no additional complaints, except as docu Reports system reviewed and no additional complaints, except as documented and Reports as per HPI Psychiatric: Reports no additional psychiatric complaints and Reports as per HPI Endocrine: Reports no additional endocrine complaints, Reports as per HPI and Denies palpitations Hematologic/Lymphatic: Reports no additional hematologic/lymphatic complaints and Reports as per HPI Allergic/Immunologic: Reports no additional allergic/immunologic complaints and Reports as per HPI Physical Exam Vital Signs: Last Vital Signs Temp 98.2 F 10/06/23 08:00 Pulse 108 H 10/06/23 08:00 Resp 20 10/06/23 08:00 BP 112/60 10/06/23 08:00 Pulse Ox 92 10/06/23 08:00 O2 Del Method Room Air 10/06/23 08:00 O2 Flow Rate 40 10/06/23 04:00 FiO2 30 10/06/23 04:00 Oxygen Flow Rate 4 10/01/23 20:05 BMI result Body Mass Index 30.5 Const General: comfortable and no acute distress Orientation/consciousness: patient oriented x3 HEENT Other: Unremarkable Head: Yes normal to inspection Neck Neck: Yes normal visual inspection Chest Chest palpation & inspection: normal inspection of the chest Resp Auscultation: crackles Cardio Palpation: normal PMI Heart sounds: S1 normal heart sound present, S2 normal heart sound present, no gallops, no murmurs and no rubs GI Palpation (GI): Soft to palpation Back/Spine/Pelvis Other: unremarkable Skin General skin exam: no rashes or lesions noted Neuro General: patient oriented x3 Extrem General: Yes normal to inspection Psych Mental Status: mental status grossly normal Objective Labs and Meds 10/02/23 05:33 10/05/23 08:17 Lab results: Laboratory Results - last 24 hr 10/04/23 10/05/23 10/05/23 06:15 11:10 12:07 Hold Purple Top O2 Saturation 96.0 ABG pH at Pt Temp 7.37 ABG pCO2 at Pt Temp 43 ABG pO2 at Pt Temp 77 L ABG HCO3 25 ABG Base Excess (Actual) 0.3 POC Glucose 204 H Magnesium 2.4 Pleural WBC Pleural RBC Pleural Neutrophils Pleural Lymphocytes Pleural Monocytes Pleural Other Cells 10/05/23 10/05/23 10/05/23 14:40 16:37 20:21 Hold Purple Top O2 Saturation ABG pH at Pt Temp ABG pCO2 at Pt Temp ABG pO2 at Pt Temp ABG HCO3 ABG Base Excess (Actual) POC Glucose 271 H 76 Magnesium Pleural WBC 0.298 Pleural RBC 0.003 Pleural Neutrophils 4 Pleural Lymphocytes 78 Pleural Monocytes 18 Pleural Other Cells 15 10/06/23 10/06/23 10/06/23 01:06 07:35 09:17 Hold Purple Top SEE NOTE O2 Saturation ABG pH at Pt Temp ABG pCO2 at Pt Temp ABG pO2 at Pt Temp ABG HCO3 ABG Base Excess (Actual) POC Glucose 130 H 174 H Magnesium Pleural WBC Pleural RBC Pleural Neutrophils Pleural Lymphocytes Pleural Monocytes Pleural Other Cells Imaging Radiologist's impression: Impressions Thoracentesis Ultrasound 10/05/23 15:01 Impression: Ultrasound-guided left thoracentesis Progress Note: A&P Assessment and plan (1) Acute hypoxic respiratory failure: Status: Acute (2) Persistent atrial fibrillation: Status: Acute Plan Initially, EKG showed controlled atrial fibrillation but currently slightly rapid rate. CT chest shows large bilateral pleural effusions. Left upper lobe nodule. Status post left thoracentesis. Echocardiogram with LVEF of 50-55%. No significant valvular findings. Moderate to severe pulmonary hypertension. Overall, not entirely clear if it is all heart failure as it really does not have any peripheral edema. However, certainly possible. We tried diuretics and rather the BUN creatinine/started going up. Now he is on high-flow oxygen. Hence, overall difficult decide if it is heart failure requiring diuretics or something else. His states that he does have kidney issues and goes to Dr. Moody. We can re-attempt diuretics as he is on high-flow oxygen. Other possibilities will also need to be considered like aspiration extra. He also seems to have had low albumin issues. Overall, difficult case. Discussed with . Also on empiric antibiotics. Supplemental oxygen. Guarded prognosis. Discussed with Dr. Wheatley. He will discuss with the radiologist regarding CT findings if they could give us bit more differential. Time Spent With Patient Time: Total time managing care of this patient today ____ minutes. Progress Note: Quality Stroke Does the patient have a stroke diagnosis?: No Procedures Date of Service Date of Service: 10/06/23
[2023-10-06 10:21] LABS: Anion Gap 15 (12-20); Blood Urea Nitrogen 77 mg/dL (9-16); Calcium 8.9 mg/dL (8.4-10.2); Carbon Dioxide 26 mmol/L (22-29); Chloride 104 mmol/L (96-108); Creatinine Clr Calc Pharmacy 34.7; Estimated Glomerular Filt Rate 33; Glucose Random 200 mg/dL (60-115); Potassium 4.7 mmol/L (3.3-5.1); Sodium 140 mmol/L (135-145)
[2023-10-06 11:14] LABS: Glucose, Whole Blood 186 mg/dL (60-115)
[2023-10-06] MEDS: Bumetanide 25 MG in Container,Empty 0 ML IVCONT (11:33)
--- NOTE | 2023-10-06 12:18 | MHC.SL.SWA ---
Speech Pathologist Impression: Risk of Aspiration Due to: Neurological Condition History of Pneumonia Dysphasia Diet Status: Liquid Consistency and Strategies for Safe Swallow: Liquid Intake Recommendation: Thin Liquid Intake Strategies: Small Sips Solid Food Consistency: Dietary Recommendations: Regular Additional Modifications to Solid Foods: Patient is encouraged to pick softer, easy to manage foods from the regular menu. If is not present, patient will need supervision and cuing to take smaller bites and sips, and may need food cut up, depending on the meal selected. Provide pills one by one (patient reportedly has habit of taking handful of pills at a time, per ). No straw with liquids to discourage chain sipping/gulping. Oral Medication Intake: Whole with Liquid Please contact the pharmacy regarding appropriate crushable or liquid drug formulations that are available whenever modified delivery is recommended. Compensatory Strategies and Precautions to be Taken for Safe Swallow: Sitting Upright (90 deg) No Straw Liquids from Cup Small Bites and Sips Alternate Liquids/Solids Rate of Ingestion Change Supervision While Eating and Drinking for Safe Swallow: Total Supervision (1:1) Foods to Avoid: Hard, difficult to chew solids or too large pieces of food. Swallowing Recommended Treatments: Compens. Strategy Educat. Recommendation for Speech: Inpatient Speech Therapy Comment: Patient presented with swallow mostly WFL, however has some habits that may put him at risk for aspiration, particularly while on HFNC. Patient reportedly habitually downs food, liquid and pills quickly and too much at one time, and needs cuing to slow down and eat small amounts at a time. has habitually provided this type of cuing, and also has previously cut food small to encourage taking small bites at a time. Recommend patient continue of current diet of REGULAR with THIN LIQUIDS (by cup sip, no straws) Pills whole with liquid (one by one). If is not present, patient would benefit from direct supervision during meals with cuing to eat slowly and in small bites and sips, with monitoring for any aspiration signs. Particular caution around this behavior is needed secondary to HFNC. RESEARCH ADVISOR to f'/u X1 to assess toleration of meal @ current least restrictive level. Frequency/Duration: 1 f/u Date Range for Service Req: Timeline to reassess: District Home Economics Agent Clinican/Clinical Fellow: No Supervisory Statement: I have reviewed and agree with the student/clinical fellow's documentation: N/A Speech Language Pathologist: Kenya Padgett M.A., [facility]-RESEARCH ADVISOR
--- NOTE | 2023-10-06 13:33 | HO.PM.IMPN ---
Subjective Subjective Date of Service: 10/07/23 Interval History: sob Review of Systems sob somewhat improving but simialr tot yesterday. Physical Exam Vital Signs: Vital Signs: Last Vital Signs Temp 98.3 F 10/06/23 12:00 Pulse 104 H 10/06/23 12:00 Resp 20 10/06/23 12:00 BP 148/69 H 10/06/23 12:00 Pulse Ox 92 10/06/23 12:00 O2 Del Method High Flow Nasal C annula 10/06/23 12:00 O2 Flow Rate 35 10/06/23 12:00 FiO2 40 10/06/23 12:00 Oxygen Flow Rate 4 10/01/23 20:05 BMI result Body Mass Index 30.5 General: AO X 3, no acute distress Resp:air entry similar ,diminshed at bases , has mild wheezing need to discuss about the patient, kindly call me at [phone]. Thanks yet you can I think few scattered rales at bases. CVS: S1,S2,RRR GI: +BS, NT, no distention Skin: No rash Neuro: motor grossly intact Psych: appropriate affect Objective Data Active Medications Acetaminophen (Acetaminophen 325 Mg Tablet) 650 mg PO Q6H PRN PRN Reason: Pain, Mild (Pain Scale 1-3) Last Admin: 10/06/23 06:00 Dose: 650 mg Documented By: LIBAN Albuterol Sulfate (Albuterol Sulfate (0.083%) 2.5 Mg/3 Ml Vial.Neb) 2.5 mg INHALE Q2H PRN PRN Reason: Shortness of Breath/Wheezing Albuterol/Ipratropium (Albuterol/Iprat 2.5/0.5mg 3 Ml Ampul.Neb) 3 ml INHALE RQ4H WHILE AWAKE [facility] Last Admin: 10/06/23 11:16 Dose: 3 ml Documented By: JADA Amlodipine Besylate (Amlodipine Besylate 10 Mg Tablet) 10 mg PO BEDTIME [facility]; Protocol Last Admin: 10/04/23 20:59 Dose: 10 mg Documented By: KIMBERLYN Aspirin (Aspirin 81 Mg Tab.Chew) 81 mg PO DAILY [facility] Last Admin: 10/06/23 09:19 Dose: 81 mg Documented By: THADDEUS Atorvastatin Calcium (Atorvastatin Calcium 10 Mg Tablet) 10 mg PO BEDTIME [facility] Last Admin: 10/05/23 21:23 Dose: 10 mg Documented By: LIBAN Bisacodyl (Bisacodyl 10 Mg Supp.Rect) 10 mg [place] DAILY PRN PRN Reason: Constipation Carbidopa/Levodopa (Carbidopa/Levodopa 25/100 Tablet) 2 tab PO DAILY@0600,0900,1200,1500,1800 [facility] Last Admin: 10/06/23 11:32 Dose: 2 tab Documented By: THADDEUS Docusate Sodium (Docusate Sodium 100 Mg Capsule) 100 mg PO BID [facility] Last Admin: 10/06/23 09:30 Dose: 100 mg Documented By: THADDEUS Doxazosin Mesylate (Doxazosin Mesylate 2 Mg Tablet) 4 mg PO BEDTIME [facility]; Protocol Last Admin: 10/04/23 20:59 Dose: 4 mg Documented By: KIMBERLYN Famotidine (Famotidine 20 Mg Tablet) 20 mg PO BID PRN PRN Reason: Heartburn Glucose (Glucose Gel 15 Gm Gel..Gram.) 15 gm PO Q15M PRN; Protocol PRN Reason: per Hypoglycemia Standing Ord. Guaifenesin (Guaifenesin 200 Mg/10 Ml 10 Ml Liquid) 10 ml PO Q4H PRN PRN Reason: Cough Last Admin: 10/05/23 21:44 Dose: 10 ml Documented By: LIBAN Ceftriaxone Sodium 1 gm/ (Sodium Chloride) 50 mls @ 100 mls/hr IV Q24H [facility] Last Infusion: 10/06/23 01:28 Dose: Infused Documented By: LIBAN Azithromycin 500 mg/ Sodium (Chloride) 250 mls @ 125 mls/hr IV Q24H [facility] Last Infusion: 10/06/23 02:54 Dose: Infused Documented By: LIBAN Dextrose (D10) 250 mls @ 750 mls/hr IV Q15M PRN; Protocol PRN Reason: per Hypoglycemia Standing Ord. Bumetanide 25 mg/ IV (Miscellaneous Supplies) 100 mls @ 2 mls/hr IVCONT .Q24H [facility] Last Admin: 10/06/23 11:33 Dose: 0.5 mg/hr, 2 mls/hr Documented By: THADDEUS Insulin Human Lispro (Insulin Lispro 100 Unit/Ml 3 Ml Vial) 0 unit SUBCUT QIDACHS [facility]; Protocol Last Admin: 10/06/23 11:33 Dose: 2 unit Documented By: THADDEUS Isosorbide Mononitrate (Isosorbide Mononitrate 30 Mg Tab.Er.24h) 30 mg PO DAILY [facility]; Protocol Last Admin: 10/05/23 08:01 Dose: 30 mg Documented By: DAVONTE Loratadine (Loratadine 10 Mg Tablet) 10 mg PO DAILY [facility] Last Admin: 10/06/23 09:19 Dose: 10 mg Documented By: THADDEUS Magnesium Hydroxide (Milk Of Magnesia 30 Ml Oral.Susp) 30 ml PO DAILY PRN PRN Reason: Constipation Melatonin (Melatonin 3 Mg Tablet) 6 mg PO BEDTIME PRN PRN Reason: Insomnia Metoprolol Tartrate (Metoprolol Tartrate 5 Mg/5 Ml Vial) 2.5 mg IVPUSH Q6H PRN; Protocol PRN Reason: HR>120 Last Admin: 10/05/23 21:37 Dose: 2.5 mg Documented By: LIBAN Multivitamins/Vitamin C (Multivitamin Tablet) 1 tab PO DAILY [facility] Last Admin: 10/06/23 09:19 Dose: 1 tab Documented By: THADDEUS Ondansetron HCl (Ondansetron Hcl 4 Mg/2 Ml Vial) 4 mg IVPUSH Q8H PRN PRN Reason: Nausea and Vomiting Prednisone (Prednisone 20 Mg Tablet) 40 mg PO DAILY [facility] Last Admin: 10/06/23 09:20 Dose: 40 mg Documented By: THADDEUS Sodium Biphosphate/Sodium Phosphate (Sodium Phosphate,[place]-Dibasic 133 Ml Enema) 118 ml [place] DAILY PRN PRN Reason: Constipation Sodium Chloride (0.9 % Sodium Chloride Flush 3 Ml Syringe) 3 ml IVFLUSH QSHIFT [facility] Last Admin: 10/06/23 09:21 Dose: 3 ml Documented By: THADDEUS Labs 10/02/23 05:33 10/07/23 07:44 Labs: Laboratory Results - last 24 hr 10/04/23 10/05/23 10/05/23 06:15 14:40 16:37 Hold Purple Top Anion Gap Estim Creat Clear Calc Estimated GFR POC Glucose 271 H Random Glucose Calcium Magnesium 2.4 Pleural WBC 0.298 Pleural RBC 0.003 Pleural Neutrophils 4 Pleural Lymphocytes 78 Pleural Monocytes 18 Pleural Other Cells 15 10/05/23 10/06/23 10/06/23 20:21 01:06 07:35 Hold Purple Top Anion Gap Estim Creat Clear Calc Estimated GFR POC Glucose 76 130 H 174 H Random Glucose Calcium Magnesium Pleural WBC Pleural RBC Pleural Neutrophils Pleural Lymphocytes Pleural Monocytes Pleural Other Cells 10/06/23 10/06/23 09:17 11:06 Hold Purple Top SEE NOTE Anion Gap 15 Estim Creat Clear Calc 34.7 Estimated GFR 33 POC Glucose 186 H Random Glucose 200 H Calcium 8.9 Magnesium Pleural WBC Pleural RBC Pleural Neutrophils Pleural Lymphocytes Pleural Monocytes Pleural Other Cells Assessment and Plan (1) CHF exacerbation: Status: Acute (2) Acute hypoxic respiratory failure: Status: Acute Plan 83-year-old male with pertinent history of congestive heart failure, unspecified EF, paroxysmal atrial fibrillation not on anticoagulation, [id number] diabetes mellitus, Parkinson's disease, hypertension who presents to the emergency department for evaluation of dyspnea. Acute hypoxemic respiratory failure due to acute exacerbation of CHF, unspecified EF and PNA, and probable copd exacerbation acute on chronic CHF unspecified.. ct chest shows -cardiomegaly, bilateral pleural effusion. echo : ef 55-60% repeat cxr- mild congetsion monitor i/o ,place davila, daily weight, low salt diet, taper high-flow Pulmonary evaluation noted-continue nebs, steroids, diuresis Mild acute Hypernatremia--d/t diuretics, monitor, relax water restriction , improved. Left lower lobe PNA, continue Ceftriaxone and Azitho / COPD exacerbation--add bronchodilators, and IV solumedrol. Acute kidney injury stage I: likely d/t cardiorenal phenomenon, creatinine is better, continue hold lisinopril and possibly restart tomorrow Hypertension: Hold lisinopril in the setting of renal failure, restart imdur tomorrow Parkinson's disease: continue On Sinemet [id number] diabetes mellitus with hyperglycemia: -hold metformin d/t heart failure and renal failure -SSI, trulicity not on forumulay -FBS 105 Paroxysmal atrial fibrillation: hr flactuates ( copd ,on high flow)-d/w cardiology -moniter closely , no need for rate control med currently , Not permanenetly anticoagulated DVT prophylaxis: Lovenox DNR/DNI. need for inpt: COPD/CHF exacerbation: Patient is on high-flow oxygen, management of chf with iv diuretics, nebs, steroids frequent lab check Quality Stroke Does the patient have a stroke diagnosis?: No VTE Prior VTE?: No VTE Risk Level:: Medical - moderate - high VTE Device Contraindication: Treatment Not Indicated VTE Drug Contraindication: N/A - Med Ordered
--- NOTE | 2023-10-06 13:51 | PM.PNPUL ---
Subjective Subjective Date of Service: 10/06/23 Interval history: Status post left-sided thoracentesis with drainage of 1.3 L of pleural fluid, studies are pending, but appears to have lymphocytic predominant pleural effusion. Dyspnea, respiratory status, and FiO2 requirements continue to improve. Objective Data Labs 10/02/23 05:33 10/06/23 09:17 Labs: Laboratory Results - last 24 hr 10/04/23 10/05/23 10/05/23 06:15 14:40 16:37 Hold Purple Top Sodium Potassium Chloride Carbon Dioxide Anion Gap BUN Creatinine Estim Creat Clear Calc Estimated GFR POC Glucose 271 H Random Glucose Calcium Magnesium 2.4 Pleural WBC 0.298 Pleural RBC 0.003 Pleural Neutrophils 4 Pleural Lymphocytes 78 Pleural Monocytes 18 Pleural Other Cells 15 10/05/23 10/06/23 10/06/23 20:21 01:06 07:35 Hold Purple Top Sodium Potassium Chloride Carbon Dioxide Anion Gap BUN Creatinine Estim Creat Clear Calc Estimated GFR POC Glucose 76 130 H 174 H Random Glucose Calcium Magnesium Pleural WBC Pleural RBC Pleural Neutrophils Pleural Lymphocytes Pleural Monocytes Pleural Other Cells 10/06/23 10/06/23 09:17 11:06 Hold Purple Top SEE NOTE Sodium 140 Potassium 4.7 Chloride 104 Carbon Dioxide 26 Anion Gap 15 BUN 77 H Creatinine 1.94 H Estim Creat Clear Calc 34.7 Estimated GFR 33 POC Glucose 186 H Random Glucose 200 H Calcium 8.9 Magnesium Pleural WBC Pleural RBC Pleural Neutrophils Pleural Lymphocytes Pleural Monocytes Pleural Other Cells Microbiology Microbiology Results: Microbiology 10/01/23 22:26 Blood - Venous Blood Culture - Preliminary No growth after 48 hours. 10/01/23 22:26 Blood - Venous Blood Culture - Preliminary No growth after 48 hours. Physical Exam Vital Signs: Vital Signs: Last Vital Signs Temp 98.3 F 10/06/23 12:00 Pulse 104 H 10/06/23 12:00 Resp 20 10/06/23 12:00 BP 148/69 H 10/06/23 12:00 Pulse Ox 92 10/06/23 12:00 O2 Del Method High Flow Nasal C annula 10/06/23 12:00 O2 Flow Rate 35 10/06/23 12:00 FiO2 40 10/06/23 12:00 Oxygen Flow Rate 4 10/01/23 20:05 BMI result Body Mass Index 30.5 Const: General: no acute distress, alert and awake Eyes: Sclerae: sclerae normal EOM: EOMs intact bilaterally Neck: Neck: Yes no lymphadenopathy, Yes trachea midline and Yes supple Resp: Effort & Inspection: normal respiratory effort and no respiratory distress Auscultation: other ( Right basilar dullness) Cardio: Rate: tachycardic Rhythm: regular rhythm Heart sounds: no gallops, no murmurs and no rubs GI: Palpation (GI): Soft to palpation and Other GI palpation findings present ( Nontender) Auscultation: normal bowel sounds Extrem: General: Yes no pedal edema, No clubbing and No cyanosis Procedures Date of Service Date of Service: 10/06/23 Assessment and Plan Assessment and plan (1) Pleural effusion, bilateral: Status: Acute (2) Pulmonary nodule 1 cm or greater in diameter: Status: Acute (3) Acute hypoxic respiratory failure: Status: Acute Plan Impression: 83-year-old gentleman with underlying cardiomyopathy admitted with dyspnea and hypoxia secondary acute on chronic congestive heart failure that is improving with diuresis. Patient also his Anoro pulmonary nodule that is being worked up by his marketing content coordinator at [facility] with PET scan planned. No evidence of COPD exacerbation or pneumonia. now with significant improvement in his FiO2 requirements. CT chest demonstrated bilateral pleural effusions, likely congestive heart failure related. now status post left-sided thoracentesis with drainage of 1.3 L of lymphocyte predominant fluid. Recommendations: Consider titrating down from high-flow nasal cannula to regular nasal cannula. Agree with diagnostic/therapeutic thoracentesis of pleural effusion , now on the right-sided. Time Spent With Patient Time: Total time managing care of this patient today ____ minutes. Progress Note: Quality Stroke Does the patient have a stroke diagnosis?: No
[2023-10-06 15:15] LABS: B Type Natriuretic Peptide 860 pg/mL (<100)
[2023-10-06 16:51] LABS: Glucose, Whole Blood 275 mg/dL (60-115)
--- NOTE | 2023-10-06 17:33 | P.CONNP_ITS ---
History of Present Illness Reason for Consult Consult date: 10/07/23 Chief Complaint Chief complaint: Dyspnea History of Present Illness Narrative: 83/m with pmh of CAD s/p CABG x3V in 2008, chf - 45%, chronic lower extremity edema, paroxysmal atrial fibrillation not on anticoagulation, jeo-[id number]-pxsyoyrwa diabetes mellitus, Parkinson's disease, hypertension who presented to the emergency department for evaluation of dyspnea. h/o orthopnea, bilateral lower extremity swelling. Also has been having cough. No chest pain. h/o bradycardia with carvedilol discontinued, Review of Systems Review of Systems Yes all other systems are reviewed and are negative [facility] Past Medical History Medical History Atrial fibrillation Diabetes CHF (congestive heart failure) Celiac disease Basal cell carcinoma Spinal stenosis Parkinson disease Family History Family History Mother Valvular heart disease Surgical History Surgical History S/P triple vessel bypass Social History Social History Household Members: Other Housing: Shelter Do you presently have visiting nurse or other home services: No (Resides at [place]) Alcohol intake: current Alcohol intake frequency: holidays/special occasions only Alcohol type: wine Patient Tobacco Use Status: Former Tobacco user Second Hand Smoke Exposure: No Advance Directives Date on File: 05/05/21 service: Yes Current occupational status: retired [employer] Allergies Allergy/AdvReac Type Severity Reaction Status Date / Time No Known Allergies Allergy Verified 10/01/23 20:17 [No Known Allergies*] Active Medications: Current Medications Acetaminophen (Acetaminophen 325 Mg Tablet) 650 mg PO Q6H PRN PRN Reason: Pain, Mild (Pain Scale 1-3) Last Admin: 10/06/23 17:18 Dose: 650 mg Albuterol Sulfate (Albuterol Sulfate (0.083%) 2.5 Mg/3 Ml Vial.Neb) 2.5 mg INHALE Q2H PRN PRN Reason: Shortness of Breath/Wheezing Albuterol/Ipratropium (Albuterol/Iprat 2.5/0.5mg 3 Ml Ampul.Neb) 3 ml INHALE RQ4H WHILE AWAKE [facility] Last Admin: 10/06/23 14:50 Dose: 3 ml Amlodipine Besylate (Amlodipine Besylate 10 Mg Tablet) 10 mg PO BEDTIME [facility]; Protocol Last Admin: 10/04/23 20:59 Dose: 10 mg Aspirin (Aspirin 81 Mg Tab.Chew) 81 mg PO DAILY [facility] Last Admin: 10/06/23 09:19 Dose: 81 mg Atorvastatin Calcium (Atorvastatin Calcium 10 Mg Tablet) 10 mg PO BEDTIME [facility] Last Admin: 10/05/23 21:23 Dose: 10 mg Bisacodyl (Bisacodyl 10 Mg Supp.Rect) 10 mg [place] DAILY PRN PRN Reason: Constipation Carbidopa/Levodopa (Carbidopa/Levodopa 25/100 Tablet) 2 tab PO DAILY@0600,0900,1200,1500,1800 [facility] Last Admin: 10/06/23 17:19 Dose: 2 tab Docusate Sodium (Docusate Sodium 100 Mg Capsule) 100 mg PO BID [facility] Last Admin: 10/06/23 09:30 Dose: 100 mg Doxazosin Mesylate (Doxazosin Mesylate 2 Mg Tablet) 4 mg PO BEDTIME [facility]; Protocol Last Admin: 10/04/23 20:59 Dose: 4 mg Famotidine (Famotidine 20 Mg Tablet) 20 mg PO BID PRN PRN Reason: Heartburn Glucose (Glucose Gel 15 Gm Gel..Gram.) 15 gm PO Q15M PRN; Protocol PRN Reason: per Hypoglycemia Standing Ord. Guaifenesin (Guaifenesin 200 Mg/10 Ml 10 Ml Liquid) 10 ml PO Q4H PRN PRN Reason: Cough Last Admin: 10/05/23 21:44 Dose: 10 ml Ceftriaxone Sodium 1 gm/ (Sodium Chloride) 50 mls @ 100 mls/hr IV Q24H [facility] Last Infusion: 10/06/23 01:28 Dose: Infused Azithromycin 500 mg/ Sodium (Chloride) 250 mls @ 125 mls/hr IV Q24H [facility] Last Infusion: 10/06/23 02:54 Dose: Infused Dextrose (D10) 250 mls @ 750 mls/hr IV Q15M PRN; Protocol PRN Reason: per Hypoglycemia Standing Ord. Bumetanide 25 mg/ IV (Miscellaneous Supplies) 100 mls @ 2 mls/hr IVCONT .Q24H [facility] Last Admin: 10/06/23 11:33 Dose: 0.5 mg/hr, 2 mls/hr Insulin Human Lispro (Insulin Lispro 100 Unit/Ml 3 Ml Vial) 0 unit SUBCUT QIDACHS [facility]; Protocol Last Admin: 10/06/23 17:18 Dose: 6 unit Isosorbide Mononitrate (Isosorbide Mononitrate 30 Mg Tab.Er.24h) 30 mg PO DAILY [facility]; Protocol Last Admin: 10/05/23 08:01 Dose: 30 mg Loratadine (Loratadine 10 Mg Tablet) 10 mg PO DAILY [facility] Last Admin: 10/06/23 09:19 Dose: 10 mg Magnesium Hydroxide (Milk Of Magnesia 30 Ml Oral.Susp) 30 ml PO DAILY PRN PRN Reason: Constipation Melatonin (Melatonin 3 Mg Tablet) 6 mg PO BEDTIME PRN PRN Reason: Insomnia Metoprolol Tartrate (Metoprolol Tartrate 5 Mg/5 Ml Vial) 2.5 mg IVPUSH Q6H PRN; Protocol PRN Reason: HR>120 Last Admin: 10/05/23 21:37 Dose: 2.5 mg Multivitamins/Vitamin C (Multivitamin Tablet) 1 tab PO DAILY [facility] Last Admin: 10/06/23 09:19 Dose: 1 tab Ondansetron HCl (Ondansetron Hcl 4 Mg/2 Ml Vial) 4 mg IVPUSH Q8H PRN PRN Reason: Nausea and Vomiting Prednisone (Prednisone 20 Mg Tablet) 40 mg PO DAILY [facility] Last Admin: 10/06/23 09:20 Dose: 40 mg Sodium Biphosphate/Sodium Phosphate (Sodium Phosphate,[place]-Dibasic 133 Ml Enema) 118 ml [place] DAILY PRN PRN Reason: Constipation Sodium Chloride (0.9 % Sodium Chloride Flush 3 Ml Syringe) 3 ml IVFLUSH QSHIFT [facility] Last Admin: 10/06/23 17:19 Dose: 3 ml Home Medications ?Medication ?Instructions ?Recorded ?Confirmed ?Last Taken ?Type carbidopa 25 mg-levodopa 100 mg 2 tab PO 5XD 05/01/21 10/02/23 10/01/23 18:00 History tablet doxazosin 4 mg tablet 1 tab PO BEDTIME 05/01/21 10/02/23 10/01/23 17:00 History simvastatin 20 mg tablet 1 tab PO BEDTIME 05/01/21 10/02/23 10/01/23 17:00 History multivitamin 1 tab PO DAILY 02/14/22 10/02/23 10/01/23 09:00 History Prostat 30 ml PO DAILY 10/02/23 10/02/23 10/01/23 09:00 History acetaminophen 325 mg tablet 650 mg PO Q4H PRN pain or fever 10/02/23 10/02/23 10/01/23 History amlodipine 10 mg tablet 10 mg PO DAILY 10/02/23 10/02/23 09/30/23 21:00 History aspirin 81 mg chewable tablet 81 mg PO DAILY 10/02/23 10/02/23 10/01/23 09:00 History bisacodyl 10 mg rectal suppository 10 mg MT DAILY PRN Constipation 10/02/23 10/02/23 Unknown History docusate sodium 100 mg capsule 100 mg PO BID 10/02/23 10/02/23 10/01/23 09:00 History famotidine 20 mg tablet 20 mg PO BID PRN Heartburn 10/02/23 10/02/23 Unknown History furosemide 20 mg tablet 20 mg PO DAILY 10/02/23 10/02/23 10/01/23 09:00 History furosemide 40 mg tablet 40 mg PO DAILY 10/02/23 10/02/23 10/01/23 09:00 History isosorbide mononitrate 30 mg 30 mg PO DAILY 10/02/23 10/02/23 10/01/23 09:00 History tablet,extended release 24 hr magnesium hydroxide 400 mg/5 mL 30 ml PO DAILY PRN Constipation 10/02/23 10/02/23 Unknown History oral suspension (Milk of Magnesia) metformin 500 mg tablet 500 mg PO BID 10/02/23 10/02/23 10/01/23 17:00 History sodium phosphates 19 gram-7 118 ml MT DAILY PRN Constipation 10/02/23 10/02/23 Unknown History gram/118 mL enema (Fleet Enema) Physical Exam Vital Signs: Last Vital Signs Temp 97.7 F 10/06/23 16:00 Pulse 112 H 10/06/23 16:00 Resp 22 H 10/06/23 16:00 BP 130/76 10/06/23 16:00 Pulse Ox 92 10/06/23 16:00 O2 Del Method High Flow Nasal Cannula 10/06/23 16:00 O2 Flow Rate 35 10/06/23 16:00 FiO2 50 10/06/23 16:00 Oxygen Flow Rate 4 10/01/23 20:05 BMI result Body Mass Index 30.5 alert, awake cvs; S1S2 , JVP + RS; B/L Basal crepts abd; soft ext : b/l le edema Results Lab Results 10/02/23 05:33 10/06/23 09:17 Lab results: Chemistry 10/04/23 10/05/23 10/06/23 06:15 08:17 09:17 Sodium 143 142 140 Potassium 4.9 5.2 H 4.7 Carbon Dioxide 27 27 26 BUN 44 H 63 H 77 H Creatinine 1.35 1.96 H 1.94 H Calcium 9.1 9.1 8.9 Assessment and Plan (1) CHF exacerbation: Status: Acute (2) Acute hypoxic respiratory failure: Status: Acute (3) KEE (acute kidney injury): Status: Acute Plan 83 year old male with CAD s/p CABG x3V in 2008, chf - 45%, chronic lower extremity edema, HTN, DLP, and DM Hypertensive disorder CHF KEE/ Likely due to cardiorenal syndrome b/l pleural effusion- s/p left thora- 1.3 L drained agree with hold of home meds spironolactone to 25 mg twice daily and lisinopril 40 mg daily continue bumex gtt Keep a strict low-sodium diet strict I/O, daily wt continue on his other antihypertensive doxazosin 4 mg daily at bedtime if continues to be hypoxic, will need R thora as well avoid nephrotoxins, including fleet enema due to kee Proteinuria work-up unrevealing in the past including negative KYUNG 2R antibody likely negativity for membranous nephropathy, NEG SPEP. 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 cont to treat proteinuria with ALEJANDRO inhibitor and aldosterone lee Procedures Date of Service Date of Service: 10/07/23
[2023-10-06 20:50] LABS: Glucose, Whole Blood 266 mg/dL (60-115)
[2023-10-06] MEDS: Atorvastatin Calcium 10 MG TABLET PO (20:50)
[2023-10-06] MEDS: Acetaminophen 325 MG TABLET 975 MG PO (21:01)
--- NOTE | 2023-10-06 22:01 | P.CONNP_ITS ---
History of Present Illness Reason for Consult Consult date: 12/21/23 Chief Complaint Chief complaint: Dyspnea PMFSH Past Medical History Medical History Pulmonary nodule 1 cm or greater in diameter Persistent atrial fibrillation Physical deconditioning Atrial fibrillation Diabetes CHF (congestive heart failure) Celiac disease Basal cell carcinoma Spinal stenosis Parkinson disease Family History Family History Mother Valvular heart disease Surgical History Surgical History S/P triple vessel bypass Social History Social History Household Members: Other Housing: Retirement Do you presently have visiting nurse or other home services: No Alcohol intake: current Alcohol intake frequency: holidays/special occasions only Alcohol type: wine 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 Tobacco Use Status: Former Tobacco user Second Hand Smoke Exposure: No Advance Directives Date on File: 05/05/21 service: Yes Current occupational status: retired [employer] Allergies Allergy/AdvReac Type Severity Reaction Status Date / Time No Known Allergies Allergy Verified 10/29/23 06:22 [No Known Allergies*] Active Medications: Current Medications Acetaminophen (Acetaminophen 325 Mg Tablet) 975 mg PO Q8H PRN PRN Reason: mild pain, headache or fever Albuterol Sulfate (Albuterol Sulfate (0.083%) 2.5 Mg/3 Ml Vial.Neb) 2.5 mg INHALE Q2H PRN PRN Reason: Shortness of Breath/Wheezing Albuterol/Ipratropium (Albuterol/Iprat 2.5/0.5mg 3 Ml Ampul.Neb) 3 ml INHALE RQ4H WHILE AWAKE MADALYN Last Admin: 10/06/23 18:55 Dose: 3 ml Amlodipine Besylate (Amlodipine Besylate 10 Mg Tablet) 10 mg PO BEDTIME MADALYN; Protocol Last Admin: 10/04/23 20:59 Dose: 10 mg Aspirin (Aspirin 81 Mg Tab.Chew) 81 mg PO DAILY MADAL[facility] Last Admin: 10/06/23 09:19 Dose: 81 mg Atorvastatin Calcium (Atorvastatin Calcium 10 Mg Tablet) 10 mg PO BEDTIME MADALYN Last Admin: 10/06/23 20:50 Dose: 10 mg Bisacodyl (Bisacodyl 10 Mg Supp.Rect) 10 mg ID DAILY PRN PRN Reason: Constipation Carbidopa/Levodopa (Carbidopa/Levodopa 25/100 Tablet) 2 tab PO DAILY@0600,0900,1200,1500,1800 [facility] Last Admin: 10/06/23 18:23 Dose: 2 tab Docusate Sodium (Docusate Sodium 100 Mg Capsule) 100 mg PO BID [facility] Last Admin: 10/06/23 20:50 Dose: 100 mg Doxazosin Mesylate (Doxazosin Mesylate 2 Mg Tablet) 4 mg PO BEDTIME [facility]; Protocol Last Admin: 10/04/23 20:59 Dose: 4 mg Famotidine (Famotidine 20 Mg Tablet) 20 mg PO BID PRN PRN Reason: Heartburn Glucose (Glucose Gel 15 Gm Gel..Gram.) 15 gm PO Q15M PRN; Protocol PRN Reason: per Hypoglycemia Standing Ord. Guaifenesin (Guaifenesin 200 Mg/10 Ml 10 Ml Liquid) 10 ml PO Q4H PRN PRN Reason: Cough Last Admin: 10/05/23 21:44 Dose: 10 ml Ceftriaxone Sodium 1 gm/ (Sodium Chloride) 50 mls @ 100 mls/hr IV Q24H [facility] Last Infusion: 10/06/23 01:28 Dose: Infused Azithromycin 500 mg/ Sodium (Chloride) 250 mls @ 125 mls/hr IV Q24H [facility] Last Infusion: 10/06/23 02:54 Dose: Infused Dextrose (D10) 250 mls @ 750 mls/hr IV Q15M PRN; Protocol PRN Reason: per Hypoglycemia Standing Ord. Bumetanide 25 mg/ IV (Miscellaneous Supplies) 100 mls @ 2 mls/hr IVCONT .Q24H [facility] Last Admin: 10/06/23 11:33 Dose: 0.5 mg/hr, 2 mls/hr Insulin Human Lispro (Insulin Lispro 100 Unit/Ml 3 Ml Vial) 0 unit SUBCUT QIDACHS [facility]; Protocol Last Admin: 10/06/23 20:50 Dose: 6 unit Isosorbide Mononitrate (Isosorbide Mononitrate 30 Mg Tab.Er.24h) 30 mg PO DAILY [facility]; Protocol Last Admin: 10/05/23 08:01 Dose: 30 mg Loratadine (Loratadine 10 Mg Tablet) 10 mg PO DAILY [facility] Last Admin: 10/06/23 09:19 Dose: 10 mg Magnesium Hydroxide (Milk Of Magnesia 30 Ml Oral.Susp) 30 ml PO DAILY PRN PRN Reason: Constipation Melatonin (Melatonin 3 Mg Tablet) 6 mg PO BEDTIME PRN PRN Reason: Insomnia Metoprolol Tartrate (Metoprolol Tartrate 5 Mg/5 Ml Vial) 2.5 mg IVPUSH Q6H PRN; Protocol PRN Reason: HR>120 Last Admin: 10/05/23 21:37 Dose: 2.5 mg Multivitamins/Vitamin C (Multivitamin Tablet) 1 tab PO DAILY [facility] Last Admin: 10/06/23 09:19 Dose: 1 tab Ondansetron HCl (Ondansetron Hcl 4 Mg/2 Ml Vial) 4 mg IVPUSH Q8H PRN PRN Reason: Nausea and Vomiting Prednisone (Prednisone 20 Mg Tablet) 40 mg PO DAILY [facility] Last Admin: 10/06/23 09:20 Dose: 40 mg Sodium Biphosphate/Sodium Phosphate (Sodium Phosphate,[place]-Dibasic 133 Ml Enema) 118 ml ID DAILY PRN PRN Reason: Constipation Sodium Chloride (0.9 % Sodium Chloride Flush 3 Ml Syringe) 3 ml IVFLUSH QSHIFT [facility] Last Admin: 10/06/23 21:00 Dose: Not Given Physical Exam Vital Signs: Last Vital Signs Temp 97.9 F 10/06/23 19:29 Pulse 98 10/06/23 19:29 Resp 20 10/06/23 19:29 BP 151/75 H 10/06/23 19:29 Pulse Ox 95 10/06/23 19:29 O2 Del Method High Flow Nasal Cannula 10/06/23 19:29 O2 Flow Rate 35 10/06/23 19:29 FiO2 50 10/06/23 19:29 Oxygen Flow Rate 4 10/01/23 20:05 BMI result Body Mass Index 30.5 Results Lab Results 10/10/23 05:52 10/12/23 06:40 Lab results: Chemistry 10/04/23 10/05/23 10/06/23 06:15 08:17 09:17 Sodium 143 142 140 Potassium 4.9 5.2 H 4.7 Carbon Dioxide 27 27 26 BUN 44 H 63 H 77 H Creatinine 1.35 1.96 H 1.94 H Calcium 9.1 9.1 8.9 Assessment and Plan (1) KEE (acute kidney injury): Status: Resolved Plan Call disease patient but he was not seen because he is follows with Dr. Zia Moody and no was already seen by other water meter installer Hospitalist accidentally consulted [facility]. Therefore,I will not actively follwo ths patient Procedures Date of Service Date of Service: 12/21/23
[2023-10-07] VITALS (10 sets, daily range): BP systolic 110–160; BP diastolic 68–76; PULSE 78–114; RESP 18–24; TEMP 36.2–36.7; O2SAT 90–98
[2023-10-07] MEDS: cefTRIAXone sodium 1 GM in 0.9 % Sodium Chloride 50 ML IV (01:52)
[2023-10-07] MEDS: Azithromycin 500 MG in 0.9 % Sodium Chloride 250 ML 125 MG IV (01:54)
[2023-10-07] MEDS: guaiFENesin 200 MG/10 ML 10 ML LIQUID PO (04:57)
[2023-10-07] MEDS: Carbidopa/Levodopa 25/100 TABLET 2 TAB PO ×5 (05:03→17:32)
[2023-10-07] MEDS: Albuterol/Iprat 2.5/0.5MG 3 ML AMPUL.NEB INHALE ×3 (08:09→15:09)
[2023-10-07 08:32] LABS: B Type Natriuretic Peptide 1134 pg/mL (<100)
[2023-10-07] MEDS: Multivitamin TABLET 1 TAB PO (08:32)
[2023-10-07] MEDS: Aspirin 81 MG TAB.CHEW PO (08:32)
[2023-10-07] MEDS: Docusate Sodium 100 MG CAPSULE PO ×2 (08:32→21:10)
[2023-10-07] MEDS: predniSONE 20 MG TABLET 40 MG PO (08:32)
[2023-10-07] MEDS: Loratadine 10 MG TABLET PO (08:32)
[2023-10-07 08:40] LABS: Anion Gap 15 (12-20); Blood Urea Nitrogen 83 mg/dL (9-16); Calcium 9.3 mg/dL (8.4-10.2); Carbon Dioxide 28 mmol/L (22-29); Chloride 104 mmol/L (96-108); Creatinine Clr Calc Pharmacy 37.4; Estimated Glomerular Filt Rate 36; Glucose Random 168 mg/dL (60-115); Potassium 4.1 mmol/L (3.3-5.1); Sodium 143 mmol/L (135-145)
[2023-10-07] MEDS: Bumetanide 25 MG in Container,Empty 0 ML IVCONT (11:21)
[2023-10-07 11:31] LABS: Glucose, Whole Blood 291 mg/dL (60-115)
--- NOTE | 2023-10-07 11:37 | PM.PNCARD ---
Subjective Subjective Date of Service: 10/07/23 Interval history: Feels more or less the same as before. Review of Systems Review of Systems Yes all other systems are reviewed and are negative Constitutional: Reports as per HPI and Reports no additional constitutional complaints Eyes: Reports as per HPI and Denies no additional eye complaints Denies system reviewed and no additional complaints, except as documented and Reports as per HPI Cardiovascular: Reports as per HPI, Reports no additional cardiovascular complaints, Denies acrocyanosis, Denies cool extremities, Denies chest pain, Denies leg edema, Denies lightheadedness, Denies palpitations and Reports dyspnea Respiratory: Reports as per HPI, Denies no additional respiratory complaints and Reports dyspnea Gastrointestinal: Reports as per HPI and Denies no additional gastrointestinal complaints Genitourinary: Reports no additional male genitourinary complaints and Reports as per HPI Musculoskeletal: Reports no additional musculoskeletal complaints and Reports as per HPI Skin/Breast: Reports system reviewed and no additional complaints, except as docu Reports system reviewed and no additional complaints, except as documented and Reports as per HPI Psychiatric: Reports no additional psychiatric complaints and Reports as per HPI Endocrine: Reports no additional endocrine complaints, Reports as per HPI and Denies palpitations Hematologic/Lymphatic: Reports no additional hematologic/lymphatic complaints and Reports as per HPI Allergic/Immunologic: Reports no additional allergic/immunologic complaints and Reports as per HPI Physical Exam Vital Signs: Last Vital Signs Temp 97.4 F 10/07/23 08:00 Pulse 108 H 10/07/23 08:11 Resp 20 10/07/23 08:11 BP 160/74 H 10/07/23 08:00 Pulse Ox 97 10/07/23 08:00 O2 Del Method High Flow Nasal Cannula 10/07/23 08:00 O2 Flow Rate 40 10/07/23 08:00 FiO2 50 10/07/23 08:00 Oxygen Flow Rate 4 10/01/23 20:05 BMI result Body Mass Index 30.5 Const General: comfortable and no acute distress Orientation/consciousness: patient oriented x3 HEENT Other: Unremarkable Head: Yes normal to inspection Neck Neck: Yes normal visual inspection Chest Chest palpation & inspection: normal inspection of the chest Resp Other: Bronchial breathing at right base. Auscultation: crackles, wheezes and diminished lung sounds Cardio Palpation: normal PMI Heart sounds: S1 normal heart sound present, S2 normal heart sound present, no gallops, no murmurs and no rubs GI Palpation (GI): Soft to palpation Back/Spine/Pelvis Other: unremarkable Skin General skin exam: no rashes or lesions noted Neuro General: patient oriented x3 Extrem General: Yes normal to inspection Psych Mental Status: mental status grossly normal Objective Labs and Meds 10/02/23 05:33 10/07/23 07:44 Lab results: Laboratory Results - last 24 hr 10/06/23 10/06/23 10/06/23 14:34 16:48 20:35 Sodium Potassium Chloride Carbon Dioxide Anion Gap BUN Creatinine Estim Creat Clear Calc Estimated GFR POC Glucose 275 H 266 H Random Glucose Calcium B-Natriuretic Peptide 860 H 10/07/23 10/07/23 07:44 11:20 Sodium 143 Potassium 4.1 Chloride 104 Carbon Dioxide 28 Anion Gap 15 BUN 83 H Creatinine 1.80 H Estim Creat Clear Calc 37.4 Estimated GFR 36 POC Glucose 291 H Random Glucose 168 H Calcium 9.3 B-Natriuretic Peptide 1134 H Imaging Radiologist's impression: Impressions Chest X-Ray 10/06/23 10:07 IMPRESSION: Cardiomegaly with bilateral pleural effusions and mild interstitial edema. Findings are consistent with CHF. Prominent pulmonary arteries are suggestive of pulmonary hypertension. This result was discussed with Dr. Wheatley at 2:20 PM on the day of the exam and it was ascertained that the content of the report was understood at the time of direct communication. Progress Note: A&P Assessment and plan (1) Acute hypoxic respiratory failure: Status: Acute (2) Persistent atrial fibrillation: Status: Acute Plan Initially, EKG showed controlled atrial fibrillation but currently slightly rapid rate. CT chest shows large bilateral pleural effusions. Left upper lobe nodule. Status post left thoracentesis. Echocardiogram with LVEF of 50-55%. No significant valvular findings. Moderate to severe pulmonary hypertension. Discussed with Dr. Wheatley as well as Dr. Mehta. Overall, I highly doubt if congestive heart failure is only reason for all these findings. More than likely, he does have some intrinsic pulmonary disease, possibly some microaspiration, infection extra. His kidney numbers are certainly going up. He is already tried diuretics and overall, not much of a change. If creatinine continues to go up, then probably will have to stop the diuretics. Also on concurrent antibiotics. Thoracentesis. Discussed with at bedside. Time Spent With Patient Time: Total time managing care of this patient today ____ minutes. Progress Note: Quality Stroke Does the patient have a stroke diagnosis?: No Procedures Date of Service Date of Service: 10/07/23
--- NOTE | 2023-10-07 11:43 | MHC.CLN ---
F/U PT WITH INCREASED NUTRITION RISK R/T PRESSURE INJURY PO INTAKE 100% X4 MEALS DIET RX: 2000DM CARDIAC -APPROPRIATE PT RECEIVING ENSURE MAX BID TO PROMOTE WOUND HEALING SUPPLEMENT PROVIDES 300KCALS, 60G PROTEIN WITH 100% ACCEPTANCE CONTINUE TO MONITOR PO INTAKE AND ENCOURAGE SUPPLEMENTS
--- NOTE | 2023-10-07 11:55 | MHC.CM.PN ---
Pt is not yet ready for DC, DCP will be to return to [facility] via BLS, CM to follow and assist with DC plan.
[2023-10-07] MEDS: Insulin Lispro 100 UNIT/ML 3 ML VIAL SUBCUT ×3 (12:01→21:10)
--- NOTE | 2023-10-07 13:29 | P.PNPL_ITS ---
Subjective Subjective Date of Service: 10/07/23 Interval history: The patient was seen on exam. He is feeling better after the thoracentesis. During that 1.4 L from the left pleural space. The fluid was described yellow. We do not have the laboratories available to distinguish between exudative or transudative process. We did also review the CT scan demonstrating nodular density just adjacent to the moderate size left pleural effusion. Therefore would consider keeping malignant pleural effusions in differential. Cytology still pending. On the right side the patient also has a pleural effusion. Does have bronchial breath sounds suggesting the possibility of consolidation. He is currently on antibiotics. He has been aggressively diuresed currently on Bumex. BUN and creatinine is increasing. He was able to be weaned from high-flow to nasal cannula 4 L which is reassuring. He should have a chest x-ray tomorrow. If he continues to have persistent effusions consider draining the right side. The question came up regarding pigtail catheter would not recommended at this time. Objective Data Labs 10/02/23 05:33 10/07/23 07:44 Labs: Laboratory Results - last 24 hr 10/06/23 10/06/23 10/06/23 14:34 16:48 20:35 Sodium Potassium Chloride Carbon Dioxide Anion Gap BUN Creatinine Estim Creat Clear Calc Estimated GFR POC Glucose 275 H 266 H Random Glucose Calcium B-Natriuretic Peptide 860 H 10/07/23 10/07/23 07:44 11:20 Sodium 143 Potassium 4.1 Chloride 104 Carbon Dioxide 28 Anion Gap 15 BUN 83 H Creatinine 1.80 H Estim Creat Clear Calc 37.4 Estimated GFR 36 POC Glucose 291 H Random Glucose 168 H Calcium 9.3 B-Natriuretic Peptide 1134 H Microbiology Microbiology Results: Microbiology 10/01/23 22:26 Blood - Venous Blood Culture - Final No growth after 5 days. 10/01/23 22:26 Blood - Venous Blood Culture - Final No growth after 5 days. Review of Systems Review of Systems Yes all other systems are reviewed and are negative Constitutional: Reports as per HPI and Reports no additional constitutional complaints Eyes: Reports as per HPI and Denies no additional eye complaints Denies system reviewed and no additional complaints, except as documented and Reports as per HPI Cardiovascular: Reports as per HPI, Reports no additional cardiovascular complaints, Denies acrocyanosis, Denies cool extremities, Denies chest pain, Denies leg edema, Denies lightheadedness, Denies palpitations and Reports dyspnea Respiratory: Reports as per HPI, Denies no additional respiratory complaints and Reports dyspnea Gastrointestinal: Reports as per HPI and Denies no additional gastrointestinal complaints Genitourinary: Reports no additional male genitourinary complaints and Reports as per HPI Musculoskeletal: Reports no additional musculoskeletal complaints and Reports as per HPI Skin/Breast: Reports system reviewed and no additional complaints, except as docu Reports system reviewed and no additional complaints, except as documented and Reports as per HPI Psychiatric: Reports no additional psychiatric complaints and Reports as per HPI Endocrine: Reports no additional endocrine complaints, Reports as per HPI and Denies palpitations Hematologic/Lymphatic: Reports no additional hematologic/lymphatic complaints and Reports as per HPI Allergic/Immunologic: Reports no additional allergic/immunologic complaints and Reports as per HPI Physical Exam 2 Vital Signs: Vital Signs: Last Vital Signs Temp 97.2 F 10/07/23 12:00 Pulse 114 H 10/07/23 12:00 Resp 22 H 10/07/23 12:00 BP 140/72 H 10/07/23 12:00 Pulse Ox 94 10/07/23 12:00 O2 Del Method Nasal Cannula 10/07/23 12:00 O2 Flow Rate 4 10/07/23 12:00 FiO2 50 10/07/23 08:00 Oxygen Flow Rate 4 10/01/23 20:05 BMI result Body Mass Index 30.5 Const: General: comfortable and no acute distress O rientation/consciousness: patient oriented x3 HEENT: Other: Unremarkable Head: Yes normal to inspection Neck: Neck: Yes normal visual inspection Chest: Chest palpation & inspection: normal inspection of the chest Resp: Effort & Inspection: normal respiratory effort Auscultation: d iminished lung sounds and bronchial breath sounds on the right Cardio: Heart sounds: S1 normal heart sound present and S2 normal heart sound present GI: Palpation (GI): Soft to palpation Back/Spine/Pelvis: Other: unremarkable Skin: General skin exam: no rashes or lesions noted Neuro: General: patient oriented x3 Extrem: General: Yes normal to inspection Psych: Mental Status: mental status grossly normal Procedures Date of Service Date of Service: 10/07/23 Assessment and Plan Assessment and plan (1) Pleural effusion, bilateral: Status: Acute (2) Pulmonary nodule 1 cm or greater in diameter: Status: Acute (3) Pneumonia: Status: Acute (4) Physical deconditioning: Status: Acute (5) CHF exacerbation: Status: Acute Plan Awaiting pleural fluid results and cytology Continue diuresis as tolerated Continue titrating oxygen to keep pulse ox above 90% Switch antibiotics to Augmentin and doxycycline specially to treat for the possibility of anaerobic organisms with his high risk of microaspiration Deep breathing exercises with incentive spirometer Out of bed as tolerated Repeat chest x-ray over the weekend if persistent consider thoracentesis on the right side Time Spent With Patient Time: Total time managing care of this patient today ____ minutes. Progress Note: Quality Stroke Does the patient have a stroke diagnosis?: No
--- NOTE | 2023-10-07 13:39 | MHC.SL.SWA ---
Speech Pathologist Impression: Risk of aspiration Risk of Aspiration Due to: Neurological Condition History of Pneumonia Dysphasia Diet Status: Further ST intervention no longer warranted at this level of care. Please re-refer with any changes or further concern. Liquid Consistency and Strategies for Safe Swallow: Liquid Intake Recommendation: Thin Liquid Intake Strategies: Small Sips Solid Food Consistency: Dietary Recommendations: Regular Additional Modifications to Solid Foods: Patient is encouraged to pick softer, easy to manage foods from the regular menu. If is not present, patient will need supervision and cuing to take smaller bites and sips, and may need food cut up, depending on the meal selected. Provide pills one by one (patient reportedly has habit of taking handful of pills at a time, per ). No straw with liquids to discourage chain sipping/gulping. Oral Medication Intake: Whole with Liquid Please contact the pharmacy regarding appropriate crushable or liquid drug formulations that are available whenever modified delivery is recommended. Compensatory Strategies and Precautions to be Taken for Safe Swallow: Sitting Upright (90 deg) No Straw Small Bites and Sips Alternate Liquids/Solids Rate of Ingestion Change Avoid Specific Foods Supervision While Eating and Drinking for Safe Swallow: Total Supervision (1:1) Foods to Avoid: Hard, difficult to chew solids or too large pieces of food. Swallowing Recommended Treatments: Compens. Strategy Educat. Recommendation for Speech: D/C Exercise Equipment Specialist Clinican/Clinical Fellow: No Supervisory Statement: I have reviewed and agree with the student/clinical fellow's documentation: N/A Speech Language Pathologist: Lluvia Alves M.A., CCC-ASSISTANT PRODUCTION EDITOR
[2023-10-07 14:07] LABS: Albumin Pleural Fluid 1.3
[2023-10-07 14:08] LABS: Total Protein Pleural Fluid 2.1
[2023-10-07 14:10] LABS: LDH Pleural Fluid 65
[2023-10-07 14:11] LABS: Glucose Pleural Fluid 215
[2023-10-07] MEDS: Amoxicillin/Potassium Clav 875 MG TABLET PO (14:39)
[2023-10-07] MEDS: Doxycycline Monohydrate 100 MG CAPSULE PO (14:39)
--- NOTE | 2023-10-07 15:36 | P.PNIM_ITS ---
Subjective Subjective Date of Service: 10/07/23 Interval History: chf , pneumonia Review of Systems sob seems somewhat improving no fevers has dry cough off high flow Physical Exam 2 Vital Signs: Vital Signs: Last Vital Signs Temp 97.2 F 10/07/23 12:00 Pulse 78 10/07/23 15:09 Resp 20 10/07/23 15:09 BP 140/72 H 10/07/23 12:00 Pulse Ox 94 10/07/23 12:00 O2 Del Method Nasal Cannula 10/07/23 12:00 O2 Flow Rate 4 10/07/23 12:00 FiO2 50 10/07/23 08:00 Oxygen Flow Rate 4 10/01/23 20:05 BMI result Body Mass Index 30.5 General: AO X 3, no acute distress Resp:air entry improving left side , right side still dimished . has few scattered rhonchii CVS: S1,S2,RRR GI: +BS, NT, no distention Skin: No rash Neuro: motor grossly intact Psych: appropriate affect Objective Data Active Medications Acetaminophen (Acetaminophen 325 Mg Tablet) 975 mg PO Q8H PRN PRN Reason: mild pain, headache or fever Albuterol Sulfate (Albuterol Sulfate (0.083%) 2.5 Mg/3 Ml Vial.Neb) 2.5 mg INHALE Q2H PRN PRN Reason: Shortness of Breath/Wheezing Albuterol/Ipratropium (Albuterol/Iprat 2.5/0.5mg 3 Ml Ampul.Neb) 3 ml INHALE RQ4H WHILE AWAKE [facility] Last Admin: 10/07/23 15:09 Dose: 3 ml Documented By: JAE Amlodipine Besylate (Amlodipine Besylate 10 Mg Tablet) 10 mg PO BEDTIME [facility]; Protocol Last Admin: 10/04/23 20:59 Dose: 10 mg Documented By: KIMBERLYN Amoxicillin/Clavulanate Potassium (Amoxicillin/Potassium Clav 875 Mg Tablet) 875 mg PO Q12H [facility] Last Admin: 10/07/23 14:39 Dose: 875 mg Documented By: RICHARD Aspirin (Aspirin 81 Mg Tab.Chew) 81 mg PO DAILY [facility] Last Admin: 10/07/23 08:32 Dose: 81 mg Documented By: RICHARD Atorvastatin Calcium (Atorvastatin Calcium 10 Mg Tablet) 10 mg PO BEDTIME [facility] Last Admin: 10/06/23 20:50 Dose: 10 mg Documented By: KIMBERLYN Bisacodyl (Bisacodyl 10 Mg Supp.Rect) 10 mg [place] DAILY PRN PRN Reason: Constipation Carbidopa/Levodopa (Carbidopa/Levodopa 25/100 Tablet) 2 tab PO DAILY@0600,0900,1200,1500,1800 [facility] Last Admin: 10/07/23 14:39 Dose: 2 tab Documented By: RICHARD Docusate Sodium (Docusate Sodium 100 Mg Capsule) 100 mg PO BID [facility] Last Admin: 10/07/23 08:32 Dose: 100 mg Documented By: RICHARD Doxazosin Mesylate (Doxazosin Mesylate 2 Mg Tablet) 4 mg PO BEDTIME [facility]; Protocol Last Admin: 10/04/23 20:59 Dose: 4 mg Documented By: KIMBERLYN Doxycycline Monohydrate (Doxycycline Monohydrate 100 Mg Capsule) 100 mg PO Q12H [facility] Last Admin: 10/07/23 14:39 Dose: 100 mg Documented By: RICHARD Famotidine (Famotidine 20 Mg Tablet) 20 mg PO BID PRN PRN Reason: Heartburn Glucose (Glucose Gel 15 Gm Gel..Gram.) 15 gm PO Q15M PRN; Protocol PRN Reason: per Hypoglycemia Standing Ord. Guaifenesin (Guaifenesin 200 Mg/10 Ml 10 Ml Liquid) 10 ml PO Q4H PRN PRN Reason: Cough Last Admin: 10/07/23 04:57 Dose: 10 ml Documented By: KIMBERLYN Dextrose (D10) 250 mls @ 750 mls/hr IV Q15M PRN; Protocol PRN Reason: per Hypoglycemia Standing Ord. Bumetanide 25 mg/ IV (Miscellaneous Supplies) 100 mls @ 2 mls/hr IVCONT .Q24H [facility] Last Admin: 10/07/23 11:21 Dose: 0.5 mg/hr, 2 mls/hr Documented By: RICHARD Insulin Human Lispro (Insulin Lispro 100 Unit/Ml 3 Ml Vial) 0 unit SUBCUT QIDACHS [facility]; Protocol Last Admin: 10/07/23 12:01 Dose: 6 unit Documented By: RICHARD Isosorbide Mononitrate (Isosorbide Mononitrate 30 Mg Tab.Er.24h) 30 mg PO DAILY [facility]; Protocol Last Admin: 10/05/23 08:01 Dose: 30 mg Documented By: DAVONTE Lactulose (Lactulose 20 Gm/30 Ml Solution) 10 gm PO DAILY PRN PRN Reason: Constipation Loratadine (Loratadine 10 Mg Tablet) 10 mg PO DAILY [facility] Last Admin: 10/07/23 08:32 Dose: 10 mg Documented By: RICHARD Melatonin (Melatonin 3 Mg Tablet) 6 mg PO BEDTIME PRN PRN Reason: Insomnia Metoprolol Tartrate (Metoprolol Tartrate 5 Mg/5 Ml Vial) 2.5 mg IVPUSH Q6H PRN; Protocol PRN Reason: HR>120 Last Admin: 10/05/23 21:37 Dose: 2.5 mg Documented By: LIBAN Multivitamins/Vitamin C (Multivitamin Tablet) 1 tab PO DAILY [facility] Last Admin: 10/07/23 08:32 Dose: 1 tab Documented By: RICHARD Ondansetron HCl (Ondansetron Hcl 4 Mg/2 Ml Vial) 4 mg IVPUSH Q8H PRN PRN Reason: Nausea and Vomiting Prednisone (Prednisone 20 Mg Tablet) 40 mg PO DAILY [facility] Last Admin: 10/07/23 08:32 Dose: 40 mg Documented By: RICHARD Sodium Chloride (0.9 % Sodium Chloride Flush 3 Ml Syringe) 3 ml IVFLUSH QSHIFT [facility] Last Admin: 10/07/23 08:35 Dose: Not Given Documented By: RICHARD Non-Admin Reason: IV Running Labs 10/02/23 05:33 10/07/23 07:44 Labs: Laboratory Results - last 24 hr 10/05/23 10/06/23 10/06/23 14:40 16:48 20:35 Anion Gap Estim Creat Clear Calc Estimated GFR POC Glucose 275 H 266 H Random Glucose Calcium B-Natriuretic Peptide Pleural Total Protein 2.1 Pleural Albumin 1.3 Pleural LDH 65 Pleural Glucose 215 10/07/23 10/07/23 07:44 11:20 Anion Gap 15 Estim Creat Clear Calc 37.4 Estimated GFR 36 POC Glucose 291 H Random Glucose 168 H Calcium 9.3 B-Natriuretic Peptide 1134 H Pleural Total Protein Pleural Albumin Pleural LDH Pleural Glucose Microbiology Microbiology Results: Microbiology 10/01/23 22:26 Blood Culture - Final Blood - Venous No growth after 5 days. 10/01/23 22:26 Blood Culture - Final Blood - Venous No growth after 5 days. Assessment and Plan (1) CHF exacerbation: Status: Acute (2) Acute hypoxic respiratory failure: Status: Acute Plan 83-year-old male with pertinent history of congestive heart failure, unspecified EF, paroxysmal atrial fibrillation not on anticoagulation, [id number] diabetes mellitus, Parkinson's disease, hypertension who presents to the emergency department for evaluation of dyspnea. Acute hypoxemic respiratory failure due to acute exacerbation of CHF, unspecified EF and PNA, and probable copd exacerbation acute on chronic CHF unspecified.. ct chest shows -cardiomegaly, bilateral pleural effusion. echo : ef 55-60% bnp trending up [phone] repeat cxr- mild congetsion monitor i/o ,place davila, daily weight, low salt diet, off high-flow Pulmonary evaluation noted-continue nebs, steroids,on bumex drip d/w cardio and pulm-continue bumex drip for now -if cr continue to trend up ,will stop bumex and consider throacentesis Mild acute Hypernatremia--d/t diuretics, monitor, relax water restriction , improved. Left lower lobe PNA- pulm added augmentin/doxy COPD exacerbation-bronchodilators, and po steriods. Daria: likely d/t cardiorenal phenomenon, creatinine similar, continue hold lisinopril moniter renal function closely Hypertension: Hold lisinopril in the setting of renal failure, restart imdur tomorrow Parkinson's disease: continue On Sinemet [id number] diabetes mellitus with hyperglycemia: -hold metformin d/t heart failure and renal failure Paroxysmal atrial fibrillation: hr flactuates ( copd ,on high flow)-d/w cardiology -moniter closely , no need for rate control med currently , Not permanenetly anticoagulated DVT prophylaxis: Lovenox DNR/DNI. need for inpt: COPD/CHF exacerbation: Patient is on high-flow oxygen, management of chf with iv diuretics, nebs, steroids frequent lab check Quality Stroke Does the patient have a stroke diagnosis?: No VTE Prior VTE?: No VTE Risk Level:: Medical - moderate - high VTE Device Contraindication: Treatment Not Indicated VTE Drug Contraindication: N/A - Med Ordered
[2023-10-07 17:05] LABS: Glucose, Whole Blood 190 mg/dL (60-115)
[2023-10-07] MEDS: Lidocaine 4 % Patch ADH..PATCH 1 PATCH TRANSDERMA (17:32)
[2023-10-07 20:14] LABS: Glucose, Whole Blood 283 mg/dL (60-115)
[2023-10-07] MEDS: Atorvastatin Calcium 10 MG TABLET PO (21:10)
[2023-10-07] MEDS: 0.9 % Sodium Chloride Flush 3 ML SYRINGE IVFLUSH (21:14)
[2023-10-08] VITALS (11 sets, daily range): BP systolic 121–160; BP diastolic 69–87; PULSE 86–118; RESP 18–20; TEMP 36.1–36.8; O2SAT 93–98
[2023-10-08] MEDS: Acetaminophen 325 MG TABLET 975 MG PO ×2 (00:07→19:26)
[2023-10-08] MEDS: Amoxicillin/Potassium Clav 875 MG TABLET PO ×2 (01:15→14:19)
[2023-10-08] MEDS: Doxycycline Monohydrate 100 MG CAPSULE PO (01:15)
[2023-10-08] MEDS: Carbidopa/Levodopa 25/100 TABLET 2 TAB PO ×5 (05:49→17:54)
[2023-10-08 06:49] LABS: Anion Gap 16 (12-20); Blood Urea Nitrogen 76 mg/dL (9-16); Calcium 9.3 mg/dL (8.4-10.2); Carbon Dioxide 33 mmol/L (22-29); Chloride 101 mmol/L (96-108); Creatinine Clr Calc Pharmacy 45.2; Estimated Glomerular Filt Rate 45; Glucose Random 159 mg/dL (60-115); Potassium 3.8 mmol/L (3.3-5.1); Sodium 146 mmol/L (135-145)
[2023-10-08 06:51] LABS: Estimated Average Glucose 134 mg/dL; Hemoglobin A1c % 6.3 % (<6.0)
[2023-10-08] MEDS: Albuterol/Iprat 2.5/0.5MG 3 ML AMPUL.NEB INHALE ×4 (07:24→20:16)
[2023-10-08 07:31] LABS: Glucose, Whole Blood 143 mg/dL (60-115)
[2023-10-08 07:40] LABS: B Type Natriuretic Peptide 1165 pg/mL (<100)
[2023-10-08] MEDS: Aspirin 81 MG TAB.CHEW PO (07:56)
[2023-10-08] MEDS: Multivitamin TABLET 1 TAB PO (07:56)
[2023-10-08] MEDS: predniSONE 20 MG TABLET PO (07:57)
[2023-10-08] MEDS: 0.9 % Sodium Chloride Flush 3 ML SYRINGE IVFLUSH ×3 (07:57→21:46)
[2023-10-08] MEDS: Docusate Sodium 100 MG CAPSULE PO ×2 (07:57→19:53)
[2023-10-08] MEDS: Loratadine 10 MG TABLET PO (07:57)
[2023-10-08] MEDS: Lidocaine 4 % Patch ADH..PATCH 1 PATCH TRANSDERMA (08:03)
--- NOTE | 2023-10-08 09:27 | P.PNPL_ITS ---
Subjective Subjective Date of Service: 10/08/23 Interval history: Respiratory status and FiO2 requirements continue to improve. Objective Data Labs 10/02/23 05:33 10/08/23 06:17 Labs: Laboratory Results - last 24 hr 10/05/23 10/07/23 10/07/23 14:40 11:20 17:02 Sodium Potassium Chloride Carbon Dioxide Anion Gap BUN Creatinine Estim Creat Clear Calc Estimated GFR POC Glucose 291 H 190 H Random Glucose Estimat Average Glucose Hemoglobin A1c % Calcium B-Natriuretic Peptide Pleural Total Protein 2.1 Pleural Albumin 1.3 Pleural LDH 65 Pleural Glucose 215 10/07/23 10/08/23 10/08/23 20:10 06:17 07:26 Sodium 146 H Potassium 3.8 Chloride 101 Carbon Dioxide 33 H Anion Gap 16 BUN 76 H Creatinine 1.49 H Estim Creat Clear Calc 45.2 Estimated GFR 45 POC Glucose 283 H 143 H Random Glucose 159 H Estimat Average Glucose 134 Hemoglobin A1c % 6.3 H Calcium 9.3 B-Natriuretic Peptide 1165 H Pleural Total Protein Pleural Albumin Pleural LDH Pleural Glucose Microbiology Microbiology Results: Microbiology 10/01/23 22:26 Blood - Venous Blood Culture - Final No growth after 5 days. 10/01/23 22:26 Blood - Venous Blood Culture - Final No growth after 5 days. Physical Exam 2 Vital Signs: Vital Signs: Last Vital Signs Temp 97.2 F 10/08/23 08:00 Pulse 94 10/08/23 08:00 Resp 20 10/08/23 08:00 BP 133/87 10/08/23 08:00 Pulse Ox 93 10/08/23 08:00 O2 Del Method Nasal Cannula 10/08/23 08:00 O2 Flow Rate 4 10/08/23 08:00 FiO2 50 10/07/23 08:00 Oxygen Flow Rate 4 10/01/23 20:05 BMI result Body Mass Index 30.5 Const: General: no acute distress, alert and awake Eyes: Sclerae: sclerae normal EOM: EOMs intact bilaterally Neck: Neck: Yes no lymphadenopathy, Yes trachea midline and Yes supple Resp: Effort & Inspection: normal respiratory effort and no respiratory distress Auscultation: clear to auscultation bilaterally Cardio: Rate: regular rate Rhythm: regular rhythm Heart sounds: no gallops, no murmurs and no rubs GI: Palpation (GI): Soft to palpation and Other GI palpation findings present ( Nontender) Auscultation: normal bowel sounds Extrem: General: Yes no pedal edema, No clubbing and No cyanosis Procedures Date of Service Date of Service: 10/08/23 Assessment and Plan Assessment and plan (1) Pleural effusion, bilateral: Status: Acute (2) Acute hypoxic respiratory failure: Status: Acute (3) CHF exacerbation: Status: Acute Plan Impression: 83-year-old gentleman with underlying cardiomyopathy admitted with dyspnea and hypoxia secondary acute on chronic congestive heart failure that is improving with diuresis. Patient also his Anoro pulmonary nodule that is being worked up by his medical services coordinator at [facility] with PET scan planned. No evidence of COPD exacerbation or pneumonia. now with significant improvement in his FiO2 requirements. CT chest demonstrated bilateral pleural effusions, likely congestive heart failure related. Now status post left-sided thoracentesis with drainage of 1.3 L of lymphocyte predominant fluid. respiratory status continues to improve. Recommendations: Would choose either doxycycline or Augmentin as a single agent, if infectious etiologies are considered, though unlikely. Will continue judicious diuresis. Time Spent With Patient Time: Total time managing care of this patient today ____ minutes. Progress Note: Quality Stroke Does the patient have a stroke diagnosis?: No
[2023-10-08 11:30] LABS: Glucose, Whole Blood 266 mg/dL (60-115)
[2023-10-08] MEDS: guaiFENesin 200 MG/10 ML 10 ML LIQUID PO (11:30)
[2023-10-08] MEDS: Insulin Lispro 100 UNIT/ML 3 ML VIAL SUBCUT ×3 (11:31→21:46)
--- NOTE | 2023-10-08 12:37 | HO.PM.IMPN ---
Subjective Subjective Date of Service: 10/08/23 Interval History: chf ,?pneumonia Review of Systems sob seems improving denies any chest pain or abd pain has cough Physical Exam Vital Signs: Vital Signs: Last Vital Signs Temp 97.0 F 10/08/23 11:51 Pulse 86 10/08/23 11:51 Resp 20 10/08/23 11:51 BP 121/69 10/08/23 11:51 Pulse Ox 94 10/08/23 11:51 O2 Del Method Nasal Cannula 10/08/23 11:51 O2 Flow Rate 2 10/08/23 11:51 FiO2 50 10/07/23 08:00 Oxygen Flow Rate 4 10/01/23 20:05 BMI result Body Mass Index 30.5 General: AO X 3, no acute distress,oxygen demand slowly improving Resp:air entry improving somewhat. CVS: S1,S2,RRR GI: +BS, NT, no distention Skin: No rash Neuro: motor grossly intact Psych: appropriate affect Objective Data Active Medications Acetaminophen (Acetaminophen 325 Mg Tablet) 975 mg PO Q8H PRN PRN Reason: mild pain, headache or fever Last Admin: 10/08/23 00:07 Dose: 975 mg Documented By: KATHLEEN Comments: pt requested tylenol Albuterol Sulfate (Albuterol Sulfate (0.083%) 2.5 Mg/3 Ml Vial.Neb) 2.5 mg INHALE Q2H PRN PRN Reason: Shortness of Breath/Wheezing Albuterol/Ipratropium (Albuterol/Iprat 2.5/0.5mg 3 Ml Ampul.Neb) 3 ml INHALE RQ4H WHILE AWAKE [facility] Last Admin: 10/08/23 10:51 Dose: 3 ml Documented By: CARY Amlodipine Besylate (Amlodipine Besylate 10 Mg Tablet) 10 mg PO BEDTIME [facility]; Protocol Last Admin: 10/04/23 20:59 Dose: 10 mg Documented By: KIMBERLYN Amoxicillin/Clavulanate Potassium (Amoxicillin/Potassium Clav 875 Mg Tablet) 875 mg PO Q12H [facility] Last Admin: 10/08/23 01:15 Dose: 875 mg Documented By: KATHLEEN Aspirin (Aspirin 81 Mg Tab.Chew) 81 mg PO DAILY [facility] Last Admin: 10/08/23 07:56 Dose: 81 mg Documented By: CANDACE Atorvastatin Calcium (Atorvastatin Calcium 10 Mg Tablet) 10 mg PO BEDTIME [facility] Last Admin: 10/07/23 21:10 Dose: 10 mg Documented By: KATHLEEN Bisacodyl (Bisacodyl 10 Mg Supp.Rect) 10 mg [place] DAILY PRN PRN Reason: Constipation Carbidopa/Levodopa (Carbidopa/Levodopa 25/100 Tablet) 2 tab PO DAILY@0600,0900,1200,1500,1800 [facility] Last Admin: 10/08/23 11:30 Dose: 2 tab Documented By: CANDACE Docusate Sodium (Docusate Sodium 100 Mg Capsule) 100 mg PO BID [facility] Last Admin: 10/08/23 07:57 Dose: 100 mg Documented By: CANDACE Doxazosin Mesylate (Doxazosin Mesylate 2 Mg Tablet) 4 mg PO BEDTIME [facility]; Protocol Last Admin: 10/04/23 20:59 Dose: 4 mg Documented By: KIMBERLYN Doxycycline Monohydrate (Doxycycline Monohydrate 100 Mg Capsule) 100 mg PO Q12H [facility] Last Admin: 10/08/23 01:15 Dose: 100 mg Documented By: KATHLEEN Famotidine (Famotidine 20 Mg Tablet) 20 mg PO BID PRN PRN Reason: Heartburn Glucose (Glucose Gel 15 Gm Gel..Gram.) 15 gm PO Q15M PRN; Protocol PRN Reason: per Hypoglycemia Standing Ord. Guaifenesin (Guaifenesin 200 Mg/10 Ml 10 Ml Liquid) 10 ml PO Q4H PRN PRN Reason: Cough Last Admin: 10/08/23 11:30 Dose: 10 ml Documented By: CANDACE Guaifenesin (Guaifenesin 200 Mg/10 Ml 10 Ml Liquid) 10 ml PO Q4H PRN PRN Reason: Cough Dextrose (D10) 250 mls @ 750 mls/hr IV Q15M PRN; Protocol PRN Reason: per Hypoglycemia Standing Ord. Insulin Human Lispro (Insulin Lispro 100 Unit/Ml 3 Ml Vial) 0 unit SUBCUT QIDACHS [facility]; Protocol Last Admin: 10/08/23 11:31 Dose: 6 unit Documented By: CANDACE Isosorbide Mononitrate (Isosorbide Mononitrate 30 Mg Tab.Er.24h) 30 mg PO DAILY [facility]; Protocol Last Admin: 10/05/23 08:01 Dose: 30 mg Documented By: DAVONTE Lactulose (Lactulose 20 Gm/30 Ml Solution) 10 gm PO DAILY PRN PRN Reason: Constipation Lidocaine (Lidocaine 4 % Patch Adh..Patch) 1 patch TRANSDERMA DAILY [facility]; Protocol Last Admin: 10/08/23 08:03 Dose: 1 patch Documented By: CANDACE Loratadine (Loratadine 10 Mg Tablet) 10 mg PO DAILY [facility] Last Admin: 10/08/23 07:57 Dose: 10 mg Documented By: CANDACE Melatonin (Melatonin 3 Mg Tablet) 6 mg PO BEDTIME PRN PRN Reason: Insomnia Metoprolol Tartrate (Metoprolol Tartrate 5 Mg/5 Ml Vial) 2.5 mg IVPUSH Q6H PRN; Protocol PRN Reason: HR>120 Last Admin: 10/05/23 21:37 Dose: 2.5 mg Documented By: LIBAN Multivitamins/Vitamin C (Multivitamin Tablet) 1 tab PO DAILY [facility] Last Admin: 10/08/23 07:56 Dose: 1 tab Documented By: CANDACE Ondansetron HCl (Ondansetron Hcl 4 Mg/2 Ml Vial) 4 mg IVPUSH Q8H PRN PRN Reason: Nausea and Vomiting Prednisone (Prednisone 20 Mg Tablet) 20 mg PO DAILY [facility] Last Admin: 10/08/23 07:57 Dose: 20 mg Documented By: CANDACE Sodium Chloride (0.9 % Sodium Chloride Flush 3 Ml Syringe) 3 ml IVFLUSH QSHIFT [facility] Last Admin: 10/08/23 07:57 Dose: 3 ml Documented By: CANDACE Labs 10/02/23 05:33 10/08/23 06:17 Labs: Laboratory Results - last 24 hr 10/05/23 10/07/23 10/07/23 14:40 17:02 20:10 Anion Gap Estim Creat Clear Calc Estimated GFR POC Glucose 190 H 283 H Random Glucose Estimat Average Glucose Hemoglobin A1c % Calcium B-Natriuretic Peptide Pleural Total Protein 2.1 Pleural Albumin 1.3 Pleural LDH 65 Pleural Glucose 215 10/08/23 10/08/23 10/08/23 06:17 07:26 11:13 Anion Gap 16 Estim Creat Clear Calc 45.2 Estimated GFR 45 POC Glucose 143 H 266 H Random Glucose 159 H Estimat Average Glucose 134 Hemoglobin A1c % 6.3 H Calcium 9.3 B-Natriuretic Peptide 1165 H Pleural Total Protein Pleural Albumin Pleural LDH Pleural Glucose Assessment and Plan (1) Pleural effusion, bilateral: Status: Acute (2) KEE (acute kidney injury): Status: Acute Assessment and Plan: 83-year-old male with pertinent history of congestive heart failure, unspecified EF, paroxysmal atrial fibrillation not on anticoagulation, kjp-qgygtcw-[id number] diabetes mellitus, Parkinson's disease, hypertension who presents to the emergency department for evaluation of dyspnea. Acute hypoxemic respiratory failure multifactorial- acute exacerbation of CHF, unspecified EF and PNA, and probable copd exacerbation acute on chronic CHF unspecified.. ct chest shows -cardiomegaly, bilateral pleural effusion. echo : ef 55-60% bnp trending up [phone] repeat cxr- mild congetsion monitor i/o-8 liter neg (last 2 days) ,place davila, daily weight, low salt diet, off high-flow Pulmonary evaluation noted-continue nebs, steroids,continue augmentin (started 10/06) ,dc doxycycline s/p throacentesis . d/w cardio and pulm-cr improvin, hold bumex since near 8 liter neg Mild acute Hypernatremia--d/t diuretics, monitor, relax water restriction-moniter bmp. Left lower lobe PNA- pulm added augmentin. COPD exacerbation-bronchodilators, and po steriods. Kee: likely d/t cardiorenal phenomenon, creatinine similar, continue hold lisinopril moniter renal function closely Hypertension: Hold lisinopril in the setting of renal failure, restart imdur tomorrow Parkinson's disease: continue On Sinemet Now-hqngrbu-edqkyekcy diabetes mellitus with hyperglycemia: -hold metformin d/t heart failure and renal failure Paroxysmal atrial fibrillation: hr flactuates ( copd ,on high flow)-d/w cardiology -moniter closely , no need for rate control med currently , Not permanenetly anticoagulated DVT prophylaxis: Lovenox DNR/DNI. need for inpt: COPD/CHF exacerbation,cardiorenal : on oxygen, management of chf with iv diuretics, nebs, steroids frequent monitering renal function and electrolytes as well as close monitering respiratory status. Quality Stroke Does the patient have a stroke diagnosis?: No VTE Prior VTE?: No VTE Risk Level:: Medical - moderate - high VTE Device Contraindication: Treatment Not Indicated VTE Drug Contraindication: N/A - Med Ordered
[2023-10-08 15:50] LABS: Glucose, Whole Blood 245 mg/dL (60-115)
[2023-10-08] MEDS: Atorvastatin Calcium 10 MG TABLET PO (19:52)
[2023-10-08] MEDS: Doxazosin Mesylate 2 MG TABLET 4 MG PO (20:02)
[2023-10-08 20:39] LABS: Glucose, Whole Blood 256 mg/dL (60-115)
[2023-10-09] VITALS (10 sets, daily range): BP systolic 108–144; BP diastolic 63–91; PULSE 68–107; RESP 16–20; TEMP 36.1–36.8; O2SAT 90–98
[2023-10-09] MEDS: Acetaminophen 325 MG TABLET 975 MG PO ×3 (03:06→20:54)
[2023-10-09] MEDS: Amoxicillin/Potassium Clav 875 MG TABLET PO ×2 (05:46→17:00)
[2023-10-09] MEDS: Carbidopa/Levodopa 25/100 TABLET 2 TAB PO ×5 (05:46→17:00)
[2023-10-09] MEDS: Albuterol/Iprat 2.5/0.5MG 3 ML AMPUL.NEB INHALE ×4 (07:33→18:58)
[2023-10-09 07:47] LABS: Glucose, Whole Blood 178 mg/dL (60-115)
[2023-10-09] MEDS: Lidocaine 4 % Patch ADH..PATCH 1 PATCH TRANSDERMA (07:57)
[2023-10-09] MEDS: 0.9 % Sodium Chloride Flush 3 ML SYRINGE IVFLUSH ×3 (07:58→20:55)
[2023-10-09] MEDS: Multivitamin TABLET 1 TAB PO (07:58)
[2023-10-09] MEDS: Docusate Sodium 100 MG CAPSULE PO ×2 (07:58→20:55)
[2023-10-09] MEDS: Loratadine 10 MG TABLET PO (07:58)
[2023-10-09] MEDS: predniSONE 20 MG TABLET PO (07:58)
[2023-10-09] MEDS: Aspirin 81 MG TAB.CHEW PO (07:58)
[2023-10-09] MEDS: Insulin Lispro 100 UNIT/ML 3 ML VIAL SUBCUT ×4 (08:09→20:55)
[2023-10-09 08:30] LABS: Anion Gap 16 (12-20); Blood Urea Nitrogen 72 mg/dL (9-16); Calcium 8.9 mg/dL (8.4-10.2); Carbon Dioxide 33 mmol/L (22-29); Chloride 102 mmol/L (96-108); Creatinine Clr Calc Pharmacy 51.5; Estimated Glomerular Filt Rate 53; Glucose Random 182 mg/dL (60-115); Sodium 147 mmol/L (135-145)
[2023-10-09 08:38] LABS: B Type Natriuretic Peptide 959 pg/mL (<100)
[2023-10-09 11:02] LABS: Glucose, Whole Blood 213 mg/dL (60-115)
--- NOTE | 2023-10-09 11:13 | PM.PNCARD ---
Subjective Subjective Date of Service: 10/09/23 Interval history: Complaining of back pain but otherwise feels fine. Review of Systems Review of Systems Yes all other systems are reviewed and are negative Constitutional: Reports as per HPI and Reports no additional constitutional complaints Eyes: Reports as per HPI and Denies no additional eye complaints Denies system reviewed and no additional complaints, except as documented and Reports as per HPI Cardiovascular: Reports as per HPI, Reports no additional cardiovascular complaints, Denies acrocyanosis, Denies cool extremities, Denies chest pain, Denies leg edema, Denies lightheadedness, Denies palpitations and Denies dyspnea Respiratory: Reports as per HPI, Denies no additional respiratory complaints and Denies dyspnea Gastrointestinal: Reports as per HPI and Denies no additional gastrointestinal complaints Genitourinary: Reports no additional male genitourinary complaints and Reports as per HPI Musculoskeletal: Reports no additional musculoskeletal complaints and Reports as per HPI Skin/Breast: Reports system reviewed and no additional complaints, except as docu Reports system reviewed and no additional complaints, except as documented and Reports as per HPI Psychiatric: Reports no additional psychiatric complaints and Reports as per HPI Endocrine: Reports no additional endocrine complaints, Reports as per HPI and Denies palpitations Hematologic/Lymphatic: Reports no additional hematologic/lymphatic complaints and Reports as per HPI Allergic/Immunologic: Reports no additional allergic/immunologic complaints and Reports as per HPI Physical Exam Vital Signs: Last Vital Signs Temp 97.0 F 10/09/23 08:00 Pulse 98 10/09/23 08:00 Resp 20 10/09/23 08:00 BP 123/91 H 10/09/23 08:00 Pulse Ox 98 10/09/23 04:00 O2 Del Method Room Air 10/09/23 04:00 O2 Flow Rate 2 10/08/23 16:00 FiO2 50 10/07/23 08:00 Oxygen Flow Rate 4 10/01/23 20:05 BMI result Body Mass Index 30.5 Const General: comfortable and no acute distress Orientation/consciousness: patient oriented x3 HEENT Other: Unremarkable Head: Yes normal to inspection Neck Neck: Yes normal visual inspection Chest Chest palpation & inspection: normal inspection of the chest Resp Other: Bronchial breathing at right base. Auscultation: crackles, wheezes and diminished lung sounds Cardio Palpation: normal PMI Heart sounds: S1 normal heart sound present, S2 normal heart sound present, no gallops, no murmurs and no rubs GI Palpation (GI): Soft to palpation Back/Spine/Pelvis Other: unremarkable Skin General skin exam: no rashes or lesions noted Neuro General: patient oriented x3 Extrem General: Yes normal to inspection Psych Mental Status: mental status grossly normal Objective Labs and Meds 10/02/23 05:33 10/09/23 08:02 Lab results: Laboratory Results - last 24 hr 10/08/23 10/08/23 10/08/23 11:13 15:43 20:28 Hold Purple Top Sodium Potassium Chloride Carbon Dioxide Anion Gap BUN Creatinine Estim Creat Clear Calc Estimated GFR POC Glucose 266 H 245 H 256 H Random Glucose Calcium B-Natriuretic Peptide 10/09/23 10/09/23 10/09/23 07:43 08:02 10:58 Hold Purple Top SEE NOTE Sodium 147 H Potassium 4.0 Chloride 102 Carbon Dioxide 33 H Anion Gap 16 BUN 72 H Creatinine 1.31 Estim Creat Clear Calc 51.5 Estimated GFR 53 POC Glucose 178 H 213 H Random Glucose 182 H Calcium 8.9 B-Natriuretic Peptide 959 H Progress Note: A&P Assessment and plan (1) Acute hypoxic respiratory failure: Status: Acute (2) Persistent atrial fibrillation: Status: Acute Plan Suspected multifactorial etiology for recurrent pleural effusions including some combination of congestive heart failure, intrinsic pulmonary disease, microaspiration, infection extra. It seems that he did get better with diuretics. Hence there is probably a significant component of congestive heart failure. Otherwise, he also underwent thoracentesis. Currently, only complaint is back pain and nothing else. Also on concurrent antibiotics. With regard to atrial fibrillation, it seems that was history of GI bleed in the past and hence he has not on any anticoagulation. 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 Discussed with Dr. Wheatley. Discussed with Dr. Mehta on Tuesday. Time Spent With Patient Time: Total time managing care of this patient today ____ minutes. Progress Note: Quality Stroke Does the patient have a stroke diagnosis?: No Procedures Date of Service Date of Service: 10/09/23
--- NOTE | 2023-10-09 13:47 | P.PNIM_ITS ---
Subjective Subjective Date of Service: 10/09/23 Interval History: chf ,?pneumonia Review of Systems sob seems improving denies any chest pain or abd pain has cough Physical Exam 2 Vital Signs: Vital Signs: Last Vital Signs Temp 97.3 F 10/09/23 11:45 Pulse 96 10/09/23 11:45 Resp 20 10/09/23 11:45 BP 144/71 H 10/09/23 11:45 Pulse Ox 95 10/09/23 11:45 O2 Del Method Nasal Cannula 10/09/23 11:45 O2 Flow Rate 2 10/09/23 11:45 FiO2 50 10/07/23 08:00 Oxygen Flow Rate 4 10/01/23 20:05 BMI result Body Mass Index 30.5 General: AO X 3, no acute distress,oxygen demand slowly improving Resp:air entry improving somewhat. CVS: S1,S2,RRR GI: +BS, NT, no distention Skin: No rash Neuro: motor grossly intact Psych: appropriate affect Objective Data Active Medications Acetaminophen (Acetaminophen 325 Mg Tablet) 975 mg PO Q8H PRN PRN Reason: mild pain, headache or fever Last Admin: 10/09/23 11:25 Dose: 975 mg Documented By: CANDACE Albuterol Sulfate (Albuterol Sulfate (0.083%) 2.5 Mg/3 Ml Vial.Neb) 2.5 mg INHALE Q2H PRN PRN Reason: Shortness of Breath/Wheezing Albuterol/Ipratropium (Albuterol/Iprat 2.5/0.5mg 3 Ml Ampul.Neb) 3 ml INHALE RQ4H WHILE AWAKE [facility] Last Admin: 10/09/23 11:11 Dose: 3 ml Documented By: MOUNA Amlodipine Besylate (Amlodipine Besylate 10 Mg Tablet) 10 mg PO BEDTIME [facility]; Protocol Last Admin: 10/04/23 20:59 Dose: 10 mg Documented By: KIMBERLYN Amoxicillin/Clavulanate Potassium (Amoxicillin/Potassium Clav 875 Mg Tablet) 875 mg PO Q12H [facility] Last Admin: 10/09/23 05:46 Dose: 875 mg Documented By: KATHLEEN Aspirin (Aspirin 81 Mg Tab.Chew) 81 mg PO DAILY [facility] Last Admin: 10/09/23 07:58 Dose: 81 mg Documented By: CANDACE Atorvastatin Calcium (Atorvastatin Calcium 10 Mg Tablet) 10 mg PO BEDTIME [facility] Last Admin: 10/08/23 19:52 Dose: 10 mg Documented By: MASHA Bisacodyl (Bisacodyl 10 Mg Supp.Rect) 10 mg [place] DAILY PRN PRN Reason: Constipation Bumetanide (Bumetanide 1 Mg Tablet) 1 mg PO DAILY [facility]; Protocol Carbidopa/Levodopa (Carbidopa/Levodopa 25/100 Tablet) 2 tab PO DAILY@0600,0900,1200,1500,1800 [facility] Last Admin: 10/09/23 11:22 Dose: 2 tab Documented By: CANDACE Docusate Sodium (Docusate Sodium 100 Mg Capsule) 100 mg PO BID [facility] Last Admin: 10/09/23 07:58 Dose: 100 mg Documented By: CANDACE Doxazosin Mesylate (Doxazosin Mesylate 2 Mg Tablet) 4 mg PO BEDTIME [facility]; Protocol Last Admin: 10/08/23 20:02 Dose: 4 mg Documented By: MASHA Famotidine (Famotidine 20 Mg Tablet) 20 mg PO BID PRN PRN Reason: Heartburn Glucose (Glucose Gel 15 Gm Gel..Gram.) 15 gm PO Q15M PRN; Protocol PRN Reason: per Hypoglycemia Standing Ord. Guaifenesin (Guaifenesin 200 Mg/10 Ml 10 Ml Liquid) 10 ml PO Q4H PRN PRN Reason: Cough Last Admin: 10/08/23 11:30 Dose: 10 ml Documented By: CANDACE Dextrose (D10) 250 mls @ 750 mls/hr IV Q15M PRN; Protocol PRN Reason: per Hypoglycemia Standing Ord. Insulin Human Lispro (Insulin Lispro 100 Unit/Ml 3 Ml Vial) 0 unit SUBCUT QIDACHS [facility]; Protocol Last Admin: 10/09/23 11:22 Dose: 4 unit Documented By: CANDACE Isosorbide Mononitrate (Isosorbide Mononitrate 30 Mg Tab.Er.24h) 30 mg PO DAILY [facility]; Protocol Last Admin: 10/05/23 08:01 Dose: 30 mg Documented By: DAVONTE Lactulose (Lactulose 20 Gm/30 Ml Solution) 10 gm PO DAILY PRN PRN Reason: Constipation Lidocaine (Lidocaine 4 % Patch Adh..Patch) 1 patch TRANSDERMA DAILY [facility]; Protocol Last Admin: 10/09/23 07:57 Dose: 1 patch Documented By: CANDACE Loratadine (Loratadine 10 Mg Tablet) 10 mg PO DAILY [facility] Last Admin: 10/09/23 07:58 Dose: 10 mg Documented By: CANDACE Melatonin (Melatonin 3 Mg Tablet) 6 mg PO BEDTIME PRN PRN Reason: Insomnia Metoprolol Tartrate (Metoprolol Tartrate 5 Mg/5 Ml Vial) 2.5 mg IVPUSH Q6H PRN; Protocol PRN Reason: HR>120 Last Admin: 10/05/23 21:37 Dose: 2.5 mg Documented By: REX-NILDA Multivitamins/Vitamin C (Multivitamin Tablet) 1 tab PO DAILY [facility] Last Admin: 10/09/23 07:58 Dose: 1 tab Documented By: CANDACE Omeprazole (Omeprazole 20 Mg Capsule.Dr) 20 mg PO DAILY@0630 [facility] Ondansetron HCl (Ondansetron Hcl 4 Mg/2 Ml Vial) 4 mg IVPUSH Q8H PRN PRN Reason: Nausea and Vomiting Prednisone (Prednisone 20 Mg Tablet) 20 mg PO DAILY [facility] Last Admin: 10/09/23 07:58 Dose: 20 mg Documented By: CANDACE Sodium Chloride (0.9 % Sodium Chloride Flush 3 Ml Syringe) 3 ml IVFLUSH QSHIFT [facility] Last Admin: 10/09/23 07:58 Dose: 3 ml Documented By: CANDACE Labs 10/02/23 05:33 10/09/23 08:02 Labs: Laboratory Results - last 24 hr 10/08/23 10/08/23 10/09/23 15:43 20:28 07:43 Hold Purple Top Anion Gap Estim Creat Clear Calc Estimated GFR POC Glucose 245 H 256 H 178 H Random Glucose Calcium B-Natriuretic Peptide 10/09/23 10/09/23 08:02 10:58 Hold Purple Top SEE NOTE Anion Gap 16 Estim Creat Clear Calc 51.5 Estimated GFR 53 POC Glucose 213 H Random Glucose 182 H Calcium 8.9 B-Natriuretic Peptide 959 H Assessment and Plan (1) Pleural effusion, bilateral: Status: Acute (2) KEE (acute kidney injury): Status: Acute Assessment and Plan: 83-year-old male with pertinent history of congestive heart failure, unspecified EF, paroxysmal atrial fibrillation not on anticoagulation, [id number]-[id number] diabetes mellitus, Parkinson's disease, hypertension who presents to the emergency department for evaluation of dyspnea. Acute hypoxemic respiratory failure multifactorial- acute exacerbation of CHF, unspecified EF and PNA, and probable copd exacerbation acute on chronic CHF unspecified.. ct chest shows -cardiomegaly, bilateral pleural effusion. echo : ef 55-60% bnp trending up [phone] repeat cxr- mild congetsion monitor i/o-10 liter neg (last 2 days) ,place davila, daily weight, low salt diet, off high-flow Pulmonary evaluation noted-continue nebs, steroids,continue augmentin (started 10/06) ,dc doxycycline ,s/p throacentesis(10/04) . d/w cardio and pulm-cr improvin, hold bumex since near 10 liter neg . if cr stays stable will switch to po bumex Mild acute Hypernatremia--similar,d/t diuretics, monitor, relax water restriction,added free waer 300 mlq6hr po moniter bmp. Left lower lobe PNA- continue augmentin(10/06) COPD exacerbation-bronchodilators, and po steriods. Kee: likely d/t cardiorenal phenomenon, creatinine improving continue hold lisinopril ,moniter renal function closely nephrology following Hypertension: Hold lisinopril in the setting of renal failure, restart imdur tomorrow Parkinson's disease: continue On Sinemet Oti-effjtvm-hjsfykopx diabetes mellitus with hyperglycemia: -hold metformin d/t heart failure and renal failure Paroxysmal atrial fibrillation: hr flactuates ( copd ,on high flow)-d/w cardiology -moniter closely , no need for rate control med currently , Not anticoagulated( as per records review hx of gi bleed inpast) DVT prophylaxis: Lovenox DNR/DNI. need for inpt: COPD/CHF exacerbation,cardiorenal : on oxygen, management of chf with iv diuretics, nebs, steroids frequent monitering renal function and electrolytes as well as close monitering respiratory status. Quality Stroke Does the patient have a stroke diagnosis?: No VTE Prior VTE?: No VTE Risk Level:: Medical - moderate - high VTE Device Contraindication: Treatment Not Indicated VTE Drug Contraindication: N/A - Med Ordered
[2023-10-09] MEDS: Enoxaparin Sodium 40 MG/0.4 ML SYRINGE SUBCUT (15:15)
[2023-10-09 16:27] LABS: Glucose, Whole Blood 319 mg/dL (60-115)
[2023-10-09 20:27] LABS: Glucose, Whole Blood 225 mg/dL (60-115)
[2023-10-09] MEDS: Atorvastatin Calcium 10 MG TABLET PO (20:55)
[2023-10-09] MEDS: Melatonin 3 MG TABLET 6 MG PO (20:55)
[2023-10-09] MEDS: Doxazosin Mesylate 2 MG TABLET 4 MG PO (20:55)
[2023-10-10] VITALS (13 sets, daily range): BP systolic 128–163; BP diastolic 61–96; PULSE 75–97; RESP 16–18; TEMP 36–37; O2SAT 90–98
[2023-10-10] MEDS: Carbidopa/Levodopa 25/100 TABLET 2 TAB PO ×5 (05:53→17:45)
[2023-10-10] MEDS: Amoxicillin/Potassium Clav 875 MG TABLET PO ×2 (05:53→17:02)
[2023-10-10] MEDS: Omeprazole 20 MG CAPSULE.DR PO (05:53)
[2023-10-10 06:28] LABS: Hematocrit 39.3 % (42.0-52.0); Hemoglobin 13.2 g/dl (14.0-18.0)
[2023-10-10 06:46] LABS: Anion Gap 13 (12-20); Blood Urea Nitrogen 68 mg/dL (9-16); Carbon Dioxide 33 mmol/L (22-29); Chloride 103 mmol/L (96-108); Creatinine Clr Calc Pharmacy 58.6; Estimated Glomerular Filt Rate > 60; Glucose Random 179 mg/dL (60-115); Potassium 3.5 mmol/L (3.3-5.1); Sodium 145 mmol/L (135-145)
[2023-10-10 07:33] LABS: Glucose, Whole Blood 167 mg/dL (60-115)
[2023-10-10] MEDS: Albuterol/Iprat 2.5/0.5MG 3 ML AMPUL.NEB INHALE ×4 (07:35→19:26)
[2023-10-10] MEDS: Insulin Lispro 100 UNIT/ML 3 ML VIAL SUBCUT ×5 (08:03→20:26)
[2023-10-10] MEDS: 0.9 % Sodium Chloride Flush 3 ML SYRINGE IVFLUSH ×3 (08:04→20:29)
[2023-10-10] MEDS: Docusate Sodium 100 MG CAPSULE PO ×2 (08:04→20:25)
[2023-10-10] MEDS: Aspirin 81 MG TAB.CHEW PO (08:04)
[2023-10-10] MEDS: Isosorbide Mononitrate 30 MG TAB.ER.24H PO (08:04)
[2023-10-10] MEDS: Multivitamin TABLET 1 TAB PO (08:05)
[2023-10-10] MEDS: predniSONE 20 MG TABLET PO (08:05)
[2023-10-10] MEDS: Lidocaine 4 % Patch ADH..PATCH 1 PATCH TRANSDERMA (08:05)
[2023-10-10] MEDS: Loratadine 10 MG TABLET PO (08:05)
[2023-10-10] MEDS: Bumetanide 1 MG TABLET PO (08:05)
--- NOTE | 2023-10-10 10:36 | MHC.CM.PN ---
Per ROUNDS discussion, Patient is not yet medically cleared for dc (MD to discuss with Pulmonary and Chest Xray is pending); Returning to LTC @ [facility] is the goal and CM will continue to follow.
[2023-10-10 11:28] LABS: Glucose, Whole Blood 317 mg/dL (60-115)
--- NOTE | 2023-10-10 11:31 | P.PNPL_ITS ---
Subjective Subjective Date of Service: 10/10/23 Interval history: Respiratory status continues to improve. Objective Data Labs 10/10/23 05:52 10/10/23 05:52 Labs: Laboratory Results - last 24 hr 10/09/23 10/09/23 10/10/23 16:23 20:19 05:52 Hgb 13.2 L Hct 39.3 L Sodium 145 Potassium 3.5 Chloride 103 Carbon Dioxide 33 H Anion Gap 13 BUN 68 H Creatinine 1.15 Estim Creat Clear Calc 58.6 Estimated GFR > 60 POC Glucose 319 H 225 H Random Glucose 179 H Calcium 9.0 10/10/23 10/10/23 07:25 11:24 Hgb Hct Sodium Potassium Chloride Carbon Dioxide Anion Gap BUN Creatinine Estim Creat Clear Calc Estimated GFR POC Glucose 167 H 317 H Random Glucose Calcium Microbiology Microbiology Results: Microbiology 10/01/23 22:26 Blood - Venous Blood Culture - Final No growth after 5 days. 10/01/23 22:26 Blood - Venous Blood Culture - Final No growth after 5 days. Physical Exam 2 Vital Signs: Vital Signs: Last Vital Signs Temp 97.5 F 10/10/23 07:42 Pulse 92 10/10/23 11:11 Resp 18 10/10/23 11:11 BP 139/72 10/10/23 08:05 Pulse Ox 94 10/10/23 07:42 O2 Del Method Nasal Cannula 10/10/23 07:42 O2 Flow Rate 1.5 10/10/23 07:42 FiO2 50 10/07/23 08:00 Oxygen Flow Rate 4 10/01/23 20:05 BMI result Body Mass Index 30.5 Const: General: no acute distress, alert and awake Eyes: Sclerae: sclerae normal EOM: EOMs intact bilaterally Neck: Neck: Yes no lymphadenopathy, Yes trachea midline and Yes supple Resp: Effort & Inspection: normal respiratory effort and no respiratory distress Auscultation: clear to auscultation bilaterally Cardio: Rate: regular rate Rhythm: regular rhythm Heart sounds: no gallops, no murmurs and no rubs GI: Palpation (GI): Soft to palpation and Other GI palpation findings present ( Nontender) Auscultation: normal bowel sounds Extrem: General: Yes no pedal edema, No clubbing and No cyanosis Procedures Date of Service Date of Service: 10/10/23 Assessment and Plan Assessment and plan (1) Pleural effusion, bilateral: Status: Acute (2) Pulmonary nodule 1 cm or greater in diameter: Status: Acute (3) CHF exacerbation: Status: Acute (4) Acute hypoxic respiratory failure: Status: Acute Plan Impression: 83-year-old gentleman with underlying cardiomyopathy admitted with dyspnea and hypoxia secondary acute on chronic congestive heart failure that is improving with diuresis. 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 No evidence of COPD exacerbation or pneumonia. now with significant improvement in his FiO2 requirements. CT chest demonstrated bilateral pleural effusions, likely congestive heart failure related. Now status post left-sided thoracentesis with drainage of 1.3 L of lymphocyte predominant fluid. Respiratory status continues to improve with diuresis. Recommendations: Continue judicious diuresis. Time Spent With Patient Time: Total time managing care of this patient today ____ minutes. Progress Note: Quality Stroke Does the patient have a stroke diagnosis?: No
--- NOTE | 2023-10-10 13:36 | MHC.CLN ---
F/U PT WITH INCREASED NUTRITION RISK R/T PRESSURE INJURY PO INTAKE 75-100% X4 MEALS DIET RX: 2000DM CARDIAC -APPROPRIATE PT RECEIVING ENSURE MAX BID TO PROMOTE WOUND HEALING SUPPLEMENT PROVIDES 300KCALS, 60G PROTEIN WITH 100% ACCEPTANCE CONTINUE TO MONITOR PO INTAKE AND ENCOURAGE SUPPLEMENTS
[2023-10-10] MEDS: Enoxaparin Sodium 40 MG/0.4 ML SYRINGE SUBCUT (15:02)
--- NOTE | 2023-10-10 15:32 | P.PNIM_ITS ---
Subjective Subjective Date of Service: 10/10/23 Interval History: chf ,?pneumonia Review of Systems sob seems improving,but has sob with excersion has cough Physical Exam 2 Vital Signs: Vital Signs: Last Vital Signs Temp 97.9 F 10/10/23 11:40 Pulse 75 10/10/23 15:27 Resp 16 10/10/23 15:27 BP 128/61 10/10/23 11:40 Pulse Ox 95 10/10/23 11:40 O2 Del Method Nasal Cannula 10/10/23 11:40 O2 Flow Rate 1.5 10/10/23 11:40 FiO2 50 10/07/23 08:00 Oxygen Flow Rate 4 10/01/23 20:05 BMI result Body Mass Index 30.5 General: AO X 3, no acute distress,oxygen demand slowly improving Resp:air entry improving somewhat. CVS: S1,S2,RRR GI: +BS, NT, no distention Skin: No rash Neuro: motor grossly intact Psych: appropriate affect Objective Data Active Medications Acetaminophen (Acetaminophen 325 Mg Tablet) 975 mg PO Q8H PRN PRN Reason: mild pain, headache or fever Last Admin: 10/09/23 20:54 Dose: 975 mg Documented By: KATHLEEN Albuterol Sulfate (Albuterol Sulfate (0.083%) 2.5 Mg/3 Ml Vial.Neb) 2.5 mg INHALE Q2H PRN PRN Reason: Shortness of Breath/Wheezing Albuterol/Ipratropium (Albuterol/Iprat 2.5/0.5mg 3 Ml Ampul.Neb) 3 ml INHALE RQ4H WHILE AWAKE [facility] Last Admin: 10/10/23 15:27 Dose: 3 ml Documented By: RAMSEY Amlodipine Besylate (Amlodipine Besylate 10 Mg Tablet) 10 mg PO BEDTIME [facility]; Protocol Last Admin: 10/04/23 20:59 Dose: 10 mg Documented By: KIMBERLYN Amoxicillin/Clavulanate Potassium (Amoxicillin/Potassium Clav 875 Mg Tablet) 875 mg PO Q12H [facility] Last Admin: 10/10/23 05:53 Dose: 875 mg Documented By: KATHLEEN Aspirin (Aspirin 81 Mg Tab.Chew) 81 mg PO DAILY [facility] Last Admin: 10/10/23 08:04 Dose: 81 mg Documented By: HEATH Atorvastatin Calcium (Atorvastatin Calcium 10 Mg Tablet) 10 mg PO BEDTIME [facility] Last Admin: 10/09/23 20:55 Dose: 10 mg Documented By: KATHLEEN Bisacodyl (Bisacodyl 10 Mg Supp.Rect) 10 mg [place] DAILY PRN PRN Reason: Constipation Bumetanide (Bumetanide 1 Mg Tablet) 1 mg PO DAILY [facility]; Protocol Last Admin: 10/10/23 08:05 Dose: 1 mg Documented By: HEATH Carbidopa/Levodopa (Carbidopa/Levodopa 25/100 Tablet) 2 tab PO DAILY@0600,0900,1200,1500,1800 [facility] Last Admin: 10/10/23 15:02 Dose: 2 tab Documented By: HEATH Docusate Sodium (Docusate Sodium 100 Mg Capsule) 100 mg PO BID [facility] Last Admin: 10/10/23 08:04 Dose: 100 mg Documented By: HEATH Doxazosin Mesylate (Doxazosin Mesylate 2 Mg Tablet) 4 mg PO BEDTIME [facility]; Protocol Last Admin: 10/09/23 20:55 Dose: 4 mg Documented By: KATHLEEN Enoxaparin Sodium (Enoxaparin Sodium 40 Mg/0.4 Ml Syringe) 40 mg SUBCUT Q24H [facility] Last Admin: 10/10/23 15:02 Dose: 40 mg Documented By: HEATH Famotidine (Famotidine 20 Mg Tablet) 20 mg PO BID PRN PRN Reason: Heartburn Glucose (Glucose Gel 15 Gm Gel..Gram.) 15 gm PO Q15M PRN; Protocol PRN Reason: per Hypoglycemia Standing Ord. Guaifenesin (Guaifenesin 200 Mg/10 Ml 10 Ml Liquid) 10 ml PO Q4H PRN PRN Reason: Cough Last Admin: 10/08/23 11:30 Dose: 10 ml Documented By: CANDACE Dextrose (D10) 250 mls @ 750 mls/hr IV Q15M PRN; Protocol PRN Reason: per Hypoglycemia Standing Ord. Insulin Human Lispro (Insulin Lispro 100 Unit/Ml 3 Ml Vial) 0 unit SUBCUT QIDACHS [facility]; Protocol Last Admin: 10/10/23 11:48 Dose: 8 unit Documented By: HEATH Isosorbide Mononitrate (Isosorbide Mononitrate 30 Mg Tab.Er.24h) 30 mg PO DAILY [facility]; Protocol Last Admin: 10/10/23 08:04 Dose: 30 mg Documented By: HEATH Lactulose (Lactulose 20 Gm/30 Ml Solution) 10 gm PO DAILY PRN PRN Reason: Constipation Lidocaine (Lidocaine 4 % Patch Adh..Patch) 1 patch TRANSDERMA DAILY [facility]; Protocol Last Admin: 10/10/23 08:05 Dose: 1 patch Documented By: HEATH Loratadine (Loratadine 10 Mg Tablet) 10 mg PO DAILY [facility] Last Admin: 10/10/23 08:05 Dose: 10 mg Documented By: HEATH Melatonin (Melatonin 3 Mg Tablet) 6 mg PO BEDTIME PRN PRN Reason: Insomnia Last Admin: 10/09/23 20:55 Dose: 6 mg Documented By: KATHLEEN Metoprolol Tartrate (Metoprolol Tartrate 5 Mg/5 Ml Vial) 2.5 mg IVPUSH Q6H PRN; Protocol PRN Reason: HR>120 Last Admin: 10/05/23 21:37 Dose: 2.5 mg Documented By: LIBAN Multivitamins/Vitamin C (Multivitamin Tablet) 1 tab PO DAILY [facility] Last Admin: 10/10/23 08:05 Dose: 1 tab Documented By: HEATH Omeprazole (Omeprazole 20 Mg Capsule.Dr) 20 mg PO DAILY@0630 [facility] Last Admin: 10/10/23 05:53 Dose: 20 mg Documented By: KATHLEEN Ondansetron HCl (Ondansetron Hcl 4 Mg/2 Ml Vial) 4 mg IVPUSH Q8H PRN PRN Reason: Nausea and Vomiting Prednisone (Prednisone 20 Mg Tablet) 20 mg PO DAILY [facility] Last Admin: 10/10/23 08:05 Dose: 20 mg Documented By: HEATH Sodium Chloride (0.9 % Sodium Chloride Flush 3 Ml Syringe) 3 ml IVFLUSH QSHIFT [facility] Last Admin: 10/10/23 15:03 Dose: 3 ml Documented By: HEATH Labs 10/10/23 05:52 10/10/23 05:52 Labs: Laboratory Results - last 24 hr 10/09/23 10/09/23 10/10/23 16:23 20:19 05:52 Anion Gap 13 Estim Creat Clear Calc 58.6 Estimated GFR > 60 POC Glucose 319 H 225 H Random Glucose 179 H Calcium 9.0 10/10/23 10/10/23 07:25 11:24 Anion Gap Estim Creat Clear Calc Estimated GFR POC Glucose 167 H 317 H Random Glucose Calcium Assessment and Plan (1) Pleural effusion, bilateral: Status: Acute (2) KEE (acute kidney injury): Status: Acute Assessment and Plan: 83-year-old male with pertinent history of congestive heart failure, unspecified EF, paroxysmal atrial fibrillation not on anticoagulation, [id number] diabetes mellitus, Parkinson's disease, hypertension who presents to the emergency department for evaluation of dyspnea. Acute hypoxemic respiratory failure multifactorial- acute exacerbation of CHF, unspecified EF and PNA, and probable copd exacerbation acute on chronic CHF unspecified.. ct chest shows -cardiomegaly, bilateral pleural effusion. echo : ef 55-60% bnp trending up [phone] repeat cxr- mild congetsion monitor i/o-11 liter neg ,has davila, daily weight. Pulmonary evaluation noted-continue nebs, steroids,continue augmentin (started 10/06) ,dc doxycycline ,s/p throacentesis(10/04) ,off high flow ,taper oxygen nasal canula will repeat cxr switched to po bumex ,adjust as per volume status pulm followup if need right sided thoracentesis -cxr pending Mild acute Hypernatremia--similar. d/t diuretics, monitor, relax water restriction,added free waer 300 mlq6hr po improved with holding diurtics and moniter renal function/electrolytes. Left lower lobe PNA- continue augmentin(10/06) COPD exacerbation-bronchodilators, and po steriods. Kee: likely d/t cardiorenal phenomenon, creatinine improving continue hold lisinopril( considering adding back if renal function allows) nephrology following Hypertension: Hold lisinopril in the setting of renal failure, restart imdur tomorrow Parkinson's disease: continue On Sinemet Syk-wvfmmba-nbsqanean diabetes mellitus with hyperglycemia: -hold metformin d/t heart failure and renal failure Paroxysmal atrial fibrillation: hr flactuates ( copd ,on high flow)-d/w cardiology -moniter closely , no need for rate control med currently , Not anticoagulated( as per records review hx of gi bleed inpast) Pt eval DVT prophylaxis: Lovenox DNR/DNI. need for inpt: COPD/CHF exacerbation,cardiorenal : on oxygen, management of chf with iv diuretics, nebs, steroids frequent monitering renal function and electrolytes as well as close monitering respiratory status. Quality Stroke Does the patient have a stroke diagnosis?: No VTE Prior VTE?: No VTE Risk Level:: Medical - moderate - high VTE Device Contraindication: Treatment Not Indicated VTE Drug Contraindication: N/A - Med Ordered
[2023-10-10 16:39] LABS: Glucose, Whole Blood 401 mg/dL (60-115)
[2023-10-10 20:03] LABS: Glucose, Whole Blood 371 mg/dL (60-115)
[2023-10-10] MEDS: Acetaminophen 325 MG TABLET 975 MG PO (20:24)
[2023-10-10] MEDS: Doxazosin Mesylate 2 MG TABLET 4 MG PO (20:25)
[2023-10-10] MEDS: Melatonin 3 MG TABLET 6 MG PO (20:25)
[2023-10-10] MEDS: Atorvastatin Calcium 10 MG TABLET PO (20:25)
[2023-10-11] VITALS (12 sets, daily range): BP systolic 127–160; BP diastolic 73–86; PULSE 82–103; RESP 16–20; TEMP 36.1–37; O2SAT 91–100
[2023-10-11] MEDS: Amoxicillin/Potassium Clav 875 MG TABLET PO ×2 (05:01→17:14)
[2023-10-11] MEDS: Omeprazole 20 MG CAPSULE.DR PO (05:01)
[2023-10-11] MEDS: Carbidopa/Levodopa 25/100 TABLET 2 TAB PO ×5 (05:28→17:14)
[2023-10-11] MEDS: Acetaminophen 325 MG TABLET 975 MG PO ×3 (05:28→20:36)
[2023-10-11] MEDS: Albuterol/Iprat 2.5/0.5MG 3 ML AMPUL.NEB INHALE ×4 (07:44→21:15)
[2023-10-11 07:50] LABS: Glucose, Whole Blood 185 mg/dL (60-115)
[2023-10-11] MEDS: Isosorbide Mononitrate 30 MG TAB.ER.24H PO (08:05)
[2023-10-11] MEDS: Multivitamin TABLET 1 TAB PO (08:05)
[2023-10-11] MEDS: Aspirin 81 MG TAB.CHEW PO (08:05)
[2023-10-11] MEDS: Bumetanide 1 MG TABLET PO (08:06)
[2023-10-11] MEDS: Docusate Sodium 100 MG CAPSULE PO ×2 (08:06→20:33)
[2023-10-11] MEDS: Loratadine 10 MG TABLET PO (08:06)
[2023-10-11] MEDS: predniSONE 20 MG TABLET PO (08:06)
[2023-10-11] MEDS: Insulin Lispro 100 UNIT/ML 3 ML VIAL SUBCUT ×4 (08:06→21:07)
[2023-10-11] MEDS: 0.9 % Sodium Chloride Flush 3 ML SYRINGE IVFLUSH ×3 (08:07→20:41)
[2023-10-11] MEDS: Lidocaine 4 % Patch ADH..PATCH 1 PATCH TRANSDERMA (08:11)
[2023-10-11 11:32] LABS: Glucose, Whole Blood 219 mg/dL (60-115)
[2023-10-11] MEDS: Enoxaparin Sodium 40 MG/0.4 ML SYRINGE SUBCUT (15:18)
--- NOTE | 2023-10-11 15:35 | HO.PM.IMPN ---
Subjective Subjective Date of Service: 10/11/23 Interval History: Being followed for shortness of breath, feeling better this morning denies shortness of breath, no chest pain, no headache, no dizziness tolerating diet with no nausea, no vomiting or abdominal pain currently on oral diuretics, no fevers. Review of Systems All other system reviewed and negative Physical Exam Vital Signs: Vital Signs: Last Vital Signs Temp 97 F 10/11/23 11:39 Pulse 96 10/11/23 15:24 Resp 20 10/11/23 15:24 BP 136/73 10/11/23 11:39 Pulse Ox 92 10/11/23 11:39 O2 Del Method Room Air 10/11/23 11:39 O2 Flow Rate 1.5 10/10/23 11:40 FiO2 50 10/07/23 08:00 Oxygen Flow Rate 4 10/01/23 20:05 BMI result Body Mass Index 30.5 Const: Other: General awake alert x3, resting comfortably in no acute distress. Neck supple ,no JVD. CVS regular rate rhythm, Respiratory lungs clear to auscultation, no respiratory distress, no wheeze, no rales, diminished at bases. Gastrointestinal abdomen soft, non tender, bowel sounds audible. Extremities no edema. Neuro non focal ,speech clear. Skin no rash Psych appropriate affect Objective Data Active Medications Acetaminophen (Acetaminophen 325 Mg Tablet) 975 mg PO Q8H PRN PRN Reason: mild pain, headache or fever Last Admin: 10/11/23 15:18 Dose: 975 mg Documented By: HEATH Albuterol Sulfate (Albuterol Sulfate (0.083%) 2.5 Mg/3 Ml Vial.Neb) 2.5 mg INHALE Q2H PRN PRN Reason: Shortness of Breath/Wheezing Albuterol/Ipratropium (Albuterol/Iprat 2.5/0.5mg 3 Ml Ampul.Neb) 3 ml INHALE RQ6H WHILE AWAKE [facility] Last Admin: 10/11/23 15:22 Dose: 3 ml Documented By: JADA Amlodipine Besylate (Amlodipine Besylate 10 Mg Tablet) 10 mg PO BEDTIME MADALYN; Protocol Last Admin: 10/04/23 20:59 Dose: 10 mg Documented By: KIMBERLYN Amoxicillin/Clavulanate Potassium (Amoxicillin/Potassium Clav 875 Mg Tablet) 875 mg PO Q12H [facility] Last Admin: 10/11/23 05:01 Dose: 875 mg Documented By: BRANNON Aspirin (Aspirin 81 Mg Tab.Chew) 81 mg PO DAILY [facility] Last Admin: 10/11/23 08:05 Dose: 81 mg Documented By: HEATH Atorvastatin Calcium (Atorvastatin Calcium 10 Mg Tablet) 10 mg PO BEDTIME [facility] Last Admin: 10/10/23 20:25 Dose: 10 mg Documented By: KATHLEEN Bisacodyl (Bisacodyl 10 Mg Supp.Rect) 10 mg WI DAILY PRN PRN Reason: Constipation Bumetanide (Bumetanide 1 Mg Tablet) 1 mg PO DAILY [facility]; Protocol Last Admin: 10/11/23 08:06 Dose: 1 mg Documented By: HEATH Carbidopa/Levodopa (Carbidopa/Levodopa 25/100 Tablet) 2 tab PO DAILY@0600,0900,1200,1500,1800 [facility] Last Admin: 10/11/23 15:18 Dose: 2 tab Documented By: HEATH Docusate Sodium (Docusate Sodium 100 Mg Capsule) 100 mg PO BID [facility] Last Admin: 10/11/23 08:06 Dose: 100 mg Documented By: HEATH Doxazosin Mesylate (Doxazosin Mesylate 2 Mg Tablet) 4 mg PO BEDTIME [facility]; Protocol Last Admin: 10/10/23 20:25 Dose: 4 mg Documented By: KATHLEEN Enoxaparin Sodium (Enoxaparin Sodium 40 Mg/0.4 Ml Syringe) 40 mg SUBCUT Q24H [facility] Last Admin: 10/11/23 15:18 Dose: 40 mg Documented By: HEATH Famotidine (Famotidine 20 Mg Tablet) 20 mg PO BID PRN PRN Reason: Heartburn Glucose (Glucose Gel 15 Gm Gel..Gram.) 15 gm PO Q15M PRN; Protocol PRN Reason: per Hypoglycemia Standing Ord. Guaifenesin (Guaifenesin 200 Mg/10 Ml 10 Ml Liquid) 10 ml PO Q4H PRN PRN Reason: Cough Last Admin: 10/08/23 11:30 Dose: 10 ml Documented By: CANDACE Dextrose (D10) 250 mls @ 750 mls/hr IV Q15M PRN; Protocol PRN Reason: per Hypoglycemia Standing Ord. Insulin Human Lispro (Insulin Lispro 100 Unit/Ml 3 Ml Vial) 0 unit SUBCUT QIDACHS [facility]; Protocol Last Admin: 10/11/23 12:01 Dose: 4 unit Documented By: HEATH Isosorbide Mononitrate (Isosorbide Mononitrate 30 Mg Tab.Er.24h) 30 mg PO DAILY [facility]; Protocol Last Admin: 10/11/23 08:05 Dose: 30 mg Documented By: HEATH Lactulose (Lactulose 20 Gm/30 Ml Solution) 10 gm PO DAILY PRN PRN Reason: Constipation Lidocaine (Lidocaine 4 % Patch Adh..Patch) 1 patch TRANSDERMA DAILY [facility]; Protocol Last Admin: 10/11/23 08:11 Dose: 1 patch Documented By: HEATH Loratadine (Loratadine 10 Mg Tablet) 10 mg PO DAILY [facility] Last Admin: 10/11/23 08:06 Dose: 10 mg Documented By: HEATH Melatonin (Melatonin 3 Mg Tablet) 6 mg PO BEDTIME PRN PRN Reason: Insomnia Last Admin: 10/10/23 20:25 Dose: 6 mg Documented By: KATHLEEN Metoprolol Tartrate (Metoprolol Tartrate 5 Mg/5 Ml Vial) 2.5 mg IVPUSH Q6H PRN; Protocol PRN Reason: HR>120 Last Admin: 10/05/23 21:37 Dose: 2.5 mg Documented By: LIBAN Multivitamins/Vitamin C (Multivitamin Tablet) 1 tab PO DAILY [facility] Last Admin: 10/11/23 08:05 Dose: 1 tab Documented By: HEATH Omeprazole (Omeprazole 20 Mg Capsule.Dr) 20 mg PO DAILY@0630 [facility] Last Admin: 10/11/23 05:01 Dose: 20 mg Documented By: BRANNON Ondansetron HCl (Ondansetron Hcl 4 Mg/2 Ml Vial) 4 mg IVPUSH Q8H PRN PRN Reason: Nausea and Vomiting Sodium Chloride (0.9 % Sodium Chloride Flush 3 Ml Syringe) 3 ml IVFLUSH QSHIFT [facility] Last Admin: 10/11/23 15:20 Dose: 3 ml Documented By: HEATH Labs 10/10/23 05:52 10/10/23 05:52 Labs: Laboratory Results - last 24 hr 10/10/23 10/10/23 10/11/23 16:22 19:59 07:09 POC Glucose 401 H* 371 H* 185 H 10/11/23 11:04 POC Glucose 219 H Assessment and Plan (1) Pleural effusion, bilateral: Status: Acute (2) KEE (acute kidney injury): Status: Acute Assessment and Plan: 83-year-old male with pertinent history of congestive heart failure, unspecified EF, paroxysmal atrial fibrillation not on anticoagulation, bde-ixuebgd-pcwfrkhfq diabetes mellitus, Parkinson's disease, hypertension who presents to the emergency department for evaluation of dyspnea. Acute hypoxemic respiratory failure multifactorial- acute exacerbation of CHF, unspecified EF and PNA, and probable copd exacerbation Hypoxia resolved, stable oxygenation on room air. Exacerbation resolved, Will DC steroids , change nebs to q.i.d., history of pulmonary nodule being worked up by his ekg technician at [facility]. acute on chronic diastolic CHF ct chest shows -cardiomegaly, bilateral pleural effusion. Status post left-sided thoracocentesis 1.3 L of fluid removed, fluid with predominant lymphocytes, cytology negative for malignant cells Echo showed EF 55-60%, chronically elevated BNP Greater than 9 L negative on po bumex 1 mg daily, appears euvolemic will transition back to oral Lasix upon discharge Recommend outpatient follow-up with ekg technician at [facility]. Mild acute Hypernatremia--resolved Left lower lobe PNA- on augmentin(10/06), status post ceftriaxone and azithromycin. COPD exacerbation-resolved will DC steroids, minimize bronchodilators. Kee: likely d/t cardiorenal phenomenon, creatinine returned to baseline Hypertension: Continue amlodipine, doxazosin and Imdur follow BP Parkinson's disease: continue Sinemet home dose. Siy-uvjqadg-drgyzdwod diabetes mellitus with hyperglycemia: Elevated blood sugars likely due to steroids, metformin on hold due to renal failure, will resume upon discharge since renal failure resolved Paroxysmal atrial fibrillation: Not anticoagulated( as per records review hx of gi bleed in past) seen by Cardiology no rate control medications recommended. Disposition seen by Physical therapy patient noted to have severe retropulsion with transfers they [facility]. DVT prophylaxis: Lovenox DNR/DNI. need for inpt: For close monitoring of renal function while being diuresed, safe disposition back to rehab facility. Quality Stroke Does the patient have a stroke diagnosis?: No VTE Prior VTE?: No VTE Risk Level:: Medical - moderate - high VTE Device Contraindication: Treatment Not Indicated VTE Drug Contraindication: N/A - Med Ordered
[2023-10-11 16:56] LABS: Glucose, Whole Blood 314 mg/dL (60-115)
[2023-10-11] MEDS: Potassium Chloride ER 20 MEQ TAB.ER.PRT PO (18:10)
[2023-10-11] MEDS: Doxazosin Mesylate 2 MG TABLET 4 MG PO (20:33)
[2023-10-11] MEDS: Atorvastatin Calcium 10 MG TABLET PO (20:33)
[2023-10-11 21:05] LABS: Glucose, Whole Blood 283 mg/dL (60-115)
[2023-10-12 03:39] VITALS: BP 155/74; PULSE 95; RESP 20; TEMP 36.1; O2SAT 96
[2023-10-12] MEDS: Carbidopa/Levodopa 25/100 TABLET 2 TAB PO ×4 (06:43→14:22)
[2023-10-12] MEDS: Omeprazole 20 MG CAPSULE.DR PO (06:43)
[2023-10-12] MEDS: Amoxicillin/Potassium Clav 875 MG TABLET PO (06:43)
[2023-10-12 07:10] LABS: Anion Gap 10 (12-20); Blood Urea Nitrogen 58 mg/dL (9-16); Calcium 8.9 mg/dL (8.4-10.2); Carbon Dioxide 34 mmol/L (22-29); Chloride 104 mmol/L (96-108); Creatinine Clr Calc Pharmacy 57.6; Estimated Glomerular Filt Rate 60; Glucose Random 188 mg/dL (60-115); Potassium 3.6 mmol/L (3.3-5.1); Sodium 144 mmol/L (135-145)
[2023-10-12 07:17] LABS: B Type Natriuretic Peptide 621 pg/mL (<100)
[2023-10-12] MEDS: Albuterol/Iprat 2.5/0.5MG 3 ML AMPUL.NEB INHALE ×2 (07:49→15:28)
[2023-10-12 07:51] VITALS: PULSE 89; RESP 18; O2SAT 92
[2023-10-12 08:00] VITALS: BP 165/83; PULSE 98; RESP 20; TEMP 36.2; O2SAT 96
[2023-10-12 08:04] LABS: Glucose, Whole Blood 166 mg/dL (60-115)
[2023-10-12] MEDS: Docusate Sodium 100 MG CAPSULE PO (08:53)
[2023-10-12] MEDS: Aspirin 81 MG TAB.CHEW PO (08:53)
[2023-10-12] MEDS: Loratadine 10 MG TABLET PO (08:53)
[2023-10-12] MEDS: Insulin Lispro 100 UNIT/ML 3 ML VIAL SUBCUT ×3 (08:53→16:27)
[2023-10-12] MEDS: Isosorbide Mononitrate 30 MG TAB.ER.24H PO (08:53)
[2023-10-12] MEDS: Lidocaine 4 % Patch ADH..PATCH 1 PATCH TRANSDERMA (08:53)
[2023-10-12] MEDS: Multivitamin TABLET 1 TAB PO (08:53)
--- NOTE | 2023-10-12 10:49 | MHC.CLN ---
F/U PO INTAKE 75% X4 MEALS DIET RX: 2000DM CARDIAC -APPROPRIATE PT RECEIVING ENSURE MAX BID TO PROMOTE WOUND HEALING SUPPLEMENT PROVIDES 300KCALS, 60G PROTEIN WITH 100% ACCEPTANCE CONTINUE TO MONITOR PO INTAKE AND ENCOURAGE SUPPLEMENTS
--- NOTE | 2023-10-12 11:05 | MHC.CM.PN ---
Second IMM 10/12/23, Pt has been medically [facility], he will go today via BLS.
--- NOTE | 2023-10-12 11:08 | P.DS_ITS ---
DS: Providers Provider Date of Service: 10/12/23 Date of admission: 10/01/23 23:06 Primary care physician: EASTON Woodard Consults: 10/03/23 08:22 Consult to Wound Care Routine Reason for consultation: Buttocks and Heels Has provider been notified: Yes 10/03/23 09:13 Consult to Cardiology Routine Consulting Provider: [facility] Reason for consultation: Heart failure 10/04/23 08:35 Consult to Pulmonology Routine Consulting Provider: [facility] Reason for consultation: acute respiratory failure multifactorial on high f low Has provider been notified: No 10/06/23 09:29 Consult to Nephrology Routine Consulting Provider: Zia Moody Reason for consultation: kee on ckd DS: Diagnosis Discharge Diagnosis (1) Pleural effusion, bilateral: Status: Acute (2) KEE (acute kidney injury): Status: Acute DS: Summary Hospital Course Hospital Course: Date of Service: 10/02/23 Chief Complaint: Dyspnea This is a 83-year-old male with pertinent history of congestive heart failure, unspecified EF, paroxysmal atrial fibrillation not on anticoagulation, zbi-dulmxch-uidiuudjc diabetes mellitus, Parkinson's disease, hypertension who presents to the emergency department for evaluation of dyspnea. Patient states he had sudden onset of dyspnea while he was transferring from wheelchair to recliner. Admits orthopnea. Also has bilateral lower extremity swelling. Also has been having cough. No chest pain. No wheezing. No fever, chills, nausea, vomiting, chest discomfort, palpitations, abdominal pain, changes in urinary or bowel habits. In the emergency department, BNP found to be elevated and patient was initiated on IV diuresis. Patient requiring 4 L supplemental oxygen in the ER. Hospital course: 83-year-old male with pertinent history of congestive heart failure, unspecified EF, paroxysmal atrial fibrillation not on anticoagulation, ewz-qfhyfxr-pazqxodsu diabetes mellitus, Parkinson's disease, hypertension presented to the emergency department for evaluation of dyspnea and diagnosed to have Acute hypoxemic respiratory failure due to acute congestive heart failure, initially felt to have mild COPD exacerbation and also pneumonia , initially treated with IV diuretics, IV steroids , antibiotics and updraft treatment, patient responded well to above treatment is greater than 11 L negative, echocardiogram showed an EF 55-60%, was followed closely by flour inspector and underwent left thoracocentesis 1.4 L of fluid was removed, fluid studies noted to have predominant lymphocytes, cytology negative for malignant cells, repeat chest x- ray showed persistent bilateral effusions recommend outpatient follow-up with pulmonology at [facility] for follow-up on pulmonary nodule, at present patient appears euvolemic, hypoxia resolved currently 94% on room air, recommend to resume home diuretics, patient finished course of antibiotics, and steroids. Mild acute Hypernatremia--resolved Kee: likely d/t cardiorenal phenomenon, creatinine returned to baseline with diuresis. Hypertension: Continue amlodipine, doxazosin and Imdur. Parkinson's disease: continue Sinemet home dose. Spk-gjxthgs-bvbldnaog diabetes mellitus with hyperglycemia: Noted to have elevated blood sugars will likely due to steroids, recommend to continue metformin and diabetic diet . Paroxysmal atrial fibrillation: Not anticoagulated( as per records review hx of gi bleed in past) seen by Cardiology no rate control medications recommended. Time Attestation Discharge Coordination Time (in mins): 40 Quality: Safe Use of Opioids Does Pt have an Active Cancer Diagnosis on the Problem List?: No Quality: Stroke Does the patient have a stroke diagnosis?: No Physical Exam Vital Signs: Vital Signs: Last Vital Signs Temp 97.2 F 10/12/23 08:00 Pulse 98 10/12/23 08:00 Resp 20 10/12/23 08:00 BP 165/83 H 10/12/23 08:00 Pulse Ox 96 10/12/23 08:00 O2 Del Method Room Air 10/12/23 08:00 O2 Flow Rate 2 10/11/23 16:00 FiO2 50 10/07/23 08:00 Oxygen Flow Rate 4 10/01/23 20:05 BMI result Body Mass Index 30.5 Const: Other: General awake alert x3, resting comfortably in no acute distress. Neck supple ,no JVD. CVS regular rate rhythm, Respiratory lungs clear to auscultation, no respiratory distress, no wheeze, no rales, diminished at bases. Gastrointestinal abdomen soft, non tender, bowel sounds audible. Extremities no edema. Neuro non focal ,speech clear. Skin no rash Psych appropriate affect DS: Data Data Completed and Pending Completed studies during hospitalization [Text1]: Pending at discharge 10/05/23 09:53 Cytology [PTH] Urgent Labs on day of discharge: Laboratory Results - last 24 hr 10/11/23 10/11/23 10/11/23 11:04 16:45 20:52 Sodium Potassium Chloride Carbon Dioxide Anion Gap BUN Creatinine Estim Creat Clear Calc Estimated GFR POC Glucose 219 H 314 H 283 H Random Glucose Calcium B-Natriuretic Peptide 10/12/23 10/12/23 06:40 07:55 Sodium 144 Potassium 3.6 Chloride 104 Carbon Dioxide 34 H Anion Gap 10 L BUN 58 H Creatinine 1.17 Estim Creat Clear Calc 57.6 Estimated GFR 60 POC Glucose 166 H Random Glucose 188 H Calcium 8.9 B-Natriuretic Peptide 621 H Discharge Plan Discharge Anticipated Discharge Date/Time: 10/12/23 11:02 Patient Disposition: Xfer SNF Discharge Diagnosis: Acute hypoxic respiratory failure due to acute diastolic heart failure Referrals: [facility] [Outside] - 1 Week Guadalupe Rene ANP [Primary Care Provider] - 1 Week Discharge Medications: Continued simvastatin 20 mg tablet 1 tab PO BEDTIME doxazosin 4 mg tablet 1 tab PO BEDTIME carbidopa-levodopa 25-100 mg tablet 2 tab PO 5XD Rx Instructions: @0600, 0900, 1200, 1500, 1800 multivitamin Tablet 1 tab PO DAILY furosemide 40 mg tablet 40 mg PO DAILY Rx Instructions: TDD: 60 mg metformin 500 mg tablet 500 mg PO BID acetaminophen 325 mg Tablet 650 mg PO Q4H PRN (Reason: pain or fever) isosorbide mononitrate 30 mg tablet extended release 24 hr 30 mg PO DAILY famotidine 20 mg Tablet 20 mg PO BID PRN (Reason: Heartburn) magnesium hydroxide [Milk of Magnesia] 400 mg/5 mL Suspension 30 ml PO DAILY PRN (Reason: Constipation) Rx Instructions: for no bowel movement in 3 days and no stool in rectum amlodipine 10 mg tablet 10 mg PO DAILY bisacodyl 10 mg Suppository 10 mg MS DAILY PRN (Reason: Constipation) Rx Instructions: for no bowel movement in 3 days and soft stool in rectum Fleet Enema 19-7 gram/118 mL Enema 118 ml MS DAILY PRN (Reason: Constipation) Rx Instructions: for no bowel movement in 3 days and hard stool in rectum docusate sodium 100 mg Capsule 100 mg PO BID aspirin 81 mg Tablet,Chewable 81 mg PO DAILY furosemide 20 mg Tablet 20 mg PO DAILY Patient Comments: TDD: 60 mg Prostat 30 ml PO DAILY Discharge Orders: Discharge Order (Routine); Ordered 10/12/23 Ordered By: Martell Butler Diet: Diabetic diet Activity on Discharge: As tolerated Stand Alone Forms: Patient Portal Discharge page Print Language: Ethiopian Care Plan Goals: Acute CHF resolved follow-up with pulmonology at [facility] for further workup for pulmonary nodule Hypoxia resolved Health Concerns: Continue all home medications Plan of Treatment: Outpatient follow-up with PCP in 7-10 days Assessment: as above
[2023-10-12 11:55] LABS: Glucose, Whole Blood 162 mg/dL (60-115)
[2023-10-12 12:00] VITALS: BP 137/66; PULSE 90; RESP 22; TEMP 36.4; O2SAT 92
[2023-10-12] MEDS: Enoxaparin Sodium 40 MG/0.4 ML SYRINGE SUBCUT (14:22)
--- NOTE | 2023-10-12 14:27 | PC.NURSE ---
report given to facility. giovanni howell/prabhued.
[2023-10-12 15:42] VITALS: PULSE 89; RESP 20; O2SAT 93
[2023-10-12 16:00] VITALS: BP 140/78; PULSE 88; RESP 18; TEMP 36.3; O2SAT 96
[2023-10-12 16:08] LABS: Glucose, Whole Blood 207 mg/dL (60-115)
== END 2023-10-12 17:25 | disposition skilled nursing facility (03) | DRG 193 ==
LOC: HO.ED 22:06 → HO.EDOVER 23:09 → HO.S3 10-02 18:03 → HO.EDOVER 10-02 20:18 → HO.IMC 10-03 00:49
PROVIDERS: Family Medicine; Internal Medicine; Admitting Provider Student in an Organized Health Care Education/Training Program; Emergency Provider Student in an Organized Health Care Education/Training Program; PCP Nurse Practitioner; Visit Provider Hospitalist
DX: J18.9 Pneumonia, unspecified organism (principal); I50.33 Acute on chronic diastolic (congestive) heart failure; J96.01 Acute respiratory failure with hypoxia; J44.0 Chronic obstructive pulmonary disease with (acute) lower respiratory infection; J44.1 Chronic obstructive pulmonary disease with (acute) exacerbation; J91.8 Pleural effusion in other conditions classified elsewhere; N17.9 Acute kidney failure, unspecified; I48.19 Other persistent atrial fibrillation; E87.0 Hyperosmolality and hypernatremia; I42.9 Cardiomyopathy, unspecified; I13.0 Hypertensive heart and chronic kidney disease with heart failure and stage 1 through stage 4 chronic kidney disease, or unspecified chronic kidney disease; Z66 Do not resuscitate; L89.156 Pressure-induced deep tissue damage of sacral region; L89.621 Pressure ulcer of left heel, stage 1; E11.22 Type 2 diabetes mellitus with diabetic chronic kidney disease; L89.611 Pressure ulcer of right heel, stage 1; N18.9 Chronic kidney disease, unspecified; I25.10 Atherosclerotic heart disease of native coronary artery without angina pectoris; Z95.1 Presence of aortocoronary bypass graft; E11.65 Type 2 diabetes mellitus with hyperglycemia; G20.A1 Parkinson's disease without dyskinesia, without mention of fluctuations; I27.20 Pulmonary hypertension, unspecified; R91.1 Solitary pulmonary nodule; D53.9 Nutritional anemia, unspecified; K90.0 Celiac disease; Z20.822 Contact with and (suspected) exposure to COVID-19; Z87.891 Personal history of nicotine dependence; Z79.82 Long term (current) use of aspirin; Z79.84 Long term (current) use of oral hypoglycemic drugs; Z79.899 Other long term (current) drug therapy
CPT/HCPCS: 0241U; 32555; 36415; 36600; 71045; 71250; 80048; 80053; 82042; 82803; 82945; 82947; 83036; 83605; 83615; 83735; 83880; 83986; 84157; 85014; 85018; 85025; 87040; 88112; 88305; 89051; 92526; 92610; 92950; 93005; 93306; 94660; 97162; 97530; 99285; C1758; J0456; J0696; J1650; J1939; J1940; J2270; J2543; J2919; P9047; Q9957

== ENCOUNTER → 2023-10-01 20:11 | Outpatient (BNV) | payer MEDICARE, SELFPAY | PROVIDERS: Admitting Provider Student in an Organized Health Care Education/Training Program; Emergency Provider Student in an Organized Health Care Education/Training Program; Visit Provider Internal Medicine Cardiovascular Disease | DX: R94.31 Abnormal electrocardiogram [ECG] [EKG] (principal) | CPT/HCPCS: 93010 ==

== ENCOUNTER 2023-10-01 23:06 | Outpatient (BNV) | payer MEDICARE, SELFPAY | END 2023-10-03 07:00 | PROVIDERS: Admitting Provider Student in an Organized Health Care Education/Training Program; Emergency Provider Student in an Organized Health Care Education/Training Program; Visit Provider Internal Medicine | DX: I27.20 Pulmonary hypertension, unspecified (principal); I50.9 Heart failure, unspecified; I36.1 Nonrheumatic tricuspid (valve) insufficiency | CPT/HCPCS: 93306 ==

== ENCOUNTER 2023-10-01 23:06 | Outpatient (BNV) | payer MEDICARE, SELFPAY | END 2023-10-05 14:06 | PROVIDERS: Admitting Provider Student in an Organized Health Care Education/Training Program; Emergency Provider Student in an Organized Health Care Education/Training Program; PCP Nurse Practitioner; Visit Provider Physician Assistant Surgical | DX: J90 Pleural effusion, not elsewhere classified (principal) | CPT/HCPCS: 32555 ==

== ENCOUNTER → 2023-10-01 23:06 | Outpatient (BNV) | payer MEDICARE, SELFPAY | PROVIDERS: Admitting Provider Student in an Organized Health Care Education/Training Program; Emergency Provider Student in an Organized Health Care Education/Training Program; Visit Provider Internal Medicine | DX: J96.01 Acute respiratory failure with hypoxia (principal); I48.19 Other persistent atrial fibrillation | CPT/HCPCS: 99223; 99233 ==

== ENCOUNTER → 2023-10-01 23:06 | Outpatient (BNV) | payer MEDICARE, SELFPAY | PROVIDERS: Admitting Provider Student in an Organized Health Care Education/Training Program; Emergency Provider Student in an Organized Health Care Education/Training Program; Visit Provider Student in an Organized Health Care Education/Training Program | DX: I50.9 Heart failure, unspecified (principal); J96.01 Acute respiratory failure with hypoxia | CPT/HCPCS: 99223; 99231; 99232; 99233; 99239; 99499 ==

== ENCOUNTER → 2023-10-01 23:06 | Outpatient (BNV) | payer MEDICARE, SELFPAY | PROVIDERS: Admitting Provider Student in an Organized Health Care Education/Training Program; Emergency Provider Student in an Organized Health Care Education/Training Program; PCP Nurse Practitioner; Visit Provider Internal Medicine Pulmonary Disease | DX: J90 Pleural effusion, not elsewhere classified (principal); R91.1 Solitary pulmonary nodule; I50.9 Heart failure, unspecified; J96.01 Acute respiratory failure with hypoxia | CPT/HCPCS: 99222; 99232; 99233 ==

== ENCOUNTER 2023-10-14 06:53 | Outpatient (REF) | payer MEDICARE, SELFPAY ==
[2023-10-14 06:57] LABS: MANUAL DIFF FLAG NO
[2023-10-14 07:24] LABS: Basophils Percent Auto 0.1 % (0-2); Eosinophils Absolute Auto 0.3 X10*3/uL (0.0-0.4); Eosinophils Percent Auto 2.6 % (0-4); Hematocrit 37.2 % (42.0-52.0); Hemoglobin 12.1 g/dl (14.0-18.0); Imm Gran Abs Auto 0.08 X10*3/uL (0.00-0.03); Imm Gran Pct Auto 0.8 % (0.0-0.4); Lymphocytes Absolute Auto 0.6 X10*3/uL (1.2-4.9); Lymphocytes Percent Auto 6.4 % (20-40); Mean Corpuscular HGB Conc 32.5 g/dl (31.0-36.0); Mean Corpuscular Hemoglobin 33.9 pg (27.0-33.0); Mean Corpuscular Volume 104.2 fL (80.0-98.0); Mean Platelet Volume 12.8 fL (9.4-12.4); Monocytes Absolute Auto 0.8 X10*3/uL (0.1-1.2); Monocytes Percent Auto 8.3 % (2-11); Neutrophils Absolute Auto 8.1 x10*3/uL (2.0-8.3); Neutrophils Percent Auto 81.8 % (45-73); Platelet Count 104 X10*3/uL (160-400); Red Blood Count 3.57 X10*6/uL (4.60-5.80); Red Cell Distribution Width 13.2 % (11.0-16.0)
[2023-10-14 07:41] LABS: Alanine Aminotransferase 5 U/L (0-40); Albumin Level 3.2 g/dL (3.5-5.0); Alkaline Phosphatase 97 U/L (39-117); Anion Gap 13 (12-20); Aspartate Amino Transferase 17 U/L (5-37); Bilirubin Total 1.1 mg/dL (0.0-1.0); Blood Urea Nitrogen 35 mg/dL (9-16); Calcium 8.8 mg/dL (8.4-10.2); Carbon Dioxide 29 mmol/L (22-29); Chloride 108 mmol/L (96-108); Estimated Glomerular Filt Rate > 60; Glucose Random 216 mg/dL (60-115); Potassium 4.2 mmol/L (3.3-5.1); Sodium 146 mmol/L (135-145); Total Protein 5.8 g/dL (6.5-8.0)
== END 2023-10-14 06:54 | disposition home or self-care (01) ==
LOC: HO.HSH3W 06:53
PROVIDERS: Visit Provider Nurse Practitioner
DX: N18.9 Chronic kidney disease, unspecified (principal); J18.9 Pneumonia, unspecified organism
CPT/HCPCS: 36415; 80053; 85025

== ENCOUNTER 2023-10-18 05:30 | Outpatient (REF) | payer MEDICARE, SELFPAY ==
[2023-10-18 06:57] LABS: Anion Gap 11 (12-20); Blood Urea Nitrogen 34 mg/dL (9-16); Carbon Dioxide 29 mmol/L (22-29); Chloride 108 mmol/L (96-108); Estimated Glomerular Filt Rate > 60; Glucose Random 156 mg/dL (60-115); Iron 27 mcg/dL (45-160); Percent Iron Saturation 14 % (15-50); Sodium 144 mmol/L (135-145); Total Iron Binding Capacity 191 mcg/dL (228-428); Unsaturated Iron Binding 164 ug/dL
[2023-10-18 07:14] LABS: Ferritin 130 ng/mL (20-250)
[2023-10-18 07:29] LABS: Vitamin B12 465 pg/mL (200-900)
== END 2023-10-18 05:31 | disposition home or self-care (01) ==
LOC: HO.HSH3W 05:30
PROVIDERS: Visit Provider Nurse Practitioner
DX: D64.9 Anemia, unspecified (principal)
CPT/HCPCS: 36415; 80048; 82607; 82728; 82746; 83540

== ENCOUNTER 2023-10-29 06:07 | Inpatient (IN) | payer MEDICARE, SELFPAY ==
[2023-10-29] VITALS (12 sets, daily range): BP systolic 81–153; BP diastolic 54–80; PULSE 85–94; RESP 14–24; TEMP 36.2–37.4; O2SAT 89–98; BMI 29.5; BMI 29.2
--- NOTE | ~2023-10-29 | XR_ITS ---
EXAMINATION: XR CHEST CLINICAL INFORMATION: Shortness of breath. COMPARISON: 10/10/2023 TECHNIQUE: Frontal view of the chest was obtained. FINDINGS: Sternal wires and EKG leads overlie the chest. Moderate-sized left and small right pleural effusions appear more pronounced as compared to prior. Cardiac silhouette is unchanged, partially obscured by the effusions. There is thickening of the peribronchial vascular interstitium which appears more pronounced as compared to prior and is most consistent with pulmonary venous congestion and interstitial edema. No pneumothorax. Bibasilar opacities likely correspond to atelectasis, the left lower lobe consolidation cannot be excluded. No acute osseous findings. Degenerative disc disease is present in the thoracic spine. Osteoarthritis is present in the acromioclavicular and glenohumeral joints. XR/XR chest 1V IMPRESSION: 1. Pulmonary venous congestion and interstitial edema with moderate-sized left and small right pleural effusions, increased as compared to prior. 2. Bibasilar atelectasis. Left lower lobe consolidation cannot be excluded.
--- NOTE | 2023-10-29 06:24 | ECG_ITS ---
Test Reason : SOB Blood Pressure : / mmHG Vent. Rate : 082 BPM Atrial Rate : 000 BPM P-R Int : 000 ms QRS Dur : 090 ms QT Int : 380 ms P-R-T Axes : 000 -04 238 degrees QTc Int : 443 ms Atrial fibrillation Low voltage QRS Cannot rule out Anteroseptal infarct (cited on or before 01-OCT-2023) Abnormal ECG When compared with ECG of 01-OCT-2023 20:11, No significant change was found Referred By: Justice Fink Electronically Signed By:MARYLU DIALLO
[2023-10-29 06:35] LABS: MANUAL DIFF FLAG NO
[2023-10-29 06:37] LABS: Venous Blood Gas Refer to POC result
[2023-10-29 06:41] LABS: Basophils Percent Auto 0.4 % (0-2); Eosinophils Absolute Auto 0.1 X10*3/uL (0.0-0.4); Eosinophils Percent Auto 1.2 % (0-4); Hematocrit 34.4 % (42.0-52.0); Hemoglobin 11.1 g/dl (14.0-18.0); Imm Gran Abs Auto 0.03 X10*3/uL (0.00-0.03); Imm Gran Pct Auto 0.4 % (0.0-0.4); Lymphocytes Absolute Auto 0.5 X10*3/uL (1.2-4.9); Lymphocytes Percent Auto 6.3 % (20-40); Mean Corpuscular HGB Conc 32.3 g/dl (31.0-36.0); Mean Corpuscular Hemoglobin 34.4 pg (27.0-33.0); Mean Corpuscular Volume 106.5 fL (80.0-98.0); Mean Platelet Volume 12.1 fL (9.4-12.4); Monocytes Absolute Auto 0.6 X10*3/uL (0.1-1.2); Monocytes Percent Auto 7.6 % (2-11); Neutrophils Absolute Auto 6.8 x10*3/uL (2.0-8.3); Neutrophils Percent Auto 84.1 % (45-73); Platelet Count 132 X10*3/uL (160-400); Red Blood Count 3.23 X10*6/uL (4.60-5.80); Red Cell Distribution Width 14.5 % (11.0-16.0); VBG Base Excess 1.4 mmol/L; VBG HCO3 26 mmol/L (22-26); VBG pCO2 43 mmHg; VBG pH 7.38 (7.32-7.43); VBG pO2 58 mmHg; White Blood Count 8.1 X10*3/uL (4.8-10.8)
[2023-10-29] MEDS: cefTRIAXone sodium 1 GM in 0.9 % Sodium Chloride 50 ML IV (06:42)
[2023-10-29] MEDS: 0.9 % Sodium Chloride 1,000 ML 125 ML IVCONT (06:42)
--- NOTE | 2023-10-29 06:42 | PC.NURSE ---
[facility], a&ox4 at baseline. staff found pt early this morning sating 72% on room air, placed pt on 6L nasal cannula and called ems. on ems arrival, pt 90%, ems placed pt 15L non rebreather. on arrival to the ed pt had labored breathing, respiratory at bedside placing pt on 2L oxy max. pt meeting sepsis criteria with hypotension and febrile; pt given tylenol prior to arrival. sepsis alert called. bilateral 18G placed in forearms, labs obtained and sent to lab. pt reporting back pain at this time. Iv fluids administered per jun, antibiotics hung.
[2023-10-29 06:43] LABS: Appearance Urine Clear; Color Urine Yellow; Glucose Urine UA Negative (Negative); Leukocyte Esterase Urine Small (1+) (Negative); Nitrite Urine Negative (Negative); Specific Gravity - Urine 1.015 (1.005-1.025); UMIC TRIGGER UACC YES; Urine Blood Negative (Negative); Urine Ketones Negative (Negative); Urine Protein Negative (Neg-Trace)
[2023-10-29 06:48] LABS: Lactic Acid 1.1 mmol/L (0.5-2.0)
[2023-10-29 06:48] LABS: INTERNATIONAL NORM RATIO 1.4 (0.9-1.1); Prothrombin Time 16.5 SEC (11.1-13.3)
[2023-10-29 06:50] LABS: Partial Thromboplastin Time 55.9 SEC (26.0-36.8)
[2023-10-29 06:54] LABS: Bacteria Urine None Seen (None Seen); Hyaline Casts Urine >20 /LPF (0-2); RBC Urine 0-2 /HPF (0-2); Squamous Epithelial Cell Urine 0-2 /HPF (0-2); UACC Culture Trigger YES
[2023-10-29 06:56] LABS: Troponin-I High Sensitivity 3.2 ng/L (<3.5-35.0)
[2023-10-29 06:58] LABS: Alanine Aminotransferase < 5 U/L (0-40); Albumin Level 3.5 g/dL (3.5-5.0); Alkaline Phosphatase 136 U/L (39-117); Anion Gap 14 (12-20); Aspartate Amino Transferase 20 U/L (5-37); Bilirubin Total 0.5 mg/dL (0.0-1.0); Blood Urea Nitrogen 53 mg/dL (9-16); Calcium 8.4 mg/dL (8.4-10.2); Carbon Dioxide 25 mmol/L (22-29); Chloride 107 mmol/L (96-108); Creatinine Clr Calc Pharmacy 44.6; Estimated Glomerular Filt Rate 42; Glucose Random 132 mg/dL (60-115); Magnesium 2.2 mg/dL (1.6-2.6); Sodium 141 mmol/L (135-145); Total Protein 6.1 g/dL (6.5-8.0)
[2023-10-29 07:01] LABS: B Type Natriuretic Peptide 760 pg/mL (<100)
--- NOTE | 2023-10-29 07:16 | ED_ITS ---
HPI - SOB/Dyspnea General Chief Complaint: Dyspnea Stated Complaint: SOB Time Seen by Provider: 10/29/23 07:10 Source: patient, family () and EMS Mode of arrival: EMS Limitations: no limitations History of Present Illness ED Provider: DR. Peralta HPI Narrative: 83-year-old male with pertinent history of CHF unspecified EF, paroxysmal AFib no AC, non insulin-dependent DM, Parkinson's disease, HTN for evaluation of shortness of breath. Patient woke up from sleep with difficulty breathing found to be hypoxic at 72% at custodial. On arrival to the ED patient is still in apparent mild respiratory distress, O2 sat is 90% with face mask. Bilateral extremity swelling, PND. No fever, no chills, no nausea, no vomiting, no CP, no abdominal pain, no change in urinary or bowel habits. Related Data Home Medications ?Medication ?Instructions ?Recorded ?Confirmed carbidopa 25 mg-levodopa 100 mg 2 tab PO 5XD 05/01/21 10/02/23 tablet doxazosin 4 mg tablet 1 tab PO BEDTIME 05/01/21 10/02/23 simvastatin 20 mg tablet 1 tab PO BEDTIME 05/01/21 10/02/23 multivitamin 1 tab PO DAILY 02/14/22 10/02/23 Prostat 30 ml PO DAILY 10/02/23 10/02/23 acetaminophen 325 mg tablet 650 mg PO Q4H PRN pain or fever 10/02/23 10/02/23 amlodipine 10 mg tablet 10 mg PO DAILY 10/02/23 10/02/23 aspirin 81 mg chewable tablet 81 mg PO DAILY 10/02/23 10/02/23 bisacodyl 10 mg rectal suppository 10 mg SC DAILY PRN Constipation 10/02/23 10/02/23 docusate sodium 100 mg capsule 100 mg PO BID 10/02/23 10/02/23 famotidine 20 mg tablet 20 mg PO BID PRN Heartburn 10/02/23 10/02/23 furosemide 20 mg tablet 20 mg PO DAILY 10/02/23 10/02/23 furosemide 40 mg tablet 40 mg PO DAILY 10/02/23 10/02/23 isosorbide mononitrate 30 mg 30 mg PO DAILY 10/02/23 10/02/23 tablet,extended release 24 hr magnesium hydroxide 400 mg/5 mL 30 ml PO DAILY PRN Constipation 10/02/23 10/02/23 oral suspension (Milk of Magnesia) metformin 500 mg tablet 500 mg PO BID 10/02/23 10/02/23 sodium phosphates 19 gram-7 118 ml SC DAILY PRN Constipation 10/02/23 10/02/23 gram/118 mL enema (Fleet Enema) Allergies Allergy/AdvReac Type Severity Reaction Status Date / Time No Known Allergies Allergy Verified 10/29/23 06:22 [No Known Allergies*] Review of Systems 2 Review of Systems: All other systems are reviewed and are negative Constitutional: Reports as per HPI and Reports no additional constitutional complaints Eyes: Reports as per HPI and Reports no additional eye complaints Reports system reviewed and no additional complaints, except as documented Cardiovascular: Reports as per HPI and Reports no additional cardiovascular complaints Respiratory: Reports as per HPI and Reports no additional respiratory complaints Gastrointestinal: Reports as per HPI and Reports no additional gastrointestinal complaints Genitourinary: Reports no additional female genitourinary complaints Musculoskeletal: Reports no additional musculoskeletal complaints Skin/Breast: Reports system reviewed and no additional complaints, except as docu Psychiatric: Reports no additional psychiatric complaints Endocrine: Reports no additional endocrine complaints Hematologic/Lymphatic: Reports no additional hematologic/lymphatic complaints Allergic/Immunologic: Reports no additional allergic/immunologic complaints Reports system reviewed and no additional complaints, except as documented and Reports Abnormal speech present [facility] Past Medical History Medical History Persistent atrial fibrillation Physical deconditioning Atrial fibrillation Diabetes CHF (congestive heart failure) Celiac disease Basal cell carcinoma Spinal stenosis Parkinson disease Surgical History S/P triple vessel bypass Family History Family History Mother Valvular heart disease Social History Social History Household Members: Other Housing: [facility] Do you presently have visiting nurse or other home services: No (Resides at [place]) Alcohol intake: current Alcohol intake frequency: holidays/special occasions only Alcohol type: wine Patient Tobacco Use Status: Former Tobacco user Smoked in Last 30 Days: No Second Hand Smoke Exposure: No Use of substances other than those prescribed or required for medical reasons: No Advance Directives: Yes Advance Directives Information Provided: No Advance Directives on File: Yes Advance Directives Date on File: 05/05/21 Do you have a plan to hurt others: No Plan service: Yes Current occupational status: retired Physical Exam 2 Vital Signs: Vital Signs: Last Vital Signs Temp 99.3 F 10/29/23 06:11 Pulse 85 10/29/23 07:42 Resp 21 H 10/29/23 07:42 BP 119/65 10/29/23 07:42 Pulse Ox 95 10/29/23 07:42 O2 Del Method Oxymask 10/29/23 07:42 O2 Flow Rate 2 10/29/23 07:42 BMI result Body Mass Index 29.5 Vital signs have been reviewed and appear to be correct. Blood pressure elevated. Heart rate normal. Respiratory rate normal. Temperature normal. Oxygen saturation low. Appearance: Alert. Oriented X3. Mild acute respiratory distress. Head: Normal external exam. Normocephalic. Atraumatic. No Khoury signs noted. No raccoon eyes noted Eyes: PERRLA. EOMI. Conjunctiva and sclera normal. Eyelids normal. ENT: TM's Normal. Pharynx normal. Uvula midline. Moist mucous membranes. No trismus noted. No drooling noted. No muffled voice noted. Neck: Normal inspection. Neck supple. FROM. No adenopathy. Thyroid Normal. No meningeal signs. No neck mass noted. CVS: Normal heart rate and rhythm. Heart sound normal. No murmurs noted. Pulses normal throughout. Respiratory: Mild respiratory distress. Painless inspiration. Breath sounds normal. No wheezes/rales/rhonchi noted. Chest nontender. No accessory muscle usage noted or decreased air movement noted. Abdomen: Soft and nontender. Bowel sounds normal in all 4 quadrants. No distention noted. No organomegaly noted. No visible injury noted. Back: No CVA tenderness. Full range of motion noted. Skin: Skin warm and dry. Normal skin color. Normal skin turgor. No rashes/lesions/lacerations noted. Extremities: +2 lower extremity edema bilaterally. Extremities exhibit normal range of motion. Extremities nontender. Neuro: Oriented X 3. Cranial nerve exam: II-XII are grossly intact No motor deficit. No sensory deficit. Reflexes normal. Course Reevaluation(s) Reevaluation #1: Breathing and O2 sat has improved with Lasix. Patient was seen by previous ED provider and was given fluids and ceftriaxone which I would discontinue. Continue with diuresis and OxyMask for oxygenation. Time: 08:03 Medications Administered Generic Name Dose Route Start Last Admin Trade Name Freq PRN Reason Stop Dose Admin Sodium Chloride 1,000 mls @ 125 mls/hr 10/29/23 06:30 10/29/23 06:42 Ns IVCONT 125 mls/hr .Q8H MADALYN Administration Discontinued Medications Generic Name Dose Route Start Last Admin Trade Name Freq PRN Reason Stop Dose Admin Furosemide 40 mg 10/29/23 07:19 10/29/23 07:36 Furosemide 40 Mg/4 Ml Vial IVPUSH 10/29/23 07:20 40 mg ONCE ONE Administration Protocol Ceftriaxone Sodium 1 gm/ 50 mls @ 100 mls/hr 10/29/23 06:30 10/29/23 07:17 Sodium Chloride IV 10/29/23 06:59 Infused ONCE ONE Infusion Medical Decision Making Differential Diagnosis Differential Diagnoses: The differential diagnosis associated with the presentation includes (Pneumonia, pneumothorax, pleural effusion, CHF, ACS, electrolyte derangement, severe anemia.) Admission/Observation Consideration of admission/observation: Escalation of care including admission/observation considered Consult Healthcare Provider Management of the patient was discussed with: Hospitalist (Dr. Lanza) Lab Data MDM Lab Attestation statement: I reviewed the patient's lab results. 10/29/23 06:33 10/29/23 06:29 Labs: Lab Results 10/29/23 10/29/23 10/29/23 Range/Units 06:29 06:33 06:34 WBC 8.1 (4.8-10.8) X10*3/uL RBC 3.23 L (4.60-5.80) X10*6/uL Hgb 11.1 L (14.0-18.0) g/dl Hct 34.4 L (42.0-52.0) % MCV 106.5 H (80.0-98.0) fL MCH 34.4 H (27.0-33.0) pg MCHC 32.3 (31.0-36.0) g/dl RDW 14.5 (11.0-16.0) % Plt Count 132 L D (160-400) X10*3/uL MPV 12.1 (9.4-12.4) fL Immature Gran % (Auto) 0.4 (0.0-0.4) % Neut % (Auto) 84.1 H (45-73) % Lymph % (Auto) 6.3 L (20-40) % [place] % (Auto) 7.6 (2-11) % Eos % (Auto) 1.2 (0-4) % Baso % (Auto) 0.4 (0-2) % Lymph # (Auto) 0.5 L (1.2-4.9) X10*3/uL [place] # (Auto) 0.6 (0.1-1.2) X10*3/uL Eos # (Auto) 0.1 (0.0-0.4) X10*3/uL Baso # (Auto) 0.0 (0.0-0.2) X10*3/uL Abs Immat Gran (auto) 0.03 (0.00-0.03) X10*3/uL Absolute Neuts (auto) 6.8 (2.0-8.3) x10*3/uL Absolute Nucleated RBC 0.000 (0.0-0.012) X10*3/uL Nucleated RBC % (auto) 0.0 (0.0-0.2) /100WBC PT 16.5 H (11.1-13.3) SEC INR 1.4 H (0.9-1.1) APTT 55.9 H (26.0-36.8) SEC VBG pH 7.38 (7.32-7.43) VBG pCO2 43 mmHg VBG pO2 58 mmHg VBG HCO3 26 (22-26) mmol/L VBG O2 Saturation 90.0 % VBG Base Excess 1.4 mmol/L Sodium 141 (135-145) mmol/L Potassium 5.0 D (3.3-5.1) mmol/L Chloride 107 (96-108) mmol/L Carbon Dioxide 25 (22-29) mmol/L Anion Gap 14 (12-20) BUN 53 H (9-16) mg/dL Creatinine 1.58 H (0.5-1.4) mg/dL Estim Creat Clear Calc 44.6 Estimated GFR 42 Random Glucose 132 H (60-115) mg/dL Lactic Acid 1.1 (0.5-2.0) mmol/L Calcium 8.4 (8.4-10.2) mg/dL Magnesium 2.2 (1.6-2.6) mg/dL Total Bilirubin 0.5 (0.0-1.0) mg/dL AST 20 (5-37) U/L ALT < 5 (0-40) U/L Alkaline Phosphatase 136 H (39-117) U/L Troponin I High Sens 3.2 (<3.5-35.0) ng/L B-Natriuretic Peptide 760 H (<100) pg/mL Total Protein 6.1 L (6.5-8.0) g/dL Albumin 3.5 (3.5-5.0) g/dL Urine Color Yellow Urine Appearance Clear Urine pH 5.0 (5.0-9.0) Ur Specific [place] 1.015 (1.005-1.025) Urine Protein Negative (Neg-Trace) mg/dL Urine Glucose (UA) Negative (Negative) mg/dL Urine Ketones Negative (Negative) mg/dL Urine Blood Negative (Negative) Urine Nitrite Negative (Negative) Ur Leukocyte Esterase Small (1+) H (Negative) Urine RBC 0-2 (0-2) /HPF Urine WBC 6-10 H (0-5) /HPF Ur Squamous Epith Cells 0-2 (0-2) /HPF Urine Bacteria None Seen (None Seen) Hyaline Casts >20 (0-2) /LPF Urine Yeast Present Influenza Type A (PCR) NEGATIVE (Negative) Influenza Type B (PCR) NEGATIVE (Negative) RSV RNA Qual (PCR) NEGATIVE (Negative) SARS-CoV-2 RNA (RT-PCR) NEGATIVE (Negative) Independent Interpretation I performed an independent interpretation of an: EKG (AFib at 82 beats per minutes, otherwise normal intervals, no change from previous EKG.) and Plain X- Ray (Chest:1. Pulmonary venous congestion and interstitial edema with moderate- sized left and small right pleural effusions, increased as compared to prior. 2. Bibasilar atelectasis. Left lower lobe consolidation cannot be excluded. ) Radiology Impression Discussion of test interpretation with radiology: I have reviewed the radiologist's reading. Chronic Conditions Patient?s care impacted by: Other (Congestive heart failure) Discharge Plan Discharge Clinical Impression: Congestive heart failure Patient Disposition: Admitted As Inpatient Print Language: Portuguese
[2023-10-29 07:17] LABS: Influenza A PCR NEGATIVE (Negative); Influenza B PCR NEGATIVE (Negative); Resp Syncy Virus RNA Qual PCR NEGATIVE (Negative); SARS COV2 PCR INHOUSE NEGATIVE (Negative)
[2023-10-29] MEDS: Furosemide 40 MG/4 ML VIAL IVPUSH ×2 (07:36→16:14)
--- NOTE | 2023-10-29 08:10 | PC.NURSE ---
Pt repositioned frequently for comfort, pt moves frequently at baseline due to Parkinsons per family. SPO2 maintaining 90-95% on 2L Oxymask
--- NOTE | 2023-10-29 08:51 | PC.NURSE ---
Fluids DC per admitting MD.
--- NOTE | 2023-10-29 08:57 | P.HPHOSP_ITS ---
History of Present Illness Date of Service: 10/29/23 Chief Complaint: Hypoxia, SOB An 83-year-old male with a history of congestive heart failure with preserved ejection fraction (HFpEF), recent echocardiogram (10/03/23) showing an EF of 50- 55%, permanent atrial fibrillation not on anticoagulation, agm-yqkttbu-sbnjusrdu diabetes mellitus, Parkinson's disease, and hypertension presented from the [facility] facility for evaluation of acute hypoxic respiratory failure. Recent hospitalization from 09/30 to 10/03/23 for cardiorenal syndrome, dehydration. He was found to be severely hypoxic with an oxygen saturation [id number] 72% on room air, which increased to 90% after administration of 6 L/min by nasal cannula and further to 96% after 15 L/min by non-rebreather mask (NRB). The patient reported experiencing some back pain but did not have shortness of breath. He exhibited significant leg edema. Laboratory and imaging results showed an elevated creatinine, chest X-ray (CXR) indicating pulmonary vascular congestion and bilateral effusions, a BNP level of 760, and a normal arterial blood gas (ABG). In the Emergency Department (ED), he was initially given intravenous fluids (IVF), which were then stopped, and subsequently received intravenous Lasix (Furosemide). The patient appeared more comfortable following this treatment. Review of Systems 2 Review of Systems: Gen: no fever Resp: + sob, no cough CV: no chest, not able to assess R[place]HAWA, + leg edema GI: No n/v, no abd pain Neuro: some confusion (baseline) Yes all other systems are reviewed and are negative [facility] Medical History Pulmonary nodule 1 cm or greater in diameter Persistent atrial fibrillation Physical deconditioning Atrial fibrillation Diabetes CHF (congestive heart failure) Celiac disease Basal cell carcinoma Spinal stenosis Parkinson disease Family History Mother Valvular heart disease Surgical History S/P triple vessel bypass Social History Household Members: Other Housing: Alf Do you presently have visiting nurse or other home services: No (Resides at [facility]) Alcohol intake: current Alcohol intake frequency: holidays/special occasions only Alcohol type: wine Patient Tobacco Use Status: Former Tobacco user Smoked in Last 30 Days: No Second Hand Smoke Exposure: No Use of substances other than those prescribed or required for medical reasons: No Advance Directives: Yes Advance Directives Information Provided: No Advance Directives on File: Yes Advance Directives Date on File: 05/05/21 Do you have a plan to hurt others: No Plan service: Yes Current occupational status: retired [employer] Allergies Allergy/AdvReac Type Severity Reaction Status Date / Time No Known Allergies Allergy Verified 10/29/23 06:22 [No Known Allergies*] Home Medications ?Medication ?Instructions ?Recorded ?Confirmed ?Last Taken ?Type carbidopa 25 mg-levodopa 100 mg 2 tab PO 5XD 05/01/21 10/02/23 10/01/23 18:00 History tablet doxazosin 4 mg tablet 1 tab PO BEDTIME 05/01/21 10/02/23 10/01/23 17:00 History simvastatin 20 mg tablet 1 tab PO BEDTIME 05/01/21 10/02/23 10/01/23 17:00 History multivitamin 1 tab PO DAILY 02/14/22 10/02/23 10/01/23 09:00 History Prostat 30 ml PO DAILY 10/02/23 10/02/23 10/01/23 09:00 History acetaminophen 325 mg tablet 650 mg PO Q4H PRN pain or fever 10/02/23 10/02/23 10/01/23 History amlodipine 10 mg tablet 10 mg PO DAILY 10/02/23 10/02/23 09/30/23 21:00 History aspirin 81 mg chewable tablet 81 mg PO DAILY 10/02/23 10/02/23 10/01/23 09:00 History bisacodyl 10 mg rectal suppository 10 mg ID DAILY PRN Constipation 10/02/23 10/02/23 Unknown History docusate sodium 100 mg capsule 100 mg PO BID 10/02/23 10/02/23 10/01/23 09:00 History famotidine 20 mg tablet 20 mg PO BID PRN Heartburn 10/02/23 10/02/23 Unknown History furosemide 20 mg tablet 20 mg PO DAILY 10/02/23 10/02/23 10/01/23 09:00 History furosemide 40 mg tablet 40 mg PO DAILY 10/02/23 10/02/23 10/01/23 09:00 History isosorbide mononitrate 30 mg 30 mg PO DAILY 10/02/23 10/02/23 10/01/23 09:00 History tablet,extended release 24 hr magnesium hydroxide 400 mg/5 mL 30 ml PO DAILY PRN Constipation 10/02/23 10/02/23 Unknown History oral suspension (Milk of Magnesia) metformin 500 mg tablet 500 mg PO BID 10/02/23 10/02/23 10/01/23 17:00 History sodium phosphates 19 gram-7 118 ml ID DAILY PRN Constipation 10/02/23 10/02/23 Unknown History gram/118 mL enema (Fleet Enema) Physical Exam 2 Vital Signs and Narrative: Vital Signs: Last Vital Signs Temp 98.9 F 10/29/23 08:20 Pulse 86 10/29/23 08:20 Resp 14 10/29/23 08:20 BP 120/75 10/29/23 08:20 Pulse Ox 93 10/29/23 08:20 O2 Del Method Oxymask 10/29/23 08:20 O2 Flow Rate 3 10/29/23 08:20 BMI result Body Mass Index 29.5 Const: Other: Constitutional: Alert, in no distress, constantly moving ( says that is part of parkinson) Mental Status: Oriented to self, says he is at [facility] Eyes: Pupils are equal, round and reactive to light. Ear, Nose and Throat: Oropharynx clear, mucous membranes moist. Ears and nose without eformities. Trachea midline. Respiratory: decrease breath sounds at bases Cardiovascular: S1 S2, iregular iregular. No murmurs, rubs or gallops. 2+ leg edema Gastrointestinal: Abdomen soft, non-tender, non-distended. Normal bowel sounds.? Neurologic: Cranial nerves II-XII grossly intact. No focal neurological deficits. Moves all extremities spontaneously, parkinsonian movments Skin: No rashes or lesions.? Musculoskeletal: No cyanosis or clubbing. Psychiatric: flat affect Results Labs 10/29/23 06:33 10/29/23 06:29 Labs: Laboratory Results - last 24 hr 10/29/23 10/29/23 10/29/23 06:29 06:33 06:34 MCV 106.5 H MCH 34.4 H MCHC 32.3 RDW 14.5 Plt Count 132 L D MPV 12.1 Immature Gran % (Auto) 0.4 Neut % (Auto) 84.1 H Lymph % (Auto) 6.3 L [place] % (Auto) 7.6 Eos % (Auto) 1.2 Baso % (Auto) 0.4 Lymph # (Auto) 0.5 L [place] # (Auto) 0.6 Eos # (Auto) 0.1 Baso # (Auto) 0.0 Abs Immat Gran (auto) 0.03 Absolute Neuts (auto) 6.8 Absolute Nucleated RBC 0.000 Nucleated RBC % (auto) 0.0 PT 16.5 H INR 1.4 H APTT 55.9 H VBG pH 7.38 VBG pCO2 43 VBG pO2 58 VBG HCO3 26 VBG O2 Saturation 90.0 VBG Base Excess 1.4 Anion Gap 14 Estim Creat Clear Calc 44.6 Estimated GFR 42 Random Glucose 132 H Lactic Acid 1.1 Calcium 8.4 Magnesium 2.2 Total Bilirubin 0.5 AST 20 ALT < 5 Alkaline Phosphatase 136 H Troponin I High Sens 3.2 B-Natriuretic Peptide 760 H Total Protein 6.1 L Albumin 3.5 Urine Color Yellow Urine Appearance Clear Urine pH 5.0 Ur Specific [place] 1.015 Urine Protein Negative Urine Glucose (UA) Negative Urine Ketones Negative Urine Blood Negative Urine Nitrite Negative Ur Leukocyte Esterase Small (1+) H Urine RBC 0-2 Urine WBC 6-10 H Ur Squamous Epith Cells 0-2 Urine Bacteria None Seen Hyaline Casts >20 Urine Yeast Present Influenza Type A (PCR) NEGATIVE Influenza Type B (PCR) NEGATIVE RSV RNA Qual (PCR) NEGATIVE SARS-CoV-2 RNA (RT-PCR) NEGATIVE Imaging Radiologist's Impressions: Impressions Chest X-Ray 10/29/23 06:50 IMPRESSION: 1. Pulmonary venous congestion and interstitial edema with moderate-sized left and small right pleural effusions, increased as compared to prior. 2. Bibasilar atelectasis. Left lower lobe consolidation cannot be excluded. Assessment and Plan (1) Congestive heart failure: Status: Acute (2) Pleural effusion, bilateral: Status: Acute Plan 83/m with HFpEF, PAF not anticoagulated, tyn-[id number]-[id number] diabetes mellitus, Parkinson's disease, hypertension being admitted for acute hypoxic resp failure due to acute exacerbation of CHF Acute hypoxemic respiratory failure d/t CHF, -Oxygen to keep O2 sat 92 to 94 -treat underlying CHF and P,. effusion Acute exacerbation HFpEF -IV Lasix -Monitor I/O, weight -low salt diet -consider cardiology consult PAF--not anticoagulated, rate seems to be controlled,. says he has had major bleding in past on coumadin KEE on CKD--likely due to cardiorenal syndrome, diurese and monito bmp Hypertension: resume home med after med rec Parkinson's disease: continue Sinemet home dose. Boi-tcndjiz-fnfkwgind diabetes mellitus, no hyperglycemia. Add SSI, hold metformin in light of KEE, diabetic diet. HLD--statin DVT prophylaxis: heparin DNR/DNI. Admission for at least 2 midnights for management of KEE, acute heart failure with diuretics, and hypoxia needing O2 Quality Stroke Does the patient have a stroke diagnosis?: No VTE Prior VTE?: No VTE Risk Level:: Medical - moderate - high VTE Device Contraindication: N/A - Device Ordered VTE Drug Contraindication: N/A - Med Ordered
--- NOTE | 2023-10-29 09:24 | PC.NURSE ---
Pt placed into hospital bed and repositioned, pt reports feeling more comfortable. Pt incontinent of urine and stool, cleaned. Provider alerted, pt unable to use urinal or commode.
--- NOTE | 2023-10-29 09:55 | PHA.MEDREC ---
Pharmacy Consult ? Medication Reconciliation Pharmacy has completed the medication reconciliation. List faxed from [facility]
[2023-10-29] MEDS: Heparin Sodium,Porcine 5,000 UNIT/ML VIAL 5000 UNIT SUBCUT ×2 (11:19→16:14)
[2023-10-29] MEDS: Acetaminophen 325 MG TABLET 650 MG PO (11:45)
--- NOTE | 2023-10-29 11:47 | PC.NURSE ---
16g Solis cath placed, tolerated well. Immediate urine output of 600 mL clear yellow urine. Pt requested tyelnol for chronic lower back and left hip pain. Per MD order ok to go outside of pain scale and try tylenol first.
[2023-10-29 12:46] LABS: Glucose, Whole Blood 117 mg/dL (60-115)
[2023-10-29 16:05] LABS: Glucose, Whole Blood 204 mg/dL (60-115)
[2023-10-29] MEDS: Carbidopa/Levodopa 25/100 TABLET 2 TAB PO ×2 (16:14→22:20)
[2023-10-29] MEDS: 0.9 % Sodium Chloride Flush 3 ML SYRINGE IVFLUSH ×2 (16:15→22:26)
[2023-10-29] MEDS: Insulin Lispro 100 UNIT/ML 3 ML VIAL SUBCUT (16:15)
[2023-10-29 20:51] LABS: Glucose, Whole Blood 71 mg/dL (60-115)
[2023-10-29] MEDS: traMADoL HCL 50 MG TABLET PO (22:20)
[2023-10-29] MEDS: Doxazosin Mesylate 2 MG TABLET 4 MG PO (22:21)
[2023-10-29] MEDS: Atorvastatin Calcium 10 MG TABLET PO (22:23)
[2023-10-29] MEDS: Docusate Sodium 100 MG CAPSULE PO (22:23)
[2023-10-30] VITALS (11 sets, daily range): BP systolic 98–139; BP diastolic 55–67; PULSE 71–105; RESP 16–24; TEMP 36.3–36.7; O2SAT 90–98
[2023-10-30] MEDS: Acetaminophen 325 MG TABLET 650 MG PO ×3 (01:53→22:46)
[2023-10-30] MEDS: Carbidopa/Levodopa 25/100 TABLET 2 TAB PO ×5 (04:51→22:51)
[2023-10-30] MEDS: traMADoL HCL 50 MG TABLET PO (05:27)
[2023-10-30 06:35] LABS: Alanine Aminotransferase < 5 U/L (0-40); Albumin Level 3.4 g/dL (3.5-5.0); Alkaline Phosphatase 140 U/L (39-117); Anion Gap 14 (12-20); Aspartate Amino Transferase 17 U/L (5-37); Bilirubin Total 0.5 mg/dL (0.0-1.0); Blood Urea Nitrogen 50 mg/dL (9-16); Calcium 8.6 mg/dL (8.4-10.2); Carbon Dioxide 29 mmol/L (22-29); Chloride 106 mmol/L (96-108); Creatinine Clr Calc Pharmacy 45.2; Estimated Glomerular Filt Rate 43; Glucose Random 77 mg/dL (60-115); Potassium 4.5 mmol/L (3.3-5.1); Sodium 144 mmol/L (135-145); Total Protein 5.8 g/dL (6.5-8.0)
[2023-10-30 07:42] LABS: Glucose, Whole Blood 89 mg/dL (60-115)
[2023-10-30] MEDS: amLODIPine Besylate 10 MG TABLET PO (08:26)
[2023-10-30] MEDS: 0.9 % Sodium Chloride Flush 3 ML SYRINGE IVFLUSH ×3 (08:26→22:51)
[2023-10-30] MEDS: Aspirin 81 MG TAB.CHEW PO (08:27)
[2023-10-30] MEDS: Docusate Sodium 100 MG CAPSULE PO ×2 (08:28→22:46)
[2023-10-30] MEDS: Furosemide 40 MG/4 ML VIAL IVPUSH (08:30)
[2023-10-30] MEDS: Multivitamin TABLET 1 TAB PO (08:31)
[2023-10-30] MEDS: Isosorbide Mononitrate 30 MG TAB.ER.24H PO (08:31)
--- NOTE | 2023-10-30 11:03 | HO.PM.IMPN ---
Subjective Subjective Date of Service: 10/30/23 Interval History: Being followed for shortness of breath related to acute on chronic heart failure Physical Exam Vital Signs: Vital Signs: Last Vital Signs Temp 97.5 F 10/30/23 08:00 Pulse 96 10/30/23 08:00 Resp 24 H 10/30/23 08:00 BP 138/57 L 10/30/23 08:31 Pulse Ox 90 L 10/30/23 08:00 O2 Del Method Oxymask 10/30/23 08:00 O2 Flow Rate 5 10/30/23 08:00 BMI result Body Mass Index 29.2 Const: Other: Constitutional: Alert, in no distress, constantly moving ( says that is part of parkinson) Mental Status: Oriented to self Respiratory: decrease breath sounds at bases Cardiovascular: S1 S2, iregular iregular. No murmurs, rubs or gallops. 1+ leg edema Gastrointestinal: Abdomen soft, non-tender, non-distended. Normal bowel sounds.? Neurologic: Cranial nerves II-XII grossly intact. No focal neurological deficits. Moves all extremities spontaneously, parkinsonian movments Skin: No rashes or lesions.? Musculoskeletal: No cyanosis or clubbing. Psychiatric: flat affect Objective Data Active Medications Acetaminophen (Acetaminophen 325 Mg Tablet) 650 mg PO Q6H PRN PRN Reason: Pain, Mild (Pain Scale 1-3), fever or headache Last Admin: 10/30/23 08:32 Dose: 650 mg Documented By: VANESSA Albuterol Sulfate (Albuterol Sulfate 90 Mcg 8 Gm Inhaler) 2 puff INHALE Q4H PRN PRN Reason: Wheezing Amlodipine Besylate (Amlodipine Besylate 10 Mg Tablet) 10 mg PO DAILY [facility]; Protocol Last Admin: 10/30/23 08:26 Dose: 10 mg Documented By: VANESSA Aspirin (Aspirin 81 Mg Tab.Chew) 81 mg PO DAILY [facility] Last Admin: 10/30/23 08:27 Dose: 81 mg Documented By: VANESSA Atorvastatin Calcium (Atorvastatin Calcium 10 Mg Tablet) 10 mg PO BEDTIME [facility] Last Admin: 10/29/23 22:23 Dose: 10 mg Documented By: FABIANA Bisacodyl (Bisacodyl 10 Mg Supp.Rect) 10 mg SC DAILY PRN PRN Reason: Constipation Calcium Carbonate (Calcium Carbonate 750 Mg Tab.Chew) 750 mg PO Q4H PRN PRN Reason: Heartburn Carbidopa/Levodopa (Carbidopa/Levodopa 25/100 Tablet) 2 tab PO 5XD [facility] Last Admin: 10/30/23 04:51 Dose: 2 tab Documented By: OKSANA Docusate Sodium (Docusate Sodium 100 Mg Capsule) 100 mg PO BID [facility] Last Admin: 10/30/23 08:28 Dose: 100 mg Documented By: VANESSA Doxazosin Mesylate (Doxazosin Mesylate 2 Mg Tablet) 4 mg PO BEDTIME [facility]; Protocol Last Admin: 10/29/23 22:21 Dose: 4 mg Documented By: FABIANA Famotidine (Famotidine 20 Mg Tablet) 20 mg PO DAILY PRN PRN Reason: Heartburn Furosemide (Furosemide 40 Mg/4 Ml Vial) 40 mg IVPUSH DAILY [facility]; Protocol Last Admin: 10/30/23 08:30 Dose: 40 mg Documented By: VANESSA Glucose (Glucose Gel 15 Gm Gel..Gram.) 15 gm PO Q15M PRN; Protocol PRN Reason: per Hypoglycemia Standing Ord. Heparin Sodium (Porcine) (Heparin Sodium,Porcine 5,000 Unit/Ml Vial) 5,000 unit SUBCUT Q8H [facility] Last Admin: 10/30/23 03:54 Dose: Not Given Documented By: OKSANA Non-Admin Reason: prev shift Dextrose (D10) 250 mls @ 750 mls/hr IV Q15M PRN; Protocol PRN Reason: per Hypoglycemia Standing Ord. Insulin Human Lispro (Insulin Lispro 100 Unit/Ml 3 Ml Vial) 0 unit SUBCUT QIDACHS [facility]; Protocol Last Admin: 10/30/23 08:26 Dose: Not Given Documented By: VANESSA Non-Admin Reason: No Insulin Coverage Isosorbide Mononitrate (Isosorbide Mononitrate 30 Mg Tab.Er.24h) 30 mg PO DAILY [facility]; Protocol Last Admin: 10/30/23 08:31 Dose: 30 mg Documented By: VANESSA Lidocaine (Lidocaine 4 % Patch Adh..Patch) 0.5 patch TRANSDERMA DAILY [facility]; Protocol Magnesium Hydroxide (Milk Of Magnesia 30 Ml Oral.Susp) 30 ml PO DAILY PRN PRN Reason: Constipation Melatonin (Melatonin 3 Mg Tablet) 6 mg PO BEDTIME PRN PRN Reason: Insomnia Morphine Sulfate (Morphine Sulfate 2 Mg/Ml Cartridge) 1 mg IVPUSH Q6H PRN; Protocol PRN Reason: Pain, Severe (Pain Scale 7-10) Multivitamins/Vitamin C (Multivitamin Tablet) 1 tab PO DAILY [facility] Last Admin: 10/30/23 08:31 Dose: 1 tab Documented By: VANSESA Polyethylene Glycol (Polyethylene Glycol 3350 17 Gm Powd.Pack) 17 gm PO DAILY PRN PRN Reason: Constipation Sodium Biphosphate/Sodium Phosphate (Sodium Phosphate,[place]-Dibasic 133 Ml Enema) 118 ml SC DAILY PRN PRN Reason: Constipation Sodium Chloride (0.9 % Sodium Chloride Flush 3 Ml Syringe) 3 ml IVFLUSH QSHIFT [facility] Last Admin: 10/30/23 08:26 Dose: 3 ml Documented By: VANESSA Tramadol HCl (Tramadol Hcl 50 Mg Tablet) 50 mg PO BEDTIME [facility] Last Admin: 10/29/23 22:20 Dose: 50 mg Documented By: FABIANA Labs 10/29/23 06:33 10/30/23 05:45 Labs: Laboratory Results - last 24 hr 10/29/23 10/29/23 10/29/23 12:42 16:00 20:46 Anion Gap Estim Creat Clear Calc Estimated GFR POC Glucose 117 H 204 H 71 Random Glucose Calcium Total Bilirubin AST ALT Alkaline Phosphatase Total Protein Albumin 10/30/23 10/30/23 05:45 07:37 Anion Gap 14 Estim Creat Clear Calc 45.2 Estimated GFR 43 POC Glucose 89 Random Glucose 77 Calcium 8.6 Total Bilirubin 0.5 AST 17 ALT < 5 Alkaline Phosphatase 140 H Total Protein 5.8 L Albumin 3.4 L Microbiology Microbiology Results: Microbiology 10/29/23 06:33 Blood Culture - Preliminary Blood - Venous No growth after 24 hours. 10/29/23 06:29 Blood Culture - Preliminary Blood - Venous No growth after 24 hours. Assessment and Plan (1) Pleural effusion, bilateral: Status: Acute (2) Congestive heart failure: Status: Acute Plan 83/m with HFpEF, PAF not anticoagulated, agg-xjhsatz-kybqiwglj diabetes mellitus, Parkinson's disease, hypertension being admitted for acute hypoxic resp failure due to acute exacerbation of CHF Acute hypoxemic respiratory failure d/t CHF, -Oxygen to keep O2 sat 92 to 94, he's becoming hypoxic and O2 needed to adjusted -treat underlying CHF and P. effusion --consider tap if persistent after diuresis Acute on chronic exacerbation HFpEF -IV Lasix -Monitor I/O, weight -low salt diet -consider cardiology consult PAF--not anticoagulated, rate seems to be controlled,. says he has had major bleding in past on coumadin KEE on CKD--likely due to cardiorenal syndrome, creatinine is slightly down Hypertension: resume home med after med rec Parkinson's disease: continue Sinemet home dose. Bjs-ajxzukp-sdgpthzaq diabetes mellitus, no hyperglycemia. Add SSI, hold metformin in light of KEE, diabetic diet. HLD--statin Chronic back pain, he takes tramadol at home doesn't seem to be working, adding IV morphine, lidocaine patch DVT prophylaxis: heparin DNR/DNI. Admission for at least 2 midnights for management of KEE, acute heart failure with diuretics, and hypoxia needing O2 Quality Stroke Does the patient have a stroke diagnosis?: No VTE Prior VTE?: No VTE Risk Level:: Medical - moderate - high VTE Device Contraindication: N/A - Device Ordered VTE Drug Contraindication: N/A - Med Ordered
--- NOTE | 2023-10-30 11:22 | P.ACPN_ITS ---
Advanced Care Planning Note Advanced Care Planning Note Time spent (in minutes): 20 Narrative: I had a goals of care conversation with the patient?s , discussing the frequent hospitalizations for similar presentations and the overall decline in his condition. This includes decreased quality of life due to Parkinson?s disease, chronic pain, heart failure, and cognitive impairment. She believes that focusing on comfort is the right plan of care and, therefore, thinks hosp ice is the appropriate course of action. We will arrange for his return to [facility] under hospice care tomorrow. Problems Discussed (1) Pleural effusion, bilateral: (2) Congestive heart failure:
[2023-10-30 11:53] LABS: Glucose, Whole Blood 118 mg/dL (60-115)
[2023-10-30] MEDS: Heparin Sodium,Porcine 5,000 UNIT/ML VIAL 5000 UNIT SUBCUT ×2 (12:48→17:53)
[2023-10-30] MEDS: Lidocaine 4 % Patch ADH..PATCH 0.5 PATCH TRANSDERMA (12:49)
--- NOTE | 2023-10-30 13:33 | MHC.CM.PN ---
IMM 10/30/23, pt [facility], he will return there and use Hospice services. His is HCP and signed IMM. She said her choice is to use [facility], referral sent. DANNY spoke with Mya Calvert at the [facility], faxed notes to [phone], with the DCP: to [place] 10/31/23 back to [facility] with hospice services.
[2023-10-30 16:19] LABS: Glucose, Whole Blood 151 mg/dL (60-115)
[2023-10-30] MEDS: Insulin Lispro 100 UNIT/ML 3 ML VIAL SUBCUT (17:51)
[2023-10-30] MEDS: Morphine Sulfate 2 MG/ML CARTRIDGE IVPUSH (18:08)
[2023-10-30 21:16] LABS: Glucose, Whole Blood 80 mg/dL (60-115)
[2023-10-30] MEDS: Melatonin 3 MG TABLET 6 MG PO (22:45)
[2023-10-30] MEDS: Atorvastatin Calcium 10 MG TABLET PO (22:46)
[2023-10-30] MEDS: LORazepam 2 MG/ML VIAL 0.5 MG IVPUSH (22:58)
[2023-10-31] VITALS: PULSE 102; RESP 20; O2SAT 96
[2023-10-31] MEDS: Heparin Sodium,Porcine 5,000 UNIT/ML VIAL 5000 UNIT SUBCUT ×2 (01:47→08:39)
[2023-10-31 04:00] VITALS: BP 119/74; PULSE 96; RESP 20; TEMP 36.3; O2SAT 92
[2023-10-31] MEDS: Morphine Sulfate 2 MG/ML CARTRIDGE IVPUSH ×4 (04:21→17:54)
[2023-10-31] MEDS: Carbidopa/Levodopa 25/100 TABLET 2 TAB PO ×4 (06:18→17:53)
[2023-10-31 06:49] LABS: Alanine Aminotransferase < 5 U/L (0-40); Albumin Level 3.6 g/dL (3.5-5.0); Alkaline Phosphatase 133 U/L (39-117); Anion Gap 14 (12-20); Aspartate Amino Transferase 17 U/L (5-37); Bilirubin Total 0.5 mg/dL (0.0-1.0); Blood Urea Nitrogen 53 mg/dL (9-16); Calcium 8.8 mg/dL (8.4-10.2); Carbon Dioxide 27 mmol/L (22-29); Chloride 106 mmol/L (96-108); Estimated Glomerular Filt Rate 33; Glucose Random 83 mg/dL (60-115); Potassium 4.9 mmol/L (3.3-5.1); Sodium 142 mmol/L (135-145); Total Protein 6.1 g/dL (6.5-8.0)
[2023-10-31 07:24] LABS: Glucose, Whole Blood 89 mg/dL (60-115)
[2023-10-31 08:00] VITALS: BP 110/60; PULSE 86; RESP 20; TEMP 36.5; O2SAT 96
[2023-10-31] MEDS: 0.9 % Sodium Chloride Flush 3 ML SYRINGE IVFLUSH (08:38)
[2023-10-31] MEDS: Furosemide 40 MG/4 ML VIAL IVPUSH (08:39)
[2023-10-31] MEDS: Aspirin 81 MG TAB.CHEW PO (08:39)
[2023-10-31] MEDS: amLODIPine Besylate 10 MG TABLET PO (08:39)
[2023-10-31] MEDS: Isosorbide Mononitrate 30 MG TAB.ER.24H PO (08:39)
[2023-10-31] MEDS: Docusate Sodium 100 MG CAPSULE PO (08:40)
[2023-10-31] MEDS: Lidocaine 4 % Patch ADH..PATCH 0.5 PATCH TRANSDERMA (08:40)
[2023-10-31] MEDS: Multivitamin TABLET 1 TAB PO (08:40)
--- NOTE | 2023-10-31 09:27 | PM.DS ---
DS: Providers Provider Date of Service: 11/01/23 Date of admission: 10/29/23 08:55 Primary care physician: Unknown Physician DS: Diagnosis Discharge Diagnosis (1) Pleural effusion, bilateral: Status: Acute (2) Congestive heart failure: Status: Acute DS: Summary Hospital Course Hospital Course: admission hpi Chief Complaint: Hypoxia, SOB An 83-year-old male with a history of congestive heart failure with preserved ejection fraction (HFpEF), recent echocardiogram (10/03/23) showing an EF of 50-55%, permanent atrial fibrillation not on anticoagulation, ihj-acxkojv-wvdgjkuyr diabetes mellitus, Parkinson's disease, and hypertension presented from the [facility] for evaluation of acute hypoxic respiratory failure. Recent hospitalization from 09/30 to 10/03/23 for cardiorenal syndrome, dehydration. He was found to be severely hypoxic with an oxygen saturation [id number] 72% on room air, which increased to 90% after administration of 6 L/min by nasal cannula and further to 96% after 15 L/min by non-rebreather mask (NRB). The patient reported experiencing some back pain but did not have shortness of breath. He exhibited significant leg edema. Laboratory and imaging results showed an elevated creatinine, chest X-ray (CXR) indicating pulmonary vascular congestion and bilateral effusions, a BNP level of 760, and a normal arterial blood gas (ABG). In the Emergency Department (ED), he was initially given intravenous fluids (IVF), which were then stopped, and subsequently received intravenous Lasix (Furosemide). The patient appeared more comfortable following this treatment. Hospital course: This patient with a history of HFpEF (Heart Failure with preserved Ejection Fraction), PAF (Paroxysmal Atrial Fibrillation) not anticoagulated, mob-judiydn-josnjfmnp diabetes mellitus, advanced Parkinson's disease with cognitive decline, hypertension, and recurrent hospitalizations presented with shortness of breath and was found to have acute on chronic heart failure complicated by acute hypoxic respiratory failure and KEE (Acute Kidney Injury). The patient was initiated on IV diuretics, but despite this, his oxygen requirements have remained high and have been increasing. He has also become more agitated and restless. After further discussion with his and health care proxy, it was noted that the patient has been experiencing a continuing decline with reduced quality of life, worsening Parkinson's symptoms, and chronic pain. At this juncture, his believes the patient would prefer comfort treatment given his condition. She was relieved to hear that hospice care/comfort care was a treatment option and believes he would prefer returning to the [facility]. The patient has therefore been treated with morphine and Ativan for comfort, in addition to other treatments, and arrangements are being made to return him to the [facility]. Time Attestation Discharge Coordination Time (in mins): 40 Quality: Safe Use of Opioids Does Pt have an Active Cancer Diagnosis on the Problem List?: No Quality: Stroke Does the patient have a stroke diagnosis?: No Physical Exam Vital Signs: Awake, alert, no distress, seems more comfortable DS: Data Data Completed and Pending Completed studies during hospitalization [Text1]: Procedures Assistance with Respiratory Ventilation, Less than 24 Consecutive Hours, Continuous Positive Airway Pressure (10/01/23) Drainage of Left Pleural Cavity, Percutaneous Approach (10/01/23) Labs on day of discharge: Laboratory Results - last 24 hr 10/30/23 10/30/23 10/30/23 11:46 16:11 21:08 Hold Purple Top Sodium Potassium Chloride Carbon Dioxide Anion Gap BUN Creatinine Estim Creat Clear Calc Estimated GFR POC Glucose 118 H 151 H 80 Random Glucose Calcium Total Bilirubin AST ALT Alkaline Phosphatase Total Protein Albumin 10/31/23 10/31/23 05:44 07:14 Hold Purple Top SEE NOTE Sodium 142 Potassium 4.9 Chloride 106 Carbon Dioxide 27 Anion Gap 14 BUN 53 H Creatinine 1.95 H Estim Creat Clear Calc 36.0 Estimated GFR 33 POC Glucose 89 Random Glucose 83 Calcium 8.8 Total Bilirubin 0.5 AST 17 ALT < 5 Alkaline Phosphatase 133 H Total Protein 6.1 L Albumin 3.6 Preliminary micro results at discharge 10/29/23 06:33 Blood Culture - Preliminary Blood - Venous No growth after 48 hours. 10/29/23 06:29 Blood Culture - Preliminary Blood - Venous No growth after 48 hours. 10/29/23 Unknown Urine Culture - Preliminary Urine clean catch - Clean Catch Midstream Culture too young to evaluate. Discharge Plan Discharge Anticipated Discharge Date/Time: 11/01/23 12:33 Patient Disposition: Xfer SNF Discharge Diagnosis: Acute hypoxic respiratory failure due to CHF, KEE, worsening parkinson symptoms, Referrals: [facility] [Other] - 1 Week [facility] [Outside] - 1 Week Physician,Unknown J [Primary Care Provider] - 1 Week Discharge Medications: New morphine concentrate 100 mg/5 mL (20 mg/mL) solution 5 mg PO Q3H PRN (Reason: pain/comfort) 15 Days Qty: 30 0RF Rx Instructions: Partial Fill upon patient request. scopolamine base 1 mg over 3 days patch 3 day 1 patch transdermal Q72H 12 Days Qty: 4 0RF Rx Instructions: 1 patch behind ear Q72H for secretions lorazepam [Lorazepam Intensol] 2 mg/mL concentrate 0.5 mg PO Q4H PRN (Reason: anxiety/restlessness) Qty: 30 0RF Discontinued simvastatin 20 mg tablet 1 tab PO BEDTIME doxazosin 4 mg tablet 1 tab PO BEDTIME carbidopa-levodopa 25-100 mg tablet 2 tab PO 5XD Rx Instructions: @0600, 0900, 1200, 1500, 1800 multivitamin Tablet 1 tab PO DAILY ondansetron HCl 4 mg Tablet 4 mg PO Q8H PRN (Reason: Nausea) melatonin 3 mg Tablet 3 mg PO BEDTIME tramadol 50 mg Tablet 50 mg PO BEDTIME albuterol sulfate 90 mcg/actuation Hfa Aerosol Inhaler 2 puff INHALATION Q4H PRN (Reason: Wheezing) furosemide 40 mg tablet 40 mg PO DAILY Rx Instructions: TDD: 60 mg metformin 500 mg tablet 500 mg PO BID acetaminophen 325 mg Tablet 650 mg PO Q4H PRN (Reason: pain or fever) isosorbide mononitrate 30 mg tablet extended release 24 hr 30 mg PO DAILY famotidine 20 mg Tablet 20 mg PO BID PRN (Reason: Heartburn) magnesium hydroxide [Milk of Magnesia] 400 mg/5 mL Suspension 30 ml PO BEDTIME PRN (Reason: Constipation) Rx Instructions: for no bowel movement in 3 days and no stool in rectum amlodipine 10 mg tablet 10 mg PO DAILY bisacodyl 10 mg Suppository 10 mg IA DAILY PRN (Reason: Constipation) Rx Instructions: for no bowel movement in 3 days and soft stool in rectum Fleet Enema 19-7 gram/118 mL Enema 118 ml IA DAILY PRN (Reason: Constipation) Rx Instructions: for no bowel movement in 3 days and hard stool in rectum docusate sodium 100 mg Capsule 100 mg PO BID aspirin 81 mg Tablet,Chewable 81 mg PO DAILY furosemide 20 mg Tablet 20 mg PO DAILY Patient Comments: TDD: 60 mg Discharge Orders: Discharge Order (Routine); Ordered 11/01/23 Ordered By: Mina Salcedo Diet: Advance to usual diet Activity on Discharge: As tolerated Stand Alone Forms: Patient Portal Discharge page Print Language: Greenlandic Care Plan Goals: Comfort measure only, end of life care and dignity of life Health Concerns: Worsening parkinson Acute hypoxic respiratory failure CHF exacerbation metabolic encephalopathy Plan of Treatment: Comfort measures only morphine and ativan for comfort Assessment: see above
--- NOTE | 2023-10-31 10:42 | P.CDIM_ITS ---
PROVIDER RESPONSE TEXT: To clarify, the appropriate diagnosis supported by the clinical indicators: CKD, please provide stage: 3b QUERY TEXT: PHYSICIAN'S DOCUMENTATION REQUEST Date of Query: 10/31/2023 08:18 AM EDT Patient Name: Mina Huang Admit Date: 10/29/2023 Dear [facility], A review of the medical record indicates additional documentation may be needed. Please review below and update the documentation accordingly. Clinical Indicators: Progress note within the Plan: KEE on CKD - likely due to cardiorenal syndrome, creatinine is slightl y down. Cr 1.55 Gfr 42 Please clarify which of the following accurately represents the stage of the noted CKD, if known: CKD, please provide stage 1, 2, 3a, 3b, 4 Other (explain) Clinically unable to determine (explain) Thank you, Luzmaria Haley, CCS, CDIS Use of terms such as suspected, likely, concern for, or probable (associated with a specific diagnosi s that is being evaluated, monitored, or treated as if it exists) are acceptable and can be coded in the inpatient se tting, when documented at the time of discharge. Please use your independent medical judgment in providing your response. THIS QUERY IS PART OF THE PERMANENT MEDICAL RECORD
[2023-10-31 11:28] VITALS: BP 105/74; PULSE 88; RESP 20; TEMP 36.9; O2SAT 92
--- NOTE | 2023-10-31 11:37 | HO.PM.IMPN ---
Subjective Subjective Date of Service: 10/31/23 Interval History: Being followed for shortness of breath related to acute on chronic heart failure, worsening parkinson symptoms, chronic back with acue component, confusion and agitation required ativan, morphine for comfort, and eventually had sitter. I discussed hospice care with yesterday, [facility] Physical Exam Vital Signs: Vital Signs: Last Vital Signs Temp 98.4 F 10/31/23 11:28 Pulse 88 10/31/23 11:28 Resp 20 10/31/23 11:28 BP 105/74 10/31/23 11:28 Pulse Ox 92 10/31/23 11:28 O2 Del Method Oxymask 10/31/23 11:28 O2 Flow Rate 7 10/31/23 11:28 BMI result Body Mass Index 29.2 agitated, confused, seems uncomfortable. Objective Data Active Medications Acetaminophen (Acetaminophen 325 Mg Tablet) 650 mg PO Q6H PRN PRN Reason: Pain, Mild (Pain Scale 1-3), fever or headache Last Admin: 10/30/23 22:46 Dose: 650 mg Documented By: SHARON Albuterol Sulfate (Albuterol Sulfate 90 Mcg 8 Gm Inhaler) 2 puff INHALE Q4H PRN PRN Reason: Wheezing Amlodipine Besylate (Amlodipine Besylate 10 Mg Tablet) 10 mg PO DAILY [facility]; Protocol Last Admin: 10/31/23 08:39 Dose: 10 mg Documented By: RICHARD Aspirin (Aspirin 81 Mg Tab.Chew) 81 mg PO DAILY [facility] Last Admin: 10/31/23 08:39 Dose: 81 mg Documented By: RICHARD Atorvastatin Calcium (Atorvastatin Calcium 10 Mg Tablet) 10 mg PO BEDTIME [facility] Last Admin: 10/30/23 22:46 Dose: 10 mg Documented By: SHARON Bisacodyl (Bisacodyl 10 Mg Supp.Rect) 10 mg MS DAILY PRN PRN Reason: Constipation Calcium Carbonate (Calcium Carbonate 750 Mg Tab.Chew) 750 mg PO Q4H PRN PRN Reason: Heartburn Carbidopa/Levodopa (Carbidopa/Levodopa 25/100 Tablet) 2 tab PO 5XD [facility] Last Admin: 10/31/23 08:39 Dose: 2 tab Documented By: RICHARD Docusate Sodium (Docusate Sodium 100 Mg Capsule) 100 mg PO BID [facility] Last Admin: 10/31/23 08:40 Dose: 100 mg Documented By: RICHARD Doxazosin Mesylate (Doxazosin Mesylate 2 Mg Tablet) 4 mg PO BEDTIME [facility]; Protocol Last Admin: 10/30/23 22:49 Dose: Not Given Documented By: SHARON Non-Admin Reason: bp 102/60 but getting ativan also per Famotidine (Famotidine 20 Mg Tablet) 20 mg PO DAILY PRN PRN Reason: Heartburn Furosemide (Furosemide 40 Mg/4 Ml Vial) 40 mg IVPUSH DAILY [facility]; Protocol Last Admin: 10/31/23 08:39 Dose: 40 mg Documented By: RICHARD Glucose (Glucose Gel 15 Gm Gel..Gram.) 15 gm PO Q15M PRN; Protocol PRN Reason: per Hypoglycemia Standing Ord. Heparin Sodium (Porcine) (Heparin Sodium,Porcine 5,000 Unit/Ml Vial) 5,000 unit SUBCUT Q8H [facility] Last Admin: 10/31/23 08:39 Dose: 5,000 unit Documented By: RICHARD Dextrose (D10) 250 mls @ 750 mls/hr IV Q15M PRN; Protocol PRN Reason: per Hypoglycemia Standing Ord. Insulin Human Lispro (Insulin Lispro 100 Unit/Ml 3 Ml Vial) 0 unit SUBCUT QIDACHS [facility]; Protocol Last Admin: 10/31/23 11:31 Dose: Not Given Documented By: LILI Non-Admin Reason: No Insulin Coverage Isosorbide Mononitrate (Isosorbide Mononitrate 30 Mg Tab.Er.24h) 30 mg PO DAILY [facility]; Protocol Last Admin: 10/31/23 08:39 Dose: 30 mg Documented By: RICHARD Lidocaine (Lidocaine 4 % Patch Adh..Patch) 0.5 patch TRANSDERMA DAILY [facility]; Protocol Last Admin: 10/31/23 08:40 Dose: 0.5 patch Documented By: RICHARD Lorazepam (Lorazepam 2 Mg/Ml Vial) 1 mg IVPUSH Q6H PRN PRN Reason: anxiety/restlessness Magnesium Hydroxide (Milk Of Magnesia 30 Ml Oral.Susp) 30 ml PO DAILY PRN PRN Reason: Constipation Melatonin (Melatonin 3 Mg Tablet) 6 mg PO BEDTIME PRN PRN Reason: Insomnia Last Admin: 10/30/23 22:45 Dose: 6 mg Documented By: SHARON Morphine Sulfate (Morphine Sulfate 2 Mg/Ml Cartridge) 2 mg IVPUSH Q2H PRN; Protocol PRN Reason: Pain, Severe (Pain Scale 7-10) Last Admin: 10/31/23 11:27 Dose: 2 mg Documented By: LILI Multivitamins/Vitamin C (Multivitamin Tablet) 1 tab PO DAILY [facility] Last Admin: 10/31/23 08:40 Dose: 1 tab Documented By: RICHARD Polyethylene Glycol (Polyethylene Glycol 3350 17 Gm Powd.Pack) 17 gm PO DAILY PRN PRN Reason: Constipation Sodium Biphosphate/Sodium Phosphate (Sodium Phosphate,[place]-Dibasic 133 Ml Enema) 118 ml MS DAILY PRN PRN Reason: Constipation Sodium Chloride (0.9 % Sodium Chloride Flush 3 Ml Syringe) 3 ml IVFLUSH QSHIFT [facility] Last Admin: 10/31/23 08:38 Dose: 3 ml Documented By: RICHARD Labs 10/29/23 06:33 10/31/23 05:44 Labs: Laboratory Results - last 24 hr 10/30/23 10/30/23 10/30/23 11:46 16:11 21:08 Hold Purple Top Anion Gap Estim Creat Clear Calc Estimated GFR POC Glucose 118 H 151 H 80 Random Glucose Calcium Total Bilirubin AST ALT Alkaline Phosphatase Total Protein Albumin 10/31/23 10/31/23 05:44 07:14 Hold Purple Top SEE NOTE Anion Gap 14 Estim Creat Clear Calc 36.0 Estimated GFR 33 POC Glucose 89 Random Glucose 83 Calcium 8.8 Total Bilirubin 0.5 AST 17 ALT < 5 Alkaline Phosphatase 133 H Total Protein 6.1 L Albumin 3.6 Microbiology Microbiology Results: Microbiology 10/29/23 Unknown Urine Culture - Preliminary Urine clean catch - Clean Catch Midstream Yeast 10/29/23 06:33 Blood Culture - Preliminary Blood - Venous No growth after 48 hours. 10/29/23 06:29 Blood Culture - Preliminary Blood - Venous No growth after 48 hours. Assessment and Plan (1) Pleural effusion, bilateral: Status: Acute (2) Congestive heart failure: Status: Acute Plan This patient with a history of HFpEF (Heart Failure with preserved Ejection Fraction), paroxysmal atrial fibrillation (PAF) not anticoagulated, [id number] diabetes mellitus, advanced Parkinson's disease with cognitive decline, hypertension, and recurrent hospitalizations, presented with shortness of breath and was found to have acute on chronic heart failure complicated by acute hypoxic respiratory failure and acute kidney injury (KEE). The patient was initiated on IV diuretics, and despite this, his oxygen requirement has persisted and increased. He has become more agitated and restless. Upon further discussion with his and healthcare proxy, it was noted that the patient has experienced continuing decline, reduced quality of life, worsening Parkinson?s symptoms, and chronic pain. At this juncture, she believes the patient would prefer comfort treatment and was relieved to hear that hospice care/comfort care was an option. She further believes he would prefer returning to the [facility]. Therefore, in addition to other treatments, the patient has been managed with morphine and Ativan for comfort. Arrangements are being made for him to return to the [facility] by tomorrow. DVT prophylaxis: heparin DNR/DNI. need for inpatient: management of acute hypoxia, chf, confusion d/t metabolic encephalopath, failure to thrive and now hospice/comfort care Quality Stroke Does the patient have a stroke diagnosis?: No VTE Prior VTE?: No VTE Risk Level:: Medical - moderate - high VTE Device Contraindication: N/A - Device Ordered VTE Drug Contraindication: N/A - Med Ordered
[2023-10-31 11:38] LABS: Glucose, Whole Blood 123 mg/dL (60-115)
[2023-10-31] MEDS: LORazepam 2 MG/ML VIAL 1 MG IVPUSH ×2 (12:00→19:46)
--- NOTE | 2023-10-31 15:29 | MHC.CM.PN ---
Addendum entered by Angelic Silva 10/31/23 15:38: Per [facility] they are able to admit him to hospice tomorrow 10/31 at the [facility]. Original Note: Pt will discharge tomorrow 10/31 back to the [facility] with [facility]. Pt will discharge there via BLS. This CM spoke with pts /HCP Gisele, she is aware and in agreement with discharge plan.
--- NOTE | 2023-10-31 18:01 | PC.NURSE ---
Pt. transferred from [facility] this evening, increased movement in bed and fidgeting with stuff, IV morphine given, also pt. was able to take his pills whole with apple sauce.
[2023-10-31 20:00] VITALS: RESP 20
[2023-10-31 23:27] VITALS: RESP 14
[2023-11-01] MEDS: Morphine Sulfate 2 MG/ML CARTRIDGE IVPUSH ×3 (01:01→11:59)
[2023-11-01] MEDS: LORazepam 2 MG/ML VIAL 1 MG IVPUSH ×2 (01:47→09:26)
[2023-11-01 02:43] VITALS: RESP 20
--- NOTE | 2023-11-01 09:33 | MHC.CM.PN ---
IMM 11/01/23 Patient is discharged today. He will return to the [facility] via BLS. 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 [facility] will provide hospice services at the Home. Zulay nguyễn has been notified of the transport time. [facility]ANNY called the Home. Spoke with Service Station Attendant, Yefri. He is aware of the plan at discharge. A nurse 2 Nurse report will be called. The contact info has been provided for the Nurse 2 Nurse report. A VM was left for the patients re dc + transport time.
== END 2023-11-01 13:30 | disposition skilled nursing facility (03) | DRG 291 ==
LOC: HO.ED 08:02 → HO.EDOVER 09:01 → HO.IMC 13:22 → HO.S3 10-31 15:33
PROVIDERS: Internal Medicine; Admitting Provider Internal Medicine; Emergency Provider Emergency Medicine; PCP Internal Medicine; Visit Provider Internal Medicine
DX: I13.0 Hypertensive heart and chronic kidney disease with heart failure and stage 1 through stage 4 chronic kidney disease, or unspecified chronic kidney disease (principal); G93.41 Metabolic encephalopathy; I50.33 Acute on chronic diastolic (congestive) heart failure; J96.01 Acute respiratory failure with hypoxia; N17.9 Acute kidney failure, unspecified; I48.21 Permanent atrial fibrillation; N18.32 Chronic kidney disease, stage 3b; E11.22 Type 2 diabetes mellitus with diabetic chronic kidney disease; Z66 Do not resuscitate; G20.A1 Parkinson's disease without dyskinesia, without mention of fluctuations; K90.0 Celiac disease; I25.10 Atherosclerotic heart disease of native coronary artery without angina pectoris; Z20.822 Contact with and (suspected) exposure to COVID-19; Z95.1 Presence of aortocoronary bypass graft; Z87.891 Personal history of nicotine dependence; Z79.899 Other long term (current) drug therapy
CPT/HCPCS: 0241U; 36415; 71045; 80053; 81001; 82803; 82947; 83605; 83735; 83880; 84484; 85025; 85610; 85730; 87040; 87086; 87088; 93005; 99285; C1758; J0696; J1644; J1940; J2060; J2270

== ENCOUNTER → 2023-10-29 06:24 | Outpatient (BNV) | payer MEDICARE, SELFPAY | PROVIDERS: Admitting Provider Internal Medicine; Emergency Provider Emergency Medicine; Visit Provider Internal Medicine | DX: R94.31 Abnormal electrocardiogram [ECG] [EKG] (principal) | CPT/HCPCS: 93010 ==

== ENCOUNTER → 2023-10-29 08:55 | Outpatient (BNV) | payer MEDICARE, SELFPAY | PROVIDERS: Admitting Provider Internal Medicine; Emergency Provider Emergency Medicine; Visit Provider Internal Medicine | DX: I50.32 Chronic diastolic (congestive) heart failure (principal); J90 Pleural effusion, not elsewhere classified | CPT/HCPCS: 99223; 99232; 99239; 99497 ==